=== PATIENT | female | born 1940 | race Caucasian/White ===

== ENCOUNTER 2019-09-03 17:36 | Observation (INO) | payer MEDICARE, BC, SELFPAY ==
--- NOTE | ~2019-09-03 | MR_ITS ---
EXAMINATION: MR brain/brain stem wo/w con DATE: 09/04/2019 08:56 INDICATION: Transient ischemic attack. TECHNIQUE: Magnetic resonance imaging (MRI) of the brain and brainstem was performed without and with 18 mL MultiHance intravenous contrast. Sequences included sagittal and axial T1-weighted FSE, axial diffusion-weighted FS EPI, axial T2*-weighted GRE, axial T2-weighted FLAIR Propeller, and axial T2-we ighted Propeller. Postcontrast sequences included axial and coronal T1-weighted FSE. Apparent diffusi on coefficient (ADC) maps were created. COMPARISON: Head CT 09/03/2019 FINDINGS: There are scattered areas of nonspecific increased T2-weighted signal intensity in the cere bral white matter and [place]. There is no intracranial hemorrhage, acute infarction, or abnormal intrac ranial mass lesion. The ventricles are normal in size. There are likely changes of ocular lens replac ement surgeries. There is near complete opacification of right sphenoid sinus with thickening and scl erosis of the sinus kim on the prior CT, consistent with chronic sinusitis. The mastoid air cells a re normal. IMPRESSION: 1. Extensive nonspecific cerebral white matter disease and pontine disease, which likely represents c hronic small vessel ischemic disease. 2. Chronic sphenoid sinusitis. Reviewed, dictated and finalized at location A. ING SURGICAL SERVICES DIRECTOR IMPRESSION: 1. Extensive nonspecific cerebral white matter disease and pontine disease, whi ch likely represents chronic small vessel ischemic disease. 2. Chronic sphenoid sinusitis.
--- NOTE | ~2019-09-03 | XR_ITS ---
EXAMINATION: XR chest 1V portable DATE: 09/03/2019 19:00 INDICATION: Stroke symptoms with dysarthria and expressive aphasia. TECHNIQUE: frontal view of the chest was obtained. COMPARISON: Chest radiograph dated 01/25/[address] dated 02/03/2019 FINDINGS: The lungs remain clear with no focal airspace opacities, pulmonary edema, pleural effusion or pneumot horax. Heart size is normal. Tortuous thoracic aorta. Old proximal left humeral fracture deformity. M oderate thoracic spondylosis. IMPRESSION: 1. No acute cardiopulmonary disease. Reviewed, dictated and finalized at location A. CUTTING MACHINE OPERATOR
--- NOTE | ~2019-09-03 | US_ITS ---
EXAMINATION: US carotid duplex BI DATE: 09/04/2019 09:24 INDICATION: Transient ischemic attack. TECHNIQUE: Grayscale, color Doppler, and pulsed Doppler images of the cervical carotid arteries were obtained. The degree of vessel stenosis is placed in one of the following categories: normal, <50%, 5 0-69%, >=70% but less than near-occlusion, near-occlusion, or total occlusion. Note that percent sten osis relative to normal distal artery lumen diameter is indirectly measured from velocity measurement s as described by Jos, et al. Radiology 2003; 229:340-346. COMPARISON: None. FINDINGS: RIGHT: The right common carotid artery (CCA) peak systolic velocity (PSV) is 59 cm/s. The right internal car otid artery (ICA) PSV is 61 cm/s. The right ICA end-diastolic velocity (EDV) is 22 cm/s. The right IC A/CCA PSV ratio is 1.0. Grayscale and color Doppler images yield an estimate of <50% diameter reducti on from plaque in the ICA. There is antegrade flow in the right vertebral artery. LEFT: The left CCA PSV is 59 cm/s. The left ICA PSV is 61 cm/s. The left ICA EDV is 22 cm/s. The left ICA/C CA PSV ratio is 1.0. Grayscale and color Doppler images yield an estimate of <50% diameter reduction from plaque in the ICA. There is antegrade flow in the left vertebral artery. IMPRESSION: 1. <50% stenosis in the right internal carotid artery. 2. <50% stenosis in the left internal carotid artery. Reviewed, dictated and finalized at location A. LACER
--- NOTE | ~2019-09-03 | CT_ITS ---
EXAMINATION: CT brain wo con DATE: 09/03/2019 18:49 INDICATION: Dysarthria with expressive aphasia. TECHNIQUE: Computed tomography (CT) of the head was performed without intravenous contrast. Sagittal and coronal reconstructions were performed. The mA was adjusted according to patient size. Iterative reconstruction technique was employed. The dose-length product was 605.33 mGy-cm. COMPARISON: head CT dated 01/24/2018 FINDINGS: No acute intracranial hemorrhage, acute infarction or abnormal extra axial fluid collection. There is extensive scattered white matter hypoattenuation consistent with chronic small vessel ischemic disea se. Symmetric prominence of the sulci and ventricles consistent with mild age-appropriate diffuse cer ebral volume loss. No mass/mass effect. Changes of bilateral intraocular lens replacement. The orbits and mastoid air cells are normal. Persistent near complete opacification of the right sphenoid sinus with increased central attenuation and peripheral thickened sclerotic kim consistent with likely c hronic fungal sinusitis. Intracranial calcified cerebral atherosclerosis is noted. IMPRESSION: 1. No acute intracranial process. 2. Age-related changes including mild diffuse volume loss and extensive scattered white matter hypoat tenuation consistent with chronic small vessel ischemic disease. 3. Unchanged likely chronic fungal sinusitis at the right sphenoid sinus. Reviewed, dictated and finalized at location A. OMS ENTRY WRITER IMPRESSION: 1. No acute intracranial process. 2. Age-related changes including mild diffuse volume loss and extensive scatter ed white matter hypoattenuation consistent with chronic small vessel ischemic d isease. 3. Unchanged likely chronic fungal sinusitis at the right sphenoid sinus.
[2019-09-03 17:58] VITALS: BP 151/79; PULSE 65; RESP 19; TEMP 36.2; O2SAT 98
[2019-09-03 19:17] VITALS: BP 108/67; PULSE 59; RESP 21; O2SAT 96
[2019-09-03 19:33] LABS: Basophils Percent Auto 0.4 % (0.2-1.2); Eosinophils Absolute Auto 0.3 K/mm3 (0-0.3); Eosinophils Percent Auto 3.7 % (0-4.4); Hematocrit 39.4 % (37.0-47.0); Immature Granulocyte Absolute 0.01 K/mm3 (0.00-0.031); Immature Granulocyte Percent A 0.1 % (0-0.5); Lymphocytes Absolute Auto 1.93 K/mm3 (0.9-3.2); Lymphocytes Percent Auto 27.6 % (18.3-44.2); Mean Corpuscular Hemoglobin 31.8 pg (26-34); Mean Corpuscular Volume 96.3 fl (80-100); Mean Platelet Volume 11.3 fl (7.4-10.4); Monocytes Absolute Auto 0.5 K/mm3 (0.1-0.6); Monocytes Percent Auto 7.6 % (2.6-8.5); Neutrophils Absolute Auto 4.2 K/mm3 (1.3-6.7); Neutrophils Percent Auto 60.6 % (45.5-73.1); Platelet Count Result 220 k/mm3 (150-375); Red Blood Count 4.09 M/mm3 (4.2-5.4); Red Cell Distribution Width 12.1 % (11.5-14.5)
[2019-09-03 19:38] LABS: Add Urine Microscopic? YES; Appearance Urine Clear (Clear); Bacteria Urine Trace /hpf; Bilirubin Urine Negative (Negative); Color Urine Amber (Yellow); Glucose Urine UA Negative (Negative); Ketones Urine Negative (Negative); Leukocyte Esterase Ur 1+ LEU/UL (Negative); Mucus Urine Few /lpf; Nitrate Urine Negative (Negative); Protein Urine 1+ mg/dL (Negative); Specific Grav Ur 1.025 (1.001-1.035); Squamous Epithelial Cell Urine Many /hpf (Few); Urobilinogen Urine Negative mg/dL (<2.0)
[2019-09-03 19:39] LABS: Blood Urine Negative (Negative)
[2019-09-03 19:46] LABS: Blood Urea Nitrogen 22 mg/dL (7-17); Carbon Dioxide 24 mmol/L (22-30); Chloride 102 mmol/L (98-107); Estimated CRCL calculation 52 ml/min; Estimated Glomerular Filt Rate > 60; Glucose 110 mg/dL (65-105); Sodium 140 mmol/L (137-145)
--- NOTE | 2019-09-03 19:53 | ED.AMS ---
HPI - Altered Mental Status General Chief Complaint: Altered Mental Status <Karlos Srivastava MD - Last Filed: 09/03/19 20:24> Stated Complaint: NEURO <Karlos Srivastava MD - Last Filed: 09/03/19 20:24> Time Seen by Provider: 09/03/19 17:40 <Karlos Srivastava MD - Last Filed: 09/03/19 20:24> History of Present Illness HPI narrative: Patient is a 78-year-old female who presents the ER for concerns of strokelike symptoms. Patient son was speaking to her on the phone about dentist appointment that occurred earlier in the day. She had difficulty with remembering details as well as remembering her grandchildren's name as well as different letters. Patient could recite numbers on her own. Son felt patient had some mild slurred speech. This occurred at 4:30 PM. Upon arrival here patient is neurologically intact. Patient reports that she takes Eliquis chronically. She has had a TIA in the past. She is also recently been diagnosed with a PE. Patient reports that she thinks she may have been having difficulty communicating due to anxiousness and frustration. When she was speaking to the dentist office they were getting confused by what she was trying to tell them but they finally got it straightened out. She spoke with her son immediately after the conversation with the dental office and was still frustrated and feels that may have contributed to some of her difficulty speaking. She had no focal numbness or weakness in arm or leg. There is no observed facial droop. Symptoms lasted 1 hour. <Karlos Srivastava MD - Last Filed: 09/03/19 20:24> Related Data Allergies/Adverse Reactions: Allergies Allergy/AdvReac Type Severity Reaction Status Date / Time morphine Allergy Intermediate Unknown Verified 09/03/19 18:15 prednisone Allergy Unknown Other Verified 05/27/18 17:59 <Karlos Srivastava MD - Last Filed: 09/03/19 20:24> Review of Systems Review of Systems: All systems reviewed & are unremarkable except as noted in HPI and below <Karlos Srivastava MD - Last Filed: 09/03/19 20:24> Constitutional: Constitutional: Denies chills, Denies fever(s) and Denies weakness <Karlos Srivastava MD - Last Filed: 09/03/19 20:24> ENT: Denies nasal congestion and Denies sore throat <Karlos Srivastava MD - Last Filed: 09/03/19 20:24> PMFSH Past Medical History Medical History: Medical History (Updated 09/03/19 @ 20:24 by Karlos Srivastava MD) Coronary artery disease Diabetes type 2, controlled Hyperlipidemia Hypertension Memory impairment Neuropathy Pulmonary embolism <Karlos Srivastava MD - Last Filed: 09/03/19 20:24> Surgical History Surgical History: Surgical History (Updated 09/03/19 @ 20:11 by Karlos Srivastava MD) H/O cardiac catheterization History of left knee replacement Liver transplanted <Karlos Srivastava MD - Last Filed: 09/03/19 20:24> Social History Social History: Social History (Updated 09/03/19 @ 20:11 by Karlos Srivastava MD) Social History: Non-smoker Gender identity (if verbalized by the patient): Female <Karlos Srivastava MD - Last Filed: 09/03/19 20:24> Exam Narrative: Exam Narrative: GENERAL: Well-appearing, well-nourished, and in no acute distress. HEAD: Normocephalic, atraumatic. EYES: PERRLA and EOMI. ENT: Mucous membranes moist. CHEST: Clear to auscultation. No respiratory distress. HEART: Regular rate and rhythm. Normal peripheral pulses. ABDOMEN: Soft, nontender, nondistended. EXTREMITIES: Normal range of motion. No edema. SKIN: Warm, dry, no rash. NEURO: No upper or lower extremity drift. Cranial nerves II through XII intact. Sensation intact. No dysarthria, no expressive aphasia. Alert and oriented x3. <Karlos Srivastava MD - Last Filed: 09/03/19 20:24> Course Course Emergency Course: Patient and family informed of results. Would feel more comfortable being evaluated in the hospita., will contact hospitalist se
[2019-09-03 19:57] LABS: Troponin I < 0.012 ng/mL (0.000-0.034)
--- NOTE | 2019-09-03 20:31 | ECG_ITS ---
Measurements Intervals [place] Rate: 54 P: 51 AR: 173 QRS: -43 QRSD: 125 T: 28 QT: 426 QTc: 405 Interpretive Statements SINUS BRADYCARDIA LEFT AXIS DEVIATION RIGHT BUNDLE BRANCH BLOCK ABNORMAL ECG Electronically Signed On 09-04-2019 6:50:29 BOX OFFICE CLERK by Alberto Coleman D.O.
[2019-09-03 20:47] VITALS: BP 120/54; PULSE 53; RESP 14; O2SAT 100
[2019-09-03 21:18] VITALS: BP 122/74; PULSE 56; RESP 14; TEMP 36.2; O2SAT 100
--- NOTE | 2019-09-03 21:31 | PC.NURSE ---
This patient, Morelia Rodriguez, was admitted to Medical Room 340-01. Patient/family oriented to hospital policies and general routines including ID bracelet, bed and alarms, visiting hours, pain management, procedures, bathroom and other care routines, personal items, smoking policy, room service/diet, and visiting hours. Valuables list has been completed. Information on how to activate the Rapid Response Team has been discussed. Patient/Family are encouraged to report perceived risks to care and to ask questions if they do not understand what they are told or what they should do.
[2019-09-03 21:40] VITALS: PULSE 52
[2019-09-03 22:00] VITALS: BP 147/63; PULSE 60; RESP 16; TEMP 36.6; O2SAT 98
[2019-09-03 23:27] VITALS: BMI 33.9
[2019-09-04] VITALS: PULSE 70
[2019-09-04 00:17] LABS: INR 1.1; Prothrombin Time 13.4 Seconds (11.1-14.7)
[2019-09-04 00:18] LABS: Partial Thromboplastin Time 32.7 SECONDS (22.3-36.8)
[2019-09-04 04:00] VITALS: PULSE 64
[2019-09-04 04:55] VITALS: BP 150/60; PULSE 58; RESP 18; TEMP 36.2; O2SAT 100
--- NOTE | 2019-09-04 04:56 | PM.IMHP ---
H&P: HPI History of Present Illness Chief complaint: Stroke-like symptoms Narrative: Morelia Rodriguez is a 78 year old female with a past medical history of liver transplant, recent diagnosis of pulmonary embolism on Eliquis short-term memory loss, hypertension, and and TIA who presented to the ER as family was worried about stroke like symptoms. The patient had evidently been on the phone arguing with her dentist about paperwork that needed to be finished so that she could have her teeth pulled. After she hung up with the dentist she got a call from her son. When she entered the phone she was trying to explain to what had happened the dentist she had trouble getting words out. She was having difficulty remembering details such as her grandchildren's name. She could recite numbers on her own. Son felt that the patient's speech was slurred. All these events occurred around 4:30 p.m. the patient reportedly had a TIA 4 5 years ago. But she reports that she always has short-term memory issues. The patient stated that she was still frustrated when she was talking to her son after she got off the phone with the [facility]. She thought that this may have contributed to some of her difficulty speaking. The patient stated that when she could not think of her grandchildren names state was making some noises S sound like gibberish. The patient reports that she knows she has had some poison in her mouth. She got multiple bad teeth in her teeth break off like pieces of shale. That is 1 of the reason she was so frustrated with the paperwork at the dentist office not being done so that she could have her teeth extracted. The patient also was diagnosed with a pulmonary embolism about 9 months ago and is on chronic anticoagulation with Eliquis. Review of Systems Review of Systems: Narrative: Except as documented in the HPI, all other systems were reviewed and are negative. [facility] Past Medical History Medical History (Updated 09/04/19 @ 05:00 by Deepti Black DO) Coronary artery disease Cardiac catheterization performed due to preop clearance April 2018 demonstrated less than 25% of mid LAD stenosis and 40% RCA stenosis Diabetes type 2, controlled Hyperlipidemia Hypertension Memory impairment Neuropathy Pernicious anemia Pulmonary embolism On chronic anticoagulation with Eliquis Surgical History Surgical History (Updated 09/04/19 @ 05:05 by Deepti Black DO) H/O cardiac catheterization April 2018 History of left knee replacement Liver transplanted Family History Family History (Updated 09/04/19 @ 05:00 by Deepti Black DO) Other Adopted Unknown family medical history Social History Social History (Updated 09/04/19 @ 05:02 by Deepti Black DO) Social History: Primary care physician Dr. Alfredo John Code status: Full code Smoking status: Never smoker Alcohol intake: never Substance use: never Substance use type: does not use Gender identity (if verbalized by the patient): Female Spiritual care concerns: No Agree to blood products: Yes Meds Home Medications and Allergies Home Medications Medication Instructions Recorded Confirmed Type albuterol sulfate 2 puff INHALATION Q6-8H PRN 09/03/19 09/03/19 History apixaban [Eliquis] 2.5 mg PO BID 09/03/19 09/03/19 History ergocalciferol (vitamin D2) 1,250 mcg PO WEEKLY 09/03/19 09/03/19 History [Vitamin D2] hydrocodone-acetaminophen 1 tablet PO Q4-6H PRN 09/03/19 09/03/19 History hydroxyzine HCl 10 mg PO HS 09/03/19 09/03/19 History lisinopril 40 mg PO DAILY 09/03/19 09/03/19 History meclizine 12.5 mg PO BID PRN 09/03/19 09/03/19 History meloxicam 7.5 mg/kg DAILY PRN 09/03/19 09/03/19 History metformin 500 mg PO DAILY 09/03/19 09/03/19 History oxybutynin chloride 5 mg PO DAILY 09/03/19 09/03/19 History rosuvastatin 10 mg PO DAILY 09/03/19 09/03/19 History tacrolimus 1.5 mg PO BID 09/03/19 09/03/19 History Allergies Allergy/A
[2019-09-04 05:01] LABS: Glucose Point of Care 133 (65-105)
[2019-09-04 08:04] VITALS: PULSE 72
[2019-09-04] MEDS: lisinopriL 20 MG TABLET 40 MG PO (09:57)
[2019-09-04] MEDS: metFORMIN HCL XR 500 MG TAB.SR.24H PO (09:57)
[2019-09-04] MEDS: APIXABAN 2.5 MG TABLET PO (09:57)
[2019-09-04] MEDS: ROSUVASTATIN 10 MG TABLET PO (09:57)
[2019-09-04 12:00] VITALS: PULSE 62
[2019-09-04 14:00] VITALS: BP 133/44; PULSE 53; RESP 20; TEMP 36.1; O2SAT 100
--- NOTE | 2019-09-04 19:03 | PM.DS ---
DS: Diagnosis Admitting Diagnosis Admitting Diagnosis: Transient cerebral ischemic attack, unspecified Discharge Diagnosis (1) TIA (transient ischemic attack): Code(s): G45.9 - Transient cerebral ischemic attack, unspecified Status: Acute Assessment and Plan: Date of Service 09/04/19 Ms. Rodriguez is a 78yo F with history of hypertension, history of liver transplant, non insulin dependent type 2 diabetes mellitus, short term memory loss, previous TIAs, history of PE on Eliquis, and coronary artery disease who presented to the ED due to slurred speech. She reports that she has been dealing with memory impairment for years which is gradually getting worse. She gets frustrated with herself when she cannot think of the words she wants to say, and when she gets frustrated these symptoms worsen. She noted that she was on the phone with her dentist's office trying to make an appointment, getting frustrated having issues communicating, and her son felt that her speech was slurred which prompted her to come to ED for evaluation. She tells me her symptoms resolved by the time she arrived to ED. She describes that she has had TIAs in the past a few years ago. CT brain revealed no acute intracranial abnormalities. MRI brain confirmed no acute stroke, but showed extensive nonspecific cerebral white matter disease and pontine disease which likely represents chronic small vessel ischemic disease. While in the room, she received a phone call from PCPs office and scheduled a follow up appointment with Dr Marshall for 9:30 am the following morning 09/05. She was instructed to discuss her memory issues with Dr Marshall. Detailed discussion was held with Ms. Rodriguez that the event that occurred yesterday may have been a TIA, but that it also seems she is showing signs of dementia and issues with ongoing aphasia. She agrees to discuss this with PCP tomorrow and could establish with a neurologist outpatient if PCP would find this appropriate. She believed she had been on memantine in the past. Carotid dopplers were within normal limits. Her symptoms were resolved day of discharge and she was hemodynamically stable for discharge 09/04/[address] appointment [address] Marshall, PCP, the following day. (2) Memory impairment: Code(s): R41.3 - Other amnesia Status: Acute Assessment and Plan: She describes ongoing issues with short term memory and she gets frustrated when she can't communicate what she would like to say. She feels this is worsening over time. Follow up with PCP. (3) Hypertension: Code(s): I10 - Essential (primary) hypertension Status: Acute Assessment and Plan: Stable maintained on her home lisinopril. (4) Coronary artery disease: Code(s): I25.10 - Atherosclerotic heart disease of [place] coronary artery without angina pectoris Status: Acute Assessment and Plan: Stable. No chest pain. (5) Diabetes type 2, controlled: Code(s): E11.9 - Type 2 diabetes mellitus without complications Status: Acute Assessment and Plan: Blood sugars stable, continue home metformin. DS: Summary Time Spent with Patient Time attestation: Total time spent providing and/or coordinating discharge services: 35 minutes Exam Narrative: Exam Narrative: General: Female resting supine in bed in no acute distress. HEENT: Normocephalic, EOMI, oral mucosa moist, poor dentition. Cardiovascular: Rate and rhythm are regular. Respiratory: Lungs clear to auscultation [place]. Abdomen: Soft, non-tender, non-distended, bowel sounds present. Extremities: Peripheral pulses intact. No edema. Neuro: Alert and oriented. No focal neurological deficits. She does have some slight word-searching on exam which she says is not uncommon for her. Speech is clear. Upper and lower extremity strength i
== END 2019-09-04 16:40 | disposition home or self-care (01) ==
LOC: ANHED 20:35 → ANH3MED 21:02
PROVIDERS: Emergency Medicine; Admitting Provider Internal Medicine; Emergency Provider Emergency Medicine; PCP Internal Medicine; Visit Provider Family Medicine
DX: G45.9 Transient cerebral ischemic attack, unspecified (principal); R41.3 Other amnesia; I10 Essential (primary) hypertension; I25.10 Atherosclerotic heart disease of native coronary artery without angina pectoris; E11.40 Type 2 diabetes mellitus with diabetic neuropathy, unspecified; E78.5 Hyperlipidemia, unspecified; D51.0 Vitamin B12 deficiency anemia due to intrinsic factor deficiency; Z79.01 Long term (current) use of anticoagulants; Z79.899 Other long term (current) drug therapy; Z86.711 Personal history of pulmonary embolism; Z86.73 Personal history of transient ischemic attack (TIA), and cerebral infarction without residual deficits; Z94.4 Liver transplant status; Z96.652 Presence of left artificial knee joint
CPT/HCPCS: 36415; 70450; 70553; 71045; 80048; 81001; 84484; 85025; 85610; 85730; 87086; 93005; 93880; 99285; A9270; A9577; G0378

== ENCOUNTER 2020-02-06 12:49 | Outpatient (CLI) | payer MEDICARE, BC, SELFPAY ==
--- NOTE | ~2020-02-06 | MM_ITS ---
EXAMINATION: MM screening alexis BI w nadine HISTORY: Screening mammogram TECHNIQUE: Craniocaudal and mediolateral oblique 3-D tomosynthesis images were obtained and synthetic 2-D images were generated. CAD analysis was submitted and interpreted. COMPARISON: 10/24/2018 bilateral digital screening mammogram 09/05/2017 diagnostic left digital mammogram 08/21/2017 bilateral digital screening mammogram BREAST PARENCHYMAL COMPOSITION: The breasts are heterogeneously dense, which may obscure small masses . FINDINGS: Scattered calcifications are noted bilaterally. There is no evidence of suspicious mass, ca lcification, or architectural distortion to suggest malignancy in either breast. There has been no carey spicious interval change. IMPRESSION: 1. No mammographic evidence of malignancy. 2. Recommend routine screening mammography in one year. BI-RADS Category 2: Benign finding(s). Reviewed, dictated and finalized at location A.
== END 2020-02-06 12:50 | disposition home or self-care (01) ==
LOC: ANHIMG 12:55
PROVIDERS: PCP Internal Medicine; Visit Provider Internal Medicine
DX: Z12.31 Encounter for screening mammogram for malignant neoplasm of breast (principal)
CPT/HCPCS: 77063; 77067

== ENCOUNTER 2020-05-12 12:10 | Outpatient (CLI) | payer MEDICARE, BC, SELFPAY ==
--- NOTE | ~2020-05-12 | XR_ITS ---
EXAMINATION: XR chest 2V EXAM DATE: 05/12/2020 12:50 INDICATION: Cough, epigastric pain. TECHNIQUE: Frontal and lateral projections of the chest obtained and reviewed. Comparison is made to prior examination from 09/03/2019. FINDINGS: The lungs are clear. There are no pleural effusions. There are dense mitral annular calcif ications. The cardiomediastinal silhouette is within normal limits. There is no pneumothorax suspect ed. The bones and soft tissues are unremarkable. IMPRESSION: No acute cardiopulmonary findings. Reviewed, dictated and finalized at location B. R OPERATOR HEAD
== END 2020-05-12 12:11 | disposition home or self-care (01) ==
PROVIDERS: PCP Internal Medicine; Visit Provider Internal Medicine
DX: R05 Cough (principal); R10.13 Epigastric pain
CPT/HCPCS: 71046

== ENCOUNTER 2020-09-10 11:28 | Outpatient (CLI) | payer MEDICARE, BC, SELFPAY | END 2020-09-10 11:29 | disposition home or self-care (01) | LOC: ANHCOVIDVC 11:28 | PROVIDERS: PCP Specialist | DX: Z23 Encounter for immunization (principal) | CPT/HCPCS: 0001A; 91300 ==

== ENCOUNTER 2020-10-01 11:27 | Outpatient (CLI) | payer MEDICARE, BC, SELFPAY | END 2020-10-01 11:28 | disposition home or self-care (01) | LOC: ANHCOVIDVC 11:28 | PROVIDERS: PCP Specialist | DX: Z23 Encounter for immunization (principal) | CPT/HCPCS: 0002A; 91300 ==

== ENCOUNTER 2020-11-26 14:42 | Emergency (ER) | payer MEDICARE, BC, SELFPAY ==
[2020-11-26 14:55] VITALS: BP 161/100; PULSE 58; RESP 18; TEMP 36.7; O2SAT 100
[2020-11-26 15:09] VITALS: BP 161/100; PULSE 58; RESP 18; TEMP 36.7; O2SAT 100
--- NOTE | 2020-11-26 15:25 | ED.GENADULT ---
HPI - General Adult General Chief complaint: Weakness Stated complaint: Nausea,Weak Time Seen by Provider: 11/26/20 15:26 Source: patient Mode of arrival: ambulatory Limitations: no limitations History of Present Illness HPI narrative: Alondra Rodriguez is a 79 yo female with dizziness, feels like had low blood sugar. All ready on meclazine for dizziness, eliquis for PE,liver transplant 2007; both covid- last 10/01/20. Able to eat and drink a little today but still not feeling any better. Has not taken meclizine but she seems pale and unstable and states that when she weans at all she feels very dizzy. patient has a history of being seen at [facility] last year for TIA; she is also very concerned about being able to take care of herself Related Data Home Medications Medication Instructions Recorded Confirmed Eliquis 2.5 mg PO BID 09/03/19 09/03/19 albuterol sulfate 2 puff INHALATION Q6-8H PRN 09/03/19 09/03/19 ergocalciferol (vitamin D2) 1,250 mcg PO WEEKLY 09/03/19 09/03/19 [Vitamin D2] hydrocodone-acetaminophen 1 tablet PO Q4-6H PRN 09/03/19 09/03/19 hydroxyzine HCl 10 mg PO HS 09/03/19 09/03/19 lisinopril 40 mg PO DAILY 09/03/19 09/03/19 meclizine 12.5 mg PO BID PRN 09/03/19 09/03/19 meloxicam 7.5 mg/kg DAILY PRN 09/03/19 09/03/19 metformin 500 mg PO DAILY 09/03/19 09/03/19 oxybutynin chloride 5 mg PO DAILY 09/03/19 09/03/19 rosuvastatin 10 mg PO DAILY 09/03/19 09/03/19 tacrolimus 1.5 mg PO BID 09/03/19 09/03/19 cetirizine mg 11/26/20 cholestyramine (with sugar) ea 11/26/20 duloxetine mg PO 11/26/20 memantine mg 11/26/20 montelukast mg 11/26/20 pregabalin 11/26/20 Allergies Allergy/AdvReac Type Severity Reaction Status Date / Time morphine Allergy Intermediate Unknown Verified 09/03/19 18:15 prednisone Allergy Unknown Other Verified 05/27/18 17:59 Review of Systems Review of Systems: Narrative: CONSTITUTIONAL: Denies fever, chills, sweats. EYES: Denies visual changes, redness, discharge. ENT: Denies rhinorrhea, congestion, sore throat, otalgia. CARDIOVASCULAR: Denies chest pain, palpitations, edema. RESPIRATORY: Denies dyspnea, wheezing, cough GASTROINTESTINAL: Denies abdominal pain, nausea, vomiting, diarrhea. GENITOURINARY: Denies dysuria, hematuria, abnormal discharge SKIN: Denies rash or itching. NEUROLOGIC: Denies numbness, or focal weakness. Complaining of dizziness PSYCHIATRIC: Denies anxiety or depression. [facility] Past Medical History Medical History Coronary artery disease Cardiac catheterization performed due to preop clearance April 2018 demonstrated less than 25% of mid LAD stenosis and 40% RCA stenosis Diabetes type 2, controlled Hyperlipidemia Hypertension Memory impairment Neuropathy Pernicious anemia Pulmonary embolism On chronic anticoagulation with Eliquis Surgical History Surgical History H/O cardiac catheterization April 2018 History of left knee replacement Liver transplanted Family History Family History Other Adopted Unknown family medical history Social History Social History Social History: Primary care physician Dr. Alfredo John Code status: Full code Smoking status: Never smoker Alcohol intake: never Substance use: never Substance use type: does not use Gender identity (if verbalized by the patient): Female Spiritual care concerns: No Agree to blood products: Yes Comments At time of signature, I agree with nursing past medical, surgical, social and family history. There is no relevant family history pertinent to the presenting complaint. Exam Narrative: Exam Narrative: GENERAL: This is a well-nourished, well-developed patient, in moderate distress. Feels distressed, feels dizzy, particularly with move
== END 2020-11-26 16:00 | disposition short-term general hospital (02) ==
PROVIDERS: Emergency Provider Nurse Practitioner; PCP Internal Medicine
DX: R42 Dizziness and giddiness (principal); I25.10 Atherosclerotic heart disease of native coronary artery without angina pectoris; E11.9 Type 2 diabetes mellitus without complications; E78.5 Hyperlipidemia, unspecified; I10 Essential (primary) hypertension; G62.9 Polyneuropathy, unspecified; Z86.711 Personal history of pulmonary embolism; Z79.01 Long term (current) use of anticoagulants; Z96.652 Presence of left artificial knee joint; Z94.4 Liver transplant status
CPT/HCPCS: 99212; G0463

== ENCOUNTER 2020-11-26 16:25 | Observation (INO) | payer MEDICARE, BC, SELFPAY ==
[2020-11-26] VITALS (11 sets, daily range): BP systolic 130–195; BP diastolic 71–105; PULSE 55–61; RESP 15–20; TEMP 36.4–36.6; O2SAT 96–100; BMI 32.8
--- NOTE | ~2020-11-26 | CT_ITS ---
EXAMINATION: CT brain wo con INDICATION: Dizziness and nausea COMPARISON: 09/03/2019 TECHNIQUE: Standard unenhanced head CT. The dose-length product (DLP) was 605.33 mGy-cm. The mA was a djusted according to patient size. Iterative reconstruction technique was employed. FINDINGS: There is no acute intraparenchymal hemorrhage. No evidence of mass lesion. No evidence of a cute infarction. There is mild periventricular and subcortical hypodensity probably related to small vessel ischemic disease. There is mild prominence of the sulci and ventricles related to cerebral atr ophy. Intracranial calcified cerebral atherosclerosis is noted. There are no extra-axial collections. There is no mass effect or midline shift. Changes in the globes are likely from ocular lens surgery. Again noted is near complete opacification of the right sphenoid sinus with central high attenuatio n and sclerosis of the sinus kim, consistent with chronic sinusitis. IMPRESSION: 1. No acute intracranial abnormality. 2. Age related findings. Reviewed, dictated and finalized at location A.
--- NOTE | 2020-11-26 17:03 | ECG_ITS ---
Measurements Intervals [place] Rate: 57 P: 67 MA: 207 QRS: -50 QRSD: 137 T: 17 QT: 434 QTc: 423 Interpretive Statements SINUS BRADYCARDIA WITH FIRST DEGREE AV BLOCK RIGHT BUNDLE BRANCH BLOCK LEFT ANTERIOR FASCICULAR BLOCK BASELINE ARTIFACT- I, II, III, AVR, AVL, AVF, V1, V3-V6 ABNORMAL ECG Electronically Signed On 11-26-2020 20:05:31 CDT by Alberto Coleman D.O.
[2020-11-26 17:16] LABS: Basophils Percent Auto 0.6 % (0.2-1.2); Eosinophils Absolute Auto 0.2 K/mm3 (0-0.3); Eosinophils Percent Auto 3.2 % (0-4.4); Hematocrit 39.7 % (37.0-47.0); Hemoglobin 13.1 g/dL (12.0-15.0); Immature Granulocyte Absolute 0.02 K/mm3 (0.00-0.031); Immature Granulocyte Percent A 0.3 % (0-0.5); Lymphocytes Absolute Auto 1.18 K/mm3 (0.9-3.2); Mean Corpuscular Hemoglobin 31.3 pg (26-34); Mean Platelet Volume 10.6 fl (7.4-10.4); Monocytes Absolute Auto 0.4 K/mm3 (0.1-0.6); Monocytes Percent Auto 6.6 % (2.6-8.5); Neutrophils Absolute Auto 4.4 K/mm3 (1.3-6.7); Neutrophils Percent Auto 70.3 % (45.5-73.1); Platelet Count Result 238 k/mm3 (150-375); Red Blood Count 4.18 M/mm3 (4.2-5.4); Red Cell Distribution Width 12.3 % (11.5-14.5); White Blood Count 6.2 K/mm3 (4.5-10.0)
--- NOTE | 2020-11-26 17:20 | PC.NURSE ---
Pt provided urine sample in bathroom, ambulating with cane, unsteady shuffling gait sometimes I walk like that, I just feel dizzy . Assisted safely to bed. Hx liver transplant, CVA (on Eliquis). NSR on monitor, 99% RA, hypertensive /
[2020-11-26 17:24] LABS: Glucose Point of Care 134 mg/dl (65-105)
[2020-11-26 17:25] LABS: Anion Gap 7 mmol/L (8-16); Blood Urea Nitrogen 20 mg/dL (7-17); Carbon Dioxide 26 mmol/L (22-30); Chloride 106 mmol/L (98-107); Estimated CRCL calculation 54 ml/min; Estimated Glomerular Filt Rate > 60; Glucose 150 mg/dL (65-105); Potassium 4.3 mmol/L (3.4-5.0); Sodium 139 mmol/L (137-145)
--- NOTE | 2020-11-26 18:45 | PC.NURSE ---
Dr Horner at bedside for assessment
--- NOTE | 2020-11-26 19:42 | ED.DIZZY ---
HPI - Dizziness General Chief Complaint: Syncope Stated Complaint: from express care, dizzy, near syncope Time Seen by Provider: 11/26/20 17:18 Source: patient and family Mode of arrival: ambulatory Limitations: other (Somewhat poor historian) History of Present Illness HPI Narrative: 79-year-old female Here for evaluation of episodes of dizziness that happened yesterday and today Yesterday she had a dizzy and somewhat off-balance feeling along with perhaps a little bit of nausea which she thought might have been caused by low blood sugar She used to be diabetic but it resolved after she had a liver transplant but it was her recollection that low blood sugars sometimes felt like that She ate sugar and berries and felt better This afternoon her son went to visit her and again she was experiencing some lightheadedness/dizziness She mentions that it is always associated with or caused by changes in positions however at this time effectively it is completely resolved She does not have any other symptoms such as visual symptoms, tinnitus, headache, vomiting Related Data Home Medications Medication Instructions Recorded Confirmed Eliquis 2.5 mg PO BID 09/03/19 09/03/19 albuterol sulfate 2 puff INHALATION Q6-8H PRN 09/03/19 09/03/19 ergocalciferol (vitamin D2) 1,250 mcg PO WEEKLY 09/03/19 09/03/19 [Vitamin D2] hydrocodone-acetaminophen 1 tablet PO Q4-6H PRN 09/03/19 09/03/19 hydroxyzine HCl 10 mg PO HS 09/03/19 09/03/19 lisinopril 40 mg PO DAILY 09/03/19 09/03/19 meclizine 12.5 mg PO BID PRN 09/03/19 09/03/19 meloxicam 7.5 mg/kg DAILY PRN 09/03/19 09/03/19 metformin 500 mg PO DAILY 09/03/19 09/03/19 oxybutynin chloride 5 mg PO DAILY 09/03/19 09/03/19 rosuvastatin 10 mg PO DAILY 09/03/19 09/03/19 tacrolimus 1.5 mg PO BID 09/03/19 09/03/19 cetirizine mg 11/26/20 cholestyramine (with sugar) ea 11/26/20 duloxetine mg PO 11/26/20 memantine mg 11/26/20 montelukast mg 11/26/20 pregabalin 11/26/20 Allergies Allergy/AdvReac Type Severity Reaction Status Date / Time morphine Allergy Intermediate Unknown Verified 09/03/19 18:15 prednisone Allergy Unknown Other Verified 05/27/18 17:59 Review of Systems Review of Systems: All systems reviewed & are unremarkable except as noted in HPI and below Constitutional: Constitutional: Reports no additional constitutional complaints, Denies chills, Denies fever(s), Denies headache(s) and Reports weakness Eyes: Eyes: Reports no additional eye complaints and Denies change in vision ENT: Reports vertigo, Reports dizziness, Denies headache(s) and Denies sore throat Cardiovascular: Cardiovascular: Denies chest pain and Denies dyspnea Respiratory: Respiratory: Denies cough and Denies dyspnea Gastrointestinal: Gastrointestinal: Denies abdominal pain, Denies diarrhea, Reports nausea and Denies vomiting Genitourinary: Genitourinary: Denies urinary frequency and Denies dysuria Musculoskeletal: Musculoskeletal: Reports back pain, Denies deformity, Denies arthralgias, Denies joint swelling and Denies numbness Integumentary/Breasts: Skin/Breast: Denies rash and Denies wounds Neurologic: Denies headache(s), Denies focal weakness and Denies numbness Psychiatric: Psychiatric: Reports no additional psychiatric complaints Endocrine: Endocrine: Reports no additional endocrine complaints Hematologic/Lymphatic: Hematologic/Lymphatic: Reports no additional hematologic/lymphatic complaints Allergic/Immunologic: Allergic/Immunologic: Reports no additional allergic/immunologic complaints PMFSH Past Medical History Medical History Coronary artery disease Cardiac catheterization performed due to preop clearance April 2018 demonstrated less than 25% of mid LAD stenosis and 40% RCA stenosis Diabetes type 2, controlled Hyperlipidemia Hypertension Memory impairment Neuropathy Pernicious anemia Pulmonary embolism On chronic antico
--- NOTE | 2020-11-26 23:08 | ADMGEN ---
This patient, Morelia Rodriguez, was admitted to [facility] Surg Room 325-01. Patient/family oriented to hospital policies and general routines including ID bracelet, bed and alarms, visiting hours, pain management, procedures, bathroom and other care routines, personal items, smoking policy, room service/diet, and visiting hours. Information on how to activate the Rapid Response Team has been discussed. Patient/Family are encouraged to report perceived risks to care and to ask questions if they do not understand what they are told or what they should do.
--- NOTE | 2020-11-27 05:18 | PM.IMHP ---
H&P: HPI History of Present Illness Date/Time: 11/27/20 05:18 Chief Complaint: Dizzy and lightheaded Narrative: 79-year-old female with past medical history of benign vertigo, mild cognitive impairment, and hypertension who presented to the ER with dizziness and lightheadedness. The patient reported that she has had 2 days of dizziness and lightheadedness. She reported that she has been feeling off balance. She initially told me that she did not feel as if the room was spinning but that she felt she was spinning. But then later in November interview she actually denied having said that. She denies any headache, dysmetria or increased lower extremity weakness. She thought that her symptoms could be due to low blood sugars. So on the 1st day when her symptoms happen she ate some fruit in thought that her symptoms improved. However when her symptoms occurred yesterday prior to presentation to the ER eating did not seem to improve her symptoms. Her ears frequently get cerumen impaction. Her ears have not been cleared out in over a year. She had orthostatic vital signs performed in the ER which were unremarkable. She denied any change in her symptoms with position changes however the time of my evaluation any time the patient was looking over to the right she became acutely dizzy and had nystagmus. The symptoms started after I tried to flush the patient's ears with hydrogen peroxide solution. She reported after that she developed nikhil vertigo. Her vertigo is better if she closed her eyes. She denied having any overt nausea. She has not had any recent viral symptoms. She reports that meclizine usually helps her symptoms. It does not sound like the patient has tried her home meclizine. She does have a history of prior liver transplant. She reports that her last tacrolimus level was undetectable and that her transplant surgeon 1 her have a repeat tacrolimus level this week. Patient is only a fair historian. Review of Systems Review of Systems: Narrative: 12 systems were reviewed with pertinent positives and negatives per HPI. Except as documented in the HPI, all other systems were reviewed and are negative. [facility] Past Medical History Medical History Coronary artery disease Cardiac catheterization performed due to preop clearance April 2018 demonstrated less than 25% of mid LAD stenosis and 40% RCA stenosis Diabetes type 2, controlled Hyperlipidemia Hypertension Memory impairment Neuropathy Pernicious anemia Pulmonary embolism On chronic anticoagulation with Eliquis Surgical History Surgical History H/O cardiac catheterization April 2018 History of left knee replacement Liver transplanted Family History Family History Other Adopted Unknown family medical history Social History Social History (Updated 11/27/20 @ 09:21 by Deepti Black DO) Social History: She lives in her own home. She ambulates with assistance of a cane. She had a 3 children her daughter of complications of pneumonia. She has 2 sons who are still living. Primary care physician Dr. Alfredo John Code status: Full code Smoking status: Never smoker Second hand tobacco smoke exposure: No Alcohol intake: never Substance use: never Substance use type: does not use Gender identity (if verbalized by the patient): Female Spiritual care concerns: No Agree to blood products: Yes Meds Home Medications and Allergies Home Medications Medication Instructions Recorded Confirmed Type Eliquis 2.5 mg PO BID 09/03/19 11/27/20 History ergocalciferol (vitamin D2) 1,250 mcg PO WEEKLY 09/03/19 11/27/20 History [Vitamin D2] hydrocodone-acetaminophen 1 tablet PO Q4-6H PRN 09/03/19 11/27/20 History hydroxyzine HCl 10 mg PO HS 09/03/19 11/27/20 History lisinopri
[2020-11-27 06:00] VITALS: BP 121/54; PULSE 56; RESP 16; TEMP 36.2; O2SAT 96
[2020-11-27] MEDS: LACTATED RINGERS 1,000 ML 125 ML IV CONT ×2 (07:00→07:10)
[2020-11-27] MEDS: ASPIRIN 81 MG CHEWABLE TABLET PO (08:16)
[2020-11-27] MEDS: APIXABAN 2.5 MG TABLET PO (08:17)
[2020-11-27] MEDS: DULoxetine HCL 30 MG CAPSULE.DR PO (08:17)
[2020-11-27] MEDS: lisinopriL 20 MG TABLET 40 MG PO (08:17)
[2020-11-27] MEDS: MONTELUKAST SODIUM 10 MG TABLET PO (08:17)
[2020-11-27] MEDS: LORATADINE 10 MG TABLET PO (08:17)
[2020-11-27] MEDS: MECLIZINE HCL 12.5 MG TABLET PO (08:19)
[2020-11-27] MEDS: ONDANSETRON INJ 4 MG/2 ML VIAL IV PUSH (11:31)
[2020-11-27 14:00] VITALS: BP 120/70; PULSE 67; RESP 18; TEMP 36.3; O2SAT 96
--- NOTE | 2020-11-27 15:34 | PC.NURSE ---
Patient had home medication Tacrolimus brought in from home by son. Bottle was dated use by 11/01/2018. Explain to patient these were and no good. Asked if I could dispose of them for her. Patient and son agreed and said they would call her pharmacy to obtain a new prescription.
[2020-11-27 15:50] VITALS: BP 105/56; BP 109/54; BP 98/58
--- NOTE | 2020-11-27 16:21 | PM.DS ---
DS: Admitting Diagnosis Admitting Diagnosis Admitting Diagnosis: Ear impaction Vertigo DS: Discharge Diagnosis Discharge Diagnosis (1) Vertigo: Code(s): R42 - Dizziness and giddiness Status: Acute Assessment and Plan: Symptoms are consistent with benign positional vertigo The patient has not had any recent viral symptoms that would suggest viral labyrinthitis. Will schedule the patient's meclizine 12.5 mg b.i.d.. Will request physical therapy outpatient will a therapy evaluation make sure the patient is stable on her feet. Patient may benefit from vestibular therapy as outpatient. (2) Impacted cerumen of both ears: Code(s): H61.23 - Impacted cerumen, bilateral Status: Acute Assessment and Plan: She may benefit from referral to ENT for removal of cerumen impaction as outpatient. Will order mineral oil to the right ear to help soften up the cerumen. Ears were irrigated with peroxide and NS Dizziness is better PT/OT DS: Summary Hospital Course Hospital Course: Patient is a 79-year-old female with a past medical history of vertigo, ear wax impaction, and liver transplant who presented to the ED for increased dizziness weakness. it was noted the patient had major ear wax impaction. Patient's ears were irrigated by Dr. Black last p.m. this a.m. patient was seen she was complaining of dizziness and nausea patient was given a Sprite and Zofran. Patient was also given meclizine and ears were irrigated few more times. Majority of the ear wax was removed. patient reports feeling better able to hear better and not as dizzy. Patient denies chest pain shortness of breath, nausea, vomiting, headache, numbness tingling, lightheadedness, fatigue, weakness, syncope, or falls. 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 Son was present in the room with her specific instructions were given to him and her about further care at home. Status at Discharge Functional status at discharge: uses cane/walker Overall status at discharge: patient is back to baseline Time Spent with Patient Time attestation: Total time spent providing and/or coordinating discharge services: Earwax removal irrigation of the ear documentation results interpretation and bedside education Time spent: Greater than 30 minutes Exam Const: General: comfortable and no acute distress Limitations: physical limitations (Needs a cane) HENMT: Head: normal to inspection, No palpable skull fracture present, normocephalic and atraumatic Ears: external ears normal and unable to visualize TM (ear wax) bilaterally General nose exam: Normal external nose present, Normal nares present, Normal nasal mucous membranes and turbinates present and No nasal discharge present Face and sinus: normal facial exam and sinuses nontender Mouth: Yes Normal oral and palatal mucosa present and Yes lip normal Teeth and gingiva: dentition normal, gingiva normal and abnormal tooth and associated gingiva Throat: posterior oropharynx normal Eyes: General: appearance normal, both eyes and all related structures Visual [place]: normal visual carolina by confrontation Alignment and Position: alignment normal Periorbital: periorbital findings normal Eyelids: eyelids normal Conjunctivae: conjunctivae normal Pupils: Equal, round and reactive pupils present EOM: EOMs intact bilaterally Neck: Neck: normal visual inspection, full ROM and no lymphadenopathy Thyroid: thyroid normal Resp: Effort & Inspection: normal respiratory effort and able to speak in complete sentences Auscultation: clear to auscultation bilaterally Cardio: Jugular venous distension: no JVD Rate: regular rate Rhythm: regular rhythm Heart sounds: S1 normal heart sound present and S2 normal heart sound present Peripheral pulses: Peripheral pulses 2+ throughout GI: Inspection: normal to inspection GI Palp: Yes Soft to palpation, No Tenderness to palpation present
[2020-11-30 21:46] LABS: Tacrolimus Prograf <1.0 mcg/L
== END 2020-11-27 17:40 | disposition home or self-care (01) ==
LOC: ANHED 19:55 → ANH3MEDSUR 21:44
PROVIDERS: Admitting Provider Internal Medicine; Emergency Provider Emergency Medicine; PCP Internal Medicine; Visit Provider Nurse Practitioner
DX: R42 Dizziness and giddiness (principal); H61.23 Impacted cerumen, bilateral; Z94.4 Liver transplant status; E11.9 Type 2 diabetes mellitus without complications; I10 Essential (primary) hypertension; E78.5 Hyperlipidemia, unspecified; Z86.711 Personal history of pulmonary embolism; Z79.01 Long term (current) use of anticoagulants
CPT/HCPCS: 36415; 70450; 80048; 80197; 82948; 85025; 93005; 96361; 96374; 97161; 97165; 99285; A9270; G0378; J2405; J7120

== ENCOUNTER 2021-05-25 14:07 | Outpatient (CLI) | payer MEDICARE, BC, SELFPAY ==
--- NOTE | ~2021-05-25 | MM_ITS ---
EXAMINATION: MM screening alexis BI w nadine HISTORY: Screening mammogram, family history of breast cancer in her mother and sister. TECHNIQUE: Craniocaudal and mediolateral oblique 3-D tomosynthesis images were obtained and synthetic 2-D images were generated. CAD analysis was submitted and interpreted. COMPARISON: 02/06/2020, 10/24/2018, 08/21/2017 BREAST PARENCHYMAL COMPOSITION: The breasts are heterogeneously dense, which may obscure small masses . FINDINGS: Scattered benign-appearing calcifications are present. There is no evidence of suspicious m ass, calcification, or architectural distortion to suggest malignancy in either breast. There has bee n no suspicious interval change. IMPRESSION: 1. No mammographic evidence of malignancy. 2. Recommend routine screening mammography in one year. BI-RADS Category 2: Benign finding(s). Reviewed, dictated and finalized at location A. ASSISTANT
--- NOTE | ~2021-05-25 | XR_ITS ---
XR shoulder RT min 2V DATE: 05/25/2021 14:58 INDICATION: Right shoulder pain TECHNIQUE: 4 views COMPARISON: None FINDINGS: Diffuse osteopenia. Degenerative spurring of the thoracic spine. There is mild osteoarthritis at the right glenohumeral joint. No fracture or dislocation, periosteal reaction or bone destruction or abnormal soft tissue calcifica tion. IMPRESSION: Diffuse osteopenia Glenohumeral osteoarthritis Reviewed, dictated and finalized at location A. AGE CLERK
== END 2021-05-25 14:08 | disposition home or self-care (01) ==
PROVIDERS: PCP Internal Medicine; Visit Provider Internal Medicine
DX: Z12.31 Encounter for screening mammogram for malignant neoplasm of breast (principal); M85.851 Other specified disorders of bone density and structure, right thigh; M19.011 Primary osteoarthritis, right shoulder
CPT/HCPCS: 73030; 77063; 77067

== ENCOUNTER 2022-07-24 15:37 | Outpatient (CLI) | payer MEDICARE, BC, SELFPAY ==
--- NOTE | ~2022-07-24 | MM_ITS ---
EXAMINATION: MM screening mammo BI HISTORY: Screening mammogram, family history of breast cancer in her mother and sister. TECHNIQUE: Full field digital craniocaudal and mediolateral oblique views of both breasts were obtain ed. CAD analysis was submitted and interpreted. COMPARISON: 05/25/2021, 02/06/2020, 10/24/2018, 08/21/2017 BREAST PARENCHYMAL COMPOSITION: The breasts are heterogeneously dense, which may obscure small masses . FINDINGS: Scattered benign-appearing calcifications are present. No suspicious mass, calcification, o r architectural distortion are identified in either breast to suggest malignancy. There has been no s uspicious interval change. IMPRESSION: 1. Recommend annual screening mammography while the patient remains in good health. BI-RADS Category 2: Benign finding(s). Reviewed, dictated and finalized at location A. R PANEL TECHNICIAN IMPRESSION: 1. Recommend annual screening mammography while the patient remains in good hea lth. BI-RADS Category 2: Benign finding(s).
== END 2022-07-24 15:38 | disposition home or self-care (01) ==
LOC: ANHIMG 15:39
PROVIDERS: PCP Internal Medicine; Visit Provider Internal Medicine
DX: Z12.31 Encounter for screening mammogram for malignant neoplasm of breast (principal)
CPT/HCPCS: 77067

== ENCOUNTER 2023-05-17 14:01 | Outpatient (CLI) | payer MEDICARE, BC, SELFPAY ==
--- NOTE | ~2023-05-17 | XR_ITS ---
EXAMINATION: XR shoulder RT min 2V DATE: 05/17/2023 15:01 INDICATION: Right shoulder pain. TECHNIQUE: 4 views of right shoulder were obtained. COMPARISON: Right shoulder radiographs 05/25/2021 FINDINGS: Bone alignment is normal. No fracture. There is mild osteoarthritis of glenohumeral joint a nd moderate osteoarthritis of acromioclavicular joint. IMPRESSION: 1. Polyarticular osteoarthritis. Reviewed, dictated and finalized at location E. ICAL RESEARCH TECH
== END 2023-05-17 14:02 | disposition home or self-care (01) ==
PROVIDERS: PCP Internal Medicine; Visit Provider Internal Medicine
DX: M19.011 Primary osteoarthritis, right shoulder (principal)
CPT/HCPCS: 73030

== ENCOUNTER 2023-06-14 14:31 | Outpatient (CLI) | payer MEDICARE, BC, SELFPAY ==
--- NOTE | ~2023-06-14 | XR_ITS ---
EXAMINATION: XR chest 2V 06/14/2023 15:07 INDICATION: Dyspnea PROCEDURE: 2 view chest COMPARISON: 10/15/2018 FINDINGS: The lungs are clear. The cardiomediastinal silhouette is within normal limits. There are no pleural effusions. There is no pneumothorax suspected. IMPRESSION: 1: NO ACUTE CARDIOPULMONARY DISEASE. Reviewed, dictated and finalized at location L. HEMODIALYSIS CHARGE
== END 2023-06-14 14:32 | disposition home or self-care (01) ==
PROVIDERS: PCP Internal Medicine; Visit Provider Internal Medicine
DX: R06.00 Dyspnea, unspecified (principal)
CPT/HCPCS: 71046

== ENCOUNTER 2023-06-26 15:51 | Emergency (ER) | payer MEDICARE, BC, SELFPAY ==
--- NOTE | ~2023-06-26 | XR_ITS ---
EXAMINATION: XR chest 2V DATE: 06/26/2023 17:00 INDICATION: Bilateral lower limb swelling TECHNIQUE: AP and lateral views of the chest are obtained. COMPARISON: 06/14/2023 FINDINGS: The lungs are free of acute opacities. No pleural effusion or pneumothorax. The cardiomedia stinal silhouette is normal. There is moderate thoracic spondylosis. Mild deformity proximal left hum erus may reflect prior fracture. IMPRESSION: 1. No acute cardiopulmonary abnormality. Reviewed, dictated and finalized at location L. E EXAMINER
--- NOTE | ~2023-06-26 | US_ITS ---
EXAMINATION: US venous doppler [facility] DATE: 06/26/2023 18:29 INDICATION: Lower limb swelling. TECHNIQUE: Grayscale ultrasound images without and with compression and Doppler ultrasound images of the bilateral lower extremity veins were obtained. COMPARISON: None. FINDINGS: The visualized portions of right common femoral vein, profunda (deep) femoral vein, femoral vein, pop liteal vein, posterior tibial veins, and greater saphenous vein outflow are patent. The visualized portions of left common femoral vein, profunda femoral vein, femoral vein, popliteal v ein, posterior tibial veins, and greater saphenous vein outflow are patent. IMPRESSION: 1. No deep venous thrombosis. Reviewed, dictated and finalized at location E. CAL TECHNOLOGIST GENERALIST
[2023-06-26 15:59] VITALS: BP 151/55; PULSE 67; RESP 20; TEMP 36.8; O2SAT 100
--- NOTE | 2023-06-26 16:32 | ECG_ITS ---
Measurements Intervals [place] Rate: 65 P: 70 MI: 192 QRS: -42 QRSD: 133 T: 45 QT: 431 QTc: 451 Interpretive Statements SINUS RHYTHM WITH OCCASIONAL SUPRAVENTRICULAR PREMATURE COMPLEXES BASELINE ARTIFACT LEFT AXIS DEVIATION [QRS AXIS < -30] RIGHT BUNDLE BRANCH BLOCK [120+ ms QRS DURATION, UPRIGHT V1, 40+ ms S IN I/aVL/V4/V5/V6] ABNORMAL ECG COMPARED TO ECG 11/26/2020 17:21:22 NO SIGNIFICANT CHANGE Electronically Signed On 06-27-2023 15:31:22 SUPPLY CHAIN ASSISTANT by Lizandro Lambert M.D.
[2023-06-26 16:45] LABS: Basophils Absolute Auto 0.1 K/mm3 (0.0-0.1); Basophils Percent Auto 0.9 % (0.2-1.2); Eosinophils Absolute Auto 0.5 K/mm3 (0-0.3); Eosinophils Percent Auto 6.3 % (0-4.4); Hematocrit 41.7 % (37.0-47.0); Hemoglobin 13.6 g/dL (12.0-15.0); Immature Granulocyte Absolute 0.02 K/mm3 (0.00-0.031); Immature Granulocyte Percent A 0.2 % (0-0.5); Lymphocytes Percent Auto 25.8 % (18.3-44.2); Mean Corpuscular HGB Conc 32.6 g/dl (32-36); Mean Corpuscular Hemoglobin 31.8 pg (26-34); Mean Corpuscular Volume 97.4 fl (80-100); Mean Platelet Volume 11.1 fl (7.4-10.4); Monocytes Absolute Auto 0.6 K/mm3 (0.1-0.6); Monocytes Percent Auto 7.1 % (2.6-8.5); Neutrophils Absolute Auto 4.9 K/mm3 (1.3-6.7); Neutrophils Percent Auto 59.7 % (45.5-73.1); Platelet Count Result 311 k/mm3 (150-375); Red Blood Count 4.28 M/mm3 (4.2-5.4); Red Cell Distribution Width 12.7 % (11.5-14.5); White Blood Count 8.2 K/mm3 (4.5-10.0)
[2023-06-26 16:56] LABS: Partial Thromboplastin Time 33.4 SECONDS (22.3-36.8)
[2023-06-26 16:57] LABS: Alanine Aminotransferase 19 U/L (6-35); Albumin Level 4.7 g/dL (3.5-5.1); Alkaline Phosphatase 62 U/L (38-126); Anion Gap 10 mmol/L (8-16); Aspartate Amino Transferase 32 U/L (14-36); Bilirubin,Total 0.6 mg/dL (0.2-1.3); Blood Urea Nitrogen 31 mg/dL (7-17); Calcium 9.4 mg/dL (8.4-10.2); Carbon Dioxide 25 mmol/L (22-30); Chloride 105 mmol/L (98-107); Estimated CRCL calculation 47 ml/min; Estimated Glomerular Filt Rate 60; Glucose 151 mg/dL (65-110); Potassium 4.9 mmol/L (3.4-5.0); Sodium 140 mmol/L (137-145)
[2023-06-26 17:01] VITALS: BP 129/59; PULSE 65; RESP 20; O2SAT 100
[2023-06-26 17:08] LABS: NT Pro B Type Natriuretic Pept 640 pg/mL (19.9-100); Troponin I < 0.012 ng/mL (0.000-0.034)
[2023-06-26 17:30] VITALS: BP 135/91; PULSE 63; RESP 16; O2SAT 97
--- NOTE | 2023-06-26 17:59 | ED.GENADULT ---
HPI - General Adult General Chief complaint: Recheck/Abnormal Lab/Rx Stated complaint: D-Dimer 1407 Time Seen by Provider: 06/26/23 17:05 Source: patient Mode of arrival: ambulatory Limitations: no limitations History of Present Illness HPI narrative: This is a 82-year-old female with PMH of HTN, T2dm, CAD, PE, memory impairment, TIA, pernicious anemia who presents to the ED with chief complaint of bilateral lower extremity swelling for the past 2-3 weeks. Patient's family is here and says she was seen by her primary care doctor today who ordered a D-dimer lab that was elevated and was referred over to the ER for further evaluation. Patient states that she has no lower extremity pain but the swelling has been slowly increasing over the past few weeks. She reports she has been feeling fine otherwise. States she has never been told she has heart failure and is unaware of any echocardiogram that she has had. Denies chest pain, shortness of breath, fevers, chills, nausea, vomiting. Past surgical history of cardiac catheterization, left knee replacement, liver transplantation. Related Data Home Medications Medication Instructions Recorded Confirmed apixaban 2.5 mg tablet (Eliquis) 2.5 mg PO BID 09/03/19 11/27/20 ergocalciferol (vitamin D2) 1,250 1,250 mcg PO WEEKLY 09/03/19 11/27/20 mcg (50,000 unit) capsule (Vitamin D2) hydrocodone 7.5 mg-acetaminophen 1 tablet PO Q4-6H PRN Pain 09/03/19 11/27/20 325 mg tablet hydroxyzine HCl 10 mg tablet 10 mg PO HS 09/03/19 11/27/20 lisinopril 40 mg tablet 40 mg PO DAILY 09/03/19 11/27/20 meloxicam 7.5 mg tablet 7.5 mg/kg DAILY PRN arthritis 09/03/19 11/27/20 oxybutynin chloride 5 mg 5 mg PO DAILY 09/03/19 11/27/20 tablet,extended release 24 hr rosuvastatin 10 mg tablet 10 mg PO DAILY 09/03/19 11/27/20 cetirizine 10 mg tablet 10 mg PO DAILY 11/26/20 11/27/20 duloxetine 30 mg capsule,delayed 30 mg PO DAILY 11/26/20 11/27/20 release montelukast 10 mg tablet 10 mg PO DAILY 11/26/20 11/27/20 Allergies Allergy/AdvReac Type Severity Reaction Status Date / Time morphine Allergy Intermediate Unknown Verified 06/26/23 16:31 prednisone Allergy Unknown Other Verified 06/26/23 16:31 Review of Systems Review of Systems: All systems as dictated in [facility] Past Medical History Medical History Coronary artery disease Cardiac catheterization performed due to preop clearance April 2018 demonstrated less than 25% of mid LAD stenosis and 40% RCA stenosis Diabetes type 2, controlled Hyperlipidemia Hypertension Memory impairment Neuropathy Pernicious anemia Pulmonary embolism On chronic anticoagulation with Eliquis Surgical History Surgical History H/O cardiac catheterization April 2018 History of left knee replacement Liver transplanted Family History Family History Other Adopted Unknown family medical history Social History Social History (Updated 11/27/20 @ 09:21 by Deepti Black DO) Social History: She lives in her own home. She ambulates with assistance of a cane. She had a 3 children her daughter of complications of pneumonia. She has 2 sons who are still living. Primary care physician Dr. Alfredo John Code status: Full code Smoking status: Never smoker Second hand tobacco smoke exposure: No Alcohol intake: never Substance use: never Substance use type: does not use Gender identity (if verbalized by the patient): Female Spiritual care concerns: No Agree to blood products: Yes Exam Narrative: GENERAL: Well-appearing, well-nourished, and in no acute distress. HEAD: Normocephalic, atraumatic. EYES: PERRLA and EOMI. ENT: Nares clear, no rhinorrhea or epistaxis. Mucous membranes moist. Oropharynx without tonsillar hypertrophy exudate or other lesion
== END 2023-06-26 19:33 | disposition home or self-care (01) ==
PROVIDERS: Student in an Organized Health Care Education/Training Program; Emergency Provider Physician Assistant; PCP Internal Medicine
DX: R60.0 Localized edema (principal); I25.10 Atherosclerotic heart disease of native coronary artery without angina pectoris; E11.9 Type 2 diabetes mellitus without complications; E78.5 Hyperlipidemia, unspecified; I10 Essential (primary) hypertension; G62.9 Polyneuropathy, unspecified; D51.0 Vitamin B12 deficiency anemia due to intrinsic factor deficiency; Z94.4 Liver transplant status; Z96.652 Presence of left artificial knee joint; Z86.711 Personal history of pulmonary embolism; Z79.01 Long term (current) use of anticoagulants; Z79.82 Long term (current) use of aspirin
CPT/HCPCS: 36415; 71046; 80053; 83880; 84484; 85025; 85380; 85610; 85730; 93005; 93970; 99284

== ENCOUNTER 2024-01-15 17:31 | Inpatient (IN) | payer MEDICARE, BC, SELFPAY ==
[2024-01-15] VITALS (8 sets, daily range): BP systolic 121–161; BP diastolic 58–85; PULSE 63–80; RESP 16–20; TEMP 36.4; O2SAT 97–99; BMI 28.5
--- NOTE | ~2024-01-15 | US_ITS ---
EXAMINATION: US renal BI DATE: 01/16/2024 09:29 INDICATION: Acute renal insufficiency TECHNIQUE: Multiple ultrasound grayscale images of the kidneys were obtained. COMPARISON: None. FINDINGS: The right kidney measures 9.9 x 4.7 x 4.0 cm. The left kidney measures 10.3 x 5.7 x 5.2 cm. Mild like ly age-related diffuse cartilaginous thinning at both kidneys. There is also bilateral increased waylon l cortical echogenicity which can be seen with medical renal disease. There is no hydronephrosis in e ither kidney. No stones identified. The bladder is decompressed around a Crockett catheter which limits evaluation. IMPRESSION: 1. Mild likely age-related bilateral diffuse renal cortical atrophy with increased cortical echogeni city which can be seen with medical renal disease. No hydronephrosis. Reviewed, dictated and finalized at location A. IMPRESSION: 1. Mild likely age-related bilateral diffuse renal cortical atrophy with incre ased cortical echogenicity which can be seen with medical renal disease. No hyd ronephrosis.
--- NOTE | ~2024-01-15 | CT_ITS ---
EXAMINATION: CT brain wo con DATE: 01/17/2024 18:53 INDICATION: Acute mental status change. TECHNIQUE: Computed tomography (CT) of the head was performed without intravenous contrast. The mA wa s adjusted according to patient size. Iterative reconstruction technique was employed. The dose-lengt h product was 681.00 mGy-cm. COMPARISON: Head CT 11/26/2020 FINDINGS: There are scattered areas of low attenuation in the cerebral white matter. There is no intr acranial hemorrhage, acute infarction, or abnormal intracranial mass lesion. The ventricles are art l in size. There are likely changes of ocular lens replacement surgeries. There is near complete opac ification of right sphenoid sinus with thickening and sclerosis of the sinus kim, consistent with c hronic sinusitis. The mastoid air cells are normal. IMPRESSION: 1. Stable extensive nonspecific cerebral white matter disease, which likely represents chronic small vessel ischemic disease. 2. Chronic sinusitis. Reviewed, dictated and finalized at location E. IMPRESSION: 1. Stable extensive nonspecific cerebral white matter disease, which likely rep resents chronic small vessel ischemic disease. 2. Chronic sinusitis.
--- NOTE | ~2024-01-15 | MR_ITS ---
MRI of the brain Clinical History: Chronic immunosuppression, altered mental status Technique: Axial and sagittal T1-weighted images were acquired. These were followed by axial T2-weigh chuy, diffusion weighted, gradient, and FLAIR images. COMPARISON: 09/04/2019 Findings: There is no acute infarct, internal hemorrhage, mass lesion. There is diffuse, severe chron ic white matter disease throughout the white matter bilaterally, with extensive associated hyperinten se signal on FLAIR images. Ventricles and subarachnoid spaces are mildly dilated. Orbits are unremarkable. There is retained sin us disease. Remaining paranasal sinuses and mastoid air cells are clear. Major flow voids are intact. Sagittal midline structures are intact. IMPRESSION: No acute abnormality identified. Diffuse, severe chronic white matter disease, most likely severe chronic microvascular ischemic kline e. Reviewed, dictated and finalized at [facility]. IMPRESSION: No acute abnormality identified. Diffuse, severe chronic white matter disease, most likely severe chronic microv ascular ischemic change.
--- NOTE | ~2024-01-15 | XR_ITS ---
XR abdomen/kub 1V 01/17/2024 12:59 INDICATION: Nausea and vomiting TECHNIQUE: KUB COMPARISON: No prior studies for comparison. FINDINGS: Bowel gas pattern is normal. Moderate colonic fecal loading. There is severe lumbar spondyl osis. There is scoliosis. There is no evidence of free air, mass, organomegaly, ascites or obstructio n. No abnormal calculi are seen. The bones appear intact. IMPRESSION: 1: No acute abdominal abnormality identified. Reviewed, dictated and finalized at location B.
--- NOTE | ~2024-01-15 | CT_ITS ---
EXAMINATION: CT abdomen pelvis wo con DATE: 01/15/2024 21:01 INDICATION: Acute renal failure. TECHNIQUE: Computed tomography (CT) of the abdomen and pelvis was performed without intravenous contr ast. Automated exposure control and iterative reconstruction technique were employed. The dose-length product was 488.84 mGy-cm. COMPARISON: None. FINDINGS: The visualized portions of lung bases are clear without pneumonia or pleural effusion. The heart size is normal. There are coronary artery calcifications. No pericardial effusion. The liver is normal. Calcifications in the spleen are consistent with old granulomatous disease. The pancreas and adrenal glands are normal. There is cortical thinning of the kidneys. There is a 3 mm stone in left kidney. There is a pessary in the vagina. There are no dilated loops of bowel. The appendix is normal . There is a supraumbilical ventral hernia containing fat. There are no pathologically enlarged lymph nodes. There is no free intraperitoneal fluid. There is lumbar dextroscoliosis and severe spondylosi s. IMPRESSION: 1. Cortical thinning of the kidneys. No hydronephrosis. 2. Supraumbilical ventral hernia containing fat. Reviewed, dictated and finalized at location E.
--- NOTE | 2024-01-15 19:12 | ECG_ITS ---
Test Date: 2024-01-15 19:56:22 Measurements Intervals [place] Rate: 61 P: 50 UT: 182 QRS: -44 QRSD: 126 T: 47 QT: 424 QTc: 427 Interpretive Statements SINUS RHYTHM LEFT AXIS DEVIATION RIGHT BUNDLE BRANCH BLOCK BASELINE ARTIFACT- I, II, III, AVR, AVL, AVF, V1-V6 ABNORMAL ECG No previous ECG available for comparison Electronically Signed On 01-16-2024 06:08:31 CDT by Alberto Coleman D.O.
[2024-01-15 20:09] LABS: Basophils Percent Auto 0.5 % (0.2-1.2); Eosinophils Absolute Auto 0.7 K/mm3 (0-0.3); Eosinophils Percent Auto 8.5 % (0-4.4); Hemoglobin 10.6 g/dL (12.0-15.0); Immature Granulocyte Absolute 0.02 K/mm3 (0.00-0.031); Immature Granulocyte Percent A 0.3 % (0-0.5); Lymphocytes Absolute Auto 2.51 K/mm3 (0.9-3.2); Lymphocytes Percent Auto 32.4 % (18.3-44.2); Mean Corpuscular HGB Conc 32.1 g/dl (32-36); Mean Corpuscular Hemoglobin 31.9 pg (26-34); Mean Corpuscular Volume 99.4 fl (80-100); Mean Platelet Volume 11.3 fl (7.4-10.4); Monocytes Absolute Auto 0.6 K/mm3 (0.1-0.6); Monocytes Percent Auto 7.9 % (2.6-8.5); Neutrophils Absolute Auto 3.9 K/mm3 (1.3-6.7); Neutrophils Percent Auto 50.4 % (45.5-73.1); Platelet Count Result 215 k/mm3 (150-375); Red Blood Count 3.32 M/mm3 (4.2-5.4); Red Cell Distribution Width 12.3 % (11.5-14.5); White Blood Count 7.8 K/mm3 (4.5-10.0)
[2024-01-15 20:30] LABS: Alanine Aminotransferase 15 U/L (6-35); Albumin Level 4.2 g/dL (3.5-5.1); Alkaline Phosphatase 49 U/L (38-126); Anion Gap 14 mmol/L (4-12); Aspartate Amino Transferase 23 U/L (14-36); Bilirubin,Total 0.6 mg/dL (0.2-1.3); Blood Urea Nitrogen 63 mg/dL (7-17); Calcium 9.1 mg/dL (8.4-10.2); Carbon Dioxide 23 mmol/L (22-30); Chloride 102 mmol/L (98-107); Estimated CRCL calculation 10 ml/min; Estimated Glomerular Filt Rate 10; Glucose 114 mg/dL (65-110); Sodium 139 mmol/L (137-145)
--- NOTE | 2024-01-15 21:19 | ED.RECABL ---
HPI - Recheck/Abnormal Lab/Rx General Chief Complaint: Recheck/Abnormal Lab/Rx Stated Complaint: increased K Time Seen by Provider: 01/15/24 19:33 History of Present Illness HPI narrative: Patient presents here after being told by PCP her potassium was high done in outpatient lab yesterday. Per son at bedside, she had been and diagnosed with dementia recently but over the last 2 days has gotten much worse and more confused, son also reports that she has not been eating or drinking normally, and that she is supposed to be on potassium pills and on immunosuppressants for liver transplant done 20 years ago [facility]. patient denies any complaints other than feeling slightly tired and occasionally some shortness of breath Related Data Home Medications Medication Instructions Recorded Confirmed apixaban 2.5 mg tablet (Eliquis) 2.5 mg PO BID 09/03/19 11/27/20 ergocalciferol (vitamin D2) 1,250 1,250 mcg PO WEEKLY 09/03/19 11/27/20 mcg (50,000 unit) capsule (Vitamin D2) hydrocodone 7.5 mg-acetaminophen 1 tablet PO Q4-6H PRN Pain 09/03/19 11/27/20 325 mg tablet hydroxyzine HCl 10 mg tablet 10 mg PO HS 09/03/19 11/27/20 lisinopril 40 mg tablet 40 mg PO DAILY 09/03/19 11/27/20 meloxicam 7.5 mg tablet 7.5 mg/kg DAILY PRN arthritis 09/03/19 11/27/20 oxybutynin chloride 5 mg 5 mg PO DAILY 09/03/19 11/27/20 tablet,extended release 24 hr rosuvastatin 10 mg tablet 10 mg PO DAILY 09/03/19 11/27/20 cetirizine 10 mg tablet 10 mg PO DAILY 11/26/20 11/27/20 duloxetine 30 mg capsule,delayed 30 mg PO DAILY 11/26/20 11/27/20 release montelukast 10 mg tablet 10 mg PO DAILY 11/26/20 11/27/20 Allergies Allergy/AdvReac Type Severity Reaction Status Date / Time morphine Allergy Intermediate Unknown Verified 01/15/24 17:35 prednisone Allergy Unknown Other Verified 01/15/24 17:35 Review of Systems Review of Systems: All systems reviewed & are unremarkable except as noted in HPI and below PMFSH Past Medical History Medical History Coronary artery disease Cardiac catheterization performed due to preop clearance April 2018 demonstrated less than 25% of mid LAD stenosis and 40% RCA stenosis Diabetes type 2, controlled Hyperlipidemia Hypertension Memory impairment Neuropathy Pernicious anemia Pulmonary embolism On chronic anticoagulation with Eliquis Surgical History Surgical History H/O cardiac catheterization April 2018 History of left knee replacement Liver transplanted Family History Family History Other Adopted Unknown family medical history Social History Social History (Updated 11/27/20 @ 09:21 by Deepti Black DO) Social History: She lives in her own home. She ambulates with assistance of a cane. She had a 3 children her daughter of complications of pneumonia. She has 2 sons who are still living. Primary care physician Dr. Alfredo John Code status: Full code Smoking status: Never smoker Second hand tobacco smoke exposure: No Alcohol intake: never Substance use: never Substance use type: does not use Gender identity (if verbalized by the patient): Female Spiritual care concerns: No Agree to blood products: Yes Exam Narrative: EXAMINATION OF ORGAN SYSTEMS/BODY AREAS: Constitutional: Vital signs per nursing GENERAL:[No acute distress, non-toxic appearing.] HEAD: Normal with no signs of head trauma. EYES: EOMI, conjunctiva normal ENT: Hearing grossly intact LUNGS: Nonlabored breathing. HEART: [Regular rate and rhythm] ABD: [Soft], [nontender to palpation] EXT: Normal range of motion SKIN: [No rashes or lesions.] NEURO: [Alert. No gross focal sensory or strength deficits.] PSYCH: Normal affect Course Vital Signs Vital signs: Vital Signs Temperature 97.6 F 01/15/24 17:34 Pulse Rate
[2024-01-15] MEDS: CALCIUM GLUCONATE 1,000 MG/10 ML VIAL 2000 MG IV PUSH (21:33)
[2024-01-15] MEDS: SODIUM BICARBONATE 8.4% 50 MEQ/50 ML SYRINGE IV PUSH (21:34)
[2024-01-15] MEDS: DEXTROSE 50% 25 GM/50 ML SYRINGE IV PUSH (21:34)
[2024-01-15] MEDS: INSULIN HUMAN REGULAR (*BKC) 100 UNITS/ML 10 UNITS IV PUSH (21:34)
[2024-01-15] MEDS: SODIUM CHLORIDE 0.9% IV 100 ML 999 ML (21:35)
[2024-01-15] MEDS: FUROSEMIDE INJ 40 MG/4 ML VIAL 20 MG IV PUSH (21:35)
[2024-01-15 21:48] LABS: Glucose Point of Care 107 mg/dl (65-105)
[2024-01-15] MEDS: SODIUM ZIRCONIUM CYCLOSILICATE 10 GM POWD.PACK PO (21:55)
[2024-01-15] MEDS: LACTATED RINGERS 1,000 ML 999 ML IV CONT ×2 (21:55→21:56)
--- NOTE | 2024-01-15 22:32 | ADMGEN ---
This patient, Morelia Rodriguez, was admitted to IMU Room 206-02. Patient/family oriented to hospital policies and general routines including ID bracelet, bed and alarms, visiting hours, pain management, procedures, bathroom and other care routines, personal items, smoking policy, room service/diet, and visiting hours. Information on how to activate the Rapid Response Team has been discussed. Patient/Family are encouraged to report perceived risks to care and to ask questions if they do not understand what they are told or what they should do.
--- NOTE | 2024-01-15 23:53 | PM.IMHP ---
H&P: HPI History of Present Illness Date/Time: 01/15/24 23:53 Chief Complaint: And generalized weakness Narrative: Patient 83-year-old female who lives alone was seen by a primary care physician 2 days ago and was told by the primary care that patient should have a caregiver. Patient was brought home to the son's location where he noticed at his mother has been more confused disoriented and feeling weak and tired drinking fluid was poor intake patient also on immunosuppressive drugs due to liver transplant 20 years ago. Patient brought to emergency room where she was evaluated and noted to have a renal failure with high potassium. Cause of high potassium possible due to potassium supplements and use of Jb inhibitors and Lasix. Patient being admitted seen by Nephrology. Will do complete septic workup as well due to altered mental status and confusion. Patient has baseline dementia patient being admitted to optimize medication and follow-up Review of Systems Review of Systems: All systems reviewed & are unremarkable except as noted in HPI and below PMFSH Past Medical History Medical History Coronary artery disease Cardiac catheterization performed due to preop clearance April 2018 demonstrated less than 25% of mid LAD stenosis and 40% RCA stenosis Diabetes type 2, controlled Hyperlipidemia Hypertension Memory impairment Neuropathy Pernicious anemia Pulmonary embolism On chronic anticoagulation with Eliquis Surgical History Surgical History H/O cardiac catheterization April 2018 History of left knee replacement Liver transplanted Family History Family History Other Adopted Unknown family medical history Social History Social History (Updated 11/27/20 @ 09:21 by Deepti Black DO) Social History: She lives in her own home. She ambulates with assistance of a cane. She had a 3 children her daughter of complications of pneumonia. She has 2 sons who are still living. Primary care physician Dr. Alfredo John Code status: Full code Smoking status: Never smoker Second hand tobacco smoke exposure: No Alcohol intake: never Substance use: never Substance use type: does not use Gender identity (if verbalized by the patient): Female Spiritual care concerns: No Agree to blood products: Yes Meds Home Medications and Allergies Home Medications Medication Instructions Recorded Confirmed Type cetirizine 10 mg tablet 10 mg PO DAILY 11/26/20 01/15/24 History aspirin 81 mg chewable tablet 81 mg PO DAILY@0800 30 days #30 11/27/20 01/15/24 Rx ([facility] Aspirin) tabs tacrolimus 0.5 mg capsule, 1.5 mg PO BID 7 days #42 caps 11/27/20 01/15/24 Rx immediate-release duloxetine 60 mg capsule,delayed 60 mg PO DAILY 01/15/24 01/15/24 History release furosemide 20 mg tablet 20 mg PO DAILY 01/15/24 01/15/24 History losartan 100 mg tablet 100 mg PO DAILY 01/15/24 01/15/24 History memantine 10 mg tablet 10 mg PO BID 01/15/24 01/15/24 History metformin 500 mg tablet 500 mg PO DAILY 01/15/24 01/15/24 History potassium chloride 10 mEq 10 meq PO DAILY 01/15/24 01/15/24 History tablet,extended release rosuvastatin 5 mg tablet 5 mg PO DAILY 01/15/24 01/15/24 History sitagliptin phosphate 50 mg tablet 50 mg PO DAILY 01/15/24 01/15/24 History (Januvia) Allergies Allergy/AdvReac Type Severity Reaction Status Date / Time morphine Allergy Intermediate Unknown Verified 01/15/24 17:35 prednisone Allergy Unknown Other Verified 01/15/24 17:35 Vital Signs Vital Signs - 24 hr 01/15/24 17:34 01/15/24 19:53 01/15/24 20:03 Temperature 36.4 C Pulse Rate 80 66 Respiratory Rate 16 20 20 Blood Pressure 147/58 H 157/85 H Pulse Oximetry 99 97 Oxygen Delivery Room Air 01/15/24 21:26 01/15/24 22:00 01/15/24
[2024-01-16] VITALS (15 sets, daily range): BP systolic 143–172; BP diastolic 64–93; PULSE 65–86; RESP 18–20; TEMP 36.3–37.2; O2SAT 95–100; BMI 28.5
[2024-01-16] MEDS: LACTATED RINGERS 1,000 ML 125 ML IV CONT ×2 (00:30→09:05)
[2024-01-16 00:52] LABS: Hematocrit 29.5 % (37.0-47.0); Hemoglobin 9.3 g/dL (12.0-15.0); Mean Corpuscular HGB Conc 31.5 g/dl (32-36); Mean Corpuscular Hemoglobin 31.5 pg (26-34); Mean Platelet Volume 11.5 fl (7.4-10.4); Platelet Count Result 186 k/mm3 (150-375); Red Blood Count 2.95 M/mm3 (4.2-5.4); Red Cell Distribution Width 12.3 % (11.5-14.5); White Blood Count 7.3 K/mm3 (4.5-10.0)
[2024-01-16 01:08] LABS: Alanine Aminotransferase 12 U/L (6-35); Albumin Level 3.5 g/dL (3.5-5.1); Alkaline Phosphatase 51 U/L (38-126); Anion Gap 10 mmol/L (4-12); Aspartate Amino Transferase 18 U/L (14-36); Bilirubin,Total 0.7 mg/dL (0.2-1.3); Blood Urea Nitrogen 55 mg/dL (7-17); Calcium 9.1 mg/dL (8.4-10.2); Carbon Dioxide 24 mmol/L (22-30); Chloride 103 mmol/L (98-107); Estimated CRCL calculation 11 ml/min; Estimated Glomerular Filt Rate 11; Glucose 71 mg/dL (65-110); Potassium 4.7 mmol/L (3.4-5.0); Sodium 137 mmol/L (137-145)
[2024-01-16 01:17] LABS: Cholesterol 61 mg/dL (0-200); HDL Direct 29 mg/dL; Triglycerides 100 mg/dL (<150)
[2024-01-16 01:28] LABS: LDL Cholesterol Direct 35 mg/dL
[2024-01-16 05:17] LABS: Basophils Percent Auto 0.5 % (0.2-1.2); Eosinophils Absolute Auto 0.2 K/mm3 (0-0.3); Eosinophils Percent Auto 2.1 % (0-4.4); Hemoglobin 10.8 g/dL (12.0-15.0); Immature Granulocyte Absolute 0.04 K/mm3 (0.00-0.031); Immature Granulocyte Percent A 0.5 % (0-0.5); Lymphocytes Absolute Auto 1.55 K/mm3 (0.9-3.2); Lymphocytes Percent Auto 18.2 % (18.3-44.2); Mean Corpuscular HGB Conc 31.8 g/dl (32-36); Mean Corpuscular Hemoglobin 31.8 pg (26-34); Mean Platelet Volume 11.5 fl (7.4-10.4); Monocytes Absolute Auto 0.4 K/mm3 (0.1-0.6); Monocytes Percent Auto 5.1 % (2.6-8.5); Neutrophils Absolute Auto 6.3 K/mm3 (1.3-6.7); Neutrophils Percent Auto 73.6 % (45.5-73.1); Platelet Count Result 204 k/mm3 (150-375); Red Cell Distribution Width 12.2 % (11.5-14.5); White Blood Count 8.5 K/mm3 (4.5-10.0)
[2024-01-16 05:29] LABS: Alanine Aminotransferase 14 U/L (6-35); Albumin Level 4.2 g/dL (3.5-5.1); Alkaline Phosphatase 57 U/L (38-126); Anion Gap 13 mmol/L (4-12); Aspartate Amino Transferase 25 U/L (14-36); Bilirubin,Total 0.9 mg/dL (0.2-1.3); Blood Urea Nitrogen 55 mg/dL (7-17); Calcium 9.3 mg/dL (8.4-10.2); Carbon Dioxide 24 mmol/L (22-30); Chloride 102 mmol/L (98-107); Creatine Kinase 44 U/L (30-135); Estimated CRCL calculation 12 ml/min; Estimated Glomerular Filt Rate 12; Glucose 112 mg/dL (65-110); Potassium 5.2 mmol/L (3.4-5.0); Sodium 139 mmol/L (137-145)
[2024-01-16 06:25] LABS: Total Protein Urine Random 16 mg/dL; Ur Ttl Prot Creatinine Ratio 0.64 mg/mg (0-0.20); Urea Random Urine 199 MG/DL
[2024-01-16 06:30] LABS: Appearance Urine Clear (Clear); Bacteria Urine None Seen /hpf; Bilirubin Urine Negative (Negative); Blood Urine Negative (Negative); Budding Yeast Urine Present /hpf; Color Urine Yellow (Yellow); Glucose Urine UA Negative (Negative); Ketones Urine Negative (Negative); Leukocyte Esterase Ur 2+ LEU/UL (Negative); Need Manual Microscopic Reviewed; Nitrate Urine Negative (Negative); Non Pathogenic Casts 0-2; Protein Urine Negative (Negative); Specific Grav Ur 1.007 (1.001-1.035); Squamous Epithelial Cell Urine Occasional /hpf (Few); Urobilinogen Urine 0.2 mg/dL (<2.0); WBC Urine 51-100 /hpf (0-3)
[2024-01-16 06:31] LABS: Add Urine Microscopic? YES
[2024-01-16 06:34] LABS: Sodium Urine Random 100 meq/L
[2024-01-16 07:12] LABS: Eosinophil Urine None Seen % (None Seen); Urine Eos QC NJ
[2024-01-16] MEDS: DULoxetine HCL 60 MG CAPSULE.DR PO (09:36)
[2024-01-16] MEDS: ROSUVASTATIN 5 MG TABLET PO (09:36)
[2024-01-16] MEDS: MEMANTINE 10 MG TABLET PO ×2 (09:36→17:01)
[2024-01-16] MEDS: TACROLIMUS 0.5 MG CAPSULE 1.5 MG PO ×2 (09:36→20:33)
[2024-01-16] MEDS: ASPIRIN 81 MG CHEWABLE TABLET PO (09:36)
[2024-01-16] MEDS: ENOXAPARIN 30 MG/0.3 ML SYRINGE SUB-Q (09:37)
[2024-01-16 11:43] LABS: Glucose Point of Care 141 mg/dl (65-105)
--- NOTE | 2024-01-16 12:40 | PM.CNNEP ---
Assessment and Plan Assessment and plan (1) JANETH (acute kidney injury): Code(s): N17.9 - Acute kidney failure, unspecified Status: Acute Assessment and Plan: renal function normal about several months ago admission creatinine 4.1mg/dl admission history suggestive of volume depletion evaluation to date: imaging (CT scan and renal ultrasound) suggests CKD (despite baseline normal creatinine) UA suggestive of infection urine eosinophils negative CPK normal urine electrolytes non-prerenal moderate proteinuria continue trial of IVFs holding ARB and diuretics check tacrolimus level follow repeat labs and UOP (2) Hyperkalemia: Code(s): E87.5 - Hyperkalemia Status: Acute Assessment and Plan: as noted on admission s/p medical management follow repeat K+ levels (3) S/P liver transplant: Code(s): Z94.4 - Liver transplant status Status: Acute Assessment and Plan: continue current immunosuppression medications check tacrolimus level may need to confer with [facility] liver transplant given significant change in renal function (4) Hypertension: Code(s): I10 - Essential (primary) hypertension Status: Chronic Assessment and Plan: elevated but off ARB and diuretics follow trend of hemodynamics may add another agent if BP continues to rise (5) Diabetes type 2, controlled: Code(s): E11.9 - Type 2 diabetes mellitus without complications Status: Chronic Assessment and Plan: follow accu-cheks glycemic control per hospitalists I will continue follow the patient with you while he remains hospitalized and make further recommendations as deemed necessary Thank you for allowing me to participate in the care of this patient. History of Present Illness Reason for Consult Consult date: 01/16/24 Reason for consult: acute renal failure Chief Complaint Chief complaint: HyperK, ARF History of Present Illness Narrative: Most of the information that I have obtained is from review of the electronic medical record as well as discussion with the physician/nurses involved in the patient's care as the patient appears to be somewhat confused regarding the details of her admission. The patient is an 83-year-old female with a past medical history as outlined below for further evaluation of abnormal labs. The patient's son reports that his mother appears to be more confused and disoriented in conjunction with generalized weakness for last few days if not longer. He also reports that she has had poor oral intake both food and liquids as well. She recently saw her primary care physician for further evaluation of these symptoms and it was felt that she would need more closer monitoring as she apparently had early signs /symptoms of dementia. she had outpatient labs done for further assessment of her symptoms and she was instructed by her primary care physician to come to the emergency room as her outpatient labs demonstrated evidence of hyperkalemia. given her worsening mentation in conjunction with her reported abnormal outpatient labs, the patient presented to [facility] Emergency room for further assessment. Workup and evaluation emergency room demonstrated the patient be hemodynamically stable but was noted to be confused. Her only significant complaint at the time of presentation was feeling slightly tired with occasional bouts of shortness of breath. Routine blood test confirmed her hyperkalemia in association with acute kidney injury/acute renal failure. Her EKG showed signs consistent with hyperkalemia but no ischemic changes. Given a history of poor oral intake for last few days, the concern was that her acute kidney injury was secondary to volume depletion / dehydration and she was started on IV fluids and received medical management for hyperkalemia in the form of IV calcium/bicarbonate/dextrose/insulin as well as
[2024-01-16] MEDS: LOSARTAN POTASSIUM 100 MG TABLET PO (13:38)
[2024-01-16] MEDS: LACTATED RINGERS 1,000 ML 75 ML IV CONT (15:49)
[2024-01-16 16:50] LABS: Glucose Point of Care 165 mg/dl (65-105)
[2024-01-16] MEDS: INSULIN ASPART (*BKC) 100 UNITS/ML SUB-Q (17:01)
--- NOTE | 2024-01-16 17:46 | WPDPN ---
Progress Note: A&P Assessment and Plan (1) JANETH (acute kidney injury): Code(s): N17.9 - Acute kidney failure, unspecified Status: Acute (2) Acute hyperkalemia: Code(s): E87.5 - Hyperkalemia Status: Acute (3) Memory impairment: Code(s): R41.3 - Other amnesia Status: Acute (4) Hypertension: Code(s): I10 - Essential (primary) hypertension Status: Acute Plan Interval History 01/16/2024: unfortunately patient still confused disoriented, unable to provider any history or ROS, patient was found to have hyperkalemia and JANETH, upon arrival patient potassium was 6 and BUN/CRE was 63/4.1 most likely dehydration as patient was taking her medication but not drinking enough fluids, patient was given Lokelma and being hydrated, her potassium is trending down to 5.2 and Scr to 3,8 will continue to hydrate the patient and monitor, will have PT/OT evaluate the patient and further recommendation to follow. Subjective Date/time seen: 01/16/24 17:46 Interval history: And generalized weakness H&[id number]: Patient 83-year-old female who lives alone was seen by a primary care physician 2 days ago and was told by the primary care that patient should have a caregiver. Patient was brought home to the son's location where he noticed at his mother has been more confused disoriented and feeling weak and tired drinking fluid was poor intake patient also on immunosuppressive drugs due to liver transplant 20 years ago. Patient brought to emergency room where she was evaluated and noted to have a renal failure with high potassium. Cause of high potassium possible due to potassium supplements and use of Jb inhibitors and Lasix. Patient being admitted seen by Nephrology. Will do complete septic workup as well due to altered mental status and confusion. Patient has baseline dementia patient being admitted to optimize medication and follow-up Interval History 01/16/2024: unfortunately patient still confused disoriented, unable to provider any history or ROS, patient was found to have hyperkalemia and JANETH, upon arrival patient potassium was 6 and BUN/CRE was 63/4.1 most likely dehydration as patient was taking her medication but not drinking enough fluids, patient was given Lokelma and being hydrated, her potassium is trending down to 5.2 and Scr to 3,8 will continue to hydrate the patient and monitor, will have PT/OT evaluate the patient and further recommendation to follow. Review of Systems Review of Systems: All systems reviewed & are unremarkable except as noted in HPI and below Exam Narrative: Patient is comfortable, NAD HEENT: eyes are clear and none icteric LUNGS:CTA HEART: RR S1S2 ABD: BS+, Soft and nontender Lower extremities: no edema SKIN: nonjaundiced Neuro: grossly intact. Objective Data Vital Signs Vital Signs: Vital Signs - 24 hr 01/15/24 19:53 01/15/24 20:03 01/15/24 21:26 Temperature Pulse Rate 66 63 Respiratory Rate 20 20 20 Blood Pressure 157/85 H 121/76 Pulse Oximetry 99 97 99 Oxygen Delivery 01/15/24 22:00 01/15/24 22:10 01/15/24 22:00 Temperature 36.4 C Pulse Rate 76 69 80 Respiratory Rate 20 18 Blood Pressure 161/72 H 149/70 H Pulse Oximetry 97 98 Oxygen Delivery 01/15/24 23:40 01/15/24 22:10 01/16/24 00:00 Temperature 36.4 C Pulse Rate 80 80 80 Respiratory Rate 18 18 18 Blood Pressure 129/59 L Pulse Oximetry 98 98 98 Oxygen Delivery Room Air Room Air 01/16/24 00:00 01/16/24 02:00 01/16/24 04:00 Temperature 36.5 C Pulse Rate 75 80 71 Respiratory Rate 18 Blood Pressure 143/73 H Pulse Oximetry 98 Oxygen Delivery 01/16/24 04:00 01/16/24 04:00 01/16/24 06:00 Temperature Pulse Rate 71 80 69 Respiratory Rate 18 Blood Pressure Pulse Oximetry 98 Oxygen Delivery Room Air 01/16/24 07:56 01/16/24 08:00 01/16/24 08:00 Temperature 36.8 C Pulse Rate 74 74 Respiratory Rate 20 Blood
--- NOTE | 2024-01-16 17:50 | PC.NURSE ---
This patient, Morelia Rodriugez, was received from IMU on 01/16/24 at 1750. Patient/family oriented to unit policies and routines.
[2024-01-16 19:55] LABS: Hemoglobin A1C 6.4 % (<5.7)
[2024-01-16 21:05] LABS: Glucose Point of Care 98 mg/dl (65-105)
[2024-01-17] VITALS (7 sets, daily range): BP systolic 146–168; BP diastolic 62–85; PULSE 69–81; RESP 17–18; TEMP 36.4; O2SAT 95–99
[2024-01-17 05:24] LABS: Basophils Percent Auto 0.5 % (0.2-1.2); Eosinophils Absolute Auto 0.4 K/mm3 (0-0.3); Hematocrit 31.2 % (37.0-47.0); Hemoglobin 10.4 g/dL (12.0-15.0); Immature Granulocyte Absolute 0.02 K/mm3 (0.00-0.031); Immature Granulocyte Percent A 0.2 % (0-0.5); Lymphocytes Percent Auto 13.7 % (18.3-44.2); Mean Corpuscular HGB Conc 33.3 g/dl (32-36); Mean Corpuscular Hemoglobin 32.1 pg (26-34); Mean Corpuscular Volume 96.3 fl (80-100); Mean Platelet Volume 11.5 fl (7.4-10.4); Monocytes Absolute Auto 0.5 K/mm3 (0.1-0.6); Monocytes Percent Auto 5.6 % (2.6-8.5); Neutrophils Absolute Auto 6.6 K/mm3 (1.3-6.7); Platelet Count Result 210 k/mm3 (150-375); Red Blood Count 3.24 M/mm3 (4.2-5.4); Red Cell Distribution Width 11.9 % (11.5-14.5); White Blood Count 8.7 K/mm3 (4.5-10.0)
[2024-01-17 05:34] LABS: Alanine Aminotransferase 14 U/L (6-35); Albumin Level 3.9 g/dL (3.5-5.1); Alkaline Phosphatase 55 U/L (38-126); Anion Gap 11 mmol/L (4-12); Aspartate Amino Transferase 28 U/L (14-36); Blood Urea Nitrogen 47 mg/dL (7-17); Calcium 8.7 mg/dL (8.4-10.2); Carbon Dioxide 28 mmol/L (22-30); Chloride 100 mmol/L (98-107); Estimated CRCL calculation 13 ml/min; Estimated Glomerular Filt Rate 13; Glucose 150 mg/dL (65-110); Potassium 4.5 mmol/L (3.4-5.0); Sodium 139 mmol/L (137-145)
[2024-01-17] MEDS: LACTATED RINGERS 1,000 ML 75 ML IV CONT (06:00)
[2024-01-17] MEDS: DULoxetine HCL 60 MG CAPSULE.DR PO (09:00)
[2024-01-17] MEDS: ROSUVASTATIN 5 MG TABLET PO (09:00)
[2024-01-17] MEDS: TACROLIMUS 0.5 MG CAPSULE 1.5 MG PO ×2 (09:00→21:12)
[2024-01-17] MEDS: MEMANTINE 10 MG TABLET PO ×2 (09:00→17:11)
[2024-01-17] MEDS: ASPIRIN 81 MG CHEWABLE TABLET PO (09:00)
[2024-01-17] MEDS: ENOXAPARIN 30 MG/0.3 ML SYRINGE SUB-Q (09:00)
[2024-01-17 09:01] LABS: Glucose Point of Care 152 mg/dl (65-105)
[2024-01-17] MEDS: ONDANSETRON INJ 4 MG/2 ML VIAL IV PUSH (09:05)
[2024-01-17 12:06] LABS: Glucose Point of Care 175 mg/dl (65-105)
--- NOTE | 2024-01-17 13:03 | P.PNNP_ITS ---
Progress Note: A&P Assessment and Plan (1) JANETH (acute kidney injury): Code(s): N17.9 - Acute kidney failure, unspecified Status: Acute Assessment and Plan: * slow improvement * renal function normal about several months ago * admission creatinine 4.1mg/dl * admission history suggestive of volume depletion * evaluation to date: * imaging (CT scan and renal ultrasound) suggests CKD (despite baseline normal creatinine) * UA suggestive of infection * urine eosinophils negative * CPK normal * urine electrolytes non-prerenal * moderate proteinuria * continue trial of IVFs * holding ARB and diuretics * follow-up on tacrolimus level * follow repeat labs and UOP (2) Hyperkalemia: Code(s): E87.5 - Hyperkalemia Status: Acute Assessment and Plan: * resolved * as noted on admission * s/p medical management * follow repeat K+ levels (3) S/P liver transplant: Code(s): Z94.4 - Liver transplant status Status: Acute Assessment and Plan: * continue current immunosuppression medications * check tacrolimus level * may need to confer with [facility] liver transplant given significant change in renal function (4) Hypertension: Code(s): I10 - Essential (primary) hypertension Status: Chronic Assessment and Plan: * elevated but off ARB and diuretics * follow trend of hemodynamics * may add another agent if BP continues to rise (5) Diabetes type 2, controlled: Code(s): E11.9 - Type 2 diabetes mellitus without complications Status: Chronic Assessment and Plan: * follow accu-cheks * glycemic control per hospitalists Will continue to follow. Subjective Date/time seen: 01/17/24 13:03 Interval history: Follow-up for acute kidney injury/acute renal failure. Renal function improving with good urine output and potassium level appears to have stabilized; mentation still an issue as apparently she remains more confused than baseline; no apparent distress voiced at the time of my visit. Exam Narrative: General: elderlyc female in NAD Heart: normal S1 and S2; no rub Lungs: clear to auscultation Abdomen: soft, nontender, nondistended, positive bowel sounds Extremities: no cyanosis or clubbing; no edema Skin: warm and dry Objective Data Vital Signs Vital Signs: Vital Signs Temp Pulse Resp BP Pulse Ox O2 Del Method 01/17/24 12:00 69 01/17/24 08:00 97.6 F 78 18 168/62 H 97 01/17/24 09:00 Room Air 01/17/24 08:00 70 01/17/24 04:00 78 01/17/24 00:00 71 01/16/24 20:00 71 01/16/24 23:53 97.5 F L 65 18 171/64 H 98 01/16/24 20:00 Room Air 01/16/24 17:34 97.3 F L 75 18 172/92 H 98 Intake/Output Intake/Output: Intake & Output 01/14/24 01/15/24 01/16/24 01/17/24 23:59 23:59 23:59 23:59 Intake Total 100 3121.7 1000 Output Total 5450 2300 Balance 100 -4788.3 -1300 Meds/Results Medications: Active Medications Generic Name Dose Route Start Last Admin Trade Name Carrillo PRN Reason Stop Dose Admin Aspirin 81 mg 01/16/24 08:00 01/17/24 09:00
--- NOTE | 2024-01-17 13:03 | PM.PNNEP ---
Progress Note: A&P Assessment and Plan (1) JANETH (acute kidney injury): Code(s): N17.9 - Acute kidney failure, unspecified Status: Acute Assessment and Plan: slow improvement renal function normal about several months ago admission creatinine 4.1mg/dl admission history suggestive of volume depletion evaluation to date: imaging (CT scan and renal ultrasound) suggests CKD (despite baseline normal creatinine) UA suggestive of infection urine eosinophils negative CPK normal urine electrolytes non-prerenal moderate proteinuria continue trial of IVFs holding ARB and diuretics follow-up on tacrolimus level follow repeat labs and UOP (2) Hyperkalemia: Code(s): E87.5 - Hyperkalemia Status: Acute Assessment and Plan: resolved as noted on admission s/p medical management follow repeat K+ levels (3) S/P liver transplant: Code(s): Z94.4 - Liver transplant status Status: Acute Assessment and Plan: continue current immunosuppression medications check tacrolimus level may need to confer with [facility] liver transplant given significant change in renal function (4) Hypertension: Code(s): I10 - Essential (primary) hypertension Status: Chronic Assessment and Plan: elevated but off ARB and diuretics follow trend of hemodynamics may add another agent if BP continues to rise (5) Diabetes type 2, controlled: Code(s): E11.9 - Type 2 diabetes mellitus without complications Status: Chronic Assessment and Plan: follow accu-cheks glycemic control per hospitalists Will continue to follow. Subjective Date/time seen: 01/17/24 13:03 Interval history: Follow-up for acute kidney injury/acute renal failure. Renal function improving with good urine output and potassium level appears to have stabilized; mentation still an issue as apparently she remains more confused than baseline; no apparent distress voiced at the time of my visit. Exam Narrative: General: elderlyc female in NAD Heart: normal S1 and S2; no rub Lungs: clear to auscultation Abdomen: soft, nontender, nondistended, positive bowel sounds Extremities: no cyanosis or clubbing; no edema Skin: warm and dry Objective Data Vital Signs Vital Signs: Vital Signs Temp Pulse Resp BP Pulse Ox O2 Del Method 01/17/24 12:00 69 01/17/24 08:00 97.6 F 78 18 168/62 H 97 01/17/24 09:00 Room Air 01/17/24 08:00 70 01/17/24 04:00 78 01/17/24 00:00 71 01/16/24 20:00 71 01/16/24 23:53 97.5 F L 65 18 171/64 H 98 01/16/24 20:00 Room Air 01/16/24 17:34 97.3 F L 75 18 172/92 H 98 Intake/Output Intake/Output: Intake & Output 01/14/24 01/15/24 01/16/24 01/17/24 23:59 23:59 23:59 23:59 Intake Total 100 3121.7 1000 Output Total 5450 2300 Balance 100 -2328.3 -1300 Meds/Results Medications: Active Medications Generic Name Dose Route Start Last Admin Trade Name Carrillo PRN Reason Stop Dose Admin Aspirin 81 mg 01/16/24 08:00 01/17/24 09:00 Aspirin 81 Mg Chewable Tablet PO 81 mg DAILY@0800 TRINH Administration Duloxetine HCl 60 mg 01/16/24 09:00 01/17/24 09:00 Duloxetine Hcl 60 Mg Capsule.Dr PO 60 mg DAILY TRINH Administration Enoxaparin Sodium 30 mg 01/16/24 09:00 01/17/24 09:00 Enoxaparin 30 Mg/0.3 Ml Syringe SUB-Q 30 mg DAILY TRINH Administration Lactated Ringer's 1,000 mls @ 75 mls/hr 01/15/24 21:20 01/17/24 06:00 Lr - Lactated Ringers Iv IV CONT 75 mls/hr .[id number] TRINH Administration Insulin Aspart 4 units 01/16/24 08:00 01/17/24 12:38 Insulin Aspart (*Bkc) 100 Units/Ml 0.05 units/kg (4 units) Not Given SUB-Q TIDWM TRINH Losartan Potassium 100 mg 01/16/24 12:10 01/16/24 13:38 Losartan Potassium 100 Mg Tablet PO 100 mg DAILY TRINH Administration Memantine 10 mg 01/16/24 09:00 01/17/24 09:00
--- NOTE | 2024-01-17 14:03 | PCPTNOTE ---
Attempted to see patient for PT, patient more lethargic today with nausea and vomiting earlier this date. Attempted to see if patient would participate with PT, however patient to lethargic to participate and had difficulty staying awake. Patient unable to be seen for this reason.
--- NOTE | 2024-01-17 17:04 | WPDPN ---
Progress Note: A&P Assessment and Plan (1) JANETH (acute kidney injury): Code(s): N17.9 - Acute kidney failure, unspecified Status: Acute (2) Acute hyperkalemia: Code(s): E87.5 - Hyperkalemia Status: Acute (3) Memory impairment: Code(s): R41.3 - Other amnesia Status: Acute (4) Hypertension: Code(s): I10 - Essential (primary) hypertension Status: Acute Plan Interval History 01/17/2024: unfortunately patient still confused disoriented, unable to provider any history or ROS, patient was found to have hyperkalemia and JANETH, upon arrival patient potassium was 6 and BUN/CRE was 63/4.1 most likely dehydration as patient was taking her medication but not drinking enough fluids, patient was given Lokelma and being hydrated, her potassium is trending down to 4.5 and Scr to 3.4, today patient is present in the room and quite concern about patient AMS, to further evaluate will do Ct scan of head and consult neurologist for further recommendation, will continue to hydrate the patient and monitor, will have PT/OT evaluate the patient and further recommendation to follow. Subjective Date/time seen: 01/17/24 17:04 Interval history: Interval History 01/17/2024: unfortunately patient still confused disoriented, unable to provider any history or ROS, patient was found to have hyperkalemia and JANETH, upon arrival patient potassium was 6 and BUN/CRE was 63/4.1 most likely dehydration as patient was taking her medication but not drinking enough fluids, patient was given Lokelma and being hydrated, her potassium is trending down to 4.5 and Scr to 3.4, today patient is present in the room and quite concern about patient AMS, to further evaluate will do Ct scan of head and consult neurologist for further recommendation, will continue to hydrate the patient and monitor, will have PT/OT evaluate the patient and further recommendation to follow. Review of Systems Review of Systems: All systems reviewed & are unremarkable except as noted in HPI and below Exam Narrative: Patient is comfortable, NAD HEENT: eyes are clear and none icteric LUNGS:CTA HEART: RR S1S2 ABD: BS+, Soft and nontender Lower extremities: no edema SKIN: nonjaundiced Neuro: grossly intact. Objective Data Vital Signs Vital Signs: Vital Signs - 24 hr 01/16/24 17:34 01/16/24 20:00 01/16/24 23:53 Temperature 36.3 C L 36.4 C L Pulse Rate 75 65 Respiratory Rate 18 18 Blood Pressure 172/92 H 171/64 H Pulse Oximetry 98 98 Oxygen Delivery Room Air 01/16/24 20:00 01/17/24 00:00 01/17/24 04:00 Temperature Pulse Rate 71 71 78 Respiratory Rate Blood Pressure Pulse Oximetry Oxygen Delivery 01/17/24 08:00 01/17/24 09:00 01/17/24 08:00 Temperature 36.4 C Pulse Rate 70 78 Respiratory Rate 18 Blood Pressure 168/62 H Pulse Oximetry 97 Oxygen Delivery Room Air 01/17/24 12:00 01/17/24 16:00 Temperature 36.4 C Pulse Rate 69 81 Respiratory Rate 18 Blood Pressure 148/85 H Pulse Oximetry 99 Oxygen Delivery Intake/Output Intake/Output: Intake & Output 01/14/24 01/15/24 01/16/24 01/17/24 23:59 23:59 23:59 23:59 Intake Total 100 3121.7 1000 Output Total 5450 2300 Balance 100 -2328.3 -1300 Meds/Results Medications: Active Medications Generic Name Dose Route Start Last Admin Trade Name Freq PRN Reason Stop Dose Admin Aspirin 81 mg 01/16/24 08:00 01/17/24 09:00 Aspirin 81 Mg Chewable Tablet PO 81 mg DAILY@0800 TRINH Administration Duloxetine HCl 60 mg 01/16/24 09:00 01/17/24 09:00 Duloxetine Hcl 60 Mg Capsule.Dr PO 60 mg DAILY TRINH Administration Enoxaparin Sodium 30 mg 01/16/24 09:00 01/17/24 09:00 Enoxaparin 30 Mg/0.3 Ml Syringe SUB-Q 30 mg DAILY TRINH Administration Lactated Ringer's 1,000 mls @ 75 mls/hr 01/15/24 21:20 01/17/24 06:00 Lr - Lactated Ringers Iv IV CONT 75 mls/hr .[id number] TRINH Administration Insuli
[2024-01-17 20:30] LABS: Glucose Point of Care 131 mg/dl (65-105)
[2024-01-18] VITALS (11 sets, daily range): BP systolic 110–153; BP diastolic 56–70; PULSE 65–83; RESP 16–20; TEMP 36.7–36.9; O2SAT 93–97
[2024-01-18] MEDS: LACTATED RINGERS 1,000 ML 75 ML IV CONT ×2 (01:09→17:02)
[2024-01-18 05:19] LABS: Basophils Percent Auto 0.4 % (0.2-1.2); Eosinophils Absolute Auto 0.3 K/mm3 (0-0.3); Eosinophils Percent Auto 3.8 % (0-4.4); Hematocrit 30.9 % (37.0-47.0); Hemoglobin 10.4 g/dL (12.0-15.0); Immature Granulocyte Absolute 0.02 K/mm3 (0.00-0.031); Immature Granulocyte Percent A 0.3 % (0-0.5); Lymphocytes Absolute Auto 1.91 K/mm3 (0.9-3.2); Lymphocytes Percent Auto 24.7 % (18.3-44.2); Mean Corpuscular HGB Conc 33.7 g/dl (32-36); Mean Corpuscular Hemoglobin 32.3 pg (26-34); Mean Platelet Volume 11.3 fl (7.4-10.4); Monocytes Absolute Auto 0.6 K/mm3 (0.1-0.6); Monocytes Percent Auto 8.3 % (2.6-8.5); Neutrophils Absolute Auto 4.8 K/mm3 (1.3-6.7); Neutrophils Percent Auto 62.5 % (45.5-73.1); Platelet Count Result 213 k/mm3 (150-375); Red Blood Count 3.22 M/mm3 (4.2-5.4); Red Cell Distribution Width 12.2 % (11.5-14.5); White Blood Count 7.7 K/mm3 (4.5-10.0)
[2024-01-18 05:29] LABS: Alanine Aminotransferase 13 U/L (6-35); Albumin Level 3.9 g/dL (3.5-5.1); Alkaline Phosphatase 52 U/L (38-126); Anion Gap 10 mmol/L (4-12); Aspartate Amino Transferase 28 U/L (14-36); Bilirubin,Total 0.8 mg/dL (0.2-1.3); Blood Urea Nitrogen 40 mg/dL (7-17); Calcium 8.1 mg/dL (8.4-10.2); Carbon Dioxide 29 mmol/L (22-30); Chloride 101 mmol/L (98-107); Estimated CRCL calculation 15 ml/min; Estimated Glomerular Filt Rate 16; Glucose 115 mg/dL (65-110); Potassium 3.8 mmol/L (3.4-5.0); Sodium 140 mmol/L (137-145)
[2024-01-18 07:36] LABS: Glucose Point of Care 120 mg/dl (65-105)
--- NOTE | 2024-01-18 08:41 | WPDNEURCNPN ---
Assessment and Plan Assessment and plan (1) Altered mental status: Code(s): R41.82 - Altered mental status, unspecified Status: Acute (2) JANETH (acute kidney injury): Code(s): N17.9 - Acute kidney failure, unspecified Status: Acute (3) S/P liver transplant: Code(s): Z94.4 - Liver transplant status Status: Acute (4) Memory impairment: Code(s): R41.3 - Other amnesia Status: Acute Plan Morelia Rodriguez is a 83 year old female with a history of dementia, CAD, DM, HLD, HTN, PE, and liver transplant presenting due to altered mental status. Suspect likely metabolic in etiology given the uremia and electrolyte derangements. She does have a baseline history of dementia. Given that she is on tacrolimus, have to also consider PRES vs opportunistic infection causing meningitis/encephalitis. However, it seems that patient is more at baseline today with her renal function improving. - Check ammonia, B12, folate, TSH - Obtain MRI brain w/o contrast - If any decline in mental status, recommend lumbar puncture with CSF studies including HSV, VZV, CMV, EBV, fungal culture, in addition to routine studies (cell count, protein, glucose, bacterial culture) Consult date: 01/18/24 Reason for consult: Altered mental status HPI: Morelia Rodriguez is a 83 year old female with a history of dementia, CAD, DM, HLD, HTN, PE, and liver transplant presenting due to altered mental status. Patient's son brought patient in when he noticed that she was more confused, disoriented, feeling generally weak, and poor oral intake. When she presented to the ED she was noted to have renal failure with BUN in the 60s and hyperkalemia with potassium of 6. She was admitted for treatment. Nephrology has been consulted. There have been concerns for persistent altered mental status. Most recent labs show a BUN of 40. Seems like baseline is 20-30s from prior years. She has mild hypocalcemia (8.1), as well as hypomagnesemia (1). Her liver enzymes are normal. No ammonia on file. She does take Prograf for immunosuppression for liver transplant. Dr. Jackson was at bedside at time of my evaluation. He discussed with patient's son, and it appears that patient is now more at her baseline. Review of Systems Review of Systems: All systems reviewed & are unremarkable except as noted in HPI and below PMFSH Past Medical History Medical History Coronary artery disease Cardiac catheterization performed due to preop clearance April 2018 demonstrated less than 25% of mid LAD stenosis and 40% RCA stenosis Diabetes type 2, controlled Hyperlipidemia Hypertension Memory impairment Neuropathy Pernicious anemia Pulmonary embolism On chronic anticoagulation with Eliquis Surgical History Surgical History H/O cardiac catheterization April 2018 History of left knee replacement Liver transplanted Family History Family History Other Adopted Unknown family medical history Social History Social History Social History: She lives in her own home. She ambulates with assistance of a cane. She had a 3 children her daughter of complications of pneumonia. She has 2 sons who are still living. Primary care physician Dr. Alfredo John Code status: Full code Smoking status: Never smoker Second hand tobacco smoke exposure: No Alcohol intake: never Substance use: never Substance use type: does not use Gender identity (if verbalized by the patient): Female Spiritual care concerns: No Agree to blood products: Yes Meds Home Medications and Allergies Home Medications Medication Instructions Recorded Confirmed Type cetirizine 10 mg tablet 10 mg PO DAILY 11/26/20 01/15/24 History aspirin 81 mg chewable tablet 81
[2024-01-18] MEDS: MEMANTINE 10 MG TABLET PO ×2 (08:48→17:02)
[2024-01-18] MEDS: TACROLIMUS 0.5 MG CAPSULE 1.5 MG PO ×2 (08:48→21:47)
[2024-01-18] MEDS: DULoxetine HCL 60 MG CAPSULE.DR PO (08:48)
[2024-01-18] MEDS: ASPIRIN 81 MG CHEWABLE TABLET PO (08:48)
[2024-01-18] MEDS: ROSUVASTATIN 5 MG TABLET PO (08:48)
[2024-01-18] MEDS: ENOXAPARIN 30 MG/0.3 ML SYRINGE SUB-Q (08:50)
[2024-01-18] MEDS: MAGNESIUM SULF 4 GM/WATER100ML 4 GM/100 ML BAG IVPB (10:18)
[2024-01-18 11:59] LABS: Ammonia < 9 umol/L (9-30)
[2024-01-18 12:02] LABS: Thyroid Stimulating Hormone 0.902 uIU/mL (0.465-4.680)
--- NOTE | 2024-01-18 12:08 | P.PNNP_ITS ---
Progress Note: A&P Assessment and Plan (1) JANETH (acute kidney injury): Code(s): N17.9 - Acute kidney failure, unspecified Status: Acute Assessment and Plan: * slow improvement * renal function normal about several months ago * admission creatinine 4.1mg/dl * admission history suggestive of volume depletion * evaluation to date: * imaging (CT scan and renal ultrasound) suggests CKD (despite baseline normal creatinine) * UA suggestive of infection * urine eosinophils negative * CPK normal * urine electrolytes non-prerenal * moderate proteinuria * continue trial of IVFs * holding ARB and diuretics * follow-up on tacrolimus level * follow repeat labs and UOP (2) Hyperkalemia: Code(s): E87.5 - Hyperkalemia Status: Acute Assessment and Plan: * resolved * as noted on admission * s/p medical management * follow repeat K+ levels (3) Altered mental status: Code(s): R41.82 - Altered mental status, unspecified Status: Acute Assessment and Plan: * mild improvement since admission * complicated by known history of dementia * Neurology recommendations noted * follow mentation (4) S/P liver transplant: Code(s): Z94.4 - Liver transplant status Status: Acute Assessment and Plan: * continue current immunosuppression medications * check tacrolimus level * may need to confer with [facility] liver transplant given significant change in renal function (5) Hypertension: Code(s): I10 - Essential (primary) hypertension Status: Chronic Assessment and Plan: * elevated but off ARB and diuretics * follow trend of hemodynamics * may add another agent if BP continues to rise (6) Diabetes type 2, controlled: Code(s): E11.9 - Type 2 diabetes mellitus without complications Status: Chronic Assessment and Plan: * follow accu-cheks * glycemic control per hospitalists Will continue to follow. Subjective Date/time seen: 01/18/24 12:08 Interval history: Follow-up for acute kidney injury/acute renal failure. Renal function continues to improve (albeit slowly) as noted by trend of labs; mentation appears to be improving if not closer to baseline -- seen by Neurology earlier this morning; no apparent distress noted; no issues/events overnight or earlier this morning. Exam Narrative: General: elderlyc female in NAD Heart: normal S1 and S2; no rub Lungs: clear to auscultation Abdomen: soft, nontender, nondistended, positive bowel sounds Extremities: no cyanosis or clubbing; no edema Skin: warm and intact Objective Data Vital Signs Vital Signs: Vital Signs Temp Pulse Resp BP Pulse Ox O2 Del Method 01/18/24 12:00 98.1 F 66 16 110/60 94 01/18/24 08:00 83 01/18/24 08:45 97 Room Air 01/18/24 05:06 98.2 F 69 17 153/70 H 97 01/18/24 04:00 65 01/18/24 00:00 72 01/17/24 20:30 97.6 F 76 17 146/77 H 95 01/17/24 20:00 71 Intake/Output Intake/Output: Intake & Output 01/15/24 01/16/24 01/17/24 01/18/24 23:59 23:59 23:59 23:59 Intake Total 100 3121.7 2000 510 Output Total 5450 4150 800 Balance 100 -2328.3 -2150 -290
--- NOTE | 2024-01-18 12:08 | PM.PNNEP ---
Progress Note: A&P Assessment and Plan (1) JANETH (acute kidney injury): Code(s): N17.9 - Acute kidney failure, unspecified Status: Acute Assessment and Plan: slow improvement renal function normal about several months ago admission creatinine 4.1mg/dl admission history suggestive of volume depletion evaluation to date: imaging (CT scan and renal ultrasound) suggests CKD (despite baseline normal creatinine) UA suggestive of infection urine eosinophils negative CPK normal urine electrolytes non-prerenal moderate proteinuria continue trial of IVFs holding ARB and diuretics follow-up on tacrolimus level follow repeat labs and UOP (2) Hyperkalemia: Code(s): E87.5 - Hyperkalemia Status: Acute Assessment and Plan: resolved as noted on admission s/p medical management follow repeat K+ levels (3) Altered mental status: Code(s): R41.82 - Altered mental status, unspecified Status: Acute Assessment and Plan: mild improvement since admission complicated by known history of dementia Neurology recommendations noted follow mentation (4) S/P liver transplant: Code(s): Z94.4 - Liver transplant status Status: Acute Assessment and Plan: continue current immunosuppression medications check tacrolimus level may need to confer with [facility] liver transplant given significant change in renal function (5) Hypertension: Code(s): I10 - Essential (primary) hypertension Status: Chronic Assessment and Plan: elevated but off ARB and diuretics follow trend of hemodynamics may add another agent if BP continues to rise (6) Diabetes type 2, controlled: Code(s): E11.9 - Type 2 diabetes mellitus without complications Status: Chronic Assessment and Plan: follow accu-cheks glycemic control per hospitalists Will continue to follow. Subjective Date/time seen: 01/18/24 12:08 Interval history: Follow-up for acute kidney injury/acute renal failure. Renal function continues to improve (albeit slowly) as noted by trend of labs; mentation appears to be improving if not closer to baseline -- seen by Neurology earlier this morning; no apparent distress noted; no issues/events overnight or earlier this morning. Exam Narrative: General: elderlyc female in NAD Heart: normal S1 and S2; no rub Lungs: clear to auscultation Abdomen: soft, nontender, nondistended, positive bowel sounds Extremities: no cyanosis or clubbing; no edema Skin: warm and intact Objective Data Vital Signs Vital Signs: Vital Signs Temp Pulse Resp BP Pulse Ox O2 Del Method 01/18/24 12:00 98.1 F 66 16 110/60 94 01/18/24 08:00 83 01/18/24 08:45 97 Room Air 01/18/24 05:06 98.2 F 69 17 153/70 H 97 01/18/24 04:00 65 01/18/24 00:00 72 01/17/24 20:30 97.6 F 76 17 146/77 H 95 01/17/24 20:00 71 Intake/Output Intake/Output: Intake & Output 01/15/24 01/16/24 01/17/24 01/18/24 23:59 23:59 23:59 23:59 Intake Total 100 3121.7 2000 510 Output Total 5450 4150 800 Balance 100 -2328.3 -2150 -290 Meds/Results Medications: Active Medications Generic Name Dose Route Start Last Admin Trade Name Ivanq PRN Reason Stop Dose Admin Aspirin 81 mg 01/16/24 08:00 01/18/24 08:48 Aspirin 81 Mg Chewable Tablet PO 81 mg DAILY@0800 TRINH Administration Duloxetine HCl 60 mg 01/16/24 09:00 01/18/24 08:48 Duloxetine Hcl 60 Mg Capsule.Dr PO 60 mg DAILY TRINH Administration Enoxaparin Sodium 30 mg 01/16/24 09:00 01/18/24 08:50 Enoxaparin 30 Mg/0.3 Ml Syringe SUB-Q 30 mg DAILY TRINH Administration Lactated Ringer's 1,000 mls @ 75 mls/hr 01/15/24 21:20 01/18/24 06:09 Lr - Lactated Ringers Iv IV CONT Not Given .[id number] [facility] Insulin Aspart 4 units 01/16/24 08:00 01/18/24 12:27 Insulin Aspart (*Bkc) 100 Units/Ml 0.05
[2024-01-18 12:18] LABS: Glucose Point of Care 169 mg/dl (65-105)
[2024-01-18 12:37] LABS: Folic Acid 7.4 ng/mL (2.76->20)
--- NOTE | 2024-01-18 13:23 | WPDPN ---
Progress Note: A&P Assessment and Plan (1) JANETH (acute kidney injury): Code(s): N17.9 - Acute kidney failure, unspecified Status: Acute (2) Acute hyperkalemia: Code(s): E87.5 - Hyperkalemia Status: Acute (3) Memory impairment: Code(s): R41.3 - Other amnesia Status: Acute (4) Hypertension: Code(s): I10 - Essential (primary) hypertension Status: Acute Plan Interval History 01/17/2024: unfortunately patient still confused disoriented, unable to provider any history or ROS, patient was found to have hyperkalemia and JANETH, upon arrival patient potassium was 6 and BUN/CRE was 63/4.1 most likely dehydration as patient was taking her medication but not drinking enough fluids, patient was given Lokelma and being hydrated, her potassium is trending down to 4.5 and Scr to 3.4, today patient is present in the room and quite concern about patient AMS, to further evaluate will do Ct scan of head and consult neurologist for further recommendation, will continue to hydrate the patient and monitor, will have PT/OT evaluate the patient and further recommendation to follow. Interval History 01/18/2024: unfortunately patient still confused disoriented, however patient little more communicative today, unable to provider any history or ROS, patient was found to have hyperkalemia and JANETH, upon arrival patient potassium was 6 and BUN/CRE was 63/4.1 most likely dehydration as patient was taking her medication but not drinking enough fluids, patient was given Lokelma and being hydrated, her potassium is trending down to 3.8 and Scr to 2.9 , on 01/16 patient son was present in the room and quite concerned about patient AMS, to further evaluate will do Ct scan of head was done which was did not show any acute injury. Today patient is seen Dr. Smith on ordered MRI of the cindy, will continue to hydrate the patient and monitor, will have PT/OT evaluate the patient and further recommendation to follow. Subjective Date/time seen: 01/18/24 13:23 Interval history: Interval History 01/18/2024: unfortunately patient still confused disoriented, however patient little more communicative today, unable to provider any history or ROS, patient was found to have hyperkalemia and JANETH, upon arrival patient potassium was 6 and BUN/CRE was 63/4.1 most likely dehydration as patient was taking her medication but not drinking enough fluids, patient was given Lokelma and being hydrated, her potassium is trending down to 3.8 and Scr to 2.9 , on 01/16 patient son was present in the room and quite concerned about patient AMS, to further evaluate will do Ct scan of head was done which was did not show any acute injury. Today patient is seen Dr. Smith on ordered MRI of the cindy, will continue to hydrate the patient and monitor, will have PT/OT evaluate the patient and further recommendation to follow. Review of Systems Review of Systems: All systems reviewed & are unremarkable except as noted in HPI and below Exam Narrative: Patient is comfortable, NAD HEENT: eyes are clear and none icteric LUNGS:CTA HEART: RR S1S2 ABD: BS+, Soft and nontender Lower extremities: no edema SKIN: nonjaundiced Neuro: grossly intact. Objective Data Vital Signs Vital Signs: Vital Signs - 24 hr 01/17/24 16:00 01/17/24 16:00 01/17/24 20:00 Temperature 36.4 C Pulse Rate 81 72 71 Respiratory Rate 18 Blood Pressure 148/85 H Pulse Oximetry 99 Oxygen Delivery 01/17/24 20:30 01/18/24 00:00 01/18/24 04:00 Temperature 36.4 C Pulse Rate 76 72 65 Respiratory Rate 17 Blood Pressure 146/77 H Pulse Oximetry 95 Oxygen Delivery 01/18/24 05:06 01/18/24 08:45 01/18/24 08:00 Temperature 36.8 C Pulse Rate 69 83 Respiratory Rate 17 Blood Pressure 153/70 H Pulse Oximetry 97 97 Oxygen Delivery Room Air 01/18/24 12:00 Temperature Pulse Rate 67 Respiratory Rate Blood Pressure Pulse Oximetry Oxygen
[2024-01-18 16:09] LABS: Tacrolimus Prograf 3.2 mcg/L
[2024-01-18 16:52] LABS: Glucose Point of Care 163 mg/dl (65-105)
[2024-01-18 20:12] LABS: Glucose Point of Care 154 mg/dl (65-105)
[2024-01-19] VITALS (8 sets, daily range): BP systolic 110–124; BP diastolic 65–79; PULSE 63–76; RESP 16–20; TEMP 36.5–36.6; O2SAT 94–99
[2024-01-19 06:28] LABS: Basophils Absolute Auto 0.1 K/mm3 (0.0-0.1); Basophils Percent Auto 0.6 % (0.2-1.2); Eosinophils Absolute Auto 0.5 K/mm3 (0-0.3); Eosinophils Percent Auto 5.3 % (0-4.4); Hematocrit 29.6 % (37.0-47.0); Hemoglobin 9.5 g/dL (12.0-15.0); Immature Granulocyte Absolute 0.04 K/mm3 (0.00-0.031); Immature Granulocyte Percent A 0.4 % (0-0.5); Lymphocytes Absolute Auto 2.44 K/mm3 (0.9-3.2); Mean Corpuscular HGB Conc 32.1 g/dl (32-36); Mean Corpuscular Hemoglobin 31.8 pg (26-34); Mean Platelet Volume 11.8 fl (7.4-10.4); Monocytes Absolute Auto 0.8 K/mm3 (0.1-0.6); Monocytes Percent Auto 8.3 % (2.6-8.5); Neutrophils Absolute Auto 5.9 K/mm3 (1.3-6.7); Neutrophils Percent Auto 60.4 % (45.5-73.1); Platelet Count Result 193 k/mm3 (150-375); Red Blood Count 2.99 M/mm3 (4.2-5.4); Red Cell Distribution Width 12.4 % (11.5-14.5); White Blood Count 9.8 K/mm3 (4.5-10.0)
[2024-01-19 06:35] LABS: Alanine Aminotransferase 12 U/L (6-35); Albumin Level 3.5 g/dL (3.5-5.1); Alkaline Phosphatase 48 U/L (38-126); Anion Gap 7 mmol/L (4-12); Aspartate Amino Transferase 25 U/L (14-36); Bilirubin,Total 0.5 mg/dL (0.2-1.3); Blood Urea Nitrogen 49 mg/dL (7-17); Calcium 7.9 mg/dL (8.4-10.2); Carbon Dioxide 30 mmol/L (22-30); Chloride 99 mmol/L (98-107); Estimated CRCL calculation 14 ml/min; Estimated Glomerular Filt Rate 14; Glucose 125 mg/dL (65-110); Magnesium 2.3 mg/dL (1.6-2.3); Potassium 3.5 mmol/L (3.4-5.0); Sodium 136 mmol/L (137-145)
[2024-01-19 07:55] LABS: Glucose Point of Care 127 mg/dl (65-105)
--- NOTE | 2024-01-19 09:36 | WPDNEUROPN ---
Progress Note: A&P Assessment and Plan (1) Altered mental status: Code(s): R41.82 - Altered mental status, unspecified Status: Acute (2) S/P liver transplant: Code(s): Z94.4 - Liver transplant status Status: Acute (3) JANETH (acute kidney injury): Code(s): N17.9 - Acute kidney failure, unspecified Status: Acute (4) Memory impairment: Code(s): R41.3 - Other amnesia Status: Acute Plan Morelia Rodriguez is a 83 year old female with a history of dementia, CAD, DM, HLD, HTN, PE, and liver transplant presenting due to altered mental status. Suspect likely metabolic in etiology given the uremia and electrolyte derangements. She does have a baseline history of dementia. Given that she is on tacrolimus, have to also consider PRES vs opportunistic infection causing meningitis/encephalitis. However, it seems that patient is more at baseline today with her renal function improving. MRI brain also did not show any acute changes. - B12 was on the lower side, recommend supplementation - If any decline in mental status, recommend lumbar puncture with CSF studies including HSV, VZV, CMV, EBV, fungal culture, in addition to routine studies (cell count, protein, glucose, bacterial culture) Subjective Date/time seen: 01/19/24 09:36 Interval history: : Morelia Rodriguez is a 83 year old female with a history of dementia, CAD, DM, HLD, HTN, PE, and liver transplant presenting due to altered mental status. Patient's son brought patient in when he noticed that she was more confused, disoriented, feeling generally weak, and poor oral intake. When she presented to the ED she was noted to have renal failure with BUN in the 60s and hyperkalemia with potassium of 6. She was admitted for treatment. Nephrology has been consulted. There have been concerns for persistent altered mental status. Most recent labs show a BUN of 40. Seems like baseline is 20-30s from prior years. She has mild hypocalcemia (8.1), as well as hypomagnesemia (1). Her liver enzymes are normal. No ammonia on file. She does take Prograf for immunosuppression for liver transplant. Dr. Jackson was at bedside at time of my evaluation on 01/17. He discussed with patient's son, and it appears that patient is now more at her baseline. Interval history: MRI brain showed chronic changes but nothing acute. BUN is 49 today. Mg is normal. Calcium still low at 7.9. Ammonia normal. B12 is on the lower side at 337. TSH and folate normal. Review of Systems Review of Systems: All systems reviewed & are unremarkable except as noted in HPI and below Exam Const: General: comfortable and no acute distress HENMT: Mouth: Yes moist mucous membranes Eyes: Pupils: Equal, round and reactive pupils present Other: conjugate gaze Resp: Effort & Inspection: normal respiratory effort Skin: General skin exam: normal color Neuro: Other: Awake, alert, sitting upright and eating breakfast, oriented to self and location, face is symmetric, PERRL, gaze is conjugate. Strength in the upper extremities is symmetric and age appropriate, she had antigravity movement in the lower extremities symmetrically. Sensation appears to be symmetric. FNF was without dysmetria. Speech was fluent. Extrem: General: normal to inspection Psych: Affect: normal affect Objective Data Vital Signs Vital Signs: Vital Signs - 24 hr 01/18/24 12:00 01/18/24 12:30 01/18/24 16:00 Temperature 36.7 C Pulse Rate 67 66 73 Respiratory Rate 16 Blood Pressure 110/60 Pulse Oximetry 94 Oxygen Delivery 01/18/24 20:56 01/18/24 20:43 01/18/24 20:00 Temperature 36.9 C Pulse Rate 72 77 Respiratory Rate 20 Blood Pressure 123/56 L Pulse Oximetry 93 93 Oxygen Delivery Room Air 01/18/24 20:00 01/19/24 00:00 01/19/24 04:00 Temperature Pulse Rate 65 68 Respiratory Rate Blood Pressure Pulse Oximetry Oxygen Delivery Room Air 01/19/24 06:00 Te
[2024-01-19] MEDS: INSULIN ASPART (*BKC) 100 UNITS/ML SUB-Q ×2 (09:58→12:35)
[2024-01-19] MEDS: ASPIRIN 81 MG CHEWABLE TABLET PO (09:58)
[2024-01-19] MEDS: DULoxetine HCL 60 MG CAPSULE.DR PO (09:58)
[2024-01-19] MEDS: ROSUVASTATIN 5 MG TABLET PO (09:58)
[2024-01-19] MEDS: LACTATED RINGERS 1,000 ML 75 ML IV CONT (09:58)
[2024-01-19] MEDS: MEMANTINE 10 MG TABLET PO ×2 (09:58→17:10)
[2024-01-19] MEDS: TACROLIMUS 0.5 MG CAPSULE 1.5 MG PO (09:58)
[2024-01-19 09:59] LABS: Glucose Point of Care 160 mg/dl (65-105)
[2024-01-19] MEDS: ENOXAPARIN 30 MG/0.3 ML SYRINGE SUB-Q (10:02)
[2024-01-19] MEDS: ONDANSETRON INJ 4 MG/2 ML VIAL IV PUSH (11:32)
[2024-01-19 11:56] LABS: Glucose Point of Care 171 mg/dl (65-105)
--- NOTE | 2024-01-19 12:05 | P.PNNP_ITS ---
Progress Note: A&P Assessment and Plan (1) JANETH (acute kidney injury): Code(s): N17.9 - Acute kidney failure, unspecified Status: Acute Assessment and Plan: * slow improvement * renal function normal about several months ago * admission creatinine 4.1mg/dl * admission history suggestive of volume depletion * evaluation to date: * imaging (CT scan and renal ultrasound) suggests CKD (despite baseline normal creatinine) * UA suggestive of infection * urine eosinophils negative * CPK normal * urine electrolytes non-prerenal * moderate proteinuria * continue trial of IVFs * holding ARB and diuretics * follow-up on tacrolimus level * follow repeat labs and UOP (2) Hyperkalemia: Code(s): E87.5 - Hyperkalemia Status: Acute Assessment and Plan: * resolved * as noted on admission * s/p medical management * follow repeat K+ levels (3) Altered mental status: Code(s): R41.82 - Altered mental status, unspecified Status: Acute Assessment and Plan: * improvement noted since admission * complicated by known history of dementia * Neurology recommendations noted * follow mentation (4) S/P liver transplant: Code(s): Z94.4 - Liver transplant status Status: Acute Assessment and Plan: * continue current immunosuppression medications * check tacrolimus level * may need to confer with [facility] liver transplant given significant change in renal function (5) Hypertension: Code(s): I10 - Essential (primary) hypertension Status: Chronic Assessment and Plan: * elevated but off ARB and diuretics * follow trend of hemodynamics * may add another agent if BP continues to rise (6) Diabetes type 2, controlled: Code(s): E11.9 - Type 2 diabetes mellitus without complications Status: Chronic Assessment and Plan: * follow accu-cheks * glycemic control per hospitalists Will continue to follow. Subjective Date/time seen: 01/19/24 12:05 Interval history: Follow-up for acute kidney injury/acute renal failure. Mentation seems to be doing better if not closer to baseline; continues to make good urine output and renal function appears relatively stable (perhaps new baseline?); no apparent distress voiced at the time of my visit. Exam Narrative: General: elderlyc female in NAD Heart: normal S1 and S2; no rub Lungs: clear to auscultation Abdomen: soft, nontender, nondistended, positive bowel sounds Extremities: no cyanosis or clubbing; no edema Skin: no rash or nodules Objective Data Vital Signs Vital Signs: Vital Signs Temp Pulse Resp BP Pulse Ox O2 Del Method 01/19/24 12:00 67 01/19/24 08:00 Room Air 01/19/24 08:00 68 01/19/24 10:12 76 16 110/79 99 01/19/24 06:00 98 F 63 16 124/78 94 01/19/24 04:00 68 01/19/24 00:00 65 01/18/24 20:00 Room Air 01/18/24 20:00 77 01/18/24 20:43 93 Room Air 01/18/24 20:56 98.4 F 72 20 123/56 L 93 Intake/Output Intake/Output: Intake & Output 01/16/24 01/17/24 01/18/24 01/19/24 23:59 23:59 23:59 23:59 Intake Total 3121.7 2000 1750 1300 Output
--- NOTE | 2024-01-19 12:05 | PM.PNNEP ---
Progress Note: A&P Assessment and Plan (1) AJNETH (acute kidney injury): Code(s): N17.9 - Acute kidney failure, unspecified Status: Acute Assessment and Plan: slow improvement renal function normal about several months ago admission creatinine 4.1mg/dl admission history suggestive of volume depletion evaluation to date: imaging (CT scan and renal ultrasound) suggests CKD (despite baseline normal creatinine) UA suggestive of infection urine eosinophils negative CPK normal urine electrolytes non-prerenal moderate proteinuria continue trial of IVFs holding ARB and diuretics follow-up on tacrolimus level follow repeat labs and UOP (2) Hyperkalemia: Code(s): E87.5 - Hyperkalemia Status: Acute Assessment and Plan: resolved as noted on admission s/p medical management follow repeat K+ levels (3) Altered mental status: Code(s): R41.82 - Altered mental status, unspecified Status: Acute Assessment and Plan: improvement noted since admission complicated by known history of dementia Neurology recommendations noted follow mentation (4) S/P liver transplant: Code(s): Z94.4 - Liver transplant status Status: Acute Assessment and Plan: continue current immunosuppression medications check tacrolimus level may need to confer with [facility] liver transplant given significant change in renal function (5) Hypertension: Code(s): I10 - Essential (primary) hypertension Status: Chronic Assessment and Plan: elevated but off ARB and diuretics follow trend of hemodynamics may add another agent if BP continues to rise (6) Diabetes type 2, controlled: Code(s): E11.9 - Type 2 diabetes mellitus without complications Status: Chronic Assessment and Plan: follow accu-cheks glycemic control per hospitalists Will continue to follow. Subjective Date/time seen: 01/19/24 12:05 Interval history: Follow-up for acute kidney injury/acute renal failure. Mentation seems to be doing better if not closer to baseline; continues to make good urine output and renal function appears relatively stable (perhaps new baseline?); no apparent distress voiced at the time of my visit. Exam Narrative: General: elderlyc female in NAD Heart: normal S1 and S2; no rub Lungs: clear to auscultation Abdomen: soft, nontender, nondistended, positive bowel sounds Extremities: no cyanosis or clubbing; no edema Skin: no rash or nodules Objective Data Vital Signs Vital Signs: Vital Signs Temp Pulse Resp BP Pulse Ox O2 Del Method 01/19/24 12:00 67 01/19/24 08:00 Room Air 01/19/24 08:00 68 01/19/24 10:12 76 16 110/79 99 01/19/24 06:00 98 F 63 16 124/78 94 01/19/24 04:00 68 01/19/24 00:00 65 01/18/24 20:00 Room Air 01/18/24 20:00 77 01/18/24 20:43 93 Room Air 01/18/24 20:56 98.4 F 72 20 123/56 L 93 Intake/Output Intake/Output: Intake & Output 01/16/24 01/17/24 01/18/24 01/19/24 23:59 23:59 23:59 23:59 Intake Total 3121.7 2000 1750 1300 Output Total 5450 4150 1700 Balance -2328.3 -2150 50 1300 Meds/Results Medications: Active Medications Generic Name Dose Route Start Last Admin Trade Name Carrillo PRN Reason Stop Dose Admin Aspirin 81 mg 01/16/24 08:00 01/19/24 09:58 Aspirin 81 Mg Chewable Tablet PO 81 mg DAILY@0800 TRINH Administration Duloxetine HCl 60 mg 01/16/24 09:00 01/19/24 09:58 Duloxetine Hcl 60 Mg Capsule.Dr PO 60 mg DAILY TRINH Administration Enoxaparin Sodium 30 mg 01/16/24 09:00 01/19/24 10:02 Enoxaparin 30 Mg/0.3 Ml Syringe SUB-Q 30 mg DAILY TRINH Administration Lactated Ringer's 1,000 mls @ 75 mls/hr 01/15/24 21:20 01/19/24 09:58 Lr - Lactated Ringers Iv IV CONT 75 mls/hr .[id number] TRINH Administration Insulin Aspart 4 units 01/16/24 08:00 07
--- NOTE | 2024-01-19 13:42 | PM.DS ---
DS: Admitting Diagnosis Discharge Date 01/19/2024 Admitting Diagnosis Increased confusion DS: Discharge Diagnosis Discharge Diagnosis (1) JANETH (acute kidney injury): Code(s): N17.9 - Acute kidney failure, unspecified Status: Acute Assessment and Plan: Improved with hydration creatinine from 4.1 down to 3.1. Continue to avoid nephrotoxic drugs, encourage p.o. intake, follow-up renal panel (2) Acute hyperkalemia: Code(s): E87.5 - Hyperkalemia Status: Acute Assessment and Plan: Potassium normalized at 3.5 (3) Memory impairment: Code(s): R41.3 - Other amnesia Status: Acute Assessment and Plan: At baseline mental status oriented to person and place Worsening was presumably secondary to metabolic encephalopathy caused by renal and electrolyte abnormalities No evidence for infection discovered (4) Hypertension: Code(s): I10 - Essential (primary) hypertension Status: Acute Assessment and Plan: Controlled DS: Summary Hospital Course Reason for hospitalization: Mental status changes Hospital Course: Admitted to [facility] for increased confusion. Was found a potassium at 6 and a creatinine of 4.1. Both improved with hydration. Her mental status returned to baseline. Imaging revealed no signs of infection stroke or cerebral mass. She was tolerating diet. Ate 100% of her breakfast. Tolerating therapy. Vital signs were stable. She was accepted at [facility] for nursing home rehab. She was transferred there in stable condition. Time Spent with Patient Time attestation: Total time spent providing and/or coordinating discharge services: Exam Narrative: Patient is comfortable, NAD HEENT: PERRL, sclerae nonicteric LUNGS:CTA HEART: RR S1S2 NL, no murmur ABD: BS+, Soft and nontender Lower extremities: no edema SKIN: nonjaundiced Neuro: CN 3-12 symmetric, tone and strength symmetric. Psych: Alert. Oriented to person and place but not to year or month. DS: Data Data Completed and Pending Labs on day of discharge: Labs from last 24 hours 01/19/24 01/19/24 01/19/24 11:54 09:56 07:52 WBC RBC Hgb Hct MCV MCH MCHC RDW Plt Count MPV Immature Gran % (Auto) Neut % (Auto) Lymph % (Auto) [place] % (Auto) Eos % (Auto) Baso % (Auto) Lymph # (Auto) [place] # (Auto) Eos # (Auto) Baso # (Auto) Abs Immat Gran (auto) Absolute Neuts (auto) Absolute Nucleated RBC Nucleated RBC % Sodium Potassium Chloride Carbon Dioxide Anion Gap BUN Creatinine Estim Creat Clear Calc Estimated GFR Glucose POC Capillary Glucose 171 H 160 H 127 H Calcium Magnesium Total Bilirubin AST ALT Alkaline Phosphatase Total Protein Albumin Tacrolimus 01/19/24 01/18/24 01/18/24 05:47 20:08 16:49 WBC 9.8 RBC 2.99 L Hgb 9.5 L Hct 29.6 L MCV 99.0 MCH 31.8 MCHC 32.1 RDW 12.4 Plt Count 193 MPV 11.8 H Immature Gran % (Auto) 0.4 Neut % (Auto) 60.4 Lymph % (Auto) 25.0 [place] % (Auto) 8.3 Eos % (Auto) 5.3 H Baso % (Auto) 0.6 Lymph # (Auto) 2.44 [place] # (Auto) 0.8 H Eos # (Auto) 0.5 H Baso # (Auto) 0.1 Abs Immat Gran (auto) 0.04 H Absolute Neuts (auto) 5.9 Absolute Nucleated RBC 0.000 Nucleated RBC % 0.0 Sodium 136 L Potassium 3.5 Chloride 99 Carbon Dioxide 30 Anion Gap 7 BUN 49 H Creatinine 3.10 H Estim Creat Clear Calc 14 Estimated GFR 14 L Glucose 125 H POC Capillary Glucose 154 H 163 H Calcium 7.9 L Magnesium 2.3 Total Bilirubin 0.5 AST 25 ALT 12 Alkaline Phosphatase 48 Total Protein 6.0 L Albumin 3.5 Tacrolimus 01/17/24 04:47 WBC RBC Hgb Hct MCV MCH MCHC RDW Plt Count MPV Immature Gran % (Auto) Neut % (Auto) Lymph % (Auto)
[2024-01-19 16:43] LABS: SARS-CoV-2 RNA PCR Negative (Negative)
[2024-01-19 17:05] LABS: Glucose Point of Care 108 mg/dl (65-105)
== END 2024-01-19 17:45 | DRG 682 ==
LOC: ANHED 21:23 → ANHIMU 21:30 → ANH2MED 01-16 17:43
PROVIDERS: Family Medicine; Internal Medicine Nephrology; Student in an Organized Health Care Education/Training Program; Admitting Provider Internal Medicine; Emergency Provider Emergency Medicine; PCP Internal Medicine; Visit Provider Internal Medicine
DX: N17.9 Acute kidney failure, unspecified (principal); G93.41 Metabolic encephalopathy; Z94.4 Liver transplant status; E87.5 Hyperkalemia; E86.0 Dehydration; E78.5 Hyperlipidemia, unspecified; E11.42 Type 2 diabetes mellitus with diabetic polyneuropathy; F03.90 Unspecified dementia, unspecified severity, without behavioral disturbance, psychotic disturbance, mood disturbance, and anxiety; I10 Essential (primary) hypertension; I25.10 Atherosclerotic heart disease of native coronary artery without angina pectoris; Z86.711 Personal history of pulmonary embolism; Z96.652 Presence of left artificial knee joint; Z79.01 Long term (current) use of anticoagulants; Z79.82 Long term (current) use of aspirin; Z79.84 Long term (current) use of oral hypoglycemic drugs
CPT/HCPCS: 36415; 70450; 70551; 74018; 74176; 76775; 80053; 80061; 80197; 81001; 82140; 82550; 82570; 82607; 82746; 82948; 83036; 83735; 84156; 84300; 84443; 84540; 85025; 85027; 85999; 87040; 87086; 87635; 93005; 97110; 97161; 97530; 99285; A9270; J0612; J1650; J1815; J1940; J2405; J3475; J7120

== ENCOUNTER 2024-07-05 10:52 | Outpatient (CLI) | payer MEDICARE, BC, SELFPAY ==
--- NOTE | ~2024-07-05 | MM_ITS ---
EXAMINATION: MM screening alexis BI w nadine HISTORY: Screening mammogram TECHNIQUE: Craniocaudal and mediolateral oblique 3-D tomosynthesis images were obtained and synthetic 2-D images were generated. CAD analysis was submitted and interpreted. COMPARISON: 07/24/2022, 05/25/2021 BREAST PARENCHYMAL COMPOSITION:Dense: The breasts are heterogeneously dense, which may obscure small masses. FINDINGS: Bilateral benign calcifications are present. No suspicious mass, calcification, or architec tural distortion are identified in either breast to suggest malignancy. There has been no suspicious interval change. IMPRESSION: No mammographic evidence of malignancy. Recommend routine screening mammography in one year. BI-RADS Category 1: Negative Reviewed, dictated and finalized at location . [employer]
== END 2024-07-05 10:53 | disposition home or self-care (01) ==
LOC: ANHIMG 10:55
PROVIDERS: PCP Internal Medicine; Visit Provider Internal Medicine
DX: Z12.31 Encounter for screening mammogram for malignant neoplasm of breast (principal)
CPT/HCPCS: 77063; 77067

== ENCOUNTER 2024-08-24 08:37 | Inpatient (IN) | payer MEDICARE, BC, SELFPAY ==
[2024-08-24] VITALS (12 sets, daily range): BP systolic 122–162; BP diastolic 62–92; PULSE 53–91; RESP 15–26; TEMP 36.9–37.9; O2SAT 93–98; BMI 28.4
--- NOTE | ~2024-08-24 | XR_ITS ---
CHEST RADIOGRAPH CLINICAL HISTORY: cough . COMPARISON: 06/26/2023 TECHNIQUE: Single portable view of the chest. FINDINGS The cardiomediastinal silhouette is unremarkable. The lungs are clear. Visualized osseous structures and soft tissues are unremarkable. IMPRESSION: No focal infiltrate or effusion. Reviewed, dictated and finalized at location A. PLANT SUPERVISOR
--- NOTE | ~2024-08-24 | XR_ITS ---
EXAMINATION: XR chest 1V portable DATE: 08/27/2024 16:08 INDICATION: Shortness of breath. TECHNIQUE: A single frontal view of the chest was obtained. COMPARISON: Chest single view 08/24/2024, CT abdomen and pelvis 01/15/2024 FINDINGS: There are airspace opacities in left mid and lower lung zones. No pleural effusion or pneum othorax. The heart size is normal. IMPRESSION: 1. Airspace opacities in left mid and lower lung zones, consistent with atelectasis versus pneumonia. Reviewed, dictated and finalized at location A. TRICIAN JOURNEYMAN WIREMAN IMPRESSION: 1. Airspace opacities in left mid and lower lung zones, consistent with atelect asis versus pneumonia.
--- OUTSIDE RECORDS SUMMARY | 2024-08-24 08:39 | XMS_ITS | Data Portability ---
Author Organization [facility], [facility] Address [address] [place] [address] Assessment No assessment recorded. Plan of Treatment Reminders Order Date Submit Date Provider Last Modified By Organization Details Last Modified Time Details Appointments None record ed. Lab None record ed. Referral None record ed. Procedures None record ed. Surgeries None record ed. Imaging None record ed. Medication Orders None record ed. Patient TargetsNo targets recorded. Patient InstructionsNo instructions recorded. Reason for Referral None Reported. Problems Name Problem SNOMED Code Status Onset Date Resolution Date Notes Provider Name and Address Organization Details Recorded Time Procedur e Completed 201710/19/2018 Encounte r for other preproce dural examinat ion; Progress : Stable Added By: Ariana Anaya Add to Current Problems : NO ProblemS tatus: Resolve Not Available [facility] 2 19:13:03 Urinary incontin ence [id number] Completed 201711/11/2017 Urinary incontin ence, unspecif ied; Progress : Stable Added By: Howard Ventura Add to Current Problems : NO ProblemS tatus: Resolve Not Available [facility] 2 19:13:03 Micturit ion finding Completed 201711/11/2017 Unspecif ied urinary incontin ence; Progress : Stable Added By: Audrey Howard E Add to Current Problems : NO ProblemS tatus: Resolve Not Available [facility] 2 19:13:02 Female stress incontin ence 10674086 Active 2017 Female stress incontin ence; Progress : Stable Added By: Ariana Anaya Add to Current Problems : YES ProblemS tatus: Current Stress incontin ence; Location : None Progress : Stable Added By: Leann Benjamin Add to Current Problems : YES ProblemS tatus: Current; Start Date : 10/26/19 18 Not Available [facility] 2 19:13:03 Pre-surg ariela testing Completed 201710/19/2018 Encounte r for preproce dural laborato ry examinat ion; Progress : Stable Added By: Ariana Anaya Add to Current Problems : NO ProblemS tatus: Resolve Not Available [facility] 2 19:13:03 Dementia 56444992 Active 2022 Anahi العلي MD [address] [place] [address], [phone] , [facility] 3 18:10:22 Mixed urinary incontin ence 107592347 Active 2022 Anahi العلي MD [address] [place] [address], [phone] , [facility] 3 18:10:33 [facility] 33217677 Active 2022 Anahi العلي MD [address] [place] [address], [phone] , [facility] 3 18:10:59 Transpla ntation of liver Active 2022 Anahi العلي MD [address] [place] [address], [phone] , [facility] 3 18:11:20 Problem Notes None recorded. Procedures Surgical History Date Name Laterality Status Provider Name and Address Organization Details Recorded Time 08/25/19 Date of Last Pap Smear completed Anahi العلي MD [address] [place] [address], [phone], [facility] 06/23/2022 01:15:42 07/09/19 19 repair of stress incontinence by suprapubic sling completed Anahi العلي MD [address] [place] [address], [phone], [facility] 06/23/2022 01:14:05 transplantation of liver completed Sissy Vasques [facility] 07/22/2022 13:33:41 Imaging Results None recorded. Procedure Notes None recorded. Medical Equipment None Reported. Allergies Allergen ID Allergen Name Allergen Category Reaction Reaction Severity Criticality Documentation Date Start Date Code Code System Note Provider Name and Address Organization Details Recorded Time 846165 Lazara medicatio n Not available Not available Not available 04/29/20212017 65059 0 RxNorm Sever ity: Moder ate; Not Available Not Available Not Available 973896 prednison e medicatio n Not available Not available Not available 04/29/20212017 8640 RxNorm Sever ity: Moder ate; Not Available Not Available Not Available Medications Name Sig Start Date Stop Date Status Note LastModified by Organization Details LastModified Time metformin 500 mg tablet active Not Available Not Available Not Available cetirizin e 10 mg tablet TAKE 1 TABLET BY MOUTH ONCE DAILY AT BEDTIME NEEDED active Not Available Not Available No t Available nystatin 100,000 unit/gram topical ointment Apply thin film to affected external area twice daily 07/22 completed Nystatin 100,000 unit/gra m Topical Ointment RxNorm: 309839 Allow Substitu tion: True Refill Denied: No Refill DateOccu rred: 08/07/19 18 Edited by: Kiki Whitaker ) on 08/26/19 Stopped by: Kiki Whitaker ) on Not Available Not Available Not Available meclizine 12.5 mg tablet TAKE 1 TABLET BY MOUTH THREE TIMES DAILY active Not Available Not Available No t Available Celebrex 200 mg capsule Take 1 capsule( s) by mouth daily 2017 active Celebrex 200 mg oral capsule RxNorm: 318264 Allow Substitu tion: True Refill Denied: No Refill DateOccu rred: 08/05/19 18 Edited by: Kiki Whitaker ) on 08/26/19 20 Stopped by: Kiki Whitaker ) on Not Available Not Available Not Available cefadroxi l 500 mg capsule TAKE 1 CAPSULE BY MOUTH TWICE DAILY active Not Available Not Available No t Available estradiol 1 mg tablet 1 by mouth daily active estradio L 1 mg oral tablet RxNorm: 118457 Allow Substitu tion: True Refill Denied: No Edited by: Rupert(Hi ll, Kiki ) on 08/26/19 Stopped by: Rupert(Ar ll, Kiki ) on Not Available Not Available Not Available Lasix 20 mg tablet daily as directed 07/22 completed Lasix 20 mg oral tablet RxNorm: 877075 Allow Substitu tion: True Refill Denied: No Refill DateOccu rred: 08/05/19 18 Edited by: Rupert(Ar ll, Kiki ) on 08/26/19 Stopped by: Rupert(Ar ll, Kiki ) on Not Available Not Available Not Available aspirin 81 mg chewable tablet 1 tab daily 2017 active aspirin 81 mg oral tablet,c hewable RxNorm: 201381 Allow Substitu tion: True Refill Denied: No Refill DateOccu rred: 08/05/19 Edited by: Rupert(Ar ll, Kiki ) on 08/26/19 Stopped by: Rupert(Ar ll, Kiki ) on Not Available Not Available Not Available lisinopri l 5 mg tablet Take 1 tablet(s ) by mouth daily 2017 active Lisinopr il 5 mg oral tablet RxNorm: 381312 Allow Substitu tion: True Refill Denied: No Refill DateOccu rred: 08/05/19 Edited by: Rupert(Ar ll, Kiki ) on 08/26/19 Stopped by: Rupert(Ar ll, Kiki ) on Not Available Not Available Not Available ergocalci ferol (vitamin D2) 1,250 mcg (50,000 unit) capsule TAKE 1 CAPSULE BY MOUTH EVERY TWO WEEKS active Not Available Not Available No t Available ipratropi um bromide 42 mcg (0.06 %) nasal spray active Not Available Not Available Not Available tacrolimu s 0.5 mg capsule, immediate -release TAKE 3 CAPSULES BY MOUTH TWICE DAILY active Not Available Not Available No t Available memantine 10 mg tablet active Not Available Not Available Not Available solifenac in 5 mg tablet active Not Available Not Available Not Available estradiol 1 by mouth daily 08/26 completed Estradio l 1mg Tablet Allow Substitu tion: True Refill Denied: No Not Available Not Available Not Available Coreg 2018 active Coreg RxNorm: 10972 Allow Substitu tion: True Refill Denied: No Refill DateOccu rred: 10/24/19 19 Edited by: Rupert(Daniel ll, Kiki ) on 08/26/19 20 Stopped by: Rupert(Daniel ll, Kiki ) on Not Available Not Available Not Available biotin 2017 active Biotin Allow Substitu tion: True Refill Denied: No Refill DateOccu rred: 08/05/19 18 Edited by: Rupert(Daniel ll, Kiki ) on 08/26/19 20 Stopped by: Rupert(Daniel ll, Kiki ) on Not Available Not Available Not Available cholecalc iferol (vitamin D3) 1,250 mcg (50,000 unit) capsule Take 1 capsule( s) by mouth q week 2017 active cholecal ciferol (vitamin D3) 1,250 mcg (50,000 unit) oral capsule RxNorm: 109035 Allow Substitu tion: True Refill Denied: No Refill DateOccu rred: 08/05/19 18 Edited by: Rupert(Daniel ll, Kiki ) on 08/26/19 20 Stopped by: Rupert(Daniel ll, Kiki ) on Not Available Not Available Not Available Myrbetriq 25 mg tablet,ex tended release Take 1 tablet(s ) by mouth daily 07/22 completed Myrbetri q 25 mg oral Tablet, Extended Release 24 hr RxNorm: 8752106 Allow Substitu tion: True Refill Denied: No Refill DateOccu rred: 08/07/19 18 Edited by: Rupert(Daniel ll, Kiki ) on 08/26/19 20 Stopped by: Rupert(Daniel oliver, Kiki ) on Not Available Not Available Not Available Eliquis 5 mg tablet TAKE 1 TABLET BY MOUTH TWICE DAILY active Not Available Not Available No t Available BinaxNOW COVID-19 Ag Self Test kit 07/22 completed Not Available Not Available Not Available Vitals Date Recorded Body weight Body mass index (BMI) Body height Systolic blood pressure Diastolic blood pressure Provider Name and Address Organization Details Last Updated DateTime 07/22/2022 91640.1 g 32.6 kg/m2 165.1 cm 124 mm[Hg] 82 mm[Hg] Sissy Vas[facility] 3 13:38:32 Social History Question Answer Notes LastModified by Organizat ion Details LastModified Time Tobacco Smoking Status Never Smoker Sissy Vasques null, [facility] 07/22/2022 13:33:05 How Many Children Do You Have? 3 [email or web address] Information not available 07/22/2022 Sex: Unknown Functional Status None recorded. Mental Status None recorded. Family History Relationship Description Onset Age of this Age Resolved Age Notes LastModified by Organization Details LastModified Time Father No current problems or disability [email or web address] Not available 07/22 13:32:41 Mother No current problems or disability [email or web address] Not available 07/22 13:32:41 Medical History Condition Response Other Cancer Y Incontinence Y Liver Disease Y Gynecological History Statement/Question Response Date of Last Pap Smear 08/25/2019 Most Recent Mammogram Date of last HPV 08/25/2019 Current Control Method Menopause Most Recent Bone Density Obstetrics History GPAL:G 4 P 3 0 1 3 Type Value Full Term 3 Spontaneous 1 Living 3 Total 4 Past Encounters Encounter ID Performer Location Encounter Start Date Encounter Closed Date Diagnosis/Indication Diagnosis SNOMED-CT Code Diagnosis ICD10 Code Diagnosis Note [id number] Anahi العلي MD [facility] [address] [place] [address] 07/22/2022 12:50:56 07/22/2022 18:25:17 Mixed urinary incontinence 113316738 N39.46 pt had TVT by Dr Johnson in the past. She has been prescribed Solifenaci n, unclear if taking daily. She has continued episodes of bladder leakage despite prior measures. Does not appear to have prolapse. her incontinen ce may have a neurologic al component, especially with her dementia.W ill refer to Dr Baldwin for specialize d evaluation , considerat ion of urodynamic s, and possible other options to treat her leakage. Dementia 49126078 F03.90 She appears to have moderate stage memory loss. Namenda is listed on her medication list. do not feel she would be able to remember to do Kegels and would have trouble completing a bladder diary without help Health Concerns Section Related Observation LastModified by Organization Detai ls LastModified Time None Recorded Concern Status LastModified by Organization Details LastModified Time None Recorded Advance Directives Directive None Recorded Payers Encounter Date Sequence Insurance Name Policy Number Policy Reyes Covered Member ID Reyes Member ID Guarantor Name 07/22/2022 1 [place] Morelia Rodriguez [id number] Morelia Rodriguez 07/22/2022 2 [place] ([place]O) [id number] Morelia Rodriguez [id number] Morelia Rodriguez Notes Date Note Type Note Provider Name and Address Organization Details Recorded Time 07/22/2022 text/html Morelia is an 81 y r old who is being seen today for urinary/bowel incontinence states that the incontinence is worse since last being seen by Dr. JohnsonFormer Dr. Johnson patient. He performed a TVT sling procedure on her. She states that despite this, she continues to have multiple episodes of leakage daily and has to wear a pull up. She is unable to tell me when the leakage happens but does state it is a large amount, soaking through her pull up.Pt with short term memory loss and is taking Dementia medication, Namenda.Patient is unaware what medication that she is currently taking. Med list was left at home. Records show she is on solfenacin 5 mg tablet.Pt is unaccompanied today, so no one is here to help give more history. her granddaughter drove her to clinic but is not present currentlyPt is frustrated about the leakage, states nothing has helped. Anahi العلي MD [address], [place], [address], [facility] 07/22/2022 18:25:01 OBGyn Episode No OBEpisode recorded.
--- OUTSIDE RECORDS SUMMARY | 2024-08-24 08:39 | XMS_ITS | Patient Health Record ---
Author Organization [facility] Address [address], [place] [address] Support Name Relationship Address Phone Morelia Rodriguez Guarantor Unknown [phone] Reason For Referral No Information Plan Of Treatment No Information
--- OUTSIDE RECORDS SUMMARY | 2024-08-24 08:39 | XMS_ITS ---
Author Organization [facility] vee Address [address] [address] [place] [address] Care Team Providers Care Packing Inspector Name Role Phone zzzzMigration, zzzzProvider Unavailable Unav ailable REASON FOR VISIT [facility] [place] En[place] Location Date Provider Diagnosis [facility] [address] [facility] [address] [place] [address] 04/29/2023 zzzzProvider zzzzMigration Plan Of Treatment No Information Progress Notes * Morelia RODRIGUEZ KDOB: 2 (83 yo Other)Acc No.[id number]:04/29/2023 Patient: Navdeep JACKSON Morelia Campbell :1940 A ge:82 Y S ex:Unknown Address:[address] [address] Subjective: * Chief Complaints: * E MR-Berto * Medical History: * Surgical History: * Hospitalization/Major Diagno stic Procedure: * Medications: Objective: * Vitals: * Physical Examination: Assessment: Plan: * Treatment: * Procedure Codes: * * Date:
--- OUTSIDE RECORDS SUMMARY | 2024-08-24 08:40 | XMS_ITS | Data Portability ---
Author Organization [place] - [facility] OFFICE Address [address] [place] [address] Care Team Providers Care Procurement Cost Coordinator Name Role Phone EVON SAENZ Primary Care Provider EVON SAENZ Referring Provider Assessment Encounter Date Assessment Date Assessment LastModified by Organization Details LastModified Time 03/22/2023 03/22/2023 Patient Examined by SHI Downing, Also Documentation reviewed and approved by supervising physician rabia Not available 03/22/2023 12:06:02 06/21/2023 06/21/2023 Patient Examined by SHI Downing, Also Documentation reviewed and approved by supervising physician dominga Not available 06/19/2023 12:46:13 07/11/2023 07/11/2023 Patient Examined by SHI Downing, Also Documentation reviewed and approved by supervising physician dominga Not available 07/10/2023 09:13:04 10/11/2023 10/11/2023 Patient Examined by SHI Downing, Also Documentation reviewed and approved by supervising physician dominga Not available 10/10/2023 14:01:16 Plan of Treatment Reminders Order Date Submit Date Provider Last Modified By Organization Details Last Modified Time Details Appointments None recorded. Lab None recorded. Referral None recorded. Procedures None recorded. Surgeries None recorded. Imaging None recorded. Medication Orders furosemide 20 mg tablet 2023 024 [facility], [address], [place], [address], 13:07:57 potassium chloride ER 20 mEq tablet,exte nded release(par t/cryst) [address], [address] [place] [address], [address], 4 14:36:22 losartan 100 mg tablet 2023 024 [facility] [address], [address] [place] [address], [address], 4 13:07:54 furosemide 20 mg tablet 2022 023 [facility] [address], [address] [place] [address], [address], 3 12:11:57 potassium chloride ER 20 mEq tablet,exte nded release(par t/cryst) [address], [address] [place] [address], [address], 4 14:36:22 amlodipine 5 mg tablet 2022 023 [facility] [address], [address] [place] [address], [address], 4 11:28:15 Patient TargetsNo targets recorded. Patient Instructions Encounter Date Encounter Id Patient Instructions Last Modified By Organization Details Last Modified Time 03/22/2023 [id number] Low cholesterol diet advised Low sodium diet advised. eyassin Not available 03/22/2023 12:13:24 06/21/2023 [id number] Low cholesterol diet advised Low sodium diet advised. eyassin Not available 06/21/2023 12:11:01 07/11/2023 [id number] Exercise advised Low cholesterol diet advised Low sodium diet advised. eyassin Not available 07/11/2023 13:07:46 10/11/2023 [id number] Low cholesterol diet advised Low sodium diet advised. eyassin Not available 10/11/2023 11:38:08 Reason for Referral None Reported. Results Created Date Observation Date Name Description Value Unit Range Abnormal Flag Note LastModifiedBy Organization Detail LastModifiedTime 03/28/2003/22/2023 elect rocar diogr am No observ ation record ed. [email or web address] Not Available 2022 13:17:27 06/29/20 23 06/14/2023 US, carot id arter y No observ ation record ed. [email or web address] Not Available 2022 09:22:41 10/30/19 24 10/11/2023 elect rocar diogr am No observ ation record ed. [email or web address] Not Available 2023 15:36:44 04/16/20 24 04/15/2024 elect rocar diogr am No observ ation record ed. [email or web address] Not Available 2023 09:15:41 04/21/2004/15/2024 , echoc ardio gram No observ ation record ed. [facility] [address] [facility] [address], [place], [address], 04/22/2024 03:25:47 04/24/2004/15/2024 US, echoc ardio gram No observ ation record ed. [email or web address] Not Available 2023 18:32:48 Result Notes None recorded. Problems Name Problem SNOMED Code Status Onset Date Resolution Date Notes Provider Name and Address Organization Details Recorded Time Benign hypertension 24716187 Active Phill gamble, [place] - [facility] 3 15:49:03 History of liver recipient 042892220 Active 2019 Phill [place] [facility] 3 15:49:03 Body mass index 30+ - obesity 084709382 Active 2018 Phill gamble [place] - [facility] 3 15:49:03 Urinary incontinence 753854273 Active Phill gam[place] [facility] 3 15:49:03 Spinal stenosis of lumbar region 91810505 Active 2020 Phill [place]ble [place] [facility] 3 15:49:03 Cirrhosis of liver 92754758 Active [place] [facility] 3 15:49:03 Allergic rhinitis caused by pollen 59584605 Active 2020 Phill [place] [facility] 3 15:49:03 Idiopathic peripheral neuropathy 29134364 Active [place] [facility] 3 15:49:03 Overweight 644383768 Active [place] [facility] 3 15:49:03 Ventricular hypertrophy 479981368 Active 2015 Phill [place] [facility] 3 15:49:03 Gastroesophage al reflux disease without esophagitis 213769549 Active 2021 Phill [place] [facility] 3 15:49:03 Osteopenia 218113935 Active Phill Saleem [place] [facility] 3 15:49:03 Vitamin D deficiency 89326342 Active [place] [facility] 3 15:49:03 Migraine 45301869 Active 2016 Phill [place] [facility] 3 15:49:03 Mild neurocognitive disorder 671014837 Active 2018 Phill [place] [facility] 3 15:49:03 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 019267003 Active 2018 Phill [place] [facility] 3 15:49:03 Osteoarthritis 330482253 Active Phill Saleem [place] [facility] 3 15:49:03 Umbilical hernia 719343422 Active [place] [facility] 3 15:49:03 Ventral incisional hernia 642992353 Active [place] [facility] 3 15:49:03 Hypocalcemia 7804337 Active 2020 Phill [place] [facility] 3 15:49:03 Coronary arterioscleros is 58247178 Active 2017 Phill [place] [facility] 3 15:49:03 Hyperlipidemia 97963642 Active 2016 Phill [place] [facility] 3 15:49:03 Right bundle branch block 14361044 Active 2020 Phill [place] [facility] 3 15:49:03 Pulmonary embolism 92058383 Active 2018 Phill Sale[place] [facility] 3 15:49:03 Aortic valve regurgitation 20363809 Active 2015 Phill [place] [facility] 3 15:49:04 Diarrhea 15491624 Active 2020 Phill [place] [facility] 3 15:49:04 Bundle branch block 3027175 Active 2017 Phill [place] [facility] 3 15:49:04 Carotid artery stenosis 86165864 Active 2019 [place] [facility] 3 15:49:04 Transplanted liver present 007478998 Active 2018 [place] [facility] 3 15:49:04 Congestion of nasal sinus 81533107 Active 2019 Phill [place] [facility] 3 15:49:04 Uterine leiomyoma 98105972 Active [place] [facility] 3 15:49:04 Electrocardiog elisha abnormal 922073482 Active 2017 Phill [place] [facility] 3 15:49:03 Diabetes mellitus 90577382 Active 2017 Hala [place] [facility] 8 16:02:08 Dyslipidemia 677155543 Active 2017 Phill Sale[place] [facility] 3 15:49:03 Cirrhosis - non-alcoholic 525908380 Active 2017 [place] [facility] 3 15:49:03 Anemia 417005152 Active 2017 [place] [facility] 3 15:49:03 Dyspnea on exertion 24491943 Active 2017 [place] [facility] 3 15:49:04 Essential hypertension 90417249 Active 2017 [place] [facility] 15:49:03 Obesity 872471343 Active 2017 [place] [facility] 15:49:03 Pre-surgery evaluation Active 2017 [place] [facility] 15:49:03 Notes:Some problems listed i n Documents: #[id number], #[id number] could not be added to this patient's chart. Please review these documents and add these problems to the patient's chart manually as needed. Problem Notes None recorded. Procedures Surgical History None recorded. Imaging Results Imaging Date Name Status LastModified by Organization Details LastModified Time 03/22/2023 electrocardiogram completed Informa tion not available 03/28/2023 13:17:27 06/14/2023 US, carotid artery completed [email or web address] Inform ation not available 06/29/2023 09:22:41 10/11/2023 electrocardiogram completed Informa tion not available 10/30/2023 15:36:44 04/15/2024 electrocardiogram completed Informa tion not available 04/16/2024 09:15:41 04/15/2024 US, echocardiogram completed [facility] [place] [facility] [address], [place], [address], 04/22/2024 03:25:47 04/15/2024 US, echocardiogram completed Inform ation not available 04/24/2024 18:32:48 Procedure Notes None recorded. Medical Equipment None Reported. Allergies Allergen ID Allergen Name Allergen Category Reaction Reaction Severity Criticality Documentation Date Start Date Code Code System Note Provider Name and Address Organization Details Recorded Time 05982 Lazara medicatio n Not available Not available Not available 09/12/2022 87419 0 RxNorm Phill gamble, [place] - [facility] 15:48:33 53823 Niaspan medicatio n Not available Not available Not available 09/12/2022 71604 6 RxNorm Phill gamble, [place] [facility] 15:48:33 27666 Neurontin medicatio n Not available Not available Not available 09/12/2022 75786 8 RxNorm Phill Saleem [facility], [place] - [facility] 3 15:48:33 45771 Ultram medicatio n Not available Not available Not available 09/12/2022 25947 6 RxNorm Phill Saleem [facility], [place] - [facility] 3 15:48:33 6583 prednison e medicatio n Not available Not available Not available 02/02/2018 8640 RxNorm Mor Ruano [facility], [facility] 8 16:04:04 Medications Name Sig Start Date Stop Date Status Note LastModified by Organization Details LastModified Time celecoxib 200 mg capsule Take 1 capsule every day by oral route for 30 days. 10/10 completed Not Available Not Available Not Available amoxicill in 500 mg capsule 02/18 completed Not Available Not Available Not Available latanopro st 0.005 % eye drops 06/21 completed Not Available Not Available Not Available metformin 500 mg tablet TAKE 1 TABLET BY MOUTH TWICE DAILY active Not Available Not Available No t Available Estring 2 mg (7.5 mcg/24 hour) vaginal ring INSERT 1 RING INTO THE VAGINA EVERY 3 MONTHS DIRECTED ON PACKAGE active Not Available Not Available No t Available clindamyc in HCl 300 mg capsule 02/18 completed Not Available Not Available Not Available cetirizin e 10 mg tablet TAKE 1 TABLET BY MOUTH ONCE DAILY AT BEDTIME NEEDED active Not Available Not Available No t Available azithromy francisco javier 250 mg tablet 02/18 completed Not Available Not Available Not Available benzonata te 200 mg capsule 06/21 completed Not Available Not Available Not Available hydrocodo ne 5 mg-acetam inophen 325 mg tablet Take 1 tablet 3 times a day by oral route for 30 days. 10/08 completed Not Available Not Available Not Available lisinopri l 20 mg tablet Take 1 tablet every day by oral route for 90 days. 10/08 completed Not Available Not Available Not Available prednison e 20 mg tablet 02/11 completed Not Available Not Available Not Available meclizine 12.5 mg tablet 02/11 completed Not Available Not Available Not Available potassium chloride ER 10 mEq tablet,ex tended release TAKE 1 TABLET BY MOUTH ONCE DAILY active Not Available Not Available No t Available amlodipin e 5 mg tablet TAKE 1 TABLET BY MOUTH ONCE DAILY 10/10 completed Not Available Not Available Not Available prochlorp erazine maleate 10 mg tablet Take 1 tablet twice a day by oral route for 10 days. 10/08 completed Not Available Not Available Not Available ciproflox acin 500 mg tablet TAKE 1 TABLET BY MOUTH EVERY 12 HOURS active Not Available Not Available No t Available hydrocodo ne 10 mg-acetam inophen 325 mg tablet 10/08 completed Not Available Not Available Not Available tramadol 50 mg tablet 10/08 completed Not Available Not Available Not Available carvedilo l 3.125 mg tablet Take 1 tablet twice a day by oral route. 10/10 completed Not Available Not Available Not Available cefadroxi l 500 mg capsule TAKE 1 CAPSULE BY MOUTH TWICE DAILY 03/22 completed Not Available Not Available Not Available meloxicam 7.5 mg tablet 06/21 completed Not Available Not Available Not Available amoxicill in 875 mg tablet 02/11 completed Not Available Not Available Not Available potassium chloride ER 20 mEq tablet,ex tended release(p art/cryst ) TAKE 1 TABLET BY MOUTH ONCE DAILY 10/10 completed Not Available Not Available Not Available prednisol one acetate 1 % eye drops,arian pension 06/21 completed Not Available Not Available Not Available estradiol 1 mg tablet Take 1 tablet every day by oral route for 30 days. 10/10 completed Not Available Not Available Not Available pravastat in 10 mg tablet Take 1 tablet every day by oral route at bedtime for 90 days. 02/18 completed Not Available Not Available Not Available meclizine 25 mg tablet Take 1 tablet 3 times a day by oral route for 10 days. 10/10 completed PRN Not Available Not Available Not Available hydrocodo ne 7.5 mg-acetam inophen 325 mg tablet 03/22 completed Not Available Not Available Not Available cephalexi n 500 mg capsule TAKE 1 CAPSULE BY MOUTH TWICE DAILY FOR 7 DAYS 10/10 completed Not Available Not Available Not Available cyanocoba reece (vit B-12) 1,000 mcg/mL injection solution INJECT 1 ML ONCE EVERY MONTH active Not Available Not Available No t Available tobramyci n 0.3 % eye drops 10/08 completed Not Available Not Available Not Available ropinirol e 0.5 mg tablet TAKE 1 TABLET BY MOUTH ONCE DAILY AT BEDTIME active Not Available Not Available No t Available losartan 25 mg tablet 1 tab daily 10/10 completed Not Available Not Available Not Available pravastat in 20 mg tablet Take 1 tablet every day by oral route. 07/10 completed Not Available Not Available Not Available lisinopri l 5 mg tablet 02/11 completed Not Available Not Available Not Available furosemid e 20 mg tablet TAKE 1 TABLET BY MOUTH ONCE DAILY IN THE MORNING FOR 90 DAYS active Not Available Not Available No t Available ergocalci ferol (vitamin D2) 1,250 mcg (50,000 unit) capsule TAKE 1 CAPSULE BY MOUTH EVERY TWO WEEKS active Not Available Not Available No t Available azelastin e 137 mcg (0.1 %) nasal spray USE 2 SPRAY(S) IN EACH NOSTRIL ONCE DAILY active Not Available Not Available No t Available albuterol sulfate HFA 90 mcg/actua tion aerosol inhaler INHALE 2 PUFFS BY MOUTH EVERY 8 HOURS NEEDED active Not Available Not Available No t Available ipratropi um bromide 42 mcg (0.06 %) nasal spray 06/21 completed Not Available Not Available Not Available oxybutyni n chloride 5 mg tablet Take 1 tablet twice a day by oral route for 90 days. 10/10 completed Not Available Not Available Not Available hydroxyzi ne HCl 10 mg tablet Take 1 tablet every day by oral route at bedtime for 15 days. 10/10 completed Not Available Not Available Not Available lisinopri l 40 mg tablet Take 1 tablet every day by oral route. 06/21 completed Not Available Not Available Not Available losartan 100 mg tablet TAKE 1 TABLET BY MOUTH ONCE DAILY active Not Available Not Available No t Available fluticaso ne propionat e 50 mcg/actua tion nasal spray,[facility] 02/11 completed Not Available Not Available Not Available doxycycli ne hyclate 100 mg tablet 02/11 completed Not Available Not Available Not Available Lotemax 0.5 % eye drops,[facility] 10/08 completed Not Available Not Available Not Available amoxicill in 875 mg-[place] ium clavulana te 125 mg tablet TAKE 1 TABLET BY MOUTH EVERY 12 HOURS active Not Available Not Available No t Available dorzolami de 2 % eye drops 10/08 completed Not Available Not Available Not Available tacrolimu s 0.5 mg capsule, immediate -release TAKE 3 CAPSULES BY MOUTH TWICE DAILY active Not Available Not Available No t Available neomycin- polymyxin -hydrocor t 3.5 mg-10,000 unit/mL-1 % ear drops,arian p 04/08 completed Not Available Not Available Not Available cholestyr amine (with sugar) 4 gram oral powder Take 1 scoop twice a day by oral route for 90 days. 10/10 completed Not Available Not Available Not Available cholestyr amine (with sugar) 4 gram powder for susp in a packet 06/21 completed Not Available Not Available Not Available rosuvasta tin 5 mg tablet TAKE 1 TABLET BY MOUTH ONCE DAILY active Not Available Not Available No t Available rosuvasta tin 10 mg tablet 10/08 completed Not Available Not Available Not Available Azo 95 mg tablet Take 1 tablet twice a day by oral route. 10/08 completed Not Available Not Available Not Available memantine 10 mg tablet TAKE 1 TABLET BY MOUTH TWICE DAILY active Not Available Not Available No t Available memantine 5 mg tablet Take 1 tablet twice a day by oral route for 90 days. 06/19 completed Not Available Not Available Not Available nitrofura ntoin monohydra te/macroc rystals 100 mg capsule TAKE 1 CAPSULE BY MOUTH TWICE DAILY FOR 7 DAYS 10/10 completed Not Available Not Available Not Available duloxetin e 30 mg capsule,d elayed release TAKE 1 CAPSULE BY MOUTH ONCE DAILY active Not Available Not Available No t Available duloxetin e 60 mg capsule,d elayed release TAKE 1 CAPSULE BY MOUTH ONCE DAILY active Not Available Not Available No t Available solifenac in 5 mg tablet 06/21 completed Not Available Not Available Not Available Boostrix Tdap 2.5 Lf unit-8 mcg-5 Lf/0.5 mL intramusc ular syringe 02/21 completed Not Available Not Available Not Available Aspir-81 1 tablet every day 06/19 completed Not Available Not Available Not Available Zostavax (PF) 19,400 unit/0.65 mL subcutane ous suspensio n 02/21 completed Not Available Not Available Not Available Januvia 50 mg tablet TAKE 1 TABLET BY MOUTH ONCE DAILY IN THE MORNING active Not Available Not Available No t Available FeroSul 325 mg (65 mg iron) tablet TAKE 1 TABLET BY MOUTH TWICE DAILY active Not Available Not Available No t Available Besivance 0.6 % eye drops,arian pension 10/08 completed Not Available Not Available Not Available Prevnar 13 (PF) 0.5 mL intramusc ular syringe 04/08 completed Not Available Not Available Not Available Myrbetriq 25 mg tablet,ex tended release TAKE 1 TABLET BY MOUTH ONCE DAILY active Not Available Not Available No t Available Eliquis 5 mg tablet TAKE 1 TABLET BY MOUTH TWICE DAILY 10/10 completed Not Available Not Available Not Available Eliquis 06/19 completed Patient was started on this for PE Not Available Not Available Not Available Shingrix (PF) 50 mcg/0.5 mL intramusc ular suspensio n, kit 02/21 completed Not Available Not Available Not Available Adult Aspirin Regimen 81 mg tablet,de layed release Take 1 tablet every day by oral route. active Not Available Not Available No t Available Fluzone High-Dose 1821-1060 (PF) 180 mcg/0.5 mL intramusc ular syringe 10/08 completed Not Available Not Available Not Available Fluzone High-Dose (PF) 180 mcg/0.5 mL intramusc ular syringe 03/22 completed Not Available Not Available Not Available OllieaxNOW COVID-19 Ag Self Test kit 09/12 completed Not Available Not Available Not Available Vitals Date Recorded Body height Body mass index (BMI) Body weight Heart rate Respiratory rate Oxygen saturation Oxygen saturation in Arterial blood by Pulse oximetry Systolic blood pressure Diastolic blood pressure Provider Name and Address Organization Details Last Updated DateTime 3 165.1 cm 30.3 kg/m2 75472.8 1 g 61 /min 16 /min 93 % 93 % 146 mm[Hg] 82 mm[Hg] Phill COCHRAN - [facility] 3 11:47:47 Date Recorded Body height Body mass index (BMI) Body weight Oxygen saturation Oxygen saturation in Arterial blood by Pulse oximetry Heart rate Systolic blood pressure Diastolic blood pressure Provider Name and Address Organization Details Last Updated DateTime 3 165.1 cm 31.5 kg/m2 49511.9 6 g 98 % 98 % 82 /min 134 mm[Hg] 64 mm[Hg] Olga Bradyran [facility] 3 11:21:44 Date Recorded Body height Body mass index (BMI) Body weight Heart rate Oxygen saturation Oxygen saturation in Arterial blood by Pulse oximetry Respiratory rate Systolic blood pressure Diastolic blood pressure Provider Name and Address Organization Details Last Updated DateTime 4 165.1 cm 31.3 kg/m2 08824.3 7 g 50 /min 98 % 98 % 17 /min 190 mm[Hg] 90 mm[Hg] TONYA CA [facility] 4 12:58:29 Date Recorded Body height Body mass index (BMI) Body weight Heart rate Oxygen saturation Oxygen saturation in Arterial blood by Pulse oximetry Systolic blood pressure Diastolic blood pressure Provider Name and Address Organization Details Last Updated DateTime 4 165.1 cm 32.6 kg/m2 70407.1 g 60 /min 97 % 97 % 139 mm[Hg] 87 mm[Hg] Hillary Degroot [facility] 4 10:58:19 Date Recorded Body height Body mass index (BMI) Body weight Heart rate Respiratory rate Oxygen saturation Oxygen saturation in Arterial blood by Pulse oximetry Systolic blood pressure Diastolic blood pressure Provider Name and Address Organization Details Last Updated DateTime 4 165.1 cm 29.1 kg/m2 31196.6 6 g 61 /min 16 /min 95 % 95 % 134 mm[Hg] 86 mm[Hg] Hillary Degroot [facility] 4 10:15:34 Social History Question Answer Notes LastModified by Organizat ion Details LastModified Time Tobacco Smoking Status Former Smoker Snehal gamble [facility] 02/08/2018 15:28:34 What Is Your Level Of Alcohol Consumption? None [email or web address] Information not available 02/11/2018 What Is Your Level Of Caffeine Consumption? 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 04/08/2018 Information not available 01/30/2019 How Many Children Do You Have? 3 Information not available 02/11/2018 Sex: Unknown Functional Status None recorded. Mental Status None recorded. Family History Relationship Description Onset Age of this Age Resolved Age Notes LastModified by Organization Details LastModified Time Mother Diabetes mellitus [email or web address] Not available 2017 15:28:17 Mother Malignant tumor of breast [email or web address] Not available 2017 15:28:28 Medical History Condition Response Diabetes Y Hyperlipidemia Y Anemia Y Hypertension Y Gynecological HistoryNo gynecological history recorded. Obstetrics History GPAL:G 0 P 0 0 0 0 Immunizations Vaccine Type Date Status Note Provider Nam e and Address Organization Details Recorded Time Influenza, split virus, quadrivalent, preservative 9 completed Phill [place], [place] - [facility] 09/12/2022 15:49:13 Influenza, split virus, quadrivalent, preservative 1 completed [place] [facility] 09/12/2022 15:49:13 Influenza, split virus, quadrivalent, preservative 0 completed [place] [facility] 09/12/2022 15:49:13 Influenza, split virus, quadrivalent, preservative 5 completed [place] [facility] 09/12/2022 15:49:13 Influenza, split virus, quadrivalent, preservative 7 completed [place] [facility] 09/12/2022 15:49:13 zoster recombinant 8 completed [place] [facility] 09/12/2022 15:49:13 COVID-19, mRNA, LNP-S, PF, 30 mcg/0.3 mL dose 1 completed [place] [facility] 09/12/2022 15:49:14 COVID-19, mRNA, LNP-S, PF, 30 mcg/0.3 mL dose 1 completed Phill [place] [facility] 09/12/2022 15:49:14 COVID-19, mRNA, LNP-S, PF, 30 mcg/0.3 mL dose 2 completed Phill [place] [facility] 09/12/2022 15:49:14 COVID-19, mRNA, LNP-S, PF, 30 mcg/0.3 mL dose 1 completed Phill gamble, [facility] 09/12/2022 15:49:14 pneumococcal polysaccharide PPV23 5 completed Phill gamble, [facility] 09/12/2022 15:49:14 pneumococcal polysaccharide PPV23 1 completed Phill gamble, [facility] 09/12/2022 15:49:14 Tdap 6 completed Phill gamble, [facility] 09/12/2022 15:49:14 Pneumococcal conjugate PCV 13 6 completed Phill gamble, [facility] 09/12/2022 15:49:14 Influenza, high-dose, trivalent, PF 8 completed Phill gamble, [facility] 09/12/2022 15:49:14 Influenza, split virus, trivalent, preservative 6 completed Phill gamble, [facility] 09/12/2022 15:49:14 Past Encounters Encounter ID Performer Location Encounter Start Date Encounter Closed Date Diagnosis/Indication Diagnosis SNOMED-CT Code Diagnosis ICD10 Code Diagnosis Note [id number] MD Abena Harvey Office [facility] [address] 02/11/2018 12:05:04 02/11/2018 13:58:47 Dyspnea on exertion 95290845 R06.09 Could be angina equivalent . Will obtain Lexiscan Myoview Stress Test to look for any ischemia. Patient cannot walk. Has a high [place] Risk score. Has Known CAD and/or CAD risk equivalent . Continue maximal medical treatment and risk factor modificati on Essential hypertension 47577924 I10 Blood pressure is elevated today but this is only one reading. Will keep close follow up and consider medication change if blood pressure remains elevated by next visit. Dyslipidemia 897735076 E 78.5 Needs to keep LDL less than 70, and HDL more than 40. Will get lipid profile results from PCP. Refusing statin therapy. Diet and weight loss advised. Diabetes mellitus 624094 09 E11.9 Borderline . Diet controlled . Obesity 623171624 E66.9 20 lb. weight loss recommende d over the next 2 months. Cirrhosis - non-alcoholic 791851117 K74.60 s/p liver transplant .Being followed by specialist . Pre-surger y evaluation [id number] Z01.818 Lexiscan Myoview stress test, pt can not walk. Has known coronary artery disease, with atypical symptoms now [id number] Kirk Ponce MD [facility] Office [address] [place] [address] [place] [address] 04/08/2018 10:23:21 04/08/2018 10:51:19 Pre-surgery evaluation [id number] Z01.818 Lexiscan Myoview stress test was positive with mild ischemia. The patient will be scheduled for left heart catheteriz ation, with coronary angiogram, and possible PTCA/Stent . The procedure was discussed with the patient, and risks, benefits, and alternativ e options were explained. The patient was given informatio n about heart catheteriz ation and interventi onal procedures . The patient agrees to proceed. Dyspnea on exertion 6084 5006 R06.09 Could be angina equivalent . Continue maximal medical treatment and risk factor modificati on Essential hypertension 22589589 I10 Blood pressure is elevated today but this is only one reading. Will keep close follow up and consider medication change if blood pressure remains elevated by next visit. Dyslipidemia 381036664 E 78.5 Needs to keep LDL less than 70, and HDL more than 40. Will get lipid profile results from PCP. Refusing statin therapy. Diet and weight loss advised. Diabetes mellitus 553674 09 E11.9 Borderline . Diet controlled . Obesity 465749994 E66.9 20 lb. weight loss recommende d over the next 2 months. 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 32[address] Kirk Ponce MD [facility] [address] [place] [address] 05/07/2018 12:23:14 05/07/2018 13:37:09 Pre-surgery evaluation 736815820 Z01.818 cath with mild Coronary Artery DiseaseThe re is no cardiac contraindi cation for the procedure. The planned procedure would be within acceptable risk. {{Patient may stop taking aspirin (5) days prior to the procedure. # Patient may stop taking aspirin and Plavix five (5) days prior to the procedure. }} Dyspnea on exertion 6084 5006 R06.09 Could be angina equivalent . Continue maximal medical treatment and risk factor modificati on Essential hypertension 50392771 I10 Will increase Lisinopril 40 mg daily Dyslipidemia 737636227 E 78.5 Needs to keep LDL less than 70, and HDL more than 40. Will get lipid profile results from PCP. Refusing statin therapy. Diet and weight loss advised. Diabetes mellitus 581089 09 E11.9 Borderline . Diet controlled . Obesity 483860842 E66.9 20 lb. weight loss recommende d over the next 2 months. Cirrhosis - non-alcoholic 762435292 K74.60 s/p liver transplant .Being followed by specialist . 188[address] Kirk Ponce MD [facility] [address] [place] [address] 10/08/2018 15:07:38 10/08/2018 16:00:25 Dyspnea on exertion 76944815 R06.09 Continue maximal medical treatment and risk factor modificati on angiogram (PROC) 04-11-2018 04/11/2018 [facility], Mild CAD. Normal LV systolic function. 01/17/18 ECHO: Study quality: Technicall y difficult. LV chamber size is normal. LV wall thickness is mild to moderately increased. There is a sigmoid inter-vent ricular septum. There is normal global systolic function and contractil ity. The estimated left ventricle ejection fraction is 55-60%(nor mal). Normal left atrial pressure with grade I diastolic dysfunctio n. There is mild aortic valve sclerosis without Essential hypertension 35361701 I10 BP borderline today Dyslipidemia 213577639 E 78.5 lipid panel, blood 06-13-2018 06/13/18 FLP: TR 153, TC 180, LDL 104, HDL 45 Needs to keep LDL less than 70, and HDL more than 40. On Pravastati n Diet and weight loss advised. Diabetes mellitus 264769 09 E11.9 Borderline . Diet controlled . Obesity 662819546 E66.9 20 lb. weight loss recommende d over the next 2 months. Cirrhosis - non-alcoholic 521235030 K74.60 s/p liver transplant .Being followed by specialist . 668[address] Kirk Ponce MD [facility] [address] [place] [address] 02/18/2019 14:23:06 02/18/2019 15:26:19 Dyspnea on exertion 25916396 R06.09 Continue maximal medical treatment and risk factor modificati on angiogram (PROC) 04-11-2018 04/11/2018 [facility], Mild CAD. Normal LV systolic function. 01/17/18 ECHO: Study quality: Technicall y difficult. LV chamber size is normal. LV wall thickness is mild to moderately increased. There is a sigmoid inter-vent ricular septum. There is normal global systolic function and contractil ity. The estimated left ventricle ejection fraction is 55-60%(nor mal). Normal left atrial pressure with grade I diastolic dysfunctio n. There is mild aortic valve sclerosis without Essential hypertension 15372966 I10 controlled Dyslipidemia 216061177 E 78.5 lipid panel, blood 06-13-2018 06/13/18 FLP: TR 153, TC 180, LDL 104, HDL 45 Needs to keep LDL less than 70, and HDL more than 40. On Pravastati n Diet and weight loss advised. Diabetes mellitus 917126 09 E11.9 Borderline . Diet controlled . Obesity 592365654 E66.9 20 lb. weight loss recommende d over the next 2 months. Cirrhosis - non-alcoholic 640278163 K74.60 s/p liver transplant .Being followed by specialist . Coronary arteriosclerosis 30788483 I25.10 04/11/2018 [facility] Mild CAD. Normal LV systolic function.1 08/14/17 FLP: TR 153, TC 180, LDL 104, HDL 45 Pulmonary embolism 31129 003 I26.99 Now on EliquisVen ous Duplex [id number] Mahammad Froy [facility] [address] [place] [address] 04/22/2019 14:09:13 04/22/2019 15:03:04 Coronary arteriosclerosis 85792643 I25.10 04/11/2018 [facility] Mild CAD. Normal LV systolic function.1 08/14/17 FLP: TR 153, TC 180, LDL 104, HDL 45 Dyspnea on exertion 6084 5006 R06.09 Continue maximal medical treatment and risk factor modificati on angiogram (PROC) 04-11-2018 04/11/2018 [facility], Mild CAD. Normal LV systolic function. Now with PE. Continue Eliquis. Echo 03/03/2019 LV chamber size is normal. There is normal global systolic function and contractil ity. The estimated LVEF is 55-60%. There is trace mitral regurgitat ion. There is mild tricuspid regurgitat ion. Estimated RVSP is 42 mmHg. Essential hypertension 88099309 I10 controlled Dyslipidemia 321455938 E 78.5 lipid panel, blood 06-13-2018 06/13/18 FLP: TR 153, TC 180, LDL 104, HDL 45 Needs to keep LDL less than 70, and HDL more than 40. On Pravastati n Diet and weight loss advised. Cirrhosis - non-alcoholic 422466132 K74.60 s/p liver transplant .Being followed by specialist . Diabetes mellitus 192307 09 E11.9 Borderline . Diet controlled . Obesity 527510384 E66.9 20 lb. weight loss recommende d over the next 2 months. Pulmonary embolism 95816 003 I26.99 Now on EliquisVen ous Duplex Echo 03/03/2019 LV chamber size is normal. There is normal global systolic function and contractil ity. The estimated LVEF is 55-60%. There is trace mitral regurgitat ion. There is mild tricuspid regurgitat ion. Estimated RVSP is 42 mmHg. 60680 Mayra Dykes [facility] [place] [address] 09/12/2022 15:39:39 09/12/2022 16:50:38 Coronary arteriosclerosis 39669860 I25.10 Lexiscan Myoview stress test, pt can not walk. Has known coronary artery disease, with atypical symptoms now 04/11/2018 [facility] Mild CAD. Normal LV systolic function.1 08/14/17 FLP: TR 153, TC 180, LDL 104, HDL 45 Dyspnea on exertion 6084 5006 R06.09 repeat echo angiogram (PROC) 04-11-2018 04/11/2018 [facility], Mild CAD. Normal LV systolic function. Now with PE. Continue Eliquis. Echo 03/03/2019 LV chamber size is normal. There is normal global systolic function and contractil ity. The estimated LVEF is 55-60%. There is trace mitral regurgitat ion. There is mild tricuspid regurgitat ion. Estimated RVSP is 42 mmHg. Essential hypertension 40577348 I10 controlled Dyslipidemia 656107110 E 78.5 lipid panel, blood 06-13-2018 06/13/18 FLP: TR 153, TC 180, LDL 104, HDL 45 Needs to keep LDL less than 70, and HDL more than 40. On Pravastati n Diet and weight loss advised. Cirrhosis - non-alcoholic 770830526 K74.60 s/p liver transplant .Being followed by specialist . Diabetes mellitus 619129 09 E11.9 Borderline . Diet controlled . Obesity 172663070 E66.9 20 lb. weight loss recommende d over the next 2 months. Pulmonary embolism 22753 003 I26.99 Now on EliquisVen ous Duplex Echo 03/03/2019 LV chamber size is normal. There is normal global systolic function and contractil ity. The estimated LVEF is 55-60%. There is trace mitral regurgitat ion. There is mild tricuspid regurgitat ion. Estimated RVSP is 42 mmHg. [id number] [facility] [address] [place] [address] 03/22/2023 11:05:49 03/22/2023 12:17:07 Coronary arteriosclerosis 16589057 I25.10 Negative stress test 202204/11/2018 [facility] Mild CAD. Normal LV systolic function.1 08/14/17 FLP: TR 153, TC 180, LDL 104, HDL 45 Dyspnea on exertion 6084 5006 R06.09 US, echocardio gram ECHO 01/08/23:L V chamber size is normal.LV wall thickness is moderately increased, LVEF 60-65%,LV relaxation is impaired,t he airtic vakve is mildly calcified, there is trivail regurgitat ion,the mitral valve is mildly thickened, there is a dense posterior mitral annular calcificat ion,there is mild tricuspid regurgitat ion,mild elevation of estimated RV systolic pressure, sinus pradycardi a. angiogram (PROC) 04-11-2018 04/11/2018 [facility], Mild CAD. Normal LV systolic function. Now with PE. Continue Eliquis. Echo 03/03/2019 LV chamber size is normal. There is normal global systolic function and contractil ity. The estimated LVEF is 55-60%. There is trace mitral regurgitat ion. There is mild tricuspid regurgitat ion. Estimated RVSP is 42 mmHg. Essential hypertension 59014934 I10 elevated today at 160/90will start her on amlodipin Dyslipidemia 507403886 E 78.5 lipid panel, blood 06-13-2018 06/13/18 FLP: TR 153, TC 180, LDL 104, HDL 45 Needs to keep LDL less than 70, and HDL more than 40. On Pravastati nlast LDL is 94 done 01/2023 will continue with pravastati n 20 in setting of liver transplant Diet and weight loss advised. Cirrhosis - non-alcoholic 826314969 K74.60 s/p liver transplant .Being followed by specialist . Diabetes mellitus 568547 09 E11.9 Borderline . Diet controlled . Obesity 331569559 E66.9 20 lb. weight loss recommende d over the next 2 months. Pulmonary embolism 67390 003 I26.99 Now on EliquisVen ous Duplex Echo 03/03/2019 LV chamber size is normal. There is normal global systolic function and contractil ity. The estimated LVEF is 55-60%. There is trace mitral regurgitat ion. There is mild tricuspid regurgitat ion. Estimated RVSP is 42 mmHg. [address] [facility] [place] [address] 06/21/2023 11:07:21 06/21/2023 12:18:08 Coronary arteriosclerosis 80156097 I25.10 Negative stress test 202204/11/2018 [facility] Mild CAD. Normal LV systolic function.1 08/14/17 FLP: TR 153, TC 180, LDL 104, HDL 45 Dyspnea on exertion 6084 5006 R06.09 US, echocardio gram ECHO 01/08/23:L V chamber size is normal.LV wall thickness is moderately increased, LVEF 60-65%,LV relaxation is impaired,t he airtic vakve is mildly calcified, there is trivail regurgitat ion,the mitral valve is mildly thickened, there is a dense posterior mitral annular calcificat ion,there is mild tricuspid regurgitat ion,mild elevation of estimated RV systolic pressure, sinus pradycardi a. angiogram (PROC) 04-11-2018 04/11/2018 [facility], Mild CAD. Normal LV systolic function. Now with PE. Continue Eliquis. Echo 03/03/2019 LV chamber size is normal. There is normal global systolic function and contractil ity. The estimated LVEF is 55-60%. There is trace mitral regurgitat ion. There is mild tricuspid regurgitat ion. Estimated RVSP is 42 mmHg. Essential hypertension 37252583 I10 BP is well controlled todaydisco ntinue amlodipin due to leg edemarecen tly started on losartan 25 mg by her PCP Dyslipidemia 451357916 E 78.5 lipid panel, blood 06-13-2018 06/13/18 FLP: TR 153, TC 180, LDL 104, HDL 45 Needs to keep LDL less than 70, and HDL more than 40. On Pravastati nlast LDL is 94 done 01/2023 will continue with pravastati n 20 in setting of liver transplant Diet and weight loss advised. Cirrhosis - non-alcoholic 887058474 K74.60 s/p liver transplant .Being followed by specialist . Diabetes mellitus 334118 09 E11.9 Borderline . Diet controlled . Obesity 491017217 E66.9 20 lb. weight loss recommende d over the next 2 months. Pulmonary embolism 11031 003 I26.99 Now on Eliquisrep eat Venous Duplex Echo 03/03/2019 LV chamber size is normal. There is normal global systolic function and contractil ity. The estimated LVEF is 55-60%. There is trace mitral regurgitat ion. There is mild tricuspid regurgitat ion. Estimated RVSP is 42 mmHg. Edema of l ower extremity 166879007 R60.0 moderate swellingwi ll do venous duplexwill increased her lasix to 40 mg dailystart using compressio n socks Obstructiv e sleep apnea syndrome 06318636 G47.33 will do sleep study [id number] Mayra Dykes [facility] [address] [place] [address] 07/11/2023 12:00:39 07/11/2023 13:09:38 Coronary arteriosclerosis 65889994 I25.10 Negative stress test 202204/11/2018 [facility] Mild CAD. Normal LV systolic function.1 08/14/17 FLP: TR 153, TC 180, LDL 104, HDL 45 Essential hypertension 86062671 I10 BP is elevated todaywill increased her losartan to 100 mg dailyoff amlodipin due to leg edemarecen tly started on losartan 25 mg by her PCP Dyslipidemia 916264614 E 78.5 lipid panel, blood 06-13-2018 06/13/18 FLP: TR 153, TC 180, LDL 104, HDL 45 Needs to keep LDL less than 70, and HDL more than 40. On Pravastati nlast LDL is 94 done 01/2023 will continue with pravastati n 20 in setting of liver transplant Diet and weight loss advised. Cirrhosis - non-alcoholic 534488107 K74.60 s/p liver transplant .Being followed by specialist . Diabetes mellitus 134907 09 E11.9 Borderline . Diet controlled . Obesity 367676518 E66.9 20 lb. weight loss recommende d over the next 2 months. Pulmonary embolism 46713 003 I26.99 Now on Eliquisrep eat Venous Duplex Echo 03/03/2019 LV chamber size is normal. There is normal global systolic function and contractil ity. The estimated LVEF is 55-60%. There is trace mitral regurgitat ion. There is mild tricuspid regurgitat ion. Estimated RVSP is 42 mmHg. Edema of l ower extremity 519201924 R60.0 moderate swellingve nous duplex with no clot 2022will increased her lasix to 40 mg dailyconti nue with compressio n socks Obstructiv e sleep apnea syndrome 24472540 G47.33 will do sleep study Dyspnea on exertion 6084 5006 R06.09 US, echocardio gram ECHO 01/08/23:L V chamber size is normal.LV wall thickness is moderately increased, LVEF 60-65%,LV relaxation is impaired,t he airtic vakve is mildly calcified, there is trivail regurgitat ion,the mitral valve is mildly thickened, there is a dense posterior mitral annular calcificat ion,there is mild tricuspid regurgitat ion,mild elevation of estimated RV systolic pressure, sinus pradycardi a. angiogram (PROC) 04-11-2018 04/11/2018 [facility], Mild CAD. Normal LV systolic function. Now with PE. Continue Eliquis. Echo 03/03/2019 LV chamber size is normal. There is normal global systolic function and contractil ity. The estimated LVEF is 55-60%. There is trace mitral regurgitat ion. There is mild tricuspid regurgitat ion. Estimated RVSP is 42 mmHg. [id number] TONYA CA [facility] [address] [place] [address] 10/11/2023 10:39:53 10/11/2023 11:45:16 Coronary arteriosclerosis 53833890 I25.10 Negative stress test 202204/11/2018 [facility] Mild CAD. Normal LV systolic function.1 08/14/17 FLP: TR 153, TC 180, LDL 104, HDL 45 Essential hypertension 45151133 I10 BP diary reviewed showing BP consistent ly < 140/90.con tinue with losartan 100 mg daily Dyslipidemia 052760743 E 78.5 *Last LDL was 104 done on 02/11/23.P t takes rosuvastat in 5 mg. Cirrhosis - non-alcoholic 223412419 K74.60 s/p liver transplant .Being followed by specialist . Diabetes mellitus 570622 09 E11.9 Borderline . Diet controlled . Obesity 805858578 E66.9 20 lb. weight loss recommende d over the next 2 months. Pulmonary embolism 65355 003 I26.99 she is off Eliquis and now on baby aspirin Echo 03/03/2019 LV chamber size is normal. There is normal global systolic function and contractil ity. The estimated LVEF is 55-60%. There is trace mitral regurgitat ion. There is mild tricuspid regurgitat ion. Estimated RVSP is 42 mmHg. Edema of l ower extremity 549141435 R60.0 mild swelling will increased lasix 20 mg BID for two days and then go back to 20 mg dailyvenou s duplex with no clot ontin ue with compressio n socks Obstructiv e sleep apnea syndrome 97824097 G47.33 will do sleep study Dyspnea on exertion 6084 5006 R06.09 US, echocardio gram ECHO 01/08/23:L V chamber size is normal.LV wall thickness is moderately increased, LVEF 60-65%,LV relaxation is impaired,t he airtic vakve is mildly calcified, there is trivail regurgitat ion,the mitral valve is mildly thickened, there is a dense posterior mitral annular calcificat ion,there is mild tricuspid regurgitat ion,mild elevation of estimated RV systolic pressure, sinus pradycardi a. angiogram (PROC) 04-11-2018 04/11/2018 [facility], Mild CAD. Normal LV systolic function. Now with PE. Continue Eliquis. Echo 03/03/2019 LV chamber size is normal. There is normal global systolic function and contractil ity. The estimated LVEF is 55-60%. There is trace mitral regurgitat ion. There is mild tricuspid regurgitat ion. Estimated RVSP is 42 mmHg. Carotid ar helen stenosis 43475657 I65.29 US, carotid artery Antegrade flow noted in both vertebral arteries. Mild bilateral internal carotid artery stenosis with less than 50% diameter stenosis.c ontinue with crestor and baby aspirin [id number] Kirk Ponce MD [facility] [address] [place] [address] 04/15/2024 10:05:32 04/15/2024 10:59:14 Coronary arteriosclerosis 35922824 I25.10 Negative stress test 202204/11/2018 [facility] Mild CAD. Normal LV systolic function.1 08/14/17 FLP: TR 153, TC 180, LDL 104, HDL 45 Essential hypertension 22510255 I10 BP diary reviewed showing BP consistent ly < 140/90.con tinue with losartan 100 mg daily Dyslipidemia 843789923 E 78.5 *Last LDL was 104 done on 02/11/23.P t takes rosuvastat in 5 mg. Cirrhosis - non-alcoholic 978236851 K74.60 s/p liver transplant .Being followed by specialist . Diabetes mellitus 227590 09 E11.9 Borderline . Diet controlled . Obesity 833786601 E66.9 20 lb. weight loss recommende d over the next 2 months. Pulmonary embolism 98728 003 I26.99 she is off Eliquis and now on baby aspirinObt ain echo to evaluate for structural /functiona l disease. Edema of l ower extremity 842581872 R60.0 mild swelling will increased lasix 20 mg BID for two days and then go back to 20 mg dailyvenou s duplex with no clot 3contin ue with compressio n socksObtai n echo to evaluate for structural /functiona l disease. Obstructiv e sleep apnea syndrome 66839290 G47.33 will do sleep study Dyspnea on exertion 6084 5006 R06.09 US, echocardio gram ECHO 01/08/23:L V chamber size is normal.LV wall thickness is moderately increased, LVEF 60-65%,LV relaxation is impaired,t he aortic valve is mildly calcified, there is triavil regurgitat ion,the mitral valve is mildly thickened, there is a dense posterior mitral annular calcificat ion,there is mild tricuspid regurgitat ion,mild elevation of estimated RV systolic pressure, sinus bradycardi a. angiogram (PROC) 04-11-2018 04/11/2018 [facility], Mild CAD. Normal LV systolic function. Carotid ar helen stenosis 89981220 I65.29 US, carotid artery Antegrade flow noted in both vertebral arteries. Mild bilateral internal carotid artery stenosis with less than 50% diameter stenosis.c ontinue with crestor and baby aspirin Health Concerns Section Related Observation LastModified by Organization Detai ls LastModified Time None Recorded Concern Status LastModified by Organization Details LastModified Time None Recorded Advance Directives Directive None Recorded Payers Encounter Date Sequence Insurance Name Policy Number Policy Reyes Covered Member ID Reyes Member ID Guarantor Name 03/22/2023 1 [place] Morelia Rodriguez [id number] 1 03/22/2023 2 [place] [id number] Morelia Rodriguez [id number] 06/21/2023 1 [place] More[place] Rodriguez [id number] 1 06/21/2023 2 [place] 104 Morelia Rodriguez [id number] 07/11/2023 1 [place] More[place] Rodriguez [id number] 1 07/11/2023 2 [place] 104 Morelia Rodriguez [id number] 10/11/2023 1 [place] More[place] Rodriguez [id number] 1 10/11/2023 2 [place] 104 Morelia Calderonor [id number] 04/15/2024 1 [place] Morelia Rodriguez [id number] 1 04/15/2024 2 [place] 104 MoreliaBetsy Rodriguez [id number] Notes Date Note Type Note Provider Name and Address Organization Details Recorded Time 03/22/2023 text/html 03/22/23CC : Cristian diac follow up dyspnea on year-old white women with a PMH of mild CAD, hypertension, hyperlipidemia, liver cirrhosis s/p liver transplant (2007), TIA, PE, borderline diabetes mellitus (diet control) , osteoarthritis, and obesity is here for 1 month follow up with stress test and ECHO results. She was last seen in the clinic on 09/12/22, since then she is doing well. She denied chest pain or dyspnea on exertion. Her stress test is negative and her echo with normal EF. *Last LDL was 94 done on 06/12/18.Pt takes pravastatin 20 mg.She denies ER visits and hospitalizations since she was last seen. Today reports:Denies chest pain.Denies shortness of breath at rest. Has mild dyspnea on exertion.No orthopnea. No PNDs.Denies heart palpitations.Denies dizziness. Denies syncope or near syncope.No ankle or leg edema.No major bleeding events.No reported side effects from medications. Taking medications as prescribed with no missed doses.Denies snoring, daytime somnolence and AM headache.*Last LDL was 104 done on 06/12/18.Pt takes pravastatin 20 mg. *Had ECHO on 01/08/23 showed LV chamber size is normal.LV wall thickness is moderately increased,LVEF 60-65%,LV relaxation is impaired,the aortic valve is mildly calcified,there is trivial regurgitation,the mitral valve is mildly thickened,there is a dense posterior mitral annular calcification,there is mild tricuspid regurgitation,mild elevation of estimated RV systolic pressure, sinus bradycardia. 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 Normal LV systolic function. LVEF 50%. Previously:*Had Carotid US on 03/30/22 showed There is antegrade flow noted in both vertebral arteries. There is mild bilateral internal carotid artery stenosis with less than 50% diameter stenosis. Patient was started on eliquis and now stable, with PE. Subsequently had 2D echo with normal RVSP. She is not very active. She ambulates with a cane, has arthritis in the spine. *Had angiogram done in 04/11/18 showed mild coronary artery disease,normal left ventricular systolic function. *Had normal KARYNA done in 01/10/17 . *Had abnormal EKG, had EKG with LAFB. Had murmur as a child and she get occasional palpitations Results from this visit, or from the past:lipid panel, blood 06-13-2018 06/13/18 FLP: TR 153, TC 180, LDL 104, HDL 45 CMP, serum or plasma 04-11-2018 04/11/18:SOD 145,K 4.9,CL 113,CO2 24,GLU 122,BUN 49,CR 1.6 . CBC 02-07-2018 WBC: 6.75, RBC: 3.76, HGB: 11.7, HCT: 39.7, PLT: 230 EKG 02/18/19 Right bundle branch block. Low voltage, chest leads. Poor R progression in chest leads. Left anterior hemoblock EKG, 10/08/18: Sinus Rhythm. PVC's complexes. P.. normal. QRS.. left axis deviation. anterolateral infarct. R <0.15 mV in V3, V4, v5, v6. rbbb. cONSIDER ALSO PERIINFarct block. QRS.. = 140 ms. RSR in V1. S >30 ms in !, V5, V6. low voltage in precordial leads. ST-T..minimal mid- precordial ST-T changes consistant withifarct. Flat or low neg. T in V3, V4, V5. ABN EKG. mwuEKG 02/11/2018: Sinus rhythm; low voltage in precordial leads; incomplete rbbb and left axis, anterior fascicular block; abnormal angiogram (PROC) 04-11-2018 04/11/2018 [facility] Mild CAD. Normal LV systolic function. lexiscan cardiolite stress test (PROC) 02-25-2018 Lexiscan Cardiolite Stress Test 02/25/18 : Adequate Stress with Lexiscan. Positive Lexiscan stress test. Partially reversible defect consistent with ischemia in US, ecocardiogram 01-17-2018 01/17/18 ECHO: Study quality: Technically difficult. LV chamber size is normal. LV wall thickness is mild to moderately increased. There is a sigmoid [facility] 03/22/2023 12:13:32 06/21/2023 text/html 06/20/23CC : Car diac follow up leg pain82 year-old white women with a PMH of mild CAD, hypertension, hyperlipidemia, liver cirrhosis s/p liver transplant (2007), TIA, PE, borderline diabetes mellitus (diet control) , osteoarthritis, and obesity is here for 3 month follow up. She was last seen in the clinic on 03/22/23, since then she has swelling of the lower leg after starting her amlodipin.She denies ER visits and hospitalizations since she was last seen. Today reports:Denies chest pain.Denies shortness of breath at rest. Has mild dyspnea on exertion.No orthopnea. No PNDs.Denies heart palpitations.Denies dizziness. Denies syncope or near syncope.yes ankle or leg edema. on lasixNo major bleeding events.No reported side effects from medications. Taking medications as prescribed with no missed doses.yes snoring, daytime somnolence and AM headache.*Last LDL was 104 done on 06/12/18.Pt takes pravastatin 20 mg. Previously:Her stress test is negative and her echo with normal EF. *Had ECHO on 01/08/23 showed LV chamber size is normal.LV wall thickness is moderately increased,LVEF 60-65%,LV relaxation is impaired,the aortic valve is mildly calcified,there is trivial regurgitation,the mitral valve is mildly thickened,there is a dense posterior mitral annular calcification,there is mild tricuspid regurgitation,mild elevation of estimated RV systolic pressure, sinus bradycardia. 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 Normal LV systolic function. LVEF 50%. *Had Carotid US on 03/30/22 showed There is antegrade flow noted in both vertebral arteries. There is mild bilateral internal carotid artery stenosis with less than 50% diameter stenosis. *Had angiogram done in 04/11/18 showed mild coronary artery disease,normal left ventricular systolic function. *Had normal KARYNA done in 01/10/17 . *Had abnormal EKG, had EKG with LAFB. Had murmur as a child and she get occasional palpitations Results from this visit, or from the past:lipid panel, blood 06-13-2018 06/13/18 FLP: TR 153, TC 180, LDL 104, HDL 45 CMP, serum or plasma 04-11-2018 04/11/18:SOD 145,K 4.9,CL 113,CO2 24,GLU 122,BUN 49,CR 1.6 . CBC 02-07-2018 WBC: 6.75, RBC: 3.76, HGB: 11.7, HCT: 39.7, PLT: 230 EKG 02/18/19 Right bundle branch block. Low voltage, chest leads. Poor R progression in chest leads. Left anterior hemoblock EKG, 10/08/18: Sinus Rhythm. PVC's complexes. P.. normal. QRS.. left axis deviation. anterolateral infarct. R <0.15 mV in V3, V4, v5, v6. rbbb. cONSIDER ALSO PERIINFarct block. QRS.. = 140 ms. RSR in V1. S >30 ms in !, V5, V6. low voltage in precordial leads. ST-T..minimal mid- precordial ST-T changes consistant withifarct. Flat or low neg. T in V3, V4, V5. ABN EKG. mwuEKG 02/11/2018: Sinus rhythm; low voltage in precordial leads; incomplete rbbb and left axis, anterior fascicular block; abnormal angiogram (PROC) 04-11-2018 04/11/2018 [facility] Mild CAD. Normal LV systolic function. lexiscan cardiolite stress test (PROC) 02-25-2018 Lexiscan Cardiolite Stress Test 02/25/18 : Adequate Stress with Lexiscan. Positive Lexiscan stress test. Partially reversible defect consistent with ischemia in US, ecocardiogram 01-17-2018 01/17/18 ECHO: Study quality: Technically difficult. LV chamber size is normal. LV wall thickness is mild to moderately increased. There is a sigmoid ENKAYLEIGH [facility] [place] [facility] 06/21/2023 12:12:01 07/11/2023 text/html 07/11/22CC : Car diac follow up dyspnea on [id number] year-old white women with a PMH of mild CAD, hypertension, hyperlipidemia, liver cirrhosis s/p liver transplant (2007), TIA, PE, borderline diabetes mellitus (diet control) , osteoarthritis, and obesity is here for 2 week follow up. She was last seen in the clinic on 06/21/23, since then she is doing well. Her venous US showed no DVT. Her leg swelling is improving.She denies ER visits and hospitalizations since she was last seen. Today reports:Denies chest pain.Denies shortness of breath at rest. Has mild dyspnea on exertion.No orthopnea. No PNDs.Denies heart palpitations.Denies dizziness. Denies syncope or near syncope.yes ankle or leg edema. on lasixNo major bleeding events.No reported side effects from medications. Taking medications as prescribed with no missed doses.Denies snoring, daytime somnolence and AM headache.*Last LDL was 94 done on 02/11/23.Pt takes rosuvastatin 5 mg. Previously: She has swelling of the lower leg after starting her amlodipin. Her stress test is negative and her echo with normal EF. *Had ECHO on 01/08/23 showed LV chamber size is normal.LV wall thickness is moderately increased,LVEF 60-65%,LV relaxation is impaired,the aortic valve is mildly calcified,there is trivial regurgitation,the mitral valve is mildly thickened,there is a dense posterior mitral annular calcification,there is mild tricuspid regurgitation,mild elevation of estimated RV systolic pressure, sinus bradycardia. 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 Normal LV systolic function. LVEF 50%. *Had Carotid US on 03/30/22 showed There is antegrade flow noted in both vertebral arteries. There is mild bilateral internal carotid artery stenosis with less than 50% diameter stenosis. *Had angiogram done in 04/11/18 showed mild coronary artery disease,normal left ventricular systolic function. *Had normal KARYNA done in 01/10/17 . *Had abnormal EKG, had EKG with LAFB. Had murmur as a child and she get occasional palpitations Results from this visit, or from the past:lipid panel, blood 06-13-2018 06/13/18 FLP: TR 153, TC 180, LDL 104, HDL 45 CMP, serum or plasma 04-11-2018 04/11/18:SOD 145,K 4.9,CL 113,CO2 24,GLU 122,BUN 49,CR 1.6 . CBC 02-07-2018 WBC: 6.75, RBC: 3.76, HGB: 11.7, HCT: 39.7, PLT: 230 EKG 02/18/19 Right bundle branch block. Low voltage, chest leads. Poor R progression in chest leads. Left anterior hemoblock EKG, 10/08/18: Sinus Rhythm. PVC's complexes. P.. normal. QRS.. left axis deviation. anterolateral infarct. R <0.15 mV in V3, V4, v5, v6. rbbb. cONSIDER ALSO PERIINFarct block. QRS.. = 140 ms. RSR in V1. S >30 ms in !, V5, V6. low voltage in precordial leads. ST-T..minimal mid- precordial ST-T changes consistant withifarct. Flat or low neg. T in V3, V4, V5. ABN EKG. mwuEKG 02/11/2018: Sinus rhythm; low voltage in precordial leads; incomplete rbbb and left axis, anterior fascicular block; abnormal angiogram (PROC) 04-11-2018 04/11/2018 [facility] Mild CAD. Normal LV systolic function. lexiscan cardiolite stress test (PROC) 02-25-2018 Lexiscan Cardiolite Stress Test 02/25/18 : Adequate Stress with Lexiscan. Positive Lexiscan stress test. Partially reversible defect consistent with ischemia in US, ecocardiogram 01-17-2018 01/17/18 ECHO: Study quality: Technically difficult. LV chamber size is normal. LV wall thickness is mild to moderately increased. There is a sigmoid Mayra gamble [facility] 01/03/2024 20:18:17 10/11/2023 text/html 10/11/23CC : Car diac follow up dyspnea on [id number] year-old white women with a PMH of mild CAD, hypertension, hyperlipidemia, liver cirrhosis s/p liver transplant (2007), TIA, PE, borderline diabetes mellitus (diet control) , osteoarthritis, and obesity is here for 3 month follow up. She was last seen in the clinic on 07/11/23, since then she is doing well. She denied chest pain. *Last LDL was 104 done on 02/11/23.Pt takes rosuvastatin 5 mg. She denies ER visits and hospitalizations since she was last seen. Today reports:shortness of breathDenies chest pain.Denies shortness of breath at rest. Has mild dyspnea on exertion.No orthopnea. No PNDs.Denies heart palpitations.Denies dizziness. Denies syncope or near syncope.yes ankle or leg edema. on lasixNo major bleeding events.No reported side effects from medications. Taking medications as prescribed with no missed doses.Denies snoring, daytime somnolence and AM headache.*Last LDL was 104 done on 02/11/23.Pt takes rosuvastatin 5 mg. Previously:She has swelling of the lower leg after starting her amlodipin. Her stress test is negative and her echo with normal EF. *Had ECHO on 01/08/23 showed LV chamber size is normal.LV wall thickness is moderately increased,LVEF 60-65%,LV relaxation is impaired,the aortic valve is mildly calcified,there is trivial regurgitation,the mitral valve is mildly thickened,there is a dense posterior mitral annular calcification,there is mild tricuspid regurgitation,mild elevation of estimated RV systolic pressure, sinus bradycardia. 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 Normal LV systolic function. LVEF 50%. *Had Carotid US on 03/30/22 showed There is antegrade flow noted in both vertebral arteries. There is mild bilateral internal carotid artery stenosis with less than 50% diameter stenosis. *Had angiogram done in 04/11/18 showed mild coronary artery disease,normal left ventricular systolic function. *Had normal KARYNA done in 01/10/17 . *Had abnormal EKG, had EKG with LAFB. Had murmur as a child and she get occasional palpitations Results from this visit, or from the past:lipid panel, blood 06-13-2018 06/13/18 FLP: TR 153, TC 180, LDL 104, HDL 45 CMP, serum or plasma 04-11-2018 04/11/18:SOD 145,K 4.9,CL 113,CO2 24,GLU 122,BUN 49,CR 1.6 . CBC 02-07-2018 WBC: 6.75, RBC: 3.76, HGB: 11.7, HCT: 39.7, PLT: 230 EKG 02/18/19 Right bundle branch block. Low voltage, chest leads. Poor R progression in chest leads. Left anterior hemoblock EKG, 10/08/18: Sinus Rhythm. PVC's complexes. P.. normal. QRS.. left axis deviation. anterolateral infarct. R <0.15 mV in V3, V4, v5, v6. rbbb. cONSIDER ALSO PERIINFarct block. QRS.. = 140 ms. RSR in V1. S >30 ms in !, V5, V6. low voltage in precordial leads. ST-T..minimal mid- precordial ST-T changes consistant withifarct. Flat or low neg. T in V3, V4, V5. ABN EKG. mwuEKG 02/11/2018: Sinus rhythm; low voltage in precordial leads; incomplete rbbb and left axis, anterior fascicular block; abnormal angiogram (PROC) 04-11-2018 04/11/2018 [facility] Mild CAD. Normal LV systolic function. lexiscan cardiolite stress test (PROC) 02-25-2018 Lexiscan Cardiolite Stress Test 02/25/18 : Adequate Stress with Lexiscan. Positive Lexiscan stress test. Partially reversible defect consistent with ischemia in US, ecocardiogram 01-17-2018 01/17/18 ECHO: Study quality: Technically difficult. LV chamber size is normal. LV wall thickness is mild to moderately increased. There is a sigmoid ENKAYLEIGH gamble [facility] 10/11/2023 11:39:12 04/15/2024 text/html 04/15/24CC : Cardiac follow up83 year-old white women with a PMH of mild CAD, hypertension, hyperlipidemia, liver cirrhosis s/p liver transplant (2007), TIA, PE, borderline diabetes mellitus (diet control) , osteoarthritis, and obesity is here for 6 month follow up. She was last seen in the clinic on 10/11/23, since then she was in the hospital with AKIShe denies ER visits and hospitalizations since she was last seen. Today reports:Denies chest pain.Denies shortness of breath at rest. Has mild dyspnea on exertion.No orthopnea. No PNDs.Denies heart palpitations.Denies dizziness. Denies syncope or near syncope.No ankle or leg edema.No major bleeding events.No reported side effects from medications. Taking medications as prescribed with no missed doses.Denies snoring, daytime somnolence and AM headache.*Last LDL was 104 done on 02/11/23.Pt takes rosuvastatin 5 mg. Previously:*Had ECHO on 01/08/23 showed LV chamber size is normal.LV wall thickness is moderately increased,LVEF 60-65%,LV relaxation is impaired,the aortic valve is mildly calcified,there is trivial regurgitation,the mitral valve is mildly thickened,there is a dense posterior mitral annular calcification,there is mild tricuspid regurgitation,mild elevation of estimated RV systolic pressure, sinus bradycardia. 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 Normal LV systolic function. LVEF 50%. *Had Carotid US on 03/30/22 showed There is antegrade flow noted in both vertebral arteries. There is mild bilateral internal carotid artery stenosis with less than 50% diameter stenosis. *Had angiogram done in 04/11/18 showed mild coronary artery disease,normal left ventricular systolic function. *Had normal KARYNA done in 01/10/17 . *Had abnormal EKG, had EKG with LAFB. Had murmur as a child and she get occasional palpitations Results from this visit, or from the past:lipid panel, blood 06-13-2018 06/13/18 FLP: TR 153, TC 180, LDL 104, HDL 45 CMP, serum or plasma 04-11-2018 04/11/18:SOD 145,K 4.9,CL 113,CO2 24,GLU 122,BUN 49,CR 1.6 . CBC 02-07-2018 WBC: 6.75, RBC: 3.76, HGB: 11.7, HCT: 39.7, PLT: 230 EKG 02/18/19 Right bundle branch block. Low voltage, chest leads. Poor R progression in chest leads. Left anterior hemoblock EKG, 10/08/18: Sinus Rhythm. PVC's complexes. P.. normal. QRS.. left axis deviation. anterolateral infarct. R <0.15 mV in V3, V4, v5, v6. rbbb. cONSIDER ALSO PERIINFarct block. QRS.. = 140 ms. RSR in V1. S >30 ms in !, V5, V6. low voltage in precordial leads. ST-T..minimal mid- precordial ST-T changes consistant withifarct. Flat or low neg. T in V3, V4, V5. ABN EKG. mwuEKG 02/11/2018: Sinus rhythm; low voltage in precordial leads; incomplete rbbb and left axis, anterior fascicular block; abnormal angiogram (PROC) 04-11-2018 04/11/2018 [facility] Mild CAD. Normal LV systolic function. lexiscan cardiolite stress test (PROC) 02-25-2018 Lexiscan Cardiolite Stress Test 02/25/18 : Adequate Stress with Lexiscan. Positive Lexiscan stress test. Partially reversible defect consistent with ischemia in US, ecocardiogram 01-17-2018 01/17/18 ECHO: Study quality: Technically difficult. LV chamber size is normal. LV wall thickness is mild to moderately increased. There is a sigmoid Kirk Ponce MD [address] [place], [address], [facility] 04/15/2024 10:54:31 OBGyn Episode No OBEpisode recorded.
--- OUTSIDE RECORDS SUMMARY | 2024-08-24 08:40 | XMS_ITS ---
Author Organization [facility] vee Address [address] [place] [address] Care Team Providers Care Head Of Sales Promotion Name Role Phone zzzzMigration, zzzzProvider Unavailable Unav ailable REASON FOR VISIT [place] [place] En[place] Location Date Provider Diagnosis [facility] [address] [place] [address] 04/28/2023 zzzzProvider zzzzMigration Plan Of Treatment No Information Progress Notes * Morelia RODRIGUEZ KDOB: [birth year] (83 yo Other)Acc No.[id number]:04/28/2023 Patient: Navdeep JACKSON Morelia Campbell :1940 A ge:82 Y S ex:Unknown Address:[address] [address] Subjective: * Chief Complaints: * E MR-Berto * Medical History: * Surgical History: * Hospitalization/Major Diagno stic Procedure: * Medications: Objective: * Vitals: * Physical Examination: Assessment: Plan: * Treatment: * Procedure Codes: * * Date:
--- OUTSIDE RECORDS SUMMARY | 2024-08-24 08:41 | XMS_ITS | Referral Summary ---
Author Organization [facility] Healthcare Address [address] [place] [address] Care Team Providers Care Molecular Physicist Name Role Phone Alfredo Marshall MD Primary Care Provider + [phone] Alfredo Marshall MD Unavailable [phone] Elida Ramirez NP Unavailable [phone] Kirk Ponce MD Unavailable [phone] Miryam Tucker RN Unavailable Unavailab le Encounters Date Type Department Care Team Description 07/30/2024 Telephone [facility] Obstetrics and Gynecology [address] [facility] Outpatient [facility] 7th Floor [address] [place] [phone] Nadia Sun RN 06/12/2024 Telephone [facility] Obstetrics and Gynecology [address] [place] [address] 7th [address] [place] [phone] Gianna Chandler RN PT appt 06/12/2024 Orders Only [facility] Obstetrics and Gynecology [address] [place] [address] 7th Floor [address] [place] [address] Gianna Chandler RN Mixed stress and urge urinary incontinence (Primary Dx); Incomplete bladder emptying 06/09/2024 10:52 AM KNOTTING MACHINE OPERATOR - 06/09/2024 11:59 PM KNOTTING MACHINE OPERATOR Hospital Encounter [facility] [address] [place] [address] Mixed stress and urge urinary incontinence; Incomplete bladder emptying Discharge Disposition: Discharge to home or self care 06/09/2024 9:40 AM KNOTTING MACHINE OPERATOR Office Visit [facility] Obstetrics and Gynecology [address] [facility] 7th Floor [address] [place] [address] Tanna Ramos NP Mixed stress and urge urinary incontinence (Primary Dx); Vaginal atrophy; Incomplete bladder emptying from Last 3 Months Allergies Active Allergy Reactions Criticality Noted Date Comments Animal Dander Itching Low 07/04/2019 Gabapentin Unknown Low Reaction: Other, Morphine Dizziness Low 08/22/2018 Niacin Unknown 03/02/2020 Other Itching Low 07/04/2019 dust Prednisone Anxiety Reaction: Anxiety, Propoxyphene N-Acetaminophen Unknown 023 Tramadol Unknown 03/02/2020 Medications UNABLE TO FINDIndications: pain Med Name: CBD oil; 7 drops by mouth once a day in the morning Active docosahexanoic acid/epa (FISH OIL ORAL)Indications :supplement Take 1 capsule by mouth daily after lunch Active metFORMIN (GLUCOPHAGE) 500 mg tabletIndication s:type 2 diabetes mellitus Take 1 tablet (500 mg total) by mouth 2 (two) times a day with meals Active ergocalciferol (VITAMIN D) 50,000 unit capsuleIndicatio ns:Vitamin D Deficiency Take 1,200 Units by mouth once a week Active apixaban (ELIQUIS) 5 mg tabletIndication s: blood thinner Take 1 tablet (5 mg total) by mouth 2 (two) times a day Active cetirizine 10 mg capsuleIndicatio ns:Allergic Conjunctivitis,A llergic Rhinitis Take 10 mg by mouth nightly Active IPRATROPIUM BROMIDE NASL Administer 2 sprays into each nostril 2 (two) times a day as needed Active triamcinolone (KENALOG) 0.1 % creamIndications :skin rash,verified with patient Apply 1 application (deactivated) topically 2 (two) times a day as needed 2 Active hydrOXYzine (ATARAX) 10 mg tablet 8 Active aspirin 81 mg enteric coated tablet Take 1 tablet every day by oral route. Active omeprazole (PriLOSEC) 20 mg capsule Take 1 capsule (20 mg total) by mouth daily 30 capsule 11 0 Active tacrolimus (PROGRAF) 0.5 mg immediate-releas e capsuleIndicatio ns:History of liver transplant (CMS/HCC) (HCC) TAKE 3 CAPSULES BY MOUTH TWICE DAILY 180 capsule 11 1 Active Januvia 50 mg tablet Take 1 tablet (50 mg total) by mouth daily 3 Active memantine (NAMENDA) 10 mg tablet Take 1 tablet (10 mg total) by mouth 2 (two) times a day 3 Active rosuvastatin (CRESTOR) 20 mg tablet Take 1 tablet (20 mg total) by mouth daily Active loteprednol (LOTEMAX) 0.5 % ophthalmic suspension 3 Active amLODIPine (NORVASC) 5 mg tablet Take 1 tablet (5 mg total) by mouth daily 3 Active solifenacin (VESIcare) 5 mg tablet Active mirabegron ER (MYRBETRIQ) 25 mg tablet extended release 24 hrIndications:Ur inary Urge Incontinence Take 1 tablet (25 mg total) by mouth daily 30 tablet 11 4 Active estradioL (ESTRING) 2 mg (7.5 mcg /24 hour) vaginal ringIndications: Vaginal atrophy Insert 2 mg into the vagina every 3 (three) months follow package directions 1 each 3 4 Active albuterol HFA (PROVENTIL HFA,VENTOLIN HFA,PROAIR HFA) 90 mcg/actuation inhaler INHALE 2 PUFFS BY MOUTH EVERY 8 HOURS NEEDED 4 Active cyanocobalamin (Vitamin B-12) 1,000 mcg/mL injection INJECT 1 ML ONCE EVERY MONTH 4 Active FeroSuL 325 mg (65 mg iron) tablet Take 1 tablet (325 mg total) by mouth 2 (two) times a day 4 Active furosemide (LASIX) 20 mg tablet TAKE 1 TABLET BY MOUTH ONCE DAILY IN THE MORNING FOR 90 DAYS 4 Active rOPINIRole (REQUIP) 0.5 mg tablet Take 1 tablet (0.5 mg total) by mouth nightly [address] (CYMBALTA) 60 mg capsule Take 1 capsule (60 mg total) by mouth daily 4 Active losartan (COZAAR) 25 mg tablet Take 1 tablet (25 mg total) by mouth daily 4 Active Active Problems Patient Care Coordination No te Formatting of this note migh t be different from the original. Labs drawn at Dr. Marshall's office [phone] Fx: [phone] Labs every 3 months and they never send results [facility] (located in Dr. Marshall's office) [phone] Problem Noted Date Diagnosed Date Idiopathic peripheral neuropathy 03/09/2023 Osteopenia 03/09/2023 Overweight 03/09/2023 Umbilical hernia 03/09/2023 Ventral incisional hernia 03/09/2023 Uterine leiomyoma 03/09/2023 Osteoarthritis 03/09/2023 Urinary incontinence 03/09/2023 Assessment & Plan (06/09/2024 12:15 PM KNOTTING MACHINE OPERATOR): -stable, continue Fluid management, Myrbetriq and Estring Assessment & Plan (03/13/2024 9:08 AM CDT): -improved/stable, continue Fluid management, Myrbetriq and Estring Assessment & Plan (12/14/2023 10:27 AM CDT): Management options were reviewed for NAILA including expectant, conservative (behavioral modification, pelvic floor physical therapy, incontinence pessary), vaginal estrogen, medical management, PTNS, urethral bulking, and surgical management (synthetic midurethral sling, sacral neuromodulation, intravesicular botulinum toxin injections). A urine culture is being sent today to rule out a UTI as a possible cause of her symptoms. She is currently using Myrbetriq and Estring. She is not interested in additional intervention at this time. she had UDS in 03/2023 that showed DO and SIMON at a volume of 622 mL, she was reminded of recommendation for timed voiding of every 2 hours Assessment & Plan (09/10/2023 3:42 PM KNOTTING MACHINE OPERATOR): Management options were discussed for NAILA including expectant, conservative (behavioral modification, pelvic floor physical therapy, incontinence pessary), vaginal estrogen, medical management, PTNS, urethral bulking, and surgical management (synthetic midurethral sling, sacral neuromodulation, intravesicular botulinum toxin injections). A urine culture is being sent today to rule out a UTI as a possible cause of her symptoms. She is currently using Myrbetriq and Estring. She will discuss with her son regarding the above and let us know if she wants additional / alternate intervention. she had UDS in 03/2023 that showed DO and SIMON at a volume of 622 mL, I recommend timed voiding of every 2 hours Benign hypertension 03/09/2023 Diabetes mellitus 03/09/2023 Vitamin D deficiency 03/09/2023 Urge incontinence of urine 02/16/2023 Assessment & Plan (06/11/2023 10:13 AM KNOTTING MACHINE OPERATOR): -adequate bladder emptying at today's visit (she voided just prior to visit). Consider rechecking in future when taking Myrbetriq as she is currently not taking. -Myrbetriq renewed. Vaginal atrophy 02/16/2023 Assessment & Plan (06/09/2024 12:16 PM KNOTTING MACHINE OPERATOR): -Estring exchanged Assessment & Plan (03/13/2024 9:08 AM CDT): -Estring exchanged Assessment & Plan (12/14/2023 10:27 AM CDT): -Estring exchanged Assessment & Plan (09/10/2023 3:42 PM KNOTTING MACHINE OPERATOR): -Estring exchanged Assessment & Plan (06/11/2023 10:13 AM KNOTTING MACHINE OPERATOR): -Estring exchanged Gastroesophageal reflux disease without esophagi tis 10/10/2021 Hypocalcemia 11/17/2020 Diarrhea 11/17/2020 Spinal stenosis of lumbar region 11/17/2020 Allergic rhinitis due to pollen 08/11/2020 Congestion of nasal sinus 05/12/2020 Pancreatic cyst 03/10/2020 Memory difficulties 03/10/2020 Esophageal diverticulum 03/10/2020 Carotid artery stenosis 09/09/2019 Chronic diarrhea 04/09/2019 Overview (04/09/2019): Added automatically from request for surgery [id number] Change in bowel habits 04/09/2019 Overview (04/09/2019): Added automatically from request for surgery [id number] Pulmonary embolism 02/05/2019 Mild cognitive disorder 09/11/2018 Nonproliferative diabetic retinopathy 09/11/2018 Stress incontinence 08/28/2018 Coronary arteriosclerosis 05/28/2018 Right bundle branch block 05/28/2018 History of gastric polyp 04/30/2018 Overview (04/30/2018): Added automatically from request for surgery [id number] Obesity with body mass index 30 or greater 05/16 Abnormal findings on radiolo gical examination of gastrointestinal tract 05/16/2017 Dental disease 05/16/2017 Abdominal bloating 05/07/2017 Migraine 02/06/2017 Hyperlipidemia 11/06/2016 Fecal incontinence 09/21/2016 Abdominal pain 09/21/2016 Pain in pelvis 09/21/2016 Dyslipidemia 09/07/2016 Allergic condition 09/05/2016 Overview (10/19/2017): Description: dust mites - severe skin itching Aortic valve regurgitation 06/29/2016 Ventricular hypertrophy 06/29/2016 Chronic kidney disease, stage 2 (mild) 5 Postmenopausal bleeding 06/16/2014 Osteoarthritis of knee 11/12/2013 Aftercare following organ transplant 11/12/2013 Neoplasm of digestive organ 11/12/2013 Knee pain 10/08/2013 Blood in urine 07/22/2012 Parkinson's disease 07/18/2012 Dermatographic urticaria 11/03/2011 Eczema 11/03/2011 Epigastric pain 08/02/2011 Cerebrovascular accident (CVA) 07/25/2011 Lumbago 10/27/2010 Spinal stenosis 09/27/2010 Arthritis 01/18/2010 Epiretinal membrane 03/05/2009 Vitamin D deficiency disease 03/05/2009 Carpal tunnel syndrome 06/03/2008 Overview (10/19/2017): Description: L wrist History of liver transplant (CMS/HCC) 06/03/2008 Assessment & Plan (05/09/2023 5:57 PM CDT): She, historically, has had excellent allograft function. We will call Dr. Marshall's (PCP) office for updated labs. For now, I will not change her current management. I will continue to monitor her drug levels and labs at least every 3 months and sooner if clinically indicated. She will return in 2 years or when clinically indicated. Assessment & Plan (04/05/2022 5:20 PM CDT): She has stable allograft function. I saw no reason to change her current immunosuppression. She will continue to have labs on a regular basis and return in 2 years or when clinically indicated. 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 05/09/2023 Immunizations Immunization Administration Dates Next Due Influenza, Quadrivalent, Hig h Dose, Preservative Free, Intrr 04/13/2020 Influenza, Quadrivalent, Spl it, Intramuscular 04/13/2020,04/06/2019,05/18/2017,04/22 Influenza, Trivalent, High D ose, Split, Preservative Free, Intramuscular 04/06/2019,05/04/2018,04/30/2018 Influenza, Trivalent, IM (MDV) 05/05/2016 Influenza, Trivalent, Preser vative Free, Intramuscular 05/16/2017,07/09/2015 Pfizer SARS-CoV-2 Monovalent Vaccination (12+ Yrs) PURPLE 11/01/2020,10/11/2020,10/11/2020 Pneumococcal Conjugate PCV 13 05/09/2016 Pneumococcal Polysaccharide PPV23 04/22/2015 Tdap 12/08/2015 ZOSTER Recombinant 11/02/2017 Social History Tobacco Use Types Packs/Day Years Used Date Smoking Tobacco: Never Smokeless Tobacco: Never Tobacco Cessation:Counseling Given: Not Answered Alcohol Use Standard Drinks/Week Comments Never 0 (1 standard drink = 0.6 oz pur e alcohol) AUDIT-C Answer Date Recorded Frequency of Alcohol Consumption Never 07/04/2019 Average Number of Drinks Not on file 019 Frequency of Binge Drinking Not on file 06/09 Comments No Sex and Gender Information Value Date Recorded Sex Assigned at Not on file Legal Sex Female 2:53 PM KNOTTING MACHINE OPERATOR Gender Identity Not on file Sexual Orientation Not on file Last Filed Vital Signs Vital Sign Reading Time Taken Comments Blood Pressure 142/82 06/09/2024 9:59 AM KNOTTING MACHINE OPERATOR Pulse 60 04/16/2024 1:13 PM CDT Temperature 36.5 C (97.7 F) 04/16/2024 1:13 PM CDT Respiratory Rate 18 04/09/2024 10:27 AM CDT Oxygen Saturation 95% 04/09/2024 10:27 AM CDT Inhaled Oxygen Concentration - - Weight 78.9 kg (174 lb) 06/09/2024 9:59 AM KNOTTING MACHINE OPERATOR Height 165.1 cm (5' 5 ) 06/09/2024 9:59 AM KNOTTING MACHINE OPERATOR Body Mass Index 28.96 06/09/2024 9:59 AM KNOTTING MACHINE OPERATOR Plan of Treatment Not on file Procedures Procedure Name Priority Date/Time Associated Diagnosis Comments URINE CULTURE Routine 06/09/2024 10:53 AM KNOTTING MACHINE OPERATOR Mixed stress and urge urinary incontinence Incomplete bladder emptying URINALYSIS AND REFLEX TO MICROSCOPIC Routine 06/09/2024 10:52 AM KNOTTING MACHINE OPERATOR Mixed stress and urge urinary incontinence Incomplete bladder emptying HEMOGLOBIN A1C Routine 02/12/2023 LIPID PANEL Routine 03/22/2020 from Last 3 Months or Most Recently Relevant to Health Maintenance Results * Urine culture Urine, in and out catheter (06/09/2024 10:53 AM KNOTTING MACHINE OPERATOR) Report Final Report: No growth Urine, in and out catheter 06/09/2024 10:53 AM KNOTTING MACHINE OPERATOR 06/09/2024 5:19 PM KNOTTING MACHINE OPERATOR Narrative BARBER DASILVA - 06/10/2024 7:55 PM KNOTTING MACHINE OPERATOR Testing performed by [facility] ([phone]) us Tanna Ramos NP LAB MICROBIOLOGY - GENERAL ORD ERABLES Final Result BARBER DASILVA [facility] Department [place] [address] * Urinalysis reflex to microscopic (06/09/2024 10:52 AM KNOTTING MACHINE OPERATOR) Color, ur Straw Yellow Clarity, ur Clear Clear [facility] Specific gravity, ur 1.008 1.003 - 1.030 [facility] pH, urine 5.0 [facility] Comment: Interpretive Data U rine pH is affected by diet, medications, systemic acid-base disturbances, and renal tubular function. pH may affect urinary stone formation. For example, urine pH below 6.0 may help reduce the tendency for calcium phosphate stones and pH greater than 6.0 may reduce the tendency for uric acid stone formation. Source: [facility] Current Interpretive Data was last revised on 2017 Protein, ur ql Negative Negative [facility] Glucose, ur ql Negative Negative [facility] Ketones, ur Negative Negative [facility] Bilirubin, ur Negative Negative [facility] Blood, ur Negative Negative [facility] Urobilinogen, ur <2.0 <2.0 mg/dL [facility] Nitrite, ur Negative Negative [facility] Leukocyte esterase, ur Negative Negative [facility] UA reflex comment Reflex conditions for microscopic UA not met. [facility] Urine 06/09/2024 10:5 2 AM KNOTTING MACHINE OPERATOR 06/09/2024 4:56 PM KNOTTING MACHINE OPERATOR Tanna Ramos NP LAB URINE ORDERABLES Final Res ult [facility] Department [place] [address] * (ABNORMAL) Hemoglobin A1c (02/12/2023) SCRIBED Hemoglobin A1c 6.4(A) 4.0 - 6.0 % TXP NO LAB FOUND Blood 02/12/2023 Historical Provider LAB BLOOD ORDERABLES Margarita l Result TXP NO LAB FOUND * Lipid panel (03/22/2020) SCRIBED Cholesterol, Total - - - - TXP NO LA B FOUND Comment:eror SCRIBED HDL - - - - TXP NO L AB FOUND SCRIBED LDL - - - - TXP NO L AB FOUND SCRIBED Triglycerides - - - - TXP NO LAB FOUND LDL/HDL Ratio - - - - TXP NO LAB FOUND Blood specimen (specimen) 03/22/2020 us Historical Provider LAB BLOOD ORDERABLES Edit ed Result - Final TXP NO LAB FOUND from Last 3 Months or Most Recently Relevant to Health Maintenance Insurance MEDICARE [facility] [employer] MEDICARE [facility] [employer] Advance Directives For more information, please contact: [phone] Documents on File Type Date Recorded 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 Expl anation Power of Special Education Case Manager 01/14/2024 1:53 PM Healthcare Agents on File Name Relationship Healthcare Agent Relationshi p Communication Joseph Santillan Health Care Agent Care Teams Molecular Physicist Relationship Specialty Start Date End Date Alfredo Marshall MD [address] [place] [address] PCP - General 05/16/17 Alfredo Marshall MD [address] [place] [address] 05/16/17 Elida Ramirez NP [address] [place] [address] Nurse Practitioner Nurse Practitioner 04/04/19 Kirk Ponce MD [address] [place] [id number] Referring Physician Cardiovascular Disease 04/09/19 Miryam Tucker, yarn skeins examinerNutrition Consultant Nutrition Consultant 03/04/21
--- OUTSIDE RECORDS SUMMARY | 2024-08-24 08:41 | XMS_ITS | Clinical Summary ---
Author Organization [facility] Healthcare Address [address] [place] [address] Care Team Providers Care Lining Printer Name Role Phone Alfredo Marshall MD Primary Care Provider + [phone] Alfredo Marshall MD Unavailable [phone] Elida Ramirez NP Unavailable [phone] Kirk Ponce MD Unavailable [phone] Miryam Tucker RN Unavailable Unavailab le Allergies Active Allergy Reactions Criticality Noted Date [...] mg total) by mouth daily 30 capsule 0 Active tacrolimus (PROGRAF) 0.5 mg immediate-releas e capsuleIndicatio ns:History of liver transplant (CMS/HCC) (HCC) TAKE 3 CAPSULES BY MOUTH TWICE DAILY 180 capsule 1 Active Januvia 50 mg tablet Take [...] original. Labs drawn at Dr. Marshall's office [phone] Fx: [phone] Labs every 3 months and they never send results [facility] (located in Dr. 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 Consider rechecking in future when taking Myrbetriq as she is currently not taking. -Myrbetriq renewed. 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): -Estring exchanged Gastroesophageal reflux disease without esophagi tis 10/10/2021 Hypocalcemia 11/17/2020 Diarrhea 11/17/2020 Spinal stenosis of lumbar region 11/17/2020 Allergic rhinitis due to pollen 08/11/2020 Congestion of nasal sinus 05/12/2020 Pancreatic cyst 03/10/2020 Memory difficulties 03/10/2020 Esophageal diverticulum 03/10/2020 Carotid artery stenosis 09/09/2019 Chronic diarrhea 04/09/2019 Overview (04/09/2019): Added automatically from request for surgery [id number] Change in bowel habits 04/09/2019 Overview (04/09/2019): Added automatically from request for surgery [id number] Pulmonary embolism 02/05/2019 Mild cognitive disorder 09/11/2018 Nonproliferative diabetic retinopathy 09/11/2018 Stress incontinence 08/28/2018 Coronary arteriosclerosis 05/28/2018 Right bundle branch block 05/28/2018 History of gastric polyp 04/30/2018 Overview (04/30/2018): Added automatically from request for surgery [id number] Obesity with body mass index 30 or [...] Description: L wrist History of liver transplant ([facility]/HCC) 06/03/2008 Assessment & Plan (05/09/2023 5:57 PM [...] Date Resolved Date Hepatic cirrhosis 03/09/2023 05/09/2023 Encounters Date Type Department Care Team Description 07/30/2024 Telephone [facility] Obstetrics and Gynecology [facility] 7th [address] [place] [address] Nadia Sun RN 06/12/2024 Telephone [facility] Obstetrics and Gynecology [facility] 7th Floor [address] [place] [phone] Gianna Chandler RN PT appt 06/12/2024 Orders Only [facility] Obstetrics and Gynecology [address] [facility] 7th Floor [address] [place] [address] Gianna Chandler RN Mixed stress and urge urinary incontinence (Primary Dx); Incomplete bladder emptying 06/09/2024 10:52 AM [employer] - 06/09/2024 11:59 PM [employer] Hospital Encounter [address] [address] Mixed stress and urge urinary incontinence; Incomplete bladder emptying Discharge Disposition: Discharge to home or self care 06/09/2024 9:40 AM [employer] Office Visit [facility] Obstetrics and Gynecology [address] [facility] 7th [address] [place] [phone] Tanna Ramos NP Mixed stress and urge urinary incontinence (Primary Dx); Vaginal atrophy; Incomplete bladder emptying from Last 3 Months Immunizations Immunization Administration Dates Next Due Influenza, [...] PPV23 04/22/2015 Tdap 12/08/2015 ZOSTER Recombinant 11/02/2017 Surgical History Surgery Date Site/Laterality Comments HI TONSILLECTOMY & ADENOIDEC BURAK <AGE 13 Tonsillectomy With Adenoidectomy - (Added by TW Conv) HI DILATION & CURETTAGE DX&/ THER NONOBSTETRIC Dilation And Curettage - (Added by TW Conv) HI LVR ALTRNSPLJ ORTHOTOPIC PRTL/WHL DON ANY AGE Liver Transplant - Orthotopic - (Added by TW Conv) HI ESOPHAGOGASTRODUODENOSCOP Y TRANSORAL DIAGNOSTIC Diagnostic Esophagogastroduodenoscopy - gastric and antral ulcers; duodenitis (Added by TW Conv) HI COLONOSCOPY FLX DX W/LUCIE J SPEC WHEN PFRMD Complete Colonoscopy - normal (Added by TW Conv) HI BIOPSY LIVER NEEDLE PERCUTANEOUS Biopsy Of Liver - (Added by TW Conv) HI ARTHROPLASTY KNEE TIBIAL PLATEAU Knee Replacement - (Added by TW Conv) Medical History Medical History Date Comments Cirrhosis of liver (HCC) Cirrhos is - OLTx (Added by TW Conv) Personal history of other di seases of the digestive system History of esophageal varice s - (Added by TW Conv) Fatty (change of) liver, not elsewhere classified Nonalcoholic fatty liver dis ease - OLTx (Added by TW Conv) Personal history of other sp ecified conditions History of fatigue - (Added by TW Conv) 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 - (Added by TW Conv) Personal history of other di seases of the digestive system History of gastric ulcer - ( Added by TW Conv) Personal history of transien t ischemic attack (TIA), and cerebral infarction without residual deficits History of transi ent cerebral ischemia - (Added by TW Conv) Unspecified adverse effect o f drug or medicament, subsequent encounter Adverse reaction to d rug, subsequent encounter - (Added by TW Conv) Hepatic cirrhosis (HCC) 03/09/2023 Family History Medical History Relation Name Comments Arthritis Mother Family history of arthritis - (Added by TW Conv) Breast cancer Mother Breast Cancer - (Added by TW Conv) Cancer Mother Family history of malignant neoplasm - (Added by TW Conv) Diabetes Mother Family history of diabetes mellitus - (Added by TW Conv) Heart disease Mother Family history of cardiac disorder - (Added by TW Conv)/Heart Disease - (Added by TW Conv) Hypertension Mother Hypertension - (Added by TW Conv) Diabetes type II Other Type 2 Diab etes Mellitus - mother and sister (Added by TW Conv) Anesthesia problems Neg Hx Relation Name Status Comments Mother Other Social History Tobacco Use Types Packs/Day Years [...] on file Legal Sex Female 2:53 PM [employer] Gender Identity Not on file Sexual Orientation Not on file Obstetrics History Para Term AB IAB SAB Ectopic Multiple Livin g Live Births 2 2 2 2 2 Date Outcome GA Total Labor Labor/2nd/3rd Weight Sex Type Anes PTL Sheila A1 A5 Name Clin Term M Vag-S pont Living Term M Vag-S pont Living Last Filed Vital Signs Vital Sign Reading Time Taken Comments Blood Pressure 142/82 06/09/2024 9:59 AM [employer]ER Pulse 60 04/16/2024 1:13 PM CDT Temperature 36.5 C (97.7 F) 04/16/2024 1:13 PM CDT Respiratory Rate 18 04/09/2024 10:27 AM CDT Oxygen Saturation 95% 04/09/2024 10:27 AM CDT Inhaled Oxygen Concentration - - Weight 78.9 kg (174 lb) 06/09/2024 9:59 AM [employer] Height 165.1 cm (5' 5 ) 06/09/2024 9:59 AM [employer] Body Mass Index 28.96 06/09/2024 9:59 AM [employer] Plan of Treatment Health Maintenance Due Date Last Done Comments Albumin Creatinine Ratio, Urine 1941 Depression Screening 1941 Fall Risk Assessment 1941 eGFR 1941 Dilated Eye Exam 1941 Foot Exam 1941 Hepatitis B Screening 12[birth year]05/1958 Well Visit 65+ 2006 Zoster Vaccine (2 of 2) 12/28/2017 11/02/2017 Lipid Panel 03/22/2021 03/22/2020, 08/19/2014 Osteoporosis Screening-Bone Density Scan 08/12/2022 08/12/2020, 05/13/2020, 11/20/2017, Additional history exists Hemoglobin A1C 08/15/2023 02/12/2023, 08/0 01/2023, 11/01/2022, Additional history exists Covid-19 Vaccine (2023-2 5 season) 2024 12/28/2021, 02/19/2021, 11/01/2020, Additional history exists Influenza Vaccine (#1) 2024 , 04/13/2020, 04/13/2020, Additional history exists DTaP/Tdap/Td Vaccine (3 - Td or Tdap) 12/19/2032 12/19/2022, 12/08/2015 Pneumococcal vaccine 65+ Completed 021, 05/09/2016, 04/22/2015 Procedures Procedure Name Priority Date/Time Associated Diagnosis Comments URINE CULTURE Routine 06/09/2024 10:53 AM [employer] Mixed stress and urge urinary incontinence Incomplete bladder emptying URINALYSIS AND REFLEX TO MICROSCOPIC Routine 06/09/2024 10:52 AM [employer] Mixed stress and urge urinary incontinence Incomplete bladder emptying HEMOGLOBIN A1C Routine 02/12/2023 LIPID PANEL Routine 03/22/2020 from Last 3 Months or Most Recently Relevant to Health Maintenance Results * Urine culture Urine, in and out catheter (06/09/2024 10:53 AM C[employer] F[employer]WORKER) Report Final Report: No growth Urine, in and out catheter 06/09/2024 10:53 AM [employer]ER 06/09/2024 5:19 PM [employer] Narrative [facility] - 06/10/2024 7:55 PM [employer] Testing performed by [facility] Microbiology Laboratory ([phone]) us Tanna Ramos NP LAB MICROBIOLOGY - GENERAL ORD ERABLES Final Result [facility] Department [place] [address] * Urinalysis reflex to microscopic (06/09/2024 10:52 AM 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 pH may affect urinary stone formation. For example, urine pH below 6.0 may help reduce the tendency for calcium phosphate stones and pH greater than 6.0 may reduce the tendency for uric acid stone formation. Source: [facility] Current Interpretive Data was last revised on 2017 Protein, ur ql Negative Negative [facility] Glucose, ur ql Negative Negative [facility] Ketones, ur Negative Negative [facility] Bilirubin, ur Negative Negative [facility] Blood, ur Negative Negative [facility] Urobilinogen, ur <2.0 <2.0 mg/dL [facility] Nitrite, ur Negative Negative [facility] Leukocyte esterase, ur Negative Negative [facility] UA reflex comment Reflex conditions for microscopic UA not met. [facility] Urine 06/09/2024 10:5 2 AM [employer]ER 06/09/2024 4:56 PM [employer] Tanna Ramos NP LAB URINE ORDERABLES Final Res ult Performing Organization Address [facility]/ZIP Co de Phone Number [facility] [place] [address] * (ABNORMAL) Hemoglobin A1c (02/12/2023) SCRIBED Hemoglobin A1c 6.4(A) 4.0 - 6.0 % TXP NO LAB FOUND Blood 02/12/2023 [facility] Provider LAB BLOOD ORDERABLES Margarita l Result Performing Organization Address City/[facility]/ZIP Co de Phone Number TXP NO LAB FOUND * Lipid panel [...] Recently Relevant to Health Maintenance Insurance MEDICARE [facility] [employer] MEDICARE [facility] [employer]AL Advance Directives For more information, please contact: [phone] Documents on File Type Date Recorded Patient Behavioral Instructor Expl anation Power of Design/Animation Instructor 01/14/2024 1:53 PM Healthcare Agents on File Name Relationship Healthcare Agent Relationshi p Communication Joseph Santillan Health Care Agent [id number] (Mobile) Care Teams Lining Printer Relationship Specialty Start Date End Date Alfredo Marshall MD [address] [place] [address] PCP - General 05/16/17 Alfredo Marshall MD [address] [place] [address] 05/16/17 Elida Ramirez NP [address] [place] [address] Nurse Practitioner Nurse Practitioner 04/04/19 Kirk Ponce MD [address] [place] [address] Referring Physician Cardiovascular Disease 04/09/19 Miryam Tucker, videogame designerHand Stapler Hand Stapler 03/04/21
--- OUTSIDE RECORDS SUMMARY | 2024-08-24 08:41 | XMS_ITS ---
Author Organization [facility] Healthcare Address [address] [place] [address] Care Team Providers Care Marketing Sales Supervisor Name Role Phone Alfredo Marshall MD Primary Care Provider + [phone] Alfredo Marshall MD Unavailable [phone] Elida Ramirez NP Unavailable [phone] Kirk Ponce MD Unavailable [phone] Miryam Tucker RN Unavailable Unavailab le Transplant Episode Liver Recipient [facility] ([place], [place]) - [facility] Organ Received: Liver Transplanted on 05/13/2008 Marked as Active Follow-up on 05/13/2008 Liver CoordinatorMiryam Tucker RN Phone: N/A Fax: N/A Email: N/A [place] Organ Diagnosis Organ Primary Contributory Liver Cirrhosis: Fatty Liver ([facility]) Retransplant Diagnosis Organ Primary Contributory Liver Cirrhosis: Fatty Liver ([facility]) Donor Information Organ ABO Source Meets Risk Criteria HLA Match Mismatches Cross Match Liver Transplanted AB DBD Yes A: B: DR: Liver Donor Serology Results Anti-CMV CMV IgG: Positive EBV IgG EBV VCA IgG: Positive Anti-HBcAb HBC Total: Negative HBsAg HBsAg: Negative HBV DNA No results on file Anti-HCV HCV: Negative Anti-HIV I/II No results on file Anti-HTLV I/II HTLV: Negative RPR/VDRL RPR: Negative EBV IgM EBV VCA IgM: Positive HBsAb No results on file EBNA No results on file Toxoplasma No results on file SARS CoV-2 No results on file Care Team Name Role Phone Fax Email Miryam Jerry Reaka, RN Liver Coordinator N/A N/A N/A Catherine Casas Perinatal Instructor [phone] N/A N/A Events Post-Transplant Pre-Transplant Admitted: 05/12/2008 Referred: 01/02/2008 Transplanted: 05/13/2008 Evaluation began: 8 Discharged: 05/19/2008 Center waitlisted: 8
--- NOTE | 2024-08-24 08:47 | ECG_ITS ---
Test Date: 2024-08-24 08:54:20 Measurements Intervals [place] Rate: 80 P: 75 SC: 211 QRS: -37 QRSD: 125 T: 24 QT: 392 QTc: 453 Interpretive Statements SINUS RHYTHM WITH FIRST DEGREE AV BLOCK WITH OCCASIONAL VENTRICULAR PREMATURE COMPLEXES LEFT AXIS DEVIATION RIGHT BUNDLE BRANCH BLOCK BASELINE ARTIFACT- I, II, III, AVR, AVL, V1-V2 ABNORMAL ECG Compared to ECG 01/15/2024 19:56:22 Ventricular premature complex(es) now present First degree AV block now present Electronically Signed On 08-24-2024 09:27:07 APPLICATION SERVICES MANAGER by Alberto Coleman D.O.
--- OUTSIDE RECORDS SUMMARY | 2024-08-24 08:47 | XMS_ITS | Data Portability ---
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 Studies ordered as below. Discussed plan with patient/careg iver, who expressed understanding . Follow up as noted below. Not available 09/11/2023 11:49:02 12/10/2023 12/10/2023 Patient presented for follow up. Studies ordered as below. Discussed plan with patient/careg iver, who expressed understanding . Follow up as noted below. Not available 12/10/2023 19:00:42 02/20/2024 02/20/2024 Patient presented for follow up. Studies ordered as below. Discussed plan with patient/careg iver, who expressed understanding . Follow up as noted below. Not available 02/20/2024 18:09:37 06/02/2024 06/02/2024 Patient presented for follow up. Studies ordered as below. Discussed plan with patient/careg iver, who expressed understanding . Follow up as noted below. Not available 06/02/2024 18:32:45 Plan of Treatment Reminders Order Date Submit Date Provider Last Modified By Organization Details Last Modified Time Details Appointments ESTABLISH ED PATIENT 15 2024 06:00P M Alfredo Saenz MD Not available Not available Not available Lab hemoglobi n A1c, QN, blood 2023 [facility], [address], [place], [address], 06/11/2024 14:29:23 microalbu min, urine 2023 [facility], [address], [place], [address], 06/11/2024 22:25:53 vitamin B12, serum 2023 [facility], [address], [place], [address], 06/11/2024 14:29:23 CMP, serum or plasma 2023 [facility], [address], [place], [address], 06/11/2024 14:29:23 CBC 2023 [facility], [address], [place], [address], 06/11/2024 14:29:22 vitamin D, 25-hydrox y, total, serum 2023 [facility], [address], [place], [address], 06/11/2024 14:29:23 tacrolimu s, blood 2023 024 [facility], [address], [place], [address], 06/14/2024 10:26:37 vitamin B12, serum 2023 [facility], [address] [place], [address], 02/26/2024 17:12:28 urinalysi s complete, reflex culture 2023 024 [facility], [address], [place], [address], 02/20/2024 18:53:27 CMP, serum or plasma 2023 024 [facility], [address], [place], [address], 02/26/2024 17:12:27 iron panel, serum or plasma 2023 024 [facility], [address], [place], [address], 02/20/2024 18:53:27 CBC w/ auto diff 2023 024 [facility], [address], [place], [address], 02/26/2024 17:12:26 tacrolimu s, blood 2023 024 [facility], [address], [place], [address], 01/21/2024 04:05:37 HbA1c (hemoglob in A1c), blood 2023 024 [facility], [address], [place], [address], 01/19/2024 10:24:52 vitamin B12, serum 2023 024 [facility], [address], [place], [address], 01/19/2024 10:24:54 urinalysi s, dipstick 2023 024 [facility], [facility], [address], [place], [address], 01/14/2024 19:23:46 CMP, serum or plasma 2023 024 [facility], [address], [place], [address], 01/19/2024 10:24:54 CBC w/ auto diff 2023 024 [facility], [address], [place], [address], 01/19/2024 10:24:53 tacrolimu s, blood 2023 024 [facility], [address], [place], [address], 12/18/2023 04:06:36 CMP, serum or plasma 2023 024 [facility], [address], [place], [address], 12/18/2023 04:06:36 CBC 2023 024 [facility] [employer] [facility], [address], [place], [address], 12/18/2023 04:06:36 hemoglobi n A1c, QN, blood 2023 024 [facility], [address], [place], [address], 12/18/2023 04:06:36 hemoglobi n A1c, QN, blood 2023 024 [facility] [employer] [facility], [address], [place], [address], 09/18/2023 04:06:29 vitamin B12, serum 2023 024 [facility] [employer] [facility], [address], [place], [address], 11/01/2023 00:39:19 CMP, serum or plasma 2023 024 [facility], [address], [place], [address], 09/13/2023 10:44:52 CBC 2023 024 [facility], [address], [place], [address], 09/18/2023 04:06:29 vitamin D, 25-hydrox y, total, serum 2023 024 [facility], [address], [place], [address], 09/18/2023 04:06:29 lipid panel w/ direct LDL, serum 2023 024 [facility], [address], [place], [address], 09/18/2023 04:06:29 TSH, serum or plasma 2023 024 [facility], [address], [place], [address], 09/18/2023 04:06:29 Referral diabetic ophthalmo logy referral 2023 024 ABRAHAN Sandoval MD, [address] [facility] , [address], [place], [address], 02/12/2024 17:30:50 cardiolog ist referral 2023 024 ABRAHAN Ponce MD, [address] [facility], [place], [address], 09/20/2023 18:41:[address] referral 2023 024 ABRAHAN Patel MD, [address], [place], [address], 10/15/2023 15:05:49 Procedures None recorded. Surgeries None recorded. Imaging MAMMO, screening , digital, bilateral 2023 024 [facility], [address], [address], [place], [address], 06/16/2024 04:14:30 XR, shoulder, 2 or more view 2023 024 [facility], [address], [address], [place], [address], 06/09/2024 04:08:10 XR, cervical spine, 2 or 3 view 2023 024 [facility], [address], [address], [place], [address], 06/09/2024 04:08:10 CT, head, w/o contrast 2023 024 [facility] Centralized Scheduling, Centralized Scheduling, [address], [place], [address], 01/14/2024 15:32:34 XR, chest, 2 view 2023 024 [facility] Centralized Scheduling, Centralized Scheduling, [address], [place], [address], 01/28/2024 04:03:56 MAMMO, screening , digital, bilateral 2023 024 [facility], [address], [address], [place], [address], 12/24/2023 04:09:36 MAMMO, screening , digital, bilateral 2023 024 [facility]), [address], [address], [place], [address], 09/25/2023 04:03:43 bone density 2023 024 [facility]), [address], [address], [place], [address], 09/25/2023 04:03:43 Medication Orders diclofena c 1 % topical gel 2023 [facility], [address] [place] [address], [address], 06/02/2024 19:29:49 ropinirol e 0.5 mg tablet 2023 024 [facility], [address] [place] [address], [address], 06/02/2024 19:29:52 gabapenti n 100 mg capsule 2023 [facility], [address] [place] [address], [address], 06/02/2024 19:29:50 losartan 25 mg tablet 2023 024 [facility], [address] [place] [address], [address], 06/02/2024 19:29:48 aspirin 81 mg tablet,de layed release 2023 024 [facility], [address] [place] [address], [address], 02/20/2024 18:53:34 cetirizin e 10 mg tablet 2023 024 [facility], [address] [place] [address], [address], 02/20/2024 18:53:41 cyanocoba reece (vit B-12) 1,000 mcg/mL injection solution 2023 024 [facility], [address] [place] [address], [address], 02/20/2024 18:53:38 ropinirol e 0.5 mg tablet 2023 024 [facility], [address] [place], [address], 02/20/2024 18:53:38 Tylenol Extra Strength 500 mg tablet 2023 024 [facility], [address] [place], [address], 02/20/2024 18:53:32 duloxetin e 60 mg capsule,d elayed release 2023 024 [facility], [address] [place] [address], [address], 02/20/2024 18:53:40 Myrbetriq 25 mg tablet,ex tended release 2023 024 [facility], [address] [place] [address], [address], 02/20/2024 18:53:36 ProAir HFA 90 mcg/actua tion aerosol inhaler 2023 024 [facility], [address] [place] [address], [address], 02/20/2024 18:53:33 memantine 10 mg tablet 2023 024 [facility], [address] [place] [address], [address], 02/20/2024 18:53:33 losartan 100 mg tablet 2023 024 [facility], [address] [place] [address], [address], 06/02/2024 19:17:46 rosuvasta tin 5 mg tablet 2023 024 [facility], [address] [place] [address], [address], 02/20/2024 18:53:34 furosemid e 20 mg tablet 2023 024 [facility], [address] [place], [address], 02/20/2024 18:53:37 ergocalci ferol (vitamin D2) 1,250 mcg (50,000 unit) capsule 2023 024 [facility], [address] [place] [address], [address], 02/20/2024 18:53:39 tacrolimu s 0.5 mg capsule, immediate -release 2023 024 [facility], [address] [place] [address], [address], 02/20/2024 18:53:37 metformin 500 mg tablet 2023 [facility], [address] [place] [address], [address], 02/20/2024 18:53:33 Januvia 50 mg tablet 2023 024 [facility], [address] [place] [address], [address], 02/20/2024 18:53:34 Ferretts Carbonyl Iron 18 mg iron chewable tablet 2023 024 [facility], [address] [place] [address], [address], 02/20/2024 18:53:37 Augmentin 875 mg-125 mg tablet 2023 024 [facility], [address] [place] [address], [address], 02/20/2024 19:43:33 aspirin 81 mg tablet,de layed release 2023 024 [facility], [address] [place] [address], [address], 09/11/2023 12:19:18 Patient TargetsNo targets recorded. Patient Instructions Encounter Date Encounter Id Patient Instructions Last Modified By Organization Details Last Modified Time 09/11/2023 [id number] mammogram: about this test mshenouda Not available 09/11/2023 12:16:15 arthritis: care instructions mshenouda Not available 09/11/2023 12:16:16 osteoarthritis: care instructions mshenouda Not available 09/11/2023 12:16:15 lumbar spinal stenosis: care instructions mshenouda Not available 09/11/2023 12:16:15 cirrhosis: care instructions mshenouda Not available 09/11/2023 12:16:16 liver disease diet: care instructions mshenouda Not available 09/11/2023 12:16:16 high cholesterol : care instructions mshenouda Not available 09/11/2023 12:16:16 carotid stenosis : care instructions mshenouda Not available 09/11/2023 12:16:15 type 2 diabetes: care instructions mshenouda Not available 09/11/2023 12:16:15 aortic valve regurgitation: care instructions mshenouda Not available 09/11/2023 12:16:15 body mass index: care instructions mshenouda Not available 09/11/2023 12:16:15 learning about healthy weight mshenouda Not available 09/11/2023 12:16:16 living will mshenouda Not available 11/2023 12:06:05 12/10/2023 [id number] mammogram: about this test mshenouda Not available 12/10/2023 19:32:14 carotid stenosis : care instructions mshenouda Not available 12/10/2023 19:32:14 body mass index: care instructions mshenouda Not available 12/10/2023 19:32:14 learning about healthy weight mshenouda Not available 12/10/2023 19:32:14 01/14/2024 [id number] type 2 diabetes: care instructions mshenouda Not available 01/14/2024 13:36:30 02/20/2024 [id number] restless legs syndrome: care instructions mshenouda Not available 02/20/2024 18:53:19 iron deficiency anemia: care instructions mshenouda Not available 02/20/2024 18:53:20 06/02/2024 [id number] arthritis: care instructions mshenouda Not available 06/02/2024 19:29:41 mammogram: about this test mshenouda Not available 06/02/2024 19:29:41 lumbar spinal stenosis: care instructions mshenouda Not available 06/02/2024 19:29:41 body mass index: care instructions mshenouda Not available 06/02/2024 19:29:41 learning about healthy weight mshenouda Not available 06/02/2024 19:29:42 Reason for Referral Neurologist Referral for Rec urrent falls Referring Physician: Alfredo Saenz, Internal Medicine, Encounter Date: 09/11/2023 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 6 high ELYSIA L RANGE BASED ON SHEILA COL 2 (DCCT /NGSP ): Non-D iabet ic: < 5.7% Pre-D iabet es: 5.7 - 6.4% Diabe bernabe: => 6.5% GLYCE KIRILL CONTR OL: < 7.0% Not Available [facility] [address], [place], [address], 09/13/2023 10:44:50 09/11/1909/11/2023 HEMOG LOBIN A1C estimated average glucose 194 Not Available [facility] [address], [place], [address], 09/13/2023 10:44:50 09/11/19 24 09/11/2023 CBC WITH AUTO- DIFFE RENTI AL WBC 7.1 10*3/ uL 3.4-10 .8 Not Available [facility] [address] [facility] [address], [place], [address], 09/13/2023 10:44:51 09/11/19 24 09/11/2023 CBC WITH AUTO- DIFFE RENTI AL RBC 3.65 10*6/ uL 3.80-5 .30 low Not Available [facility] [address] [facility] [address], [place], [address], 09/13/2023 10:44:51 09/11/19 24 09/11/2023 CBC WITH AUTO- DIFFE RENTI AL HGB 11.6 g/dL 11.1-1 5.9 Not Available [facility] [address] [facility] [address], [place], [address], 09/13/2023 10:44:51 09/11/19 24 09/11/2023 CBC WITH AUTO- DIFFE RENTI AL HCT 35.6 % 34.0-4 6.6 Not Available [facility] [address] [facility] [address], [place], [address], 09/13/2023 10:44:51 09/11/19 24 09/11/2023 CBC WITH AUTO- DIFFE RENTI AL MCV 98 fL 79-97 high Not Available [facility] [address] [facility] [address], [place], [address], 09/13/2023 10:44:51 09/11/19 24 09/11/2023 CBC WITH AUTO- DIFFE RENTI AL MCH 31.8 pg 26.6-3 3.0 Not Available [facility] [address] [facility] [address] [facility], [place], [address], 09/13/2023 10:44:51 09/11/19 24 09/11/2023 CBC WITH AUTO- DIFFE RENTI AL MCHC 32.6 g/dL 31.5-3 5.7 Not Available [facility] [address], [place], [address], 09/13/2023 10:44:51 09/11/19 24 09/11/2023 CBC WITH AUTO- DIFFE RENTI AL RDW 13.1 % 11.5-1 4.5 Not Available [facility] [address] [facility] [address], [place], [address], 09/13/2023 10:44:51 09/11/19 24 09/11/2023 CBC WITH AUTO- DIFFE RENTI AL platelets 286 10*3/ uL 150-40 0 Not Available [facility] [address] [facility] [address], [place], [address], 09/13/2023 10:44:51 09/11/19 24 09/11/2023 CBC WITH AUTO- DIFFE RENTI AL MPV 12 fL 9-13 Not Available [facility] [address] [facility] [address], [place], [address], 09/13/2023 10:44:51 09/11/19 24 09/11/2023 CBC WITH AUTO- DIFFE RENTI AL neutrophils 62.4 % 40.0-7 4.0 Not Available [facility] [address] [facility] [address], [place], [address], 09/13/2023 10:44:51 09/11/19 24 09/11/2023 CBC WITH AUTO- DIFFE RENTI AL absolute neutrophils 4.41 10*3/ uL 1.40-7 .00 Not Available [facility] [address] [facility] [address], [place], [address], 09/13/2023 10:44:51 09/11/19 24 09/11/2023 CBC WITH AUTO- DIFFE RENTI AL lymphocytes 22.8 % 14.0-4 6.0 Not Available [facility] [address] [facility] [address], [place], [address], 09/13/2023 10:44:51 09/11/19 24 09/11/2023 CBC WITH AUTO- DIFFE RENTI AL absolute lymphocytes 1.61 10*3/ uL 0.70-3 .10 Not Available [facility] [address] [facility] [address], [place], [address], 09/13/2023 10:44:51 09/11/19 24 09/11/2023 CBC WITH AUTO- DIFFE RENTI AL monocytes 7.8 % 4.0-12 .0 Not Available [facility] [address] [facility] [address], [place], [address], 09/13/2023 10:44:51 09/11/19 24 09/11/2023 CBC WITH AUTO- DIFFE RENTI AL absolute monocytes 0.55 10*3/ uL 0.10-0 .90 Not Available [facility] [address] [facility] [address], [place], [address], 09/13/2023 10:44:51 09/11/19 24 09/11/2023 CBC WITH AUTO- DIFFE RENTI AL eosinophils 6.1 % 0.0-5. 0 high Not Available [facility] [address] [facility] [address], [place], [address], 09/13/2023 10:44:51 09/11/19 24 09/11/2023 CBC WITH AUTO- DIFFE RENTI AL absolute eosinophils 0.43 10*3/ uL 0.00-0 .40 high Not Available [facility] [address] [facility] [address], [place], [address], 09/13/2023 10:44:51 09/11/19 24 09/11/2023 CBC WITH AUTO- DIFFE RENTI AL basophils 0.8 % 0.0-3. 0 Not Available [facility] [address] [facility] [address], [place], [address], 09/13/2023 10:44:51 09/11/19 24 09/11/2023 CBC WITH AUTO- DIFFE RENTI AL absolute basophils 0.06 10*3/ uL 0.00-0 .20 Not Available [address], [place], [address], 09/13/2023 10:44:51 09/11/19 24 09/11/2023 CBC WITH AUTO- DIFFE RENTI AL imm. gran. 0.1 % 0.0-2. 0 Not Available [facility] [address] [facility] [address], [place], [address], 09/13/2023 10:44:51 09/11/19 24 09/11/2023 CBC WITH AUTO- DIFFE RENTI AL abs. imm. gran. 0.01 10*3/ uL 0.00-0 .10 Not Available [facility] [address] [facility] [address], [place], [address], 09/13/2023 10:44:51 09/11/19 24 09/11/2023 COMPR EHENS SARIAH METAB OLIC PANEL sodium 141 mmol/ L 134-14 4 Not Available [facility] [address] [facility] [address], [place], [address], 09/13/2023 10:44:52 09/11/19 24 09/11/2023 COMPR EHENS SARIAH METAB OLIC PANEL potassium 5.6 mmol/ L 3.5-5. 2 high Not Available [facility] [address] [place] [address] [address], [place], [address], 09/13/2023 10:44:52 09/11/19 24 09/11/2023 COMPR EHENS SARIAH METAB OLIC PANEL chloride 105 mmol/ L 97-108 Not Available [facility] [address] [place] [address] [address], [place], [address], 09/13/2023 10:44:52 09/11/19 24 09/11/2023 COMPR EHENS SARIAH METAB OLIC PANEL carbon dioxide (co2) 25.0 mmol/ L 18.0-2 9.0 Not Available [facility] [address] [place] [address] [address], [place], [address], 09/13/2023 10:44:52 09/11/19 24 09/11/2023 COMPR EHENS SARIAH METAB OLIC PANEL glucose 167 mg/dL 65-99 high Elysia l Fasti ng: < 100 mg/dL Impai red Fasti n - 125 mg/dL Diagn ostic of Diabe bernabe: => 126 mg/dL Ameri can Diabe bernabe [facility] i[facility] n, 2008 Not Available [facility] [address] [facility] [address], [place], [address], 09/13/2023 10:44:52 09/11/19 24 09/11/2023 COMPR EHENS SARIAH METAB OLIC PANEL urea nitrogen (BUN) 43 mg/dL 8-23 high Not Available [facility] [address] [facility] [address], [place], [address], 09/13/2023 10:44:52 09/11/19 24 09/11/2023 COMPR EHENS SARIAH METAB OLIC PANEL creatinine 1.29 mg/dL 0.57-1 .00 high Not Available [facility] [address] [facility] [address], [place], [address], 09/13/2023 10:44:52 09/11/19 24 09/11/2023 COMPR EHENS SARIAH METAB OLIC PANEL eGFR for nonafrican AM 40 mL/mi nute/ 1.73_ m2 >59 low Not Available [facility] [address] [facility] [address], [place], [address], 09/13/2023 10:44:52 09/11/19 24 09/11/2023 COMPR EHENS SARIAH METAB OLIC PANEL eGFR for AM 48 mL/mi nute/ 1.73_ m2 >59 low MDRD Study Equat ion: The calcu lated GFR is NOT appli cable for pedia tric (< 18 years old) and > 70 year old patie nts and patie nts that are NOT of [place] . Not Available [facility] [address] [facility] [address], [place], [address], 09/13/2023 10:44:52 09/11/19 24 09/11/2023 COMPR EHENS SARIAH METAB OLIC PANEL calcium 9.4 mg/dL 8.7-10 .3 Not Available [facility] [address] [facility] [address], [place], [address], 09/13/2023 10:44:52 09/11/19 24 09/11/2023 COMPR EHENS SARIAH METAB OLIC PANEL protein, total 6.6 gm/dL 6.4-8. 3 Not Available [facility] [address] [facility] [address], [place], [address], 09/13/2023 10:44:52 09/11/19 24 09/11/2023 COMPR EHENS SARIAH METAB OLIC PANEL albumin 4.3 gm/dL 3.5-5. 2 Not Available [facility] [address] [facility] [address], [place], [address], 09/13/2023 10:44:52 09/11/19 24 09/11/2023 COMPR EHENS SARIAH METAB OLIC PANEL bilirubin, total 0.70 mg/dL 0.00-1 .20 Not Available [facility] [address] [facility] [address], [place], [address], 09/13/2023 10:44:52 09/11/19 24 09/11/2023 COMPR EHENS SARIAH METAB OLIC PANEL alkaline phosphatase (ALP) 78 U/L 39-117 Not Available [facility] [address] [facility] [address], [place], [address], 09/13/2023 10:44:52 09/11/19 24 09/11/2023 COMPR EHENS SARIAH METAB OLIC PANEL aspartate aminotransfe rase (AST) 15 U/L 0-32 Not Available [facility] [address] [facility] [address], [place], [address], 09/13/2023 10:44:52 09/11/19 24 09/11/2023 COMPR EHENS SARIAH METAB OLIC PANEL alanine aminotransfe rase (ALT) 15 U/L 0-33 Not Available [facility] [address] [facility] [address], [place], [address], 09/13/2023 10:44:52 09/11/19 24 09/11/2023 COMPR EHENS SARIAH METAB OLIC PANEL A/G ratio (calculated) 1.9 ratio 1.0-2. 7 Not Available [facility] [address] [facility] [address], [place], [address], 09/13/2023 10:44:52 09/11/19 24 09/11/2023 COMPR EHENS SARIAH METAB OLIC PANEL globulin (calculated) 2.3 gm/dL 1.5-3. 8 Not Available [facility] [address] [facility] [address], [place], [address], 09/13/2023 10:44:52 09/11/19 24 09/11/2023 COMPR EHENS SARIAH METAB OLIC PANEL BUN/creatini ne ratio (calculated) 33.3 ratio 8.0-20 .0 high Not Available [facility] [address] [facility] [address], [place], [address], 09/13/2023 10:44:52 09/11/19 24 09/11/2023 COMPR EHENS SARIAH METAB OLIC PANEL serum hemolysis index NORMAL index normal Not Available [facility] [address] [facility] [address], [place], [address], 09/13/2023 10:44:52 09/11/19 24 09/11/2023 LIPID PANEL W/ CALC. LDL cholesterol, total 119 mg/dL 100-19 9 Not Available [facility] [address] [facility] [address], [place], [address], 09/13/2023 10:44:53 09/11/19 24 09/11/2023 LIPID PANEL W/ CALC. LDL HDL cholesterol 56 mg/dL =>40 Not Available [facility] [address] [facility] [address], [place], [address], 09/13/2023 10:44:53 09/11/19 24 09/11/2023 LIPID PANEL W/ CALC. LDL LDL cholesterol (calculated) 48 mg/dL 0-99 Not Available [facility] [address] [facility] [address], [place], [address], 09/13/2023 10:44:53 09/11/19 24 09/11/2023 LIPID PANEL W/ CALC. LDL triglyceride s 75 mg/dL 50-149 Not Available [facility] [address] [facility] [address], [place], [address], 09/13/2023 10:44:53 09/11/19 24 09/11/2023 LIPID PANEL W/ CALC. LDL chol/HDL ratio (calculated) 2.13 ratio 0.00-5 .00 Not Available [facility] [address] [facility] [address], [place], [address], 09/13/2023 10:44:53 09/11/19 24 09/11/2023 LIPID PANEL W/ CALC. LDL VLDL cholesterol (calculated) 15 mg/dL 5-40 Not Available [facility] [address] [facility] [address], [place], [address], 09/13/2023 10:44:53 09/11/19 24 09/11/2023 THYRO ID-ST IM. HORMO NE (TSH) , HIGH- SENSI TIVE thyroid-stim . hormone (TSH), hs 1.81 uIU/m L 0.27-4 .20 Not Available [facility] [address] [facility] [address], [place], [address], 09/13/2023 10:44:53 10/11/19 24 10/14/2023 TACRO LIMUS BLOOD tacrolimus (fk506), blood 8.5 NG/mL 2.0-20 .0 normal Troug h (imme diate ly follo wing trans plant ) 15.0 Troug h (stea dy state , 2 weeks or more after trans plant ): 3.0 - 8.0 Perfo rmed by LC-MS /MS techn ology . Not Available [facility] [address], [place], [address], 10/14/2023 17:08:04 01/14/20 24 01/14/2024 HEMOG LOBIN A1C hemoglobin A1C 6.6 % 4.8-5. 6 high ELYSIA L RANGE BASED ON SHEILA COL 2 (DCCT /NGSP ): Non-D iabet ic: < 5.7% Pre-D iabet es: 5.7 - 6.4% Diabe bernabe: => 6.5% GLYCE KIRILL CONTR OL: < 7.0% Not Available [facility] [address], [place], [address], 01/19/2024 10:24:52 01/14/20 24 01/14/2024 HEMOG LOBIN A1C estimated average glucose 143 Not Available [facility] [address], [place], [address], 01/19/2024 10:24:52 01/14/20 24 01/14/2024 CBC WITH AUTO- DIFFE RENTI AL WBC 6.5 10*3/ uL 3.4-10 .8 Not Available [facility] [address], [place], [address], 01/19/2024 10:24:53 01/14/20 24 01/14/2024 CBC WITH AUTO- DIFFE RENTI AL RBC 3.51 10*6/ uL 3.80-5 .30 low Not Available [facility] [address] [facility] [address], [place], [address], 01/19/2024 10:24:53 01/14/20 24 01/14/2024 CBC WITH AUTO- DIFFE RENTI AL HGB 11.1 g/dL 11.1-1 5.9 Not Available [facility] [address], [place], [address], 01/19/2024 10:24:53 01/14/20 24 01/14/2024 CBC WITH AUTO- DIFFE RENTI AL HCT 35.1 % 34.0-4 6.6 Not Available [facility] [address], [place], [address], 01/19/2024 10:24:53 01/14/20 24 01/14/2024 CBC WITH AUTO- DIFFE RENTI AL MCV 100 fL 79-97 high Not Available [facility] [address], [place], [address], 01/19/2024 10:24:53 01/14/20 24 01/14/2024 CBC WITH AUTO- DIFFE RENTI AL MCH 31.6 pg 26.6-3 3.0 Not Available [facility] [address], [place], [address], 01/19/2024 10:24:53 01/14/20 24 01/14/2024 CBC WITH AUTO- DIFFE RENTI AL MCHC 31.6 g/dL 31.5-3 5.7 Not Available [facility] [address], [place], [address], 01/19/2024 10:24:53 01/14/20 24 01/14/2024 CBC WITH AUTO- DIFFE RENTI AL RDW 12.9 % 11.5-1 4.5 Not Available [facility] [address], [place], [address], 01/19/2024 10:24:53 01/14/20 24 01/14/2024 CBC WITH AUTO- DIFFE RENTI AL platelets 235 10*3/ uL 150-40 0 Not Available [facility] [address], [place], [address], 01/19/2024 10:24:53 01/14/20 24 01/14/2024 CBC WITH AUTO- DIFFE RENTI AL MPV 12 fL 9-13 Not Available [facility] [address] [facility] [address], [place], [address], 01/19/2024 10:24:53 01/14/20 24 01/14/2024 CBC WITH AUTO- DIFFE RENTI AL neutrophils 57.2 % 40.0-7 4.0 Not Available [facility] [address] [facility] [address], [place], [address], 01/19/2024 10:24:53 01/14/20 24 01/14/2024 CBC WITH AUTO- DIFFE RENTI AL absolute neutrophils 3.70 10*3/ uL 1.40-7 .00 Not Available [facility] [address] [facility] [address], [place], [address], 01/19/2024 10:24:53 01/14/20 24 01/14/2024 CBC WITH AUTO- DIFFE RENTI AL lymphocytes 26.8 % 14.0-4 6.0 Not Available [facility] [address] [facility] [address], [place], [address], 01/19/2024 10:24:53 01/14/20 24 01/14/2024 CBC WITH AUTO- DIFFE RENTI AL absolute lymphocytes 1.73 10*3/ uL 0.70-3 .10 Not Available [facility] [address] [facility] [address], [place], [address], 01/19/2024 10:24:53 01/14/20 24 01/14/2024 CBC WITH AUTO- DIFFE RENTI AL monocytes 7.3 % 4.0-12 .0 Not Available [facility] [address] [facility] [address], [place], [address], 01/19/2024 10:24:53 01/14/20 24 01/14/2024 CBC WITH AUTO- DIFFE RENTI AL absolute monocytes 0.47 10*3/ uL 0.10-0 .90 Not Available [facility] [address] [facility] [address], [place], [address], 01/19/2024 10:24:53 01/14/20 24 01/14/2024 CBC WITH AUTO- DIFFE RENTI AL eosinophils 7.7 % 0.0-5. 0 high Not Available [facility] [address], [place], [address], 01/19/2024 10:24:53 01/14/20 24 01/14/2024 CBC WITH AUTO- DIFFE RENTI AL absolute eosinophils 0.50 10*3/ uL 0.00-0 .40 high Not Available [facility] [address] [facility] [address], [place], [address], 01/19/2024 10:24:53 01/14/20 24 01/14/2024 CBC WITH AUTO- DIFFE RENTI AL basophils 0.8 % 0.0-3. 0 Not Available [facility] [address] [facility] [address], [place], [address], 01/19/2024 10:24:53 01/14/20 24 01/14/2024 CBC WITH AUTO- DIFFE RENTI AL absolute basophils 0.05 10*3/ uL 0.00-0 .20 Not Available [facility] [address] [facility] [address], [place], [address], 01/19/2024 10:24:53 01/14/20 24 01/14/2024 CBC WITH AUTO- DIFFE RENTI AL imm. gran. 0.2 % 0.0-2. 0 Not Available [facility] [address] [facility] [address], [place], [address], 01/19/2024 10:24:53 01/14/20 24 01/14/2024 CBC WITH AUTO- DIFFE RENTI AL abs. imm. gran. 0.01 10*3/ uL 0.00-0 .10 Not Available [facility] [address] [facility] [address], [place], [address], 01/19/2024 10:24:53 01/14/20 24 01/14/2024 COMPR EHENS SARIAH METAB OLIC PANEL sodium 139 mmol/ L 134-14 4 Not Available [facility] [address] [facility] [address], [place], [address], 01/19/2024 10:24:54 01/14/20 24 01/14/2024 COMPR EHENS SARIAH METAB OLIC PANEL potassium 7.1 mmol/ L 3.5-5. 2 critical high Not Available [facility] [address] [facility] [address], [place], [address], 01/19/2024 10:24:54 01/14/20 24 01/14/2024 COMPR EHENS SARIAH METAB OLIC PANEL chloride 102 mmol/ L 97-108 Not Available [facility] [address] [facility] [address], [place], [address], 01/19/2024 10:24:54 01/14/20 24 01/14/2024 COMPR EHENS SARIAH METAB OLIC PANEL carbon dioxide (co2) 23.0 mmol/ L 18.0-2 9.0 Not Available [facility] [address] [facility] [address], [place], [address], 01/19/2024 10:24:54 01/14/20 24 01/14/2024 COMPR EHENS SARIAH METAB OLIC PANEL glucose 135 mg/dL 65-99 high Elysia l Fasti ng: < 100 mg/dL Impai red Fasti n - 125 mg/dL Diagn ostic of Diabe bernabe: => 126 mg/dL Ameri can Diabe bernabe Assoc iatio n, 2008 Not Available [facility] [address], [place], [address], 01/19/2024 10:24:54 01/14/20 24 01/14/2024 COMPR EHENS SARIAH METAB OLIC PANEL urea nitrogen (BUN) 60 mg/dL 8-23 high Not Available [facility] [address] [facility] [address], [place], [address], 01/19/2024 10:24:54 01/14/20 24 01/14/2024 COMPR EHENS SARIAH METAB OLIC PANEL creatinine 4.20 mg/dL 0.57-1 .00 high Not Available [facility] [address], [place], [address], 01/19/2024 10:24:54 01/14/20 24 01/14/2024 COMPR EHENS SARIAH METAB OLIC PANEL eGFR 10 mL/mi nute/ 1.73_ m2 >59 low MDRD Study Equat ion: The calcu lated GFR is NOT appli cable for pedia tric (< 18 years old) and > 70 year old patie nts and patie nts that are NOT of stead [place] . Not Available [facility] [address], [place], [address], 01/19/2024 10:24:54 01/14/20 24 01/14/2024 COMPR EHENS SARIAH METAB OLIC PANEL calcium 9.6 mg/dL 8.7-10 .3 Not Available [facility] [address] [facility] [address], [place], [address], 01/19/2024 10:24:54 01/14/20 24 01/14/2024 COMPR EHENS SARIAH METAB OLIC PANEL protein, total 6.9 gm/dL 6.4-8. 3 Not Available [facility] [address] [facility] [address], [place], [address], 01/19/2024 10:24:54 01/14/20 24 01/14/2024 COMPR EHENS SARIAH METAB OLIC PANEL albumin 4.6 gm/dL 3.5-5. 2 Not Available [facility] [address] [facility] [address], [place], [address], 01/19/2024 10:24:54 01/14/20 24 01/14/2024 COMPR EHENS SARIAH METAB OLIC PANEL bilirubin, total 0.40 mg/dL 0.00-1 .20 Not Available [facility] [address] [facility] [address], [place], [address], 01/19/2024 10:24:54 01/14/20 24 01/14/2024 COMPR EHENS SARIAH METAB OLIC PANEL alkaline phosphatase (ALP) 67 U/L 39-117 Not Available [facility] [address] [facility] [address], [place], [address], 01/19/2024 10:24:54 01/14/20 24 01/14/2024 COMPR EHENS SARIAH METAB OLIC PANEL aspartate aminotransfe rase (AST) 17 U/L 0-32 Not Available [facility] [address] [facility] [address], [place], [address], 01/19/2024 10:24:54 01/14/20 24 01/14/2024 COMPR EHENS SARIAH METAB OLIC PANEL alanine aminotransfe rase (ALT) 13 U/L 0-33 Not Available [facility] [address] [facility] [address], [place], [address], 01/19/2024 10:24:54 01/14/20 24 01/14/2024 COMPR EHENS SARIAH METAB OLIC PANEL A/G ratio (calculated) 2.0 ratio 1.0-2. 7 Not Available [facility] [address] [facility] [address], [place], [address], 01/19/2024 10:24:54 01/14/20 24 01/14/2024 COMPR EHENS SARIAH METAB OLIC PANEL globulin (calculated) 2.3 gm/dL 1.5-3. 8 Not Available [facility] [address] [facility] [address], [place], [address], 01/19/2024 10:24:54 01/14/20 24 01/14/2024 COMPR EHENS SARIAH METAB OLIC PANEL BUN/creatini ne ratio (calculated) 14.3 ratio 8.0-20 .0 Not Available [facility] [address] [facility] [address], [place], [address], 01/19/2024 10:24:54 01/14/20 24 01/14/2024 COMPR EHENS SARIAH METAB OLIC PANEL serum hemolysis index NORMAL index normal Not Available [facility] [address] [facility] [address], [place], [address], 01/19/2024 10:24:54 01/14/20 24 01/14/2024 VITAM IN B12 vitamin B12 453 pg/mL 232-12 45 Not Available [facility] [address] [facility] [address], [place], [address], 01/19/2024 10:24:54 01/14/20 24 01/19/2024 TACRO LIMUS BLOOD tacrolimus (fk506), blood 4.1 NG/mL 2.0-20 .0 normal Troug h (imme diate ly follo wing trans plant ) 15.0 Troug h (stea dy state , 2 weeks or more after trans plant ): 3.0 - 8.0 Perfo rmed by LC-MS /MS techn ology . Not Available [facility] [address] [facility] [address], [place], [address], 01/19/2024 10:24:55 01/14/20 24 01/14/2024 urina lysis , dipst ick Leukocytes Negati ve Not Available [facility], [facility] [address], [place], [address], 01/14/2024 13:26:40 01/14/20 24 01/14/2024 urina lysis , dipst ick Nitrite negati ve Not Available [facility] [address], [place], [address], 01/14/2024 13:26:40 01/14/20 24 01/14/2024 urina lysis , dipst ick Urobilinogen .2 Not Available [facility] [address], [place], [address], 01/14/2024 13:26:40 01/14/20 24 01/14/2024 urina lysis , dipst ick Protein Trace Not Available [facility] [address], [place], [address], 01/14/2024 13:26:40 01/14/20 24 01/14/2024 urina lysis , dipst ick pH 5.0 Not Available [facility] [address], [place], [address], 01/14/2024 13:26:40 01/14/20 24 01/14/2024 urina lysis , dipst ick Blood Negati ve Not Available [facility] [address], [place], [address], 01/14/2024 13:26:40 01/14/20 24 01/14/2024 urina lysis , dipst ick Specific [place] 1.010 Not Available [facility] [address], [place], [address], 01/14/2024 13:26:40 01/14/20 24 01/14/2024 urina lysis , dipst ick Ketone Negati ve Not Available [facility] [address], [place], [address], 01/14/2024 13:26:40 01/14/20 24 01/14/2024 urina lysis , dipst ick Bilirubin Negati ve Not Available [facility], [facility] [address], [place], [address], 01/14/2024 13:26:40 01/14/20 24 01/14/2024 urina lysis , dipst ick Glucose Negati ve Not Available [facility], [facility] [address] [facility] [address], [place], [address], 01/14/2024 13:26:40 01/14/2001/14/2024 urina lysis , dipst ick Appearance Cloudy Not Available [facility], [facility] [address] [facility] [address], [place], [address], 01/14/2024 13:26:40 01/14/20 24 01/14/2024 urina lysis , dipst ick Color Yellow Not Available [facility], [facility] [address] [facility] [address], [place], [address], 01/14/2024 13:26:40 02/20/20 24 02/20/2024 CBC WITH AUTO- DIFFE RENTI AL WBC 6.6 10*3/ uL 3.4-10 .8 Not Available [facility] [address] [facility] [address], [place], [address], 02/26/2024 17:12:26 02/20/20 24 02/20/2024 CBC WITH AUTO- DIFFE RENTI AL RBC 3.05 10*6/ uL 3.80-5 .30 low Not Available [facility] [address] [address] [facility] [address], [place], [address], 02/26/2024 17:12:26 02/20/20 24 02/20/2024 CBC WITH AUTO- DIFFE RENTI AL HGB 9.9 g/dL 11.1-1 5.9 low Not Available [facility] [address], [place], [address], 02/26/2024 17:12:26 02/20/20 24 02/20/2024 CBC WITH AUTO- DIFFE RENTI AL HCT 30.0 % 34.0-4 6.6 low Not Available [facility] [address], [place], [address], 02/26/2024 17:12:26 02/20/20 24 02/20/2024 CBC WITH AUTO- DIFFE RENTI AL MCV 98 fL 79-97 high Not Available [facility] [address], [place], [address], 02/26/2024 17:12:26 02/20/20 24 02/20/2024 CBC WITH AUTO- DIFFE RENTI AL MCH 32.5 pg 26.6-3 3.0 Not Available [facility] [address], [place], [address], 02/26/2024 17:12:26 02/20/20 24 02/20/2024 CBC WITH AUTO- DIFFE RENTI AL MCHC 33.0 g/dL 31.5-3 5.7 Not Available [facility] [address], [place], [address], 02/26/2024 17:12:26 02/20/20 24 02/20/2024 CBC WITH AUTO- DIFFE RENTI AL RDW 13.4 % 11.5-1 4.5 Not Available [facility] [address], [place], [address], 02/26/2024 17:12:26 02/20/20 24 02/20/2024 CBC WITH AUTO- DIFFE RENTI AL platelets 274 10*3/ uL 150-40 0 Not Available [facility] [address], [place], [address], 02/26/2024 17:12:26 02/20/20 24 02/20/2024 CBC WITH AUTO- DIFFE RENTI AL MPV 13 fL 9-13 Not Available [facility] [address] [facility] [address], [place], [address], 02/26/2024 17:12:26 02/20/20 24 02/20/2024 CBC WITH AUTO- DIFFE RENTI AL neutrophils 57.0 % 40.0-7 4.0 Not Available [facility] [address], [place], [address], 02/26/2024 17:12:26 02/20/20 24 02/20/2024 CBC WITH AUTO- DIFFE RENTI AL absolute neutrophils 3.78 10*3/ uL 1.40-7 .00 Not Available [facility] [address] [facility] [address], [place], [address], 02/26/2024 17:12:26 02/20/20 24 02/20/2024 CBC WITH AUTO- DIFFE RENTI AL lymphocytes 29.3 % 14.0-4 6.0 Not Available [facility] [address] [facility] [address], [place], [address], 02/26/2024 17:12:26 02/20/20 24 02/20/2024 CBC WITH AUTO- DIFFE RENTI AL absolute lymphocytes 1.94 10*3/ uL 0.70-3 .10 Not Available [facility] [address] [facility] [address], [place], [address], 02/26/2024 17:12:26 02/20/20 24 02/20/2024 CBC WITH AUTO- DIFFE RENTI AL monocytes 8.2 % 4.0-12 .0 Not Available [facility] [address] [facility] [address], [place], [address], 02/26/2024 17:12:26 02/20/20 24 02/20/2024 CBC WITH AUTO- DIFFE RENTI AL absolute monocytes 0.54 10*3/ uL 0.10-0 .90 Not Available [facility] [address] [facility] [address], [place], [address], 02/26/2024 17:12:26 02/20/20 24 02/20/2024 CBC WITH AUTO- DIFFE RENTI AL eosinophils 4.5 % 0.0-5. 0 Not Available [facility] [address] [facility] [address], [place], [address], 02/26/2024 17:12:26 02/20/20 24 02/20/2024 CBC WITH AUTO- DIFFE RENTI AL absolute eosinophils 0.30 10*3/ uL 0.00-0 .40 Not Available [facility] [address] [facility] [address], [place], [address], 02/26/2024 17:12:26 02/20/20 24 02/20/2024 CBC WITH AUTO- DIFFE RENTI AL basophils 0.8 % 0.0-3. 0 Not Available [facility] [address] [facility] [address], [place], [address], 02/26/2024 17:12:26 02/20/20 24 02/20/2024 CBC WITH AUTO- DIFFE RENTI AL absolute basophils 0.05 10*3/ uL 0.00-0 .20 Not Available [facility] [address] [facility] [address], [place], [address], 02/26/2024 17:12:26 02/20/20 24 02/20/2024 CBC WITH AUTO- DIFFE RENTI AL imm. gran. 0.2 % 0.0-2. 0 Not Available [facility] [address] [facility] [address], [place], [address], 02/26/2024 17:12:26 02/20/20 24 02/20/2024 CBC WITH AUTO- DIFFE RENTI AL abs. imm. gran. 0.01 10*3/ uL 0.00-0 .10 Not Available [facility] [address] [facility] [address], [place], [address], 02/26/2024 17:12:26 02/20/20 24 02/20/2024 COMPR EHENS SARIAH METAB OLIC PANEL sodium 138 mmol/ L 134-14 4 Not Available [facility] [address] [facility] [address], [place], [address], 02/26/2024 17:12:27 02/20/20 24 02/20/2024 COMPR EHENS SARIAH METAB OLIC PANEL potassium 5.0 mmol/ L 3.5-5. 2 Not Available [facility] [address] [facility] [address], [place], [address], 02/26/2024 17:12:27 02/20/20 24 02/20/2024 COMPR EHENS SARIAH METAB OLIC PANEL chloride 101 mmol/ L 97-108 Not Available [facility] [address] [facility] [address], [place], [address], 02/26/2024 17:12:27 02/20/20 24 02/20/2024 COMPR EHENS SARIAH METAB OLIC PANEL carbon dioxide (co2) 26.0 mmol/ L 18.0-2 9.0 Not Available [facility] [address] [facility] [address], [place], [address], 02/26/2024 17:12:27 02/20/20 24 02/20/2024 COMPR EHENS SARIAH METAB OLIC PANEL glucose 101 mg/dL 65-99 high Elysia l Fasti ng: < 100 mg/dL Impai red Fasti n - 125 mg/dL Diagn ostic of Diabe bernabe: => 126 mg/dL Ameri can [employer] [facility] iatio n, 2007 Not Available [facility] [address] [facility] [address], [place], [address], 02/26/2024 17:12:27 02/20/20 24 02/20/2024 COMPR EHENS SARIAH METAB OLIC PANEL urea nitrogen (BUN) 33 mg/dL 8-23 high Not Available [facility] [address], [place], [address], 02/26/2024 17:12:27 02/20/20 24 02/20/2024 COMPR EHENS SARIAH METAB OLIC PANEL creatinine 2.23 mg/dL 0.57-1 .00 high Not Available [facility] [address] [facility] [address], [place], [address], 02/26/2024 17:12:27 02/20/20 24 02/20/2024 COMPR EHENS SARIAH METAB OLIC PANEL eGFR 21 mL/mi nute/ 1.73_ m2 >59 low MDRD Study Equat ion: The calcu lated GFR is NOT appli cable for pedia tric (< 18 years old) and > 70 year old patie nts and patie nts that are NOT of [place] . Not Available [facility] [address], [place], [address], 02/26/2024 17:12:27 02/20/20 24 02/20/2024 COMPR EHENS SARIAH METAB OLIC PANEL calcium 9.3 mg/dL 8.7-10 .3 Not Available [facility] [address] [facility] [address], [place], [address], 02/26/2024 17:12:27 02/20/20 24 02/20/2024 COMPR EHENS SARIAH METAB OLIC PANEL protein, total 6.9 gm/dL 6.4-8. 3 Not Available [facility] [address] [facility] [address], [place], [address], 02/26/2024 17:12:27 02/20/20 24 02/20/2024 COMPR EHENS SARIAH METAB OLIC PANEL albumin 4.6 gm/dL 3.5-5. 2 Not Available [facility] [address] [facility] [address], [place], [address], 02/26/2024 17:12:27 02/20/20 24 02/20/2024 COMPR EHENS SARIAH METAB OLIC PANEL bilirubin, total 0.50 mg/dL 0.00-1 .20 Not Available [facility] [address] [facility] [address], [place], [address], 02/26/2024 17:12:27 02/20/20 24 02/20/2024 COMPR EHENS SARIAH METAB OLIC PANEL alkaline phosphatase (ALP) 65 U/L 39-117 Not Available [facility] [address] [facility] [address], [place], [address], 02/26/2024 17:12:27 02/20/20 24 02/20/2024 COMPR EHENS SARIAH METAB OLIC PANEL aspartate aminotransfe rase (AST) 16 U/L 0-32 Not Available [facility] [address] [facility] [address], [place], [address], 02/26/2024 17:12:27 02/20/20 24 02/20/2024 COMPR EHENS SARIAH METAB OLIC PANEL alanine aminotransfe rase (ALT) 11 U/L 0-33 Not Available [facility] [address] [facility] [address], [place], [address], 02/26/2024 17:12:27 02/20/20 24 02/20/2024 COMPR EHENS SARIAH METAB OLIC PANEL A/G ratio (calculated) 2.0 ratio 1.0-2. 7 Not Available [address], [place], [address], 02/26/2024 17:12:27 02/20/20 24 02/20/2024 COMPR EHENS SARIAH METAB OLIC PANEL globulin (calculated) 2.3 gm/dL 1.5-3. 8 Not Available [place] [id number] [facility] [address], [place], [address], 02/26/2024 17:12:27 02/20/20 24 02/20/2024 COMPR EHENS SARIAH METAB OLIC PANEL BUN/creatini ne ratio (calculated) 14.8 ratio 8.0-20 .0 Not Available [facility] [address] [facility] [address], [place], [address], 02/26/2024 17:12:27 02/20/20 24 02/20/2024 COMPR EHENS SARIAH METAB OLIC PANEL serum hemolysis index NORMAL index normal Not Available [facility] [address] [facility] [address], [place], [address], 02/26/2024 17:12:27 02/20/20 24 02/20/2024 IRON PANEL iron 53 mcg/d L 27-139 Not Available [facility] [address] [facility] [address], [place], [address], 02/26/2024 17:12:28 02/20/20 24 02/20/2024 IRON PANEL UIBC 160 ug/dL 111-34 3 Not Available [facility] [address] [facility] [address], [place], [address], 02/26/2024 17:12:28 02/20/20 24 02/20/2024 IRON PANEL total iron binding capacity 213.0 mcg/d L 250.0- 450.0 low Not Available [facility] [address] [facility] [address] [address], [place], [address], 02/26/2024 17:12:28 02/20/20 24 02/20/2024 IRON PANEL iron saturation (calculated) 24.9 % 15.0-5 5.0 Not Available [facility] [address] [facility] [address] [address], [place], [address], 02/26/2024 17:12:28 02/20/20 24 02/20/2024 VITAM IN B12 vitamin B12 2000 pg/mL 232-12 45 high Not Available [facility] [address] [facility] [address], [place], [address], 02/26/2024 17:12:28 02/20/20 24 02/20/2024 URINA LYSIS REFLE X TO URINE CULTU RE color STRAW yellow Not Available [facility] [address] [facility] [address], [place], [address], 02/26/2024 17:12:29 02/20/20 24 02/20/2024 URINA LYSIS REFLE X TO URINE CULTU RE appearance CLEAR clear Not Available [facility] [address] [facility] [address], [place], [address], 02/26/2024 17:12:29 02/20/20 24 02/20/2024 URINA LYSIS REFLE X TO URINE CULTU RE glucose NEGATI VE mg/dL negati ve Not Available [facility] [address] [facility] [address], [place], [address], 02/26/2024 17:12:29 02/20/20 24 02/20/2024 URINA LYSIS REFLE X TO URINE CULTU RE bilirubin NEGATI VE negati ve Not Available [facility] [address] [facility] [address], [place], [address], 02/26/2024 17:12:29 02/20/20 24 02/20/2024 URINA LYSIS REFLE X TO URINE CULTU RE blood NEGATI VE negati ve Not Available [facility] [address] [facility] [address], [place], [address], 02/26/2024 17:12:29 02/20/20 24 02/20/2024 URINA LYSIS REFLE X TO URINE CULTU RE ketone NEGATI VE mg/dL negati ve Not Available [facility] [address] [facility] [address], [place], [address], 02/26/2024 17:12:29 02/20/20 24 02/20/2024 URINA LYSIS REFLE X TO URINE CULTU RE specific gravity 1.010 1.005- 1.030 Not Available [facility] [address] [facility] [address], [place], [address], 02/26/2024 17:12:29 02/20/20 24 02/20/2024 URINA LYSIS REFLE X TO URINE CULTU RE pH 6.0 4.5 - 8.0 Not Available [facility] [address] [facility] [address], [place], [address], 02/26/2024 17:12:29 02/20/20 24 02/20/2024 URINA LYSIS REFLE X TO URINE CULTU RE protein 15 mg/dL negati ve Not Available [facility] [address] [facility] [address], [place], [address], 02/26/2024 17:12:29 02/20/20 24 02/20/2024 URINA LYSIS REFLE X TO URINE CULTU RE urobilinogen 0.20 eu/dL 0.00-1 .00 Not Available [facility] [address] [facility] [address], [place], [address], 02/26/2024 17:12:29 02/20/20 24 02/20/2024 URINA LYSIS REFLE X TO URINE CULTU RE nitrite NEGATI VE negati ve Not Available [facility] [address] [facility] [address], [place], [address], 02/26/2024 17:12:29 02/20/20 24 02/20/2024 URINA LYSIS REFLE X TO URINE CULTU RE leukocyte esterase LARGE negati ve abnormal Not Available [facility] [address] [place] [address] [address], [place], [address], 02/26/2024 17:12:29 02/20/20 24 02/20/2024 URINA LYSIS REFLE X TO URINE CULTU RE WBCs 0-5 /hpf 0-5 Not Available [facility] [address] [facility] [address], [place], [address], 02/26/2024 17:12:29 02/20/20 24 02/20/2024 URINA LYSIS REFLE X TO URINE CULTU RE RBCs NONE SEEN /hpf 0-2 Not Available [facility] [address] [facility] [address], [place], [address], 02/26/2024 17:12:29 02/20/20 24 02/20/2024 URINA LYSIS REFLE X TO URINE CULTU RE squamous epithelial cells FEW /hpf few Not Available [facility] [address] [facility] [address], [place], [address], 02/26/2024 17:12:29 02/20/20 24 02/20/2024 URINA LYSIS REFLE X TO URINE CULTU RE bacteria OCCASI ONAL /hpf none Not Available [facility] [address] [facility] [address], [place], [address], 02/26/2024 17:12:29 02/20/20 24 02/20/2024 URINA LYSIS REFLE X TO URINE CULTU RE color STRAW yellow Not Available [facility] [address] [facility] [address], [place], [address], 02/26/2024 17:12:29 02/20/20 24 02/20/2024 URINA LYSIS REFLE X TO URINE CULTU RE appearance CLEAR clear Not Available [facility] [address] [facility] [address], [place], [address], 02/26/2024 17:12:29 02/20/20 24 02/20/2024 URINA LYSIS REFLE X TO URINE CULTU RE glucose NEGATI VE mg/dL negati ve Not Available [facility] [address] [facility] [address], [place], [address], 02/26/2024 17:12:29 02/20/20 24 02/20/2024 URINA LYSIS REFLE X TO URINE CULTU RE bilirubin NEGATI VE negati ve Not Available [facility] [address] [facility] [address], [place], [address], 02/26/2024 17:12:29 02/20/20 24 02/20/2024 URINA LYSIS REFLE X TO URINE CULTU RE blood NEGATI VE negati ve Not Available [facility] [address] [facility] [address], [place], [address], 02/26/2024 17:12:29 02/20/2002/20/2024 URINA LYSIS REFLE X TO URINE CULTU RE ketone NEGATI VE mg/dL negati ve Not Available [facility] [address] [facility] [address], [place], [address], 02/26/2024 17:12:29 02/20/20 24 02/20/2024 URINA LYSIS REFLE X TO URINE CULTU RE specific gravity 1.010 1.005- 1.030 Not Available [facility] [address] [facility] [address], [place], [address], 02/26/2024 17:12:29 02/20/20 24 02/20/2024 URINA LYSIS REFLE X TO URINE CULTU RE pH 6.0 4.5 - 8.0 Not Available [facility] [address] [facility] [address], [place], [address], 02/26/2024 17:12:29 02/20/20 24 02/20/2024 URINA LYSIS REFLE X TO URINE CULTU RE protein 15 mg/dL negati ve Not Available [facility] [address] [facility] [address], [place], [address], 02/26/2024 17:12:29 02/20/20 24 02/20/2024 URINA LYSIS REFLE X TO URINE CULTU RE urobilinogen 0.20 eu/dL 0.00-1 .00 Not Available [facility] [address] [facility] [address], [place], [address], 02/26/2024 17:12:29 02/20/20 24 02/20/2024 URINA LYSIS REFLE X TO URINE CULTU RE nitrite NEGATI VE negati ve Not Available [facility] [address] [facility] [address], [place], [address], 02/26/2024 17:12:29 02/20/20 24 02/20/2024 URINA LYSIS REFLE X TO URINE CULTU RE leukocyte esterase LARGE negati ve abnormal Not Available [facility] [address] [facility] [address], [place], [address], 02/26/2024 17:12:29 02/20/20 24 02/20/2024 URINA LYSIS REFLE X TO URINE CULTU RE WBCs 0-5 /hpf 0-5 Not Available [facility] [address] [facility] [address], [place], [address], 02/26/2024 17:12:29 02/20/20 24 02/20/2024 URINA LYSIS REFLE X TO URINE CULTU RE RBCs NONE SEEN /hpf 0-2 Not Available [facility] [address] [facility] [address], [place], [address], 02/26/2024 17:12:29 02/20/20 24 02/20/2024 URINA LYSIS REFLE X TO URINE CULTU RE squamous epithelial cells FEW /hpf few Not Available [facility] [address] [facility] [address], [place], [address], 02/26/2024 17:12:29 02/20/20 24 02/20/2024 URINA LYSIS REFLE X TO URINE CULTU RE bacteria OCCASI ONAL /hpf none Not Available [facility] [address] [facility] [address], [place], [address], 02/26/2024 17:12:29 02/20/20 24 02/26/2024 URINE CULTU RE ROUTI NE urine culture, routine FINAL REPORT abnormal Not Available [facility] [address] [facility] [address], [place], [address], 02/26/2024 17:12:29 02/20/20 24 02/26/2024 URINE CULTU RE ROUTI NE result 1 COMMEN T abnormal Enter obact er cloac ae compl ex Great er than 100,0 00 colon y formi ng units per mL Not Available [facility] [address] [facility] [address], [place], [address], 02/26/2024 17:12:29 02/20/20 24 02/26/2024 URINE CULTU RE ROUTI NE antimicrobia l susceptibili ty COMMEN T normal S = Susce ptibl e; I = Inter media te; R = Resis tant P = Posit sariah; N = Negat sariah MICS are expre ssed in micro grams per mL Antib iotic RSLT# 1 RSLT# 2 RSLT# 3 RSLT# 4 Amoxi cilli n/Cla vulan ic Acid R Cefaz valerie R Cefep nathaly S Cefur oxime R Cipro floxa francisco javier S Genta micin S Imipe nem S Levof loxac in S Nitro furan toin S Tetra cycli ne S Tobra mycin S Trime thopr im/Sandoval lfa S Not Available [facility] [address] [facility] [address], [place], [address], 02/26/2024 17:12:29 04/01/20 24 04/01/2024 BASIC METAB OLIC PANEL sodium 140 mmol/ L 134-14 4 Not Available [facility] [address] [facility] [address], [place], [address], 04/02/2024 14:22:29 04/01/20 24 04/01/2024 BASIC METAB OLIC PANEL potassium 5.0 mmol/ L 3.5-5. 2 Not Available [facility] [address] [facility] [address], [place], [address], 04/02/2024 14:22:29 04/01/20 24 04/01/2024 BASIC METAB OLIC PANEL chloride 102 mmol/ L 98-107 Not Available [facility] [address] [address], [place], [address], 04/02/2024 14:22:29 04/01/20 24 04/01/2024 BASIC METAB OLIC PANEL carbon dioxide (co2) 25.0 mmol/ L 18.0-2 9.0 Not Available [facility] [address] [facility] [address], [place], [address], 04/02/2024 14:22:29 04/01/20 24 04/01/2024 BASIC METAB OLIC PANEL calcium 9.4 mg/dL 8.7-10 .3 Not Available [facility] [address] [facility] [address], [place], [address], 04/02/2024 14:22:29 04/01/20 24 04/01/2024 BASIC METAB OLIC PANEL glucose 99 mg/dL 65-99 Elysia l Fasti n - 99 mg/dL Impai red Fasti n - 125 mg/dL Diagn ostic of Diabe bernabe: => 126 mg/dL Ameri can [facility]ernabe Ass[employer] iatio n, 2007 Not Available [facility] [address] [facility] [address], [place], [address], 04/02/2024 14:22:29 04/01/20 24 04/01/2024 BASIC METAB OLIC PANEL urea nitrogen (BUN) 46 mg/dL 8-23 high Not Available [facility] [address] [facility] [address], [place], [address], 04/02/2024 14:22:29 04/01/20 24 04/01/2024 BASIC METAB OLIC PANEL creatinine 1.91 mg/dL 0.57-1 .00 high Not Available [facility] 34952 [facility] [address], [place], [address], 04/02/2024 14:22:29 04/01/20 24 04/01/2024 BASIC METAB OLIC PANEL eGFR 26 mL/mi nute/ 1.73_ m2 >59 low MDRD Study Equat ion: The calcu lated GFR is NOT appli cable for pedia tric (< 18 years old) and > 70 year old patie nts and patie nts that are NOT of [place] . Not Available [facility] [address] [facility] [address], [place], [address], 04/02/2024 14:22:29 04/01/20 24 04/01/2024 BASIC METAB OLIC PANEL BUN/creatini ne ratio (calculated) 24.1 ratio 8.0-20 .0 high Not Available [facility] [address] [facility] [address], [place], [address], 04/02/2024 14:22:29 04/01/20 24 04/01/2024 BASIC METAB OLIC PANEL serum hemolysis index NORMAL index normal Not Available [facility] [address] [facility] [address], [place], [address], 04/02/2024 14:22:29 04/01/20 24 04/01/2024 CBC WITH AUTO- DIFFE RENTI AL WBC 5.5 10*3/ uL 3.4-10 .8 Not Available [facility] [address] [facility] [address], [place], [address], 04/02/2024 14:22:31 04/01/20 24 04/01/2024 CBC WITH AUTO- DIFFE RENTI AL RBC 3.24 10*6/ uL 3.80-5 .30 low Not Available [facility] [address] [facility] [address], [place], [address], 04/02/2024 14:22:31 04/01/20 24 04/01/2024 CBC WITH AUTO- DIFFE RENTI AL HGB 10.5 g/dL 11.1-1 5.9 low Not Available [facility] [address], [place], [address], 04/02/2024 14:22:31 04/01/20 24 04/01/2024 CBC WITH AUTO- DIFFE RENTI AL HCT 33.5 % 34.0-4 6.6 low Not Available [facility] [address] [facility] [address], [place], [address], 04/02/2024 14:22:31 04/01/20 24 04/01/2024 CBC WITH AUTO- DIFFE RENTI AL MCV 103 fL 79-97 high Not Available [facility] [address] [facility] [address], [place], [address], 04/02/2024 14:22:31 04/01/20 24 04/01/2024 CBC WITH AUTO- DIFFE RENTI AL MCH 32.4 pg 26.6-3 3.0 Not Available [facility] [address] [facility] [address], [place], [address], 04/02/2024 14:22:31 04/01/20 24 04/01/2024 CBC WITH AUTO- DIFFE RENTI AL MCHC 31.3 g/dL 31.5-3 5.7 low Not Available [facility] 83878 [facility] [address], [place], [address], 04/02/2024 14:22:31 04/01/20 24 04/01/2024 CBC WITH AUTO- DIFFE RENTI AL RDW 12.2 % 11.5-1 4.5 Not Available [facility] [address] [facility] [address], [place], [address], 04/02/2024 14:22:31 04/01/20 24 04/01/2024 CBC WITH AUTO- DIFFE RENTI AL platelets 249 10*3/ uL 150-40 0 Not Available [facility] [address] [facility] [address], [place], [address], 04/02/2024 14:22:31 04/01/20 24 04/01/2024 CBC WITH AUTO- DIFFE RENTI AL MPV 12 fL 9-13 Not Available [facility] [address], [place], [address], 04/02/2024 14:22:31 04/01/20 24 04/01/2024 CBC WITH AUTO- DIFFE RENTI AL neutrophils 58.2 % 40.0-7 4.0 Not Available [facility] [address] [facility] [address], [place], [address], 04/02/2024 14:22:31 04/01/20 24 04/01/2024 CBC WITH AUTO- DIFFE RENTI AL absolute neutrophils 3.22 10*3/ uL 1.40-7 .00 Not Available [facility] [address], [place], [address], 04/02/2024 14:22:31 04/01/20 24 04/01/2024 CBC WITH AUTO- DIFFE RENTI AL lymphocytes 24.5 % 14.0-4 6.0 Not Available [facility] [address] [facility] [address], [place], [address], 04/02/2024 14:22:31 04/01/20 24 04/01/2024 CBC WITH AUTO- DIFFE RENTI AL absolute lymphocytes 1.36 10*3/ uL 0.70-3 .10 Not Available [facility] [address], [place], [address], 04/02/2024 14:22:31 04/01/20 24 04/01/2024 CBC WITH AUTO- DIFFE RENTI AL monocytes 7.9 % 4.0-12 .0 Not Available [facility] [address] [facility] [address], [place], [address], 04/02/2024 14:22:31 04/01/20 24 04/01/2024 CBC WITH AUTO- DIFFE RENTI AL absolute monocytes 0.44 10*3/ uL 0.10-0 .90 Not Available [facility] [address]32[address] [facility] [address], [place], [address], 04/02/2024 14:22:31 04/01/20 24 04/01/2024 CBC WITH AUTO- DIFFE RENTI AL eosinophils 8.1 % 0.0-5. 0 high Not Available [facility] [address] [facility] [address], [place], [address], 04/02/2024 14:22:31 04/01/20 24 04/01/2024 CBC WITH AUTO- DIFFE RENTI AL absolute eosinophils 0.45 10*3/ uL 0.00-0 .40 high Not Available [facility] [address] [facility] [address], [place], [address], 04/02/2024 14:22:31 04/01/20 24 04/01/2024 CBC WITH AUTO- DIFFE RENTI AL basophils 0.9 % 0.0-3. 0 Not Available [facility] [address] [facility] [address], [place], [address], 04/02/2024 14:22:31 04/01/20 24 04/01/2024 CBC WITH AUTO- DIFFE RENTI AL absolute basophils 0.05 10*3/ uL 0.00-0 .20 Not Available [facility] [address] [facility] [address], [place], [address], 04/02/2024 14:22:31 04/01/20 24 04/01/2024 CBC WITH AUTO- DIFFE RENTI AL imm. gran. 0.4 % 0.0-2. 0 Not Available [facility] [address] [facility] [address], [place], [address], 04/02/2024 14:22:31 09/2404/01/2024 CBC WITH AUTO- DIFFE RENTI AL abs. imm. gran. 0.02 10*3/ uL 0.00-0 .10 Not Available [facility] [address] [facility] [address], [place], [address], 04/02/2024 14:22:31 05/15/20 24 05/15/2024 BASIC METAB OLIC PANEL sodium 139 mmol/ L 134-14 4 Not Available [facility] [address] [facility] [address], [place], [address], 05/16/2024 13:51:58 05/15/2005/15/2024 BASIC METAB OLIC PANEL potassium 4.8 mmol/ L 3.5-5. 2 Not Available [facility] [address] [facility] [address], [place], [address], 05/16/2024 13:51:58 05/15/2005/15/2024 BASIC METAB OLIC PANEL chloride 99 mmol/ L 98-107 Not Available [facility] [address] [facility] [address], [place], [address], 05/16/2024 13:51:58 05/15/20 24 05/15/2024 BASIC METAB OLIC PANEL carbon dioxide (co2) 27.0 mmol/ L 18.0-2 9.0 Not Available [facility] [address] [facility] [address], [place], [address], 05/16/2024 13:51:58 05/15/2005/15/2024 BASIC METAB OLIC PANEL calcium 9.1 mg/dL 8.7-10 .3 Not Available [facility] [address] [facility] [address], [place], [address], 05/16/2024 13:51:58 05/15/20 24 05/15/2024 BASIC METAB OLIC PANEL glucose 113 mg/dL 65-99 high Elysia l Fasti n - 99 mg/dL Impai red Fasti n - 125 mg/dL Diagn ostic of Diabe bernabe: => 126 mg/dL Ameri can [employer] bernabe Ass[employer] iatio n, 2008 Not Available [facility] [address] [facility] [address], [place], [address], 05/16/2024 13:51:58 05/15/20 24 05/15/2024 BASIC METAB OLIC PANEL urea nitrogen (BUN) 36 mg/dL 8-23 high Not Available [facility] [address] [facility] [address], [place], [address], 05/16/2024 13:51:58 05/15/20 24 05/15/2024 BASIC METAB OLIC PANEL creatinine 1.65 mg/dL 0.57-1 .00 high Not Available [facility] [address] [facility] [address], [place], [address], 05/16/2024 13:51:58 05/15/20 24 05/15/2024 BASIC METAB OLIC PANEL eGFR 31 mL/mi nute/ 1.73_ m2 >59 low MDRD Study Equat ion: The calcu lated GFR is NOT appli cable for pedia tric (< 18 years old) and > 70 year old patie nts and patie nts that are NOT of [place] . Not Available [facility] [address] [facility] [address], [place], [address], 05/16/2024 13:51:58 05/15/20 24 05/15/2024 BASIC METAB OLIC PANEL BUN/creatini ne ratio (calculated) 21.8 ratio 8.0-20 .0 high Not Available [facility] [address] [facility] [address], [place], [address], 05/16/2024 13:51:58 05/15/20 24 05/15/2024 BASIC METAB OLIC PANEL serum hemolysis index NORMAL index normal Not Available [facility] [address] [facility] [address], [place], [address], 05/16/2024 13:51:58 05/15/20 24 05/15/2024 CBC WITH AUTO- DIFFE RENTI AL WBC 6.2 10*3/ uL 3.4-10 .8 Not Available [facility] [address], [place], [address], 05/16/2024 13:51:59 05/15/20 24 05/15/2024 CBC WITH AUTO- DIFFE RENTI AL RBC 3.46 10*6/ uL 3.80-5 .30 low Not Available [facility] [address], [place], [address], 05/16/2024 13:51:59 05/15/2005/15/2024 CBC WITH AUTO- DIFFE RENTI AL HGB 11.3 g/dL 11.1-1 5.9 Not Available [facility] [address], [place], [address], 05/16/2024 13:51:59 05/15/20 24 05/15/2024 CBC WITH AUTO- DIFFE RENTI AL HCT 34.6 % 34.0-4 6.6 Not Available [facility] [address], [place], [address], 05/16/2024 13:51:59 05/15/20 24 05/15/2024 CBC WITH AUTO- DIFFE RENTI AL MCV 100 fL 79-97 high Not Available [facility] [address], [place], [address], 05/16/2024 13:51:59 05/15/20 24 05/15/2024 CBC WITH AUTO- DIFFE RENTI AL MCH 32.7 pg 26.6-3 3.0 Not Available [facility] [address] [facility] [address], [place], [address], 05/16/2024 13:51:59 05/15/20 24 05/15/2024 CBC WITH AUTO- DIFFE RENTI AL MCHC 32.7 g/dL 31.5-3 5.7 Not Available [facility] [address], [place], [address], 05/16/2024 13:51:59 05/15/20 24 05/15/2024 CBC WITH AUTO- DIFFE RENTI AL RDW 11.8 % 11.5-1 4.5 Not Available [facility] [address] [facility] [address], [place], [address], 05/16/2024 13:51:59 05/15/2005/15/2024 CBC WITH AUTO- DIFFE RENTI AL platelets 234 10*3/ uL 150-40 0 Not Available [facility] [address] [facility] [address], [place], [address], 05/16/2024 13:51:59 05/15/20 24 05/15/2024 CBC WITH AUTO- DIFFE RENTI AL MPV 12 fL 9-13 Not Available [facility] [address] [facility] [address], [place], [address], 05/16/2024 13:51:59 05/15/20 24 05/15/2024 CBC WITH AUTO- DIFFE RENTI AL neutrophils 57.0 % 40.0-7 4.0 Not Available [facility] [address] [facility] [address], [place], [address], 05/16/2024 13:51:59 05/15/20 24 05/15/2024 CBC WITH AUTO- DIFFE RENTI AL absolute neutrophils 3.56 10*3/ uL 1.40-7 .00 Not Available [facility] [address] [facility] [address], [place], [address], 05/16/2024 13:51:59 05/15/20 24 05/15/2024 CBC WITH AUTO- DIFFE RENTI AL lymphocytes 27.2 % 14.0-4 6.0 Not Available [facility] [address] [facility] [address], [place], [address], 05/16/2024 13:51:59 05/15/20 24 05/15/2024 CBC WITH AUTO- DIFFE RENTI AL absolute lymphocytes 1.70 10*3/ uL 0.70-3 .10 Not Available [facility] [address] [facility] [address], [place], [address], 05/16/2024 13:51:59 05/15/2005/15/2024 CBC WITH AUTO- DIFFE RENTI AL monocytes 7.7 % 4.0-12 .0 Not Available [facility] [address] [facility] [address], [place], [address], 05/16/2024 13:51:59 05/15/20 24 05/15/2024 CBC WITH AUTO- DIFFE RENTI AL absolute monocytes 0.48 10*3/ uL 0.10-0 .90 Not Available [facility] [address], [place], [address], 05/16/2024 13:51:59 05/15/20 24 05/15/2024 CBC WITH AUTO- DIFFE RENTI AL eosinophils 6.9 % 0.0-5. 0 high Not Available [facility] [address] [facility] [address], [place], [address], 05/16/2024 13:51:59 05/15/20 24 05/15/2024 CBC WITH AUTO- DIFFE RENTI AL absolute eosinophils 0.43 10*3/ uL 0.00-0 .40 high Not Available [facility] [address] [facility] [address], [place], [address], 05/16/2024 13:51:59 05/15/20 24 05/15/2024 CBC WITH AUTO- DIFFE RENTI AL basophils 1.0 % 0.0-3. 0 Not Available [facility] [address] [facility] [address], [place], [address], 05/16/2024 13:51:59 05/15/20 24 05/15/2024 CBC WITH AUTO- DIFFE RENTI AL absolute basophils 0.06 10*3/ uL 0.00-0 .20 Not Available [facility] [address] [facility] [address], [place], [address], 05/16/2024 13:51:59 05/15/20 24 05/15/2024 CBC WITH AUTO- DIFFE RENTI AL imm. gran. 0.2 % 0.0-2. 0 Not Available [facility] [address] [facility] [address], [place], [address], 05/16/2024 13:51:59 05/15/20 24 05/15/2024 CBC WITH AUTO- DIFFE RENTI AL abs. imm. gran. 0.01 10*3/ uL 0.00-0 .10 Not Available [facility] [address] [facility] [address], [place], [address], 05/16/2024 13:51:59 06/13/20 24 06/13/2024 IRON PANEL iron 75 mcg/d L 27-139 Not Available [facility] [address] [facility] [address], [place], [address], 06/14/2024 14:07:10 06/13/20 24 06/13/2024 IRON PANEL UIBC 112 ug/dL 111-34 3 Not Available [facility] [address] [facility] [address], [place], [address], 06/14/2024 14:07:10 06/13/20 24 06/13/2024 IRON PANEL total iron binding capacity 187.0 mcg/d L 250.0- 450.0 low Not Available [facility] [address] [facility] [address], [place], [address], 06/14/2024 14:07:10 12/06/06/13/2024 IRON PANEL iron saturation (calculated) 40.1 % 15.0-5 5.0 Not Available [facility] [address], [place], [address], 06/14/2024 14:07:10 09/20/19 24 01/08/2023 US, echoc ardio gram No observ ation record ed. [facility] [facility] [address], [place], [address], 12/10/2023 19:22:48 01/14/20 24 01/14/2024 CT, head, w/o contr ast No observ ation record ed. [facility] [address] [facility] [address], [place], [address], 05/20/2024 11:24:10 01/14/20 24 01/14/2024 XR, chest , 2 view No observ ation record ed. [facility] [address] [facility] [address], [place], [address], 02/20/2024 18:29:38 01/16/20 24 01/16/2024 US, renal No observ ation record ed. [address], [place], [address], 02/20/2024 18:29:37 01/16/20 24 01/15/2024 CT, abdom en + pelvi s, w/o contr ast No observ ation record ed. [address], [place], [address], 02/20/2024 18:29:37 01/17/20 24 01/17/2024 XR, kidne y + urete r + bladd er No observ ation record ed. [address], [place], [address], 05/20/2024 11:24:10 01/18/20 24 01/18/2024 MRI, brain + brain stem, w/o contr ast No observ ation record ed. [facility] [address], [place], [address], 02/20/2024 18:29:37 01/18/20 24 01/18/2024 MRI, brain + brain stem, w/o contr ast No observ ation record ed. [facility] [address], [place], [address], 02/20/2024 18:29:37 Result Notes None recorded. Problems Name Problem SNOMED Code Status Onset Date Resolution Date Notes Provider Name and Address Organization Details Recorded Time Restless legs 52524869 Active 2023 Alfredo Saenz MD [address], [place], [address], [facility] 4 18:44:33 Chronic renal failure 32823838 Active 2023 Alfredo Saenz MD [address], [place], [address], [facility] 4 20:08:07 Anemia 940136983 Active 2023 Alfredo Saenz MD [address], [place], [address], [facility] 4 20:09:36 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 Active 2023 Alfredo Saenz MD [address], [place], [address], [facility] 4 19:22:33 Cirrhosi s of liver 69380715 [facility] 08:[facility]14 Diabetes mellitus 10870043 [facility] 08:44:20 Benign hyperten cedrick 20694872 [facility] 6 08:44:27 Umbilica l hernia [id number] Kelley gamble, [facility] 6 08:44:38 Idiopath ic peripher al neuropat hy [id number] Kelley gamble [facility] 6 08:44:52 Liver transpla nt recipien t Kelley gamble [facility] 6 08:45:06 Osteoart hritis [id number] Kelley gamble [facility] 6 08:45:12 Osteopen ia [id number] Kelley gamble, [facility] 6 08:45:18 Overweig ht [id number] Completed 08/12/2020 Alfredo Saenz MD [address], [place], [address], [facility] 12:01:49 Uterine leiomyom a [id number] Kelley gamble, [facility] 6 08:45:38 Urinary incontin ence [id number] Kelley gamble, [facility] 6 08:45:48 Ventral incision al hernia [id number] Kelley gamble [facility] 6 08:46:06 Vitamin D deficien cy [id number] Kelley gamble [facility] 6 08:46:13 Ventricu lar hypertro phy 256905912 Active 2015 Alfredo Saenz MD [address], [place], [address], [place] [facility] 6 11:51:39 Aortic valve regurgit ation 69862034 Active 2015 Mild , Alfredo Saenz MD [address], [place], [address], [facility] 6 12:05:42 Hyperlip idemia 64783893 Active 2016 per cardiolog ist, patient refusing statin therapy- 04/08/18 Alfredo Saenz MD [address], [place], [address], [facility] 8 22:40:22 Migraine 78037992 Active 2016 Alfredo Saenz MD [address], [place], [address], [facility] 7 10:45:04 Bundle branch block 9349725 Active 2017 RT Alfredo Saenz MD [address], [place], [address], [facility] 8 16:21:48 Coronary arterios clerosis 85908405 Active 2017 on cardiac cath 04/11/18 Alfredo Saenz MD [address], [place], [address], [facility] 8 16:26:54 Body mass index 30+ - obesity 256612037 Active [address] 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 138025500 Active 2018 Alfredo Saenz MD [address], [place], [address], [facility] 9 16:09:18 Mild neurocog nitive disorder 342131698 Active 2018 Alfredo Saenz MD [address], [place], [address], [facility] 9 16:25:00 Transpla nted liver present 277121789 Completed 201804/03/2019 PHILOMENA RUBIN APN [address], [place], [address], [facility] 9 12:04:32 Pulmonar y embolism 99495525 Active 2018 dx on CTA 02/03/19 - non provoked started on eliquis PHILOMENA RUBIN APN [address], [place], [address], [facility] 9 10:09:41 Carotid artery stenosis 28136418 Active 2019 Alfredo Saenz MD [address], [place], [address], [facility] 0 21:07:11 History of liver recipien t 610838999 Active 2019 Alfredo Saenz MD [address], [place], [address], [facility] 0 12:41:38 Congesti on of nasal sinus 42484929 Active 2019 Alfredo Saenz MD [address], [place], [address], [facility] 0 12:46:21 Allergic rhinitis caused by pollen 30855468 Active 2020 Alfredo Saenz MD [address], [place], [address], [facility] 1 12:16:59 Spinal stenosis of lumbar region 46457264 Active 2020 Alfredo Saenz MD [address], [place], [address], [facility] 1 13:06:53 Hypocalc emia 3733006 Active 2020 Alfredo Sanez MD [address], [place], [address], [facility] 1 13:12:26 Diarrhea 04426209 Active 2020 Alfredo Saenz MD [address], [place], [address], [facility] 1 13:16:54 Right bundle branch block 56903953 Active 2020 Alfredo Saenz MD [address], [place], [address], [facility] 05/12/202 1 13:19:57 Gastroes ophageal reflux disease without esophagi tis 147252403 Active 2021 Alfredo Saenz MD [address], [place], [address], [facility] 2 15:55:58 Double incontin ence 93647086 Active 2022 Alfredo Saenz MD [address], [place], [address], [facility] 3 19:34:11 Type 2 diabetes mellitus without complica tion 326763205 Active 2022 Alfredo Saenz MD [address], [place], [address], [facility] 3 16:45:44 Hypokale yamil 98827460 Active 2023 Alfredo Saenz MD [address], [place], [address], [facility] 4 20:43:47 Mixed hyperlip idemia 829752226 Active 2023 Alfredo Saenz MD [address], [place], [address], [facility] 4 19:26:20 Problem Notes None recorded. Procedures Surgical History Date Name Laterality Status Provider Name and Address Organization Details Recorded Time 06/02/20 24 Diabetic Foot Exam completed Alfredo Saenz MD [address], [place], [address], [facility] 06/02/2024 19:17:03 12/10/19 24 Diabetic Foot Exam completed Alfredo Saenz MD [address], [place], [address], [facility] 12/10/2023 19:29:48 09/11/19 24 Diabetic Foot Exam completed Alfredo Saenz MD [address], [place], [address], [facility] 09/11/2023 12:09:02 05/02/20 23 Diabetic Foot Exam completed Alfredo Saenz MD [address], [place], [address], [facility] 05/02/2023 19:17:55 01/30/20 23 Diabetic Foot Exam completed Alfredo Saenz MD [address], [place], [address], [facility] 01/29/2023 19:51:02 10/31/19 23 Diabetic Foot Exam completed Alfredo Saenz MD [address], [place], [address], [facility] 10/30/2022 19:53:09 07/31/19 23 Diabetic Foot Exam completed Alfredo Saenz MD [address], [place], [address], [facility] 07/31/2022 20:25:34 05/01/20 22 Diabetic Foot Exam completed Alfredo Saenz MD [address], [place], [address], [facility] 05/01/2022 12:41:23 01/19/20 22 Diabetic Foot Exam completed Alfredo Saenz MD [address], [place], [address], [facility] 01/18/2022 14:30:17 10/11/19 22 Diabetic Foot Exam completed Alfredo Saenz MD [address], [place], [address], [facility] 10/10/2021 15:47:37 06/30/20 21 Diabetic Foot Exam completed Alfredo Saenz MD [address], [place], [address], [facility] 06/30/2021 16:12:00 02/18/20 21 Diabetic Foot Exam completed Alfredo Saenz MD [address], [place], [address], [facility] 02/17/2021 13:33:15 11/18/19 21 Diabetic Foot Exam completed Alfredo Saenz MD [address], [place], [address], [facility] 11/17/2020 12:55:33 08/12/19 21 Diabetic Foot Exam completed Alfredo Saenz MD [address], [place], [address], [facility] 08/12/2020 12:07:51 05/13/20 20 Diabetic Foot Exam completed Alfredo Saenz MD [address], [place], [address], [facility] 05/13/2020 12:36:02 02/06/20 20 Date of Last Mammogram completed SULMA HANKS [facility] 08/12/2020 11:57:38 07/10/19 20 Colonoscopy completed Renea Jones [facility] 08/22/2022 12:51:14 06/12/20 19 Diabetic Foot Exam completed Alfredo Saenz MD [address], [place], [address], [facility] 06/12/2019 11:42:53 01/03/20 19 Diabetic Foot Exam completed Alfredo Saenz MD [address], [place], [address], [facility] 01/02/2019 10:50:49 09/13/19 19 Diabetic Foot Exam completed Alfredo Saenz MD [address], [place], [address], [facility] 09/12/2018 16:14:10 05/29/20 18 Diabetic Foot Exam completed Alfredo Saenz MD [address], [place], [address], [facility] 05/29/2018 16:29:34 02/21/20 18 Diabetic Foot Exam completed Alfredo Saenz MD [address], [place], [address], [facility] 02/20/2018 13:31:07 10/08/19 18 Cataract Surgery completed Alfredo Saenz MD [address] [facility] [address], [place], [address], [place] [facility] 11/20/2017 12:15:48 05/28/20 17 Date of Last Colonoscopy completed SULMA LATONYA [facility] 08/12/2020 11:57:49 08/15/19 12 Colonoscopy completed Dian Montgomerychuyita [facility] 01/05/2016 08:42:44 Tonsillectomy completed [facility] 01/05/2016 08:42:48 Imaging Results Imaging Date Name Status LastModified by Organization Details LastModified Time 01/08/2023 US, echocardiogram completed [facility] [address] [place] [address] [address], [place], [address], 12/10/2023 19:22:48 01/14/2024 CT, head, w/o contrast completed [facility] [address], [address], 05/20/2024 11:24:10 01/14/2024 XR, chest, 2 view completed [facility] [address] [facility] [address], [address], 02/20/2024 18:29:38 01/16/2024 US, renal completed [address] [place] [address], [address], 02/20/2024 18:29:37 01/15/2024 CT, abdomen + pelvis, w/o contrast completed [address], [address], 02/20/2024 18:29:37 01/17/2024 XR, kidney + ureter + bladder completed [address], [address], 05/20/2024 11:24:10 01/18/2024 MRI, brain + brain stem, w/o contrast completed [facility] [address] [facility] [address], [place], [address], 02/20/2024 18:29:37 01/18/2024 MRI, brain + brain stem, w/o contrast completed [facility] [address] [facility] [address], [place], [address], 02/20/2024 18:29:37 Procedure Notes None recorded. Medical Equipment None Reported. Allergies Allergen ID Allergen Name Allergen Category Reaction Reaction Severity Criticality Documentation Date Start Date Code Code System Note Provider Name and Address Organization Details Recorded Time 2603 Acetamino phen / Propoxyph wiliam medicatio n Not available Not available Not available 01/05/2016 38207 RxNorm Dian [place] mavis [facility] 6 08:41:57 2604 Lazara medicatio n Not available Not available Not available 01/05/2016 [address]2555 0 [facility] 08:42:02 2605 Neurontin medicatio n Not available Not available Not available 01/05/2016 07033 8 RxNorm dizzi ness Alfredo Saenz MD [address], [place], [address], [facility] 7 10:50:18 2606 Niaspan medicatio n Not available Not available Not available 01/05/2016 95743 6 RxNorm Dian Montgomerychuyita gamble [facility] 6 08:42:14 2607 prednison e medicatio n Not available Not available Not available 01/05/2016 8640 RxNorm feel s like my skin is crawl ing, mood kline silas Salazar, ANP-BC [address], [place], [address], [facility] 6 11:25:34 2608 Ultram medicatio n Not available Not available Not available 01/05/2016 70450 6 RxNorm [facility] 6 08:42:30 Medications Name Sig Start Date Stop Date Status Note LastModified by Organization Details LastModified Time celecoxib 200 mg capsule Take 1 capsule every day by oral route as needed. 11/17 completed Not Available Not Available Not Available amoxicill in 500 mg capsule TAKE 1 CAPSULE BY MOUTH THREE TIMES DAILY 08/12 completed Not Available Not Available Not Available latanopro st 0.005 % eye drops 12/06 completed Not Available Not Available Not Available metformin 500 mg tablet Take 1 tablet twice a day by oral route. 2023 active Not Available Not Available Not Avai lable Estring 2 mg (7.5 mcg/24 hour) vaginal ring INSERT 1 RING INTO THE VAGINA EVERY 3 MONTHS DIRECTED ON PACKAGE active Not Available Not Available No t Available clindamyc in HCl 300 mg capsule 2 cap 1 H before and 1 cap 6 H after 04/04 completed Not Available Not Available Not Available cetirizin e 10 mg tablet TAKE 1 TABLET BY MOUTH ONCE DAILY AT BEDTIME NEEDED 2024 active Not Available Not Available Not Avai lable Iron (ferrous sulfate) 325 mg (65 mg iron) tablet Take 1 tablet by mouth twice daily 2024 active Not Available Not Available Not Avai lable azithromy francisco javier 250 mg tablet TAKE 2 TABLETS (500 MG) BY ORAL ROUTE ONCE DAILY FOR 1 DAY THEN 1 TABLET (250 MG) BY ORAL ROUTE ONCE DAILY FOR 4 DAYS 12/29 completed Not Available Not Available Not Available nystatin 100,000 unit/gram topical ointment 08/07 completed Not Available Not Available Not Available fluconazo le 150 mg tablet 11/06 completed Not Available Not Available Not Available benzonata te 200 mg capsule 10/17 completed Not Available Not Available Not Available hydrocodo ne 5 mg-acetam inophen 325 mg tablet Take 1 tablet 3 times a day by oral route. 09/12 completed Not Available Not Available Not Available prochlorp erazine maleate 5 mg tablet Take 1 tablet every 8 hours by oral route as needed. 08/07 completed Not Available Not Available Not Available lisinopri l 20 mg tablet TAKE 1 TABLET BY MOUTH ONCE DAILY 05/07 completed increase d by cardiolo gist to 40 mg QD Not Available Not Available Not Available ondansetr on HCl 4 mg tablet TAKE 1 TABLET BY MOUTH EVERY 8 HOURS NEEDED FOR NAUSEA AND FOR VOMITING 02/17 completed Not Available Not Available Not Available prednison e 20 mg tablet Take 20 mg every day by oral route as directed for 4 days. 08/07 completed Not Available Not Available Not Available meclizine 12.5 mg tablet TAKE 1 TABLET BY MOUTH THREE TIMES DAILY 10/10 completed Not Available Not Available Not Available potassium chloride ER 10 mEq tablet,ex tended release TAKE 1 TABLET BY MOUTH ONCE DAILY 02/19 completed Not Available Not Available Not Available acetamino phen 300 mg-codein e 30 mg tablet TAKE 1 TABLET BY MOUTH 4 TIMES DAILY NEEDED FOR PAIN 08/12 completed Not Available Not Available Not Available ciproflox acin 250 mg tablet Take 1 tablet every 12 hours by oral route. 02/01 completed Not Available Not Available Not Available amlodipin e 5 mg tablet TAKE 1 TABLET BY MOUTH ONCE DAILY 02/19 completed Not Available Not Available Not Available prochlorp erazine maleate 10 mg tablet Take 1 tablet twice a day by oral route as needed. 09/12 completed Not Available Not Available Not Available ciproflox acin 500 mg tablet TAKE 1 TABLET BY MOUTH EVERY 12 HOURS 03/07 completed Not Available Not Available Not Available hydrocodo ne 10 mg-acetam inophen 325 mg tablet 09/12 completed Not Available Not Available Not Available aspirin 81 mg tablet,de layed release Take 1 tablet every day by oral route. 2023 active Not Available Not Available Not Avai lable tramadol 50 mg tablet Take 1 tablet every 8 hours by oral route as needed. 06/12 completed Not Available Not Available Not Available carvedilo l 3.125 mg tablet Take 1 tablet by mouth twice daily active Not Available Not Available No t Available cefadroxi l 500 mg capsule TAKE 1 CAPSULE BY MOUTH TWICE DAILY 09/06 completed Not Available Not Available Not Available meloxicam 7.5 mg tablet TAKE 1 TABLET BY MOUTH ONCE DAILY NEEDED 08/12 completed Not Available Not Available Not Available amoxicill in 875 mg tablet 03/11 completed Not Available Not Available Not Available potassium chloride ER 20 mEq tablet,ex tended release(p art/cryst ) TAKE 1 TABLET BY MOUTH ONCE DAILY 12/09 completed Not Available Not Available Not Available prednisol one acetate 1 % eye drops,arian delaneyon 12/06 completed Not Available Not Available Not Available estradiol 1 mg tablet 05/13 completed Not Available Not Available Not Available pravastat in 10 mg tablet Take 1 tablet every day by oral route at bedtime. 12/09 completed Not Available Not Available Not Available calcium 500 mg (as calcium carbonate 1,250 mg) tablet Take 1 tablet every day by oral route in the morning. 02/19 completed Not Available Not Available Not Available meclizine 25 mg tablet TAKE 1 TABLET BY MOUTH THREE TIMES DAILY NEEDED 09/12 completed Not Available Not Available Not Available hydrocodo ne 7.5 mg-acetam inophen 325 mg tablet 01/02 completed Not Available Not Available Not Available cephalexi n 500 mg capsule TAKE 1 CAPSULE BY MOUTH TWICE DAILY FOR 7 DAYS 12/09 completed Not Available Not Available Not Available cyanocoba reece (vit B-12) 1,000 mcg/mL injection solution INJECT 1 ML ONCE EVERY MONTH active Not Available Not Available No t Available tobramyci n 0.3 % eye drops 09/12 completed Not Available Not Available Not Available triamcino lone acetonide 0.1 % topical ointment 12/06 completed Not Available Not Available Not Available ropinirol e 0.5 mg tablet Take 0.5 tablets every day by oral route at bedtime. 2023 active Not Available Not Available Not Avai lable clotrimaz ole-betam ethasone 1 %-0.05 % topical cream APPLY TO THE AFFECTED AND SURROUND ING AREAS OF SKIN BY TOPICAL ROUTE 2 TIMES PER DAY IN THE MORNING AND EVENING FOR 2 WEEKS 02/01 completed Not Available Not Available Not Available lisinopri l 10 mg tablet Take 1 tablet every day by oral route. 11/06 completed Not Available Not Available Not Available losartan 25 mg tablet Take 1 tablet every day by oral route. active Not Available Not Available No t Available oxybutyni n chloride ER 5 mg tablet,ex tended release 24 hr TAKE 1 TABLET BY MOUTH ONCE DAILY IN THE MORNING 10/10 completed Not Available Not Available Not Available omeprazol e 20 mg capsule,d elayed release Take 1 capsule every day by oral route in the morning. 02/19 completed Not Available Not Available Not Available aspirin 81 mg chewable tablet CHEW AND SWALLOW 1 TABLET BY MOUTH ONCE DAILY AT 8AM 07/11 completed Not Available Not Available Not Available monteluka st 10 mg tablet Take 1 tablet by mouth once daily 10/10 completed Not Available Not Available Not Available pravastat in 20 mg tablet Take 1 tablet every day by oral route at bedtime. 06/12 completed Not Available Not Available Not Available lisinopri l 5 mg tablet Take 1 tablet every day by oral route. 06/30 completed Not Available Not Available Not Available furosemid e 20 mg tablet TAKE 1 TABLET BY MOUTH ONCE DAILY IN THE MORNING FOR 90 DAYS active Not Available Not Available No t Available gabapenti n 100 mg capsule Take 1 capsule by mouth once daily at bedtime 2024 active Not Available Not Available Not Avai lable ergocalci ferol (vitamin D2) 1,250 mcg (50,000 unit) capsule TAKE 1 CAPSULE BY MOUTH EVERY TWO WEEKS 2023 active Not Available Not Available Not Avai lable lotepredn ol etabonate 0.5 % eye drops,formerly [facility] 06/18 completed Not Available Not Available Not Available nystatin 100,000 unit/gram topical powder 11/06 completed Not Available Not Available Not Available azelastin e 137 mcg (0.1 %) nasal spray USE 2 SPRAY(S) IN EACH NOSTRIL ONCE DAILY 02/19 completed Not Available Not Available Not Available albuterol sulfate HFA 90 mcg/actua tion aerosol inhaler INHALE 2 PUFFS BY MOUTH EVERY 8 HOURS NEEDED active Not Available Not Available No t Available ipratropi um bromide 42 mcg (0.06 %) nasal spray [place] 2 sprays 3 times a day by intranas al route. 02/19 completed Not Available Not Available Not Available oxybutyni n chloride 5 mg tablet TAKE ONE TABLET BY MOUTH TWICE DAILY 12/06 completed Not Available Not Available Not Available hydroxyzi ne HCl 10 mg tablet TAKE 1 TABLET BY MOUTH ONCE DAILY AT BEDTIME NEEDED 10/10 completed Not Available Not Available Not Available lisinopri l 40 mg tablet TAKE 1 TABLET BY MOUTH ONCE DAILY 06/18 completed Not Available Not Available Not Available losartan 100 mg tablet Take 1 tablet every day by oral route. 06/02 completed Not Available Not Available Not Available fluticaso ne propionat e 50 mcg/actua tion nasal spray,arian pension Use 1 spray(s) in each nostril once daily 10/10 completed Not Available Not Available Not Available metformin ER 500 mg tablet,ex tended release 24 hr Take 1 tablet by mouth twice daily 08/12 completed Not Available Not Available Not Available doxycycli ne hyclate 100 mg tablet Take 1 tablet twice a day by oral route. 05/31 completed Not Available Not Available Not Available amoxicill in 875 mg-potass ium clavulana te 125 mg tablet TAKE 1 TABLET BY MOUTH EVERY 12 HOURS 02/19 completed Not Available Not Available Not Available dorzolami de 2 % eye drops 09/12 completed Not Available Not Available Not Available tacrolimu s 0.5 mg capsule, immediate -release TAKE 3 CAPSULES BY MOUTH TWICE DAILY 2023 active Not Available Not Available Not Avai lable Tylenol Extra Strength 500 mg tablet Take 1 tablet every 8 hours by oral route around the clock for 90 days. 2023 active Not Available Not Available Not Avai lable neomycin- polymyxin -hydrocor t 3.5 mg-10,000 unit/mL-1 % ear drops,arian p INSTILL 4 DROPS INTO AFFECTED EAR(S) BY OTIC ROUTE 3 TIMES PER DAY 02/17 completed Not Available Not Available Not Available cyclospor ine 0.05 % eye drops in a dropperet te 06/18 completed Not Available Not Available Not Available cholestyr amine (with sugar) 4 gram oral powder Take 1 scoop twice a day by oral route as needed. 06/12 completed Not Available Not Available Not Available cholestyr amine (with sugar) 4 gram powder for susp in a packet DISSOLVE & TAKE 1 POWDER BY MOUTH THREE TIMES DAILY NEEDED 10/10 completed Not Available Not Available Not Available rosuvasta tin 5 mg tablet Take 1 tablet by mouth once daily 2024 active Not Available Not Available Not Avai lable rosuvasta tin 10 mg tablet TAKE 1 TABLET BY MOUTH ONCE DAILY 11/18 completed Not Available Not Available Not Available rosuvasta tin 20 mg tablet TAKE 1 TABLET BY MOUTH ONCE DAILY 06/12 completed Not Available Not Available Not Available memantine 10 mg tablet Take 1 tablet by mouth twice daily 2023 active Not Available Not Available Not Avai lable memantine 5 mg tablet Take 1 tablet by mouth twice daily active Not Available Not Available No t Available nitrofura ntoin monohydra te/macroc rystals 100 mg capsule TAKE 1 CAPSULE BY MOUTH TWICE DAILY FOR 7 DAYS 06/08 completed Not Available Not Available Not Available duloxetin e 30 mg capsule,d elayed release TAKE 1 CAPSULE BY MOUTH ONCE DAILY 08/08 completed Not Available Not Available Not Available duloxetin e 60 mg capsule,d elayed release Take 1 capsule by mouth once daily active Not Available Not Available No t Available Mucinex DM 30 mg-600 mg tablet,ex tended release 12 hr Take 1 tablet every 12 hours by oral route. 07/07 completed Not Available Not Available Not Available solifenac in 5 mg tablet Take 1 tablet every day by oral route. 09/10 completed Not Available Not Available Not Available Boostrix Tdap 2.5 Lf unit-8 mcg-5 Lf/0.5 mL intramusc ular syringe 12/06 completed Not Available Not Available Not Available pregabali n 50 mg capsule TAKE 1 CAPSULE BY MOUTH TWICE DAILY 10/10 completed Not Available Not Available Not Available Zostavax (PF) 19,400 unit/0.65 mL subcutane ous suspensio n 08/07 completed Not Available Not Available Not Available Januvia 50 mg tablet TAKE 1 TABLET BY MOUTH ONCE DAILY IN THE MORNING 2024 active Not Available Not Available Not Avai lable diclofena c 1 % topical gel APPLY 2 GRAMS TO THE AFFECTED AREA(S) BY TOPICAL ROUTE 4 TIMES PER DAY 2023 active Not Available Not Available Not Avai lable Besivance 0.6 % eye drops,arian pension 12/06 completed Not Available Not Available Not Available Nucynta 50 mg tablet Take 1 tablet every 8 hours by oral route as needed. 10/13 completed Not Available Not Available Not Available cetirizin e 10 mg capsule Take by oral route. 02/06 completed Not Available Not Available Not Available Prevnar 13 (PF) 0.5 mL intramusc ular syringe 08/07 completed Not Available Not Available Not Available Suprep Bowel Prep Kit 17.5 gram-3.13 gram-1.6 gram oral solution 12/29 completed Not Available Not Available Not Available Nucynta ER 100 mg tablet,ex tended release 08/20 completed Not Available Not Available Not Available Myrbetriq 25 mg tablet,ex tended release TAKE 1 TABLET BY MOUTH ONCE DAILY active Not Available Not Available No t Available Eliquis 5 mg tablet TAKE 1 TABLET BY MOUTH TWICE DAILY 09/10 completed Not Available Not Available Not Available Ferretts Carbonyl Iron 18 mg iron chewable tablet Take 1 tablet twice a day by oral route. 2023 active Not Available Not Available Not Avai lable biotin 300 mcg capsule Take 1 capsule every day by oral route. 10/10 completed Not Available Not Available Not Available Azo Urinary Pain Relief 95 mg tablet Take 1 tablet twice a day by oral route. 12/06 completed Not Available Not Available Not Available Shingrix (PF) 50 mcg/0.5 mL intramusc ular suspensio n, kit active Not Available Not Available Not Available Fluzone High-Dose 8845-8769 (PF) 180 mcg/0.5 mL intramusc ular syringe 05/29 completed Not Available Not Available Not Available Fluzone High-Dose (PF) 180 mcg/0.5 mL intramusc ular syringe PHARMACI ST ADMINIST ERED IMMUNIZA TION ADMINIST ERED AT TIME OF DISPENSI NG 06/12 completed Not Available Not Available Not Available Fluzone High-Dose Quad (PF) 240 mcg/0.7 mL IM syringe PHARMACI ST ADMINIST ERED IMMUNIZA TION ADMINIST ERED AT TIME OF DISPENSI NG 05/13 completed Not Available Not Available Not Available [email or web address] COVID-19 Ag Self Test kit 05/01 completed Not Available Not Available Not Available Vitals Date Recorded Body height Body mass index (BMI) Body weight Body temperature Respiratory rate Heart rate Systolic blood pressure Diastolic blood pressure Provider Name and Address Organization Details Last Updated DateTime 4 167.64 cm 30.8 kg/m2 61763.1 4 g 98.7 [degF] 18 /min 82 /min 137 mm[Hg] 70 mm[Hg] Anahirajani Norris [facility] 4 11:50:00 Date Recorded Body height Body mass index (BMI) Body weight Body temperature Respiratory rate Heart rate Provider Name and Address Organization Details Last Updated DateTime 4 167.64 cm 29.5 kg/m2 99531.4 g 98 [degF] 18 /min 70 /min Anahi Jr [facility] 4 19:04:41 Date Recorded Systolic blood pressure Diastolic blood pressure Provider Name and Address Organization Details Last Updated DateTime 12/10/2023 134 mm[Hg] 75 mm[Hg] Alfredo Saenz MD [address], [place], [address] 12/10/2023 19:22:27 Date Recorded Body height Body temperature Heart rate Respiratory rate Body mass index (BMI) Body weight Provider Name and Address Organization Details Last Updated DateTime 4 167.64 cm 97.6 [degF] 72 /min 18 /min 28.4 kg/m2 61115.2 6 g Anahi Jr [facility] 4 13:03:16 Date Recorded Systolic blood pressure Diastolic blood pressure Provider Name and Address Organization Details Last Updated DateTime 01/14/2024 132 mm[Hg] 83 mm[Hg] Alfredo Saenz MD [address], [place], [address], [facility] 01/14/2024 13:33:28 Date Recorded Body height Body mass index (BMI) Body weight Body temperature Respiratory rate Heart rate Provider Name and Address Organization Details Last Updated DateTime 4 167.64 cm 28.1 kg/m2 29353.0 7 g 97.3 [degF] 18 /min 76 /min Anahi Norris [facility] 18:10:37 Date Recorded Systolic blood pressure Diastolic blood pressure Provider Name and Address Organization Details Last Updated DateTime 02/20/2024 135 mm[Hg] 77 mm[Hg] Alfredo Saenz MD [address], [place], [address], [facility] 02/20/2024 18:50:08 Date Recorded Body height Body mass index (BMI) Body weight Body temperature Respiratory rate Heart rate Systolic blood pressure Diastolic blood pressure Provider Name and Address Organization Details Last Updated DateTime 167.64 cm 28.1 kg/m2 28576.0 7 g 97.4 [degF] 18 /min 64 /min 154 mm[Hg] 72 mm[Hg] Anahi Norris [facility] 18:45:42 Social History Question Answer Notes LastModified by Organizat ion Details LastModified Time Tobacco Smoking Status Never Smoker Not Available [facility] 04/23/2020 03:12:14 Do You Have An Advance Directive? Yes [id number] Information not available 04/23/2020 What Is Your Level Of Alcohol Consumption? None [id number] Information not available 04/23/2020 Live Alone Or With Others? Alone [email or web address] Information not available 01/05/2016 What Was The Date Of Your Most Recent Tobacco Screening? 10/10/2021 Information not available 10/10/2021 Sex: Unknown Functional Status None recorded. Mental Status None recorded. Family History Relationship Description Onset Age of this Age Resolved Age Notes LastModified by Organization Details LastModified Time Father Chronic obstructive pulmonary disease 72 [email or web address] Not available 2015 08:43:14 Father Alcoholism Not availa ble 01/05/2016 08:43:21 Mother Chronic obstructive pulmonary disease 72 [email or web address] Not available 2015 08:43:14 Mother Alcoholism Not availa ble 01/05/2016 08:43:26 Mother Malignant tumor of breast [email or web address] Not available 2015 08:43:38 Medical History Condition Response Coronary Artery Disease N Other N Gout N Blood Diseases N Kidney Stones N Hyperthyroidism N Blood Transfusion N Breast Cancer N Lung Disease N Hypothyroidism N Depression N COPD N Defects or Inherited Disease N Developmental or Behavioral Disorders N Breast Problem N Difficulty Swallowing N Anesthesia Complications N Anxiety Disorder N Meniere's disease N Muscle, Joint, or Bone Problems N Obesity N Vision or Eye Problems N Arthritis N Infertility N Polyps N Mental Disorder N Cancer N Varicosities N Stroke N Endometriosis N Bladder or Kidney Problems N High Cholesterol N Liver Disease N Headaches N Fibromyalgia N Kidney Disease N Allergies/Hayfever N Heart Problems N Ear or Hearing Problems N Hospitalizations N Thyroid Problems N GI Problems N ADD/ADHD N Eating Disorder N Skin Problems N Anemia N MRSA exposure N Constipation N Mental Illness N Diabetes N Ovarian Cancer N Bedwetting N Seizures/Epilepsy N Tuberculosis N AIDS/HIV N Congestive Heart Failure (CHF) N Eczema N Abuse/Domestic Violence N Diverticulitis N Asthma N Reflux/GERD N Hepatitis N Heart Disease N Pulmonary Embolism N Chronic Ear Infections N Pre-Eclampsia N Hypertension N Chicken Pox N Autism Spectrum Disorder (ASD) N Osteoporosis N Thrombophilias N Gynecological History Statement/Question Response Date of Last Mammogram 02/06/2020 Date of Last Colonoscopy 05/28/2017 Obstetrics History GPAL:G 0 P 0 0 0 0 Immunizations Vaccine Type Date Status Note Provider Nam e and Address Organization Details Recorded Time Influenza, high-dose, trivalent, PF 8 completed Not Available [facility] 08/09/2019 02:15:42 zoster recombinant 8 completed Alfredo Saenz MD [address] [place] [address] [address], [place], [address], [facility] 06/03/2018 21:16:26 Tdap 6 completed October Kiko gamble [facility] 01/03/2019 09:07:10 Influenza, split virus, quadrivalent, preservative 5 completed Dian gamble [facility] 01/05/2016 11:33:50 pneumococcal polysaccharide PPV23 5 completed Dian gamble [facility] 01/05/2016 11:33:57 Influenza, split virus, quadrivalent, preservative 9 completed Ana Lilia gamble [facility] 04/07/2019 10:53:49 Influenza, split virus, quadrivalent, preservative 0 completed Mary Wong null, [facility] 04/18/2021 11:41:45 COVID-19, mRNA, LNP-S, PF, 30 mcg/0.3 mL dose 1 completed Tanika Means null, [facility] 11/17/2020 12:45:52 COVID-19, mRNA, LNP-S, PF, 30 mcg/0.3 mL dose 1 completed Tanika Means null, [facility] 11/17/2020 12:46:19 COVID-19, mRNA, LNP-S, PF, 30 mcg/0.3 mL dose 1 completed Danielle Rebolledo null, [facility] 02/23/2021 12:41:04 pneumococcal polysaccharide PPV23 1 completed Renea Jones null, [facility] 05/20/2021 10:13:39 Influenza, split virus, quadrivalent, preservative 1 completed Alfredo Saenz MD [address] [place] [address] [address], [place], [address], [facility] 06/30/2021 16:09:02 COVID-19, mRNA, LNP-S, PF, 30 mcg/0.3 mL dose 2 completed Renea Jones null, [facility] 12/30/2021 10:44:10 Influenza, high-dose, quadrivalent, PF 2 completed Renea Olivasd null, [facility] 08/02/2022 21:46:20 Tdap 3 completed Renea Robert null, [facility] 12/20/2022 15:49:35 Pneumococcal conjugate PCV20, polysaccharide [id number] conjugate, adjuvant, PF 3 completed Renea Olivasd null, [facility] 12/20/2022 15:50:57 Influenza, adjuvanted, quadrivalent, PF 3 completed Tanja Hannah null, [facility] 05/25/2023 15:40:59 RSV, recombinant, protein subunit RSVpreF, adjuvant reconstituted, 0.5 mL, PF 3 completed Tanja gamble, [facility] 05/25/2023 15:42:05 COVID-19, mRNA, LNP-S, PF, 50 mcg/0.5 mL 3 completed Renea gamble, [facility] 06/27/2023 11:10:04 Influenza, high-dose, trivalent, PF 4 completed Renea Robert null, [facility] 06/10/2024 21:33:36 COVID-19, mRNA, LNP-S, PF, 50 mcg/0.5 mL 4 completed Renea Olivasd null, [facility] 06/10/2024 21:36:22 Influenza, split virus, trivalent, preservative 6 completed Not Available [facility] 07/26/2019 02:27:21 Pneumococcal conjugate PCV 13 6 completed Alfredo Saenz MD [address], [place], [address], [facility] 08/07/2016 12:15:08 Influenza, split virus, quadrivalent, preservative 7 completed Alfredo Saenz MD [address], [place], [address], [facility] 05/23/2017 12:10:13 Past Encounters Encounter ID Performer Location Encounter Start Date Encounter Closed Date Diagnosis/Indication Diagnosis SNOMED-CT Code Diagnosis ICD10 Code Diagnosis Note [id number] Alfredo Saenz MD [facility], [facility] [address] [place] [address] 01/05/2016 11:17:21 01/05/2016 12:20:02 Benign hypertension 72672505 I10 Idiopathic peripheral neuropathy 66479849 G60.9 Overweight 029636919 E66 .3 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.[address] on reg basis Diabetes mellitus 167424 09 E11.69 Active or passive immunization 469315111 Z23 Vitamin D deficiency 347 14858 E55.9 Screening for malignant neoplasm of cervix 026726185 Z12.4 Screening mammography 24 466966 Z12.31 Paroxysmal vertigo 82677 0003 H81.10 [id number] Alfredo Saenz MD [employer], [facility] [address] [place] [address] 04/12/2016 10:09:11 04/12/2016 11:29:39 Renewal of prescription 134080273 Z76.0 Benign hypertension 1072 5009 I10 Need to evaluate left ventricula r function last echo 2013 Screening mammography 24 947956 Z12.31 Active immunization 3387 9002 Z23 wait for flu shot 1-2 weeks Osteoarthritis 932280937 M19.90 Vitamin D deficiency 347 07935 E55.9 Diabetes mellitus 295007 09 E11.69 Insect bite - wound 2764 00903 T14.8 left face [id number] Meera Salazar, [facility] [employer] [address] [place] [address] 04/28/2016 10:39:32 04/28/2016 11:37:58 Contact dermatitis caused by urushiol from [facility] joesph 236890498 L25.5 [id number] Alfredo Saenz MD [employer], [facility] [address] [place] [address] 06/30/2016 11:30:58 06/30/2016 12:22:46 Benign hypertension 00866463 I10 increase lisinopril to 10 qam , BP 2 weeks Idiopathic peripheral neuropathy 46646214 G60.9 with DM and previous H/O callus formation ,will need diabetic shoes Osteoarthritis 597512403 M19.90 Diabetes mellitus 162910 09 E11.69 Memory impairment 511960 006 R41.3 Urinary incontinence 165 892239 R32 [id number] Alfredo Saenz MD [facility] [address] [place] [address] 08/07/2016 11:28:36 08/07/2016 12:24:57 Urinary incontinence 937576714 R32 Benign hypertension 1072 5009 I10 increase lisinopril to 10 qam , BP 2 weeks Memory impairment 906191 006 R41.3 Diabetes mellitus 106584 09 E11.69 Vitamin D deficiency 347 61036 E55.9 Screening for malignant neoplasm of colon 288635282 Z12.11 Screening mammography 24 778392 Z12.31 [id number] Meera Salazar, [facility] [employer] [facility], [facility] [address] [place] [address] 09/20/2016 15:33:47 09/20/2016 16:43:48 Abdominal pain 75573674 R10.[address] Garcia Incontinence of feces 72 995540 R15.9 Pain in pelvis 88565928 R10.2 [id number] Alfredo Saenz MD [employer], [facility] [address] [place] [address] 11/06/2016 11:20:28 11/06/2016 12:03:08 Benign hypertension 25893774 I10 increase lisinopril to 20 qam , BP 2 weeks Eruption 065529516 R21 Urticaria 647797215 L50. 9 Screening for malignant neoplasm of colon 161240605 Z12.11 Overweight 205286274 E66 .3 Diabetes mellitus 926939 09 E11.69 Hyperlipidemia 52927579 E78.5 [id number] Alfredo Saenz MD [employer], [facility] [address] [place] [address] 02/06/2017 10:30:00 02/06/2017 11:02:15 Benign hypertension 92613820 I10 good control under current meds Vitamin D deficiency 347 41746 E55.9 Hyperlipidemia 38546841 E78.5 last LDL 01/15/17 @ goal Diabetes mellitus 760735 09 E11.69 last A1c 01/15/17 @ Goal Migraine 36944837 G43.90 9 Screening mammography 24 332719 Z12.31 [id number] Alfredo Saenz MD [employer] [address] [place] [address] 05/23/2017 10:54:16 05/23/2017 12:15:39 Benign hypertension 62128611 I10 good control under current meds Hyperlipidemia 35869227 E78.5 last LDL 01/15/17 @ goal Diabetes mellitus 589994 09 E11.69 Osteoarthritis 313986813 M19.90 Vitamin D deficiency 347 51038 E55.9 Screening mammography 24 255406 Z12.31 Active or passive immunization 917303140 Z23 Idiopathic peripheral neuropathy 38121324 G60.9 with DM and previous H/O callus formation ,will need diabetic shoes [id number] Alfredo Saenz MD [employer] [facility], [facility] [address] [place] [address] 08/23/2017 10:44:25 08/23/2017 11:38:10 Mammography abnormal 492558363 R92.8 Benign hypertension 1072 5009 I10 good control under current meds Osteopenia 698945085 M85 .89 Vitamin D deficiency 347 39455 E55.9 Diabetes mellitus 625853 09 E11.69 Screening for malignant neoplasm of colon 775874526 Z12.11 last C scope 05/25/17 , good till 2020 Active or passive immunization 465425702 Z23 [id number] Alfredo Saenz MD [employer] [facility], [facility] [address] [place] [address] 11/20/2017 11:31:02 11/20/2017 12:37:57 Diabetes mellitus 97189962 E11.69 last ophth eval 10/22/17 Benign hypertension 1072 5009 I10 good control under current meds Hyperlipidemia 45607295 E78.5 last LDL 01/15/17 @ goal Osteopenia 885531674 M85 .89 Screening mammography 24 472521 Z12.31 had abnormal mammogram , seen breast surg , repeat mammogram was NL Active or passive immunization 179172745 Z23 Screening for malignant neoplasm of colon 397921675 Z12.11 last C scope 05/25/17 , good till 2020 Low back pain 838031658 M54.5 [id number] PHILOMENA RUBIN APN [employer] [facility], [facility] [address] [place] [address] 12/06/2017 12:09:43 12/06/2017 13:40:23 Forgetful 95876914 R41.3 Hyperlipidemia 26603025 E78.00 Memory impairment 472579 006 R41.3 Urinary incontinence 165 798447 R32 although reports unsteady gait ---- oxybutynin on hold for now Impacted cerumen 2598973 6 H61.23 [id number] Alfredo Saenz MD [employer] [facility], [facility] [address] [place] [address] 02/20/2018 12:59:30 02/20/2018 13:54:34 Benign hypertension 10156873 I10 good control under current meds Hyperlipidemia 00743830 E78.5 last LDL 12/06/17 @ above goal , pt not taking her prava , education Diabetes mellitus 425562 09 E11.69 last ophth eval 10/22/17las t A1c 12/06/17 was 6.3last KANCHAN 08/27/17 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 Z94.[address] on reg basis Osteoarthritis 795309085 M19.90 ok with low dose narco Vitamin D deficiency 347 91894 E55.9 last level 08/27/17 Overweight 234392653 E66 .3 education Idiopathic peripheral neuropathy 21290756 G60.9 with DM and previous H/O callus formation ,will need diabetic shoes Screening mammography 24 167980 Z12.31 last mammogram 08/2017 Screening for malignant neoplasm of cervix 465712974 Z12.4 per pt had PAP 2017 Screening for malignant neoplasm of colon 059668121 Z12.11 last C scope 05/25/17 , good till 2019 Active or passive immunization 226019043 Z23 [id number] Alfredo Saenz MD [facility] [address] [place] [address] 05/29/2018 15:55:45 05/29/2018 16:40:37 Bundle branch block 8245916 I44.60 Rt , just had cardiac cath , mild ,non occlusive , for medical treatmentw ill send to [facility] Coronary arteriosclerosis 50899126 I25.10 on cardiac cath 04/11/18 Hyperlipidemia 95197742 E78.5 last LDL 12/06/17 @ above goal , pt not taking her prava , education Benign hypertension 1072 5009 I10 good control under current meds Osteopenia 482535422 M85 .89 lasr DEXA 11/20/17 Diabetes mellitus 591376 09 E11.69 last ophth eval 10/22/17las t A1c 12/06/17 was 6.3last KANCHAN 08/27/17 Unintentio nal weight loss 426154516 R63.4 Screening mammography 24 302097 Z12.31 last mammogram 08/2017 Screening for malignant neoplasm of cervix 054119903 Z12.4 per pt had PAP 2017 Screening for malignant neoplasm of colon 534060630 Z12.11 last C scope 05/25/17 , good till 2020 Active or passive immunization 752417314 Z23 [id number] PHILOMENA RUBIN APN [employer], [facility] [address] [place] [address] 07/30/2018 14:07:04 07/30/2018 14:52:42 Shoulder pain 99540627 M25.519 Pain of le ft hip joint 2473155757 71539 M25.552 reports left hip is hard to move [id number] Alfredo Saenz MD [employer], [facility] [address] [place] [address] 09/12/2018 15:51:48 09/12/2018 16:29:03 Benign hypertension 03528693 I10 good control under current meds Diabetes mellitus 775047 09 E11.69 last ophth eval 06/2018 , mild NPDRlast A1c 06/12/18 was 6.3last KANCHAN 08/27/17 Hyperlipidemia 07185327 E78.5 last LDL 06/12/18 @ above goal , , education Osteopenia 319620397 M85 .89 last DEXA 11/20/17 Screening mammography 24 373690 Z12.31 last mammogram 08/2017 Screening for malignant neoplasm of colon 387971555 Z12.11 last C scope 05/25/17 , good till 2019 Shoulder pain 59300757 M 25.519 shoulder X ray was -ve Pain of le ft hip joint 2039531389 22117 M25.552 left hip X ray was NL Mild neuro cognitive disorder 968579833 G31.84 [id number] Alfredo Saenz MD [employer], [facility] [address] [place] [address] 10/17/2018 15:32:07 10/17/2018 16:08:54 Benign hypertension 92931019 I10 good control under current meds Bronchitis 28922650 J40 cont' Abx , mucinex dmRTC 1 week if cough does not gone Hyperlipidemia 91275332 E78.5 last LDL 06/12/18 @ above goal , , education [id number] Alfredo Saenz MD [employer], [facility] [address] [place] [address] 01/02/2019 10:07:48 01/02/2019 10:58:07 Adult health examination 276118715 Z00.01 Benign hypertension 1072 5009 I10 good control under current meds Diabetes mellitus 967311 09 E11.69 last ophth eval 06/2018 , mild NPDRlast A1c 09/12/18 was 6.4last KANCHAN 09/12/18 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 sees hepatology clinic Osteoarthritis 248293488 M19.90 ok with low dose narco Vitamin D deficiency 347 07174 E55.9 last level 08/27/17 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 , sees ophth every 3 months Osteopenia 166894969 M85 .89 last DEXA 11/20/17 Idiopathic peripheral neuropathy 43351035 G60.9 with DM and previous H/O callus formation ,will need diabetic shoes Aortic tammy ve regurgitation 39082408 I35.1 last ECHO 01/17/18 Hyperlipidemia 24985534 E78.5 last LDL 06/12/18 @ above goal , , education Migraine 47333302 G43.90 9 good control Coronary arteriosclerosis 87654195 I25.10 on cardiac cath 04/11/18 Body mass index 30+ - obesity 300184659 Z68.33 education Mild neuro cognitive disorder 735922627 G31.84 MMS is 27 today Screening mammography 24 321636 Z12.31 last mammogram 10/24/18 Screening for malignant neoplasm of cervix 109092264 Z12.4 per pt had PAP 2017 Screening for malignant neoplasm of colon 000067062 Z12.11 last C scope 05/25/17 , good till 2020 Active or passive immunization 905841571 Z23 [id number] PHILOMENA RUBIN APN [employer] [address] [place] [address] 01/29/2019 11:58:56 01/29/2019 12:51:34 Dyspnea 370796852 R06.00 states has been like this for years - but recently noticed by PT -pt was at physical therapy - PT tech noticed LLANES and checked O2 sat at rest 92% and with exertion 87%no PND, orthopnea, BLE edema -last echo 01/2018 - EF 55-60% - grade 1 DD -CXR obtained today as per pt -o2 --- 96% with ambulation in office -- did notice LLANES - pt did report LE weakness - although completed walk - Congestion of nasal sinus 80568196 R09.81 [id number] PHILOMENA RUBIN APN [employer] [employer] [address] [place] [address] 04/03/2019 11:12:28 04/03/2019 12:38:49 Mixed urinary incontinence 999346336 N39.46 urinary incont x 2 years most recently stool incont - urethral sling placement 08/2018 - Benign hypertension 1072 5009 I10 good control under current meds eye exam 03/05/19 EKG 10/2018 Diabetes mellitus 176539 09 E11.69 last ophth eval 02/2019 , mild NPDRlast A1c 01/02/19 7.0last KANCHAN 09/12/18 Transplant ed liver present 719471798 Z94.4 sees hepatology clinic Osteoarthritis 694876030 M19.90 ok with low dose narco Vitamin D deficiency 347 92631 E55.9 last level 01/02/19 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 343201998 E11.3299 mild , sees ophth every 3 months Osteopenia 026893874 M85 .89 last DEXA 11/20/17 Idiopathic peripheral neuropathy 49098943 G60.9 with DM and previous H/O callus formation ,will need diabetic shoes Aortic tammy ve regurgitation 26038252 I35.1 last ECHO 03/17/19 Hyperlipidemia 62979329 E78.5 last LDL 01/02/19 Migraine 59326990 G43.90 9 good control Coronary arteriosclerosis 13251448 I25.10 on cardiac cath 04/11/18 Body mass index 30+ - obesity 348441746 Z68.33 education Mild neuro cognitive disorder 427107415 G31.84 states becoming more forgetful - states she forgets names or where she placed objects - Screening mammography 24 279445 Z12.31 last mammogram 10/24/18 Screening for malignant neoplasm of cervix 276005686 Z12.4 per pt had PAP 2017 Screening for malignant neoplasm of colon 522090034 Z12.11 last C scope 11/17/17 , good till 2020 Active or passive immunization 948090490 Z23 up to date Diarrhea 68333081 R19.7 Incontinence of feces 72 299579 R15.9 [id number] Alfredo Saenz MD [employer], [facility] [address] [place] [address] 06/12/2019 10:51:00 06/12/2019 11:56:27 Diabetes mellitus 67606770 E11.69 last ophth eval 06/2018 , mild NPDRlast A1c 09/12/18 was 6.4last KANCHAN 09/12/18 Idiopathic peripheral neuropathy 09564004 G60.9 with DM and previous H/O callus formation ,will need diabetic shoes Diarrhea 42115631 R19.7 questran PRN , change to ER metformin Osteoarthritis 684544061 M19.90 OK on tylenol 500 TID Osteopenia 332989237 M85 .89 last DEXA 11/20/17 Vitamin D deficiency 347 25359 E55.9 last level 01/02/19 Screening mammography 24 394473 Z12.31 last mammogram 10/24/18 Screening for malignant neoplasm of cervix 201006340 Z12.4 per pt had PAP 2017 Screening for malignant neoplasm of colon 377390493 Z12.11 last C scope 05/25/17 , good till 2020 Active or passive immunization 176038295 Z23 up to date Cough 32951112 R05 PO is 96% on RA Impacted cerumen 8616666 6 H61.22 Hyperlipidemia 13889499 E78.5 last LDL 01/02/19 @ goal , Benign hypertension 1072 5009 I10 good control under current medspt not taking coreg [id number] Alfreod Saenz MD [employer] [address] [place] [address] 07/07/2019 14:28:59 07/07/2019 15:34:54 Preoperative cardiovascular examination 402636051 Z01.810 hold eliquis 3 days before , call GI office for per C scope medstalked in person to Dr Garcia office @ [facility] Benign hypertension 1072 5009 I10 good control under current medspt not taking coreg Diabetes mellitus 758208 09 E11.69 last ophth eval 06/2018 , mild NPDRlast A1c 09/12/18 was 6.4last KANCHAN 09/12/18 Pulmonary embolism 25902 003 I26.99 [id number] Alfredo Saenz MD [employer] [facility], [facility] [address] [place] [address] 09/05/2019 10:57:44 09/05/2019 12:10:36 Transient cerebral ischemia 677637917 G45.9 ASA , eliquis Ataxic gait 49525408 R26 .0 will give her a walker Diabetes mellitus 826632 09 E11.69 last ophth eval 06/2018 , mild NPDRlast A1c 04/03/19las t KANCHAN 09/12/18 Idiopathic peripheral neuropathy 36750027 G60.9 with DM and previous H/O callus formation ,will need diabetic shoes [id number] Alfredo Saenz MD [employer], [facility] [address] [place] [address] 11/11/2019 12:15:45 11/11/2019 12:37:08 Congestion of nasal sinus 60657064 R09.81 Benign hypertension 1072 5009 I10 Carotid ar helen stenosis 06352826 I65.29 last US 09/03/19 Diabetes mellitus 669311 09 E11.69 last ophth eval 06/2018 , mild NPDRlast A1c 04/03/19las t KANCHAN 09/12/18 Hyperlipidemia 36794006 E78.5 last LDL 01/02/19 @ goal , Transient cerebral ischemia 433309054 G45.9 ASA , eliquisno recurrence Dysphagia 31832488 R13.1 0 just had EGD and C scope 07/2019 Screening mammography 24 304397 Z12.31 last mammogram 10/24/18 Screening for malignant neoplasm of colon 721578678 Z12.11 last C scope 2019 Active or passive immunization 443847224 Z23 up to date Idiopathic peripheral neuropathy 97271592 G60.9 with DM and previous H/O callus formation ,will need diabetic shoes Mild neuro cognitive disorder 364077058 G31.84 MMS is 27 last visit [id number] Alfredo Saenz MD [employer], [facility] [address] [place] [address] 02/11/2020 12:12:52 02/11/2020 12:54:46 Benign hypertension 81610863 I10 Carotid ar helen stenosis 20076509 I65.29 last US 09/03/19 Diabetes mellitus 616550 09 E11.69 last ophth eval 07/07/2019 , mild NPDRlast A1c 04/03/19las t KANCHAN 09/12/18 Hyperlipidemia 10388878 E78.5 last LDL 01/02/19 @ goal , Idiopathic peripheral neuropathy 62675539 G60.9 with DM and previous H/O callus formation ,will need diabetic shoes Mild neuro cognitive disorder 820292774 G31.84 MMS is 27 last visitincre ase memantine to 10 BID [id number] Alfredo Saenz MD [employer], [facility] [address] [facility] [address] [place] [address] 05/13/2020 11:36:35 05/13/2020 12:49:32 Adult health examination 118870962 Z00.01 Benign hypertension 1072 5009 I10 good control Body mass index 30+ - obesity 212559872 Z68.33 education Carotid ar helen stenosis 01920157 I65.29 last US 09/03/19 Coronary arteriosclerosis 46656459 I25.10 on cardiac cath 04/11/18 Diabetes mellitus 605597 09 E11.69 last ophth eval 04/01/20 , mild NPDRlast A1c 03/22/20las t KANCHAN 03/22/20 Right bund le branch block 97721712 I45.10 last ECHO 03/03/19 Cirrhosis of liver 90007 007 K74.60 S/P liver transplant Hyperlipidemia 11003721 E78.5 last LDL 01/02/19 @ goal , Idiopathic peripheral neuropathy 61780004 G60.9 with DM and previous H/O callus formation ,will need diabetic shoeslast B12 03/22/20 History of liver recipient 706574140 Z94.4 sees hepatology on reg basis Migraine 56295866 G43.90 9 good control Mild neuro cognitive disorder 493338379 G31.84 MMS is 27 last visiton memantine to 10 BID 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 174999703 E11.3299 mild , sees ophth every 3 monthslast visit 03/10/20 Osteoarthritis 705039354 M19.90 OK on tylenol 500 TID Osteopenia 888355996 M85 .89 last DEXA 11/20/17 Pulmonary embolism 70364 003 I26.99 on eliquis Umbilical hernia 3061427 07 K42.9 education Urinary incontinence 165 133595 R32 stable 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 education Vitamin D deficiency 347 11624 E55.9 last level 01/02/19 Screening mammography 24 625242 Z12.31 last mammogram 02/06/20 Screening for malignant neoplasm of cervix 477632610 Z12.4 per pt had PAP 2017 Screening for malignant neoplasm of colon 124178260 Z12.11 last C scope 2019 Active or passive immunization 146425005 Z23 up to date Congestion of nasal sinus 69470740 R09.81 [id number] Alfredo Saenz MD [facility] [facility] [address] [place] [address] 08/12/2020 11:39:42 08/12/2020 12:31:28 Benign hypertension 45109466 I10 good control Body mass index 30+ - obesity 194551756 Z68.33 education Carotid ar helen stenosis 46613759 I65.29 last US 09/03/19 Coronary arteriosclerosis 48425007 I25.10 on cardiac cath 04/11/18 Diabetes mellitus 518789 09 E11.69 last ophth eval 07/20/19 , mild NPDRlast A1c 03/22/20las t KANCHAN 03/22/20 Hyperlipidemia 32646386 E78.5 last LDL 03/22/20 @ goal , Idiopathic peripheral neuropathy 10798834 G60.9 with DM and previous H/O callus formation ,will need diabetic shoeslast B12 03/22/20 Migraine 24114343 G43.90 9 good control Osteoarthritis 945363571 M19.90 OK on tylenol 500 TID Osteopenia 278239467 M85 .89 last DEXA 11/20/17 Vitamin D deficiency 347 43603 E55.9 last level 01/02/19 Screening mammography 24 875351 Z12.31 last mammogram 02/06/20 Screening for malignant neoplasm of cervix 326166962 Z12.4 per pt had PAP 08/25/19 Screening for malignant neoplasm of colon 231400039 Z12.11 last C scope 2019 Active or passive immunization 196081264 Z23 up to date Impacted c erumen of bilateral ears 3837487710 519175 H61.23 education Allergic r hinitis caused by pollen 21186112 J30.1 Mild neuro cognitive disorder 940638657 G31.84 MMS is 27 last visiton memantine to 10 BID [id number] Alfredo Saenz MD [employer] [address] [place] [address] 11/17/2020 12:34:41 11/17/2020 13:32:37 Diabetes mellitus 75075072 E11.69 last ophth eval 10/18/20 , mild NPDR last A1c 03/22/20 last KANCHAN 03/22/20 Coronary arteriosclerosis 04700685 I25.10 on cardiac cath 04/11/18 Cirrhosis of liver 10341 007 K74.60 S/P liver transplant Carotid ar helen stenosis 30112476 I65.29 last US 09/03/19 Benign hypertension 1072 5009 I10 good control Body mass index 30+ - obesity 185086259 Z68.33 education Hyperlipidemia 04214766 E78.5 last LDL 03/22/20 @ goal , Idiopathic peripheral neuropathy 66864680 G60.9 with DM and previous H/O callus formation ,will need diabetic shoeslast B12 03/22/20 Migraine 48196645 G43.90 9 good control Osteoarthritis 900421443 M19.90 OK on tylenol 500 TID Osteopenia 227825293 M85 .89 last DEXA 09/07/20 Pulmonary embolism 55497 003 I26.99 on eliquis Vitamin D deficiency 347 07507 E55.9 last level 01/02/19 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 I51.7 last ECHO 03/03/19 recheck Screening mammography 24 372517 Z12.31 last mammogram 02/06/20 Screening for malignant neoplasm of cervix 760744114 Z12.4 per pt had PAP 08/25/19 Screening for malignant neoplasm of colon 016918175 Z12.11 last C scope 2019 Active or passive immunization 484870418 Z23 up to date 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 seen neurosurg 2011 , did not go for surg still have stool and urine incontinen ce Hypocalcemia 1519833 E83 .51 Diarrhea 17765681 R19.7 questran PRN , change to ER metformin Urinary incontinence 165 425321 R32 stable [id number] Alfredo Saenz MD [employer] [employer] [address] [place] [address] 12/02/2020 11:39:31 12/02/2020 13:07:07 Otitis externa 6892384 H60.90 Lt Spinal harpreet nosis of lumbar region 13675976 M48.061 have dilan with neurosurg still have stool and urine incontinen ce Benign par oxysmal positional vertigo 192745172 H81.10 better , will try to get D/C summery History of liver recipient 949350469 Z94.4 sees hepatology on reg basis [id number] Alfredo Saenz MD [employer], [employer] [address] [place] [address] 02/17/2021 12:58:27 02/17/2021 13:49:52 Benign hypertension 53820333 I10 good control Body mass index 30+ - obesity 323383807 Z68.33 education Carotid ar helen stenosis 45081383 I65.29 last US 12/02/20 Cirrhosis of liver 23276 007 K74.60 S/P liver transplant Coronary arteriosclerosis 32997616 I25.10 on cardiac cath 04/11/18 Diabetes mellitus 317796 09 E11.69 last ophth eval 01/25/21 , mild NPDR last A1c 11/17/20 last KANCHAN 11/17/20 History of liver recipient 496178567 Z94.4 sees hepatology on reg basis Hyperlipidemia 67504737 E78.5 last LDL 11/17/20 above goal , Idiopathic peripheral neuropathy 61313323 G60.9 with DM and previous H/O callus formation ,will need diabetic shoeslast B12 03/22/20 Migraine 17279688 G43.90 9 good control Osteoarthritis 553891314 M19.90 OK on tylenol 500 TID Osteopenia 402657945 M85 .89 last DEXA 09/07/20 Pulmonary embolism 74978 003 I26.99 on eliquis Spinal harpreet nosis of lumbar region 32456728 M48.061 have dilan with neurosurg still have stool and urine incontinen ce Vitamin D deficiency 347 77476 E55.9 last level 01/02/19 Urinary incontinence 165 493317 R32 stable Allergic r hinitis caused by pollen 79537879 J30.1 Screening mammography 24 983835 Z12.31 last mammogram 02/06/20 Screening for malignant neoplasm of cervix 923773404 Z12.4 per pt had PAP 08/25/19 Screening for malignant neoplasm of colon 687322768 Z12.11 last C scope 2019 Active or passive immunization 234504191 Z23 up to date Family his tory of breast cancer 766483921 Z80.3 sister , mother [id number] Alfredo Saenz MD [employer], [employer] [address] [place] [address] 06/30/2021 15:38:12 06/30/2021 16:27:14 Adult health examination 871538195 Z00.01 Benign hypertension 1072 5009 I10 good controllas t EKG 11/18/20 Body mass index 30+ - obesity 405616133 Z68.33 education Allergic r hinitis caused by pollen 83035904 J30.1 Aortic tammy ve regurgitation 06018951 I35.1 last ECHO 03/17/21 Carotid ar helen stenosis 63765819 I65.29 last US 12/02/20 Cirrhosis of liver 86681 007 K74.60 S/P liver transplant Congestion of nasal sinus 99915250 R09.81 flonase PRN Coronary arteriosclerosis 29644573 I25.10 on cardiac cath 04/11/18 Diabetes mellitus 650541 09 E11.69 last ophth eval 01/25/21 , mild NPDR last A1c 11/17/20 last KANCHAN 11/17/20 Diarrhea 72607106 R19.7 questran PRN , change to ER metformin History of liver recipient 083550758 Z94.4 sees hepatology on reg basis Hyperlipidemia 91729774 E78.5 last LDL 11/17/20 above goal , Hypocalcemia 4844871 E83 .51 recheck Idiopathic peripheral neuropathy 50405914 G60.9 with DM and previous H/O callus formation ,will need diabetic shoeslast B12 03/22/20 Migraine 24882215 G43.90 9 good control Mild neuro cognitive disorder 328393970 G31.84 MMS is 27 last visiton memantine to 10 BID 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 108232008 E11.3299 mild , sees ophth every 3 monthslast visit 03/10/20 Osteoarthritis 665195992 M19.90 OK on tylenol 500 TID Osteopenia 340175050 M85 .89 last DEXA 09/07/20 Pulmonary embolism 99799 003 I26.99 on eliquis Right bund le branch block 23551361 I45.10 last ECHO 12/15/20 Spinal harpreet nosis of lumbar region 97121366 M48.061 have dilan with neurosurg still have stool and urine incontinen ce Umbilical hernia 2020351 07 K42.9 education Urinary incontinence 165 273499 R32 stable Uterine leiomyoma 664590 05 D25.9 asymptomat ic 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 123117620 K43.2 education Ventricula r hypertrophy 174091031 I51.7 last ECHO 12/15/20 Vitamin D deficiency 347 11941 E55.9 last level 01/02/19 Screening mammography 24 098293 Z12.31 last mammogram 05/25/21 Screening for malignant neoplasm of cervix 538445929 Z12.4 per pt had PAP 08/25/19 Screening for malignant neoplasm of colon 498630635 Z12.11 last C scope 2019 Active or passive immunization 715918602 Z23 up to date Pain of ri ght shoulder joint 5533132645 7916827 M25.511 [id number] Alfredo Saenz MD [employer], [facility] [address] [place] [address] 10/10/2021 15:01:37 10/10/2021 16:12:33 Benign hypertension 24725828 I10 good controllas t EKG 11/18/20 Body mass index 30+ - obesity 197493560 Z68.33 education Carotid ar helen stenosis 67241808 I65.29 last US 12/02/20 Cirrhosis of liver 98580 007 K74.60 S/P liver transplant Coronary arteriosclerosis 33016528 I25.10 on cardiac cath 04/11/18 Diabetes mellitus 764787 09 E11.69 last ophth eval 01/25/21 , mild NPDR last A1c 11/17/20 last KANCHAN 11/17/20 History of liver recipient 841261647 Z94.4 sees hepatology on reg basis Hyperlipidemia 93782775 E78.5 last LDL 11/17/20 above goal , Spinal harpreet nosis of lumbar region 29614583 M48.061 have dilan with neurosurg still have stool and urine incontinen ce Vitamin D deficiency 347 49509 E55.9 last level 01/02/19 Screening mammography 24 485526 Z12.31 last mammogram 05/25/21 Screening for malignant neoplasm of cervix 093527418 Z12.4 per pt had PAP 08/25/19 Screening for malignant neoplasm of colon 115048736 Z12.11 last C scope 2019 Active or passive immunization 283045749 Z23 up to date Advance di rective discussed with patient 994000056 Z71.89 education Gastroesop hageal reflux disease without esophagitis 448788130 K21.9 Mild neuro cognitive disorder 507197372 G31.84 MMS is 27 last visiton memantine to 10 BID Pulmonary embolism 32574 003 I26.99 on eliquis [id number] Alfredo Saenz MD [employer], [employer] [address] [place] [address] 01/18/2022 13:15:14 01/18/2022 14:49:10 Vitamin D deficiency 94111228 E55.9 last level 01/02/19 Diabetes mellitus 805397 09 E11.69 last ophth eval 11/2021 , mild NPDR last A1c 10/10/21 last KANCHAN 11/17/20 Carotid ar helen stenosis 97992632 I65.29 last US 12/02/20 Benign hypertension 1072 5009 I10 good controllas t EKG 11/18/20 Body mass index 30+ - obesity 142318895 Z68.33 education Allergic r hinitis caused by pollen 14931377 J30.1 Screening mammography 24 860303 Z12.31 last mammogram 05/25/21 History of liver recipient 182441970 Z94.4 sees hepatology on reg basis Screening for malignant neoplasm of cervix 644757511 Z12.4 per pt had PAP 08/25/19 Screening for malignant neoplasm of colon 263116788 Z12.11 last C scope 2019 Active or passive immunization 338122118 Z23 up to date [id number] Aflredo Saenz MD [employer] [address] [place] [address] 05/01/2022 11:34:42 05/01/2022 12:59:14 Benign hypertension 97067043 I10 good controllas t EKG 01/26/22 Body mass index 30+ - obesity 544896401 Z68.33 education Carotid ar helen stenosis 80285355 I65.29 last US 03/30/22 Diabetes mellitus 892555 09 E11.69 last ophth eval 11/2021 , mild NPDR last A1c 10/10/21 last KANCHAN 11/17/20 Osteoarthritis 478759622 M19.90 OK on tylenol 500 TID Spinal harpreet nosis of lumbar region 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 seen neurosurg , not a candidate for surgery still have stool and urine incontinen ce Vitamin D deficiency 347 59223 E55.9 last level 01/18/22 Urinary incontinence 165 966563 R32 stable Mild neuro cognitive disorder 309550635 G31.84 MMS is 26 last visiton memantine to 10 BID Screening mammography 24 880535 Z12.31 last mammogram 05/25/21 Screening for malignant neoplasm of cervix 501406532 Z12.4 per pt had PAP 08/25/19 Screening for malignant neoplasm of colon 384145946 Z12.11 last C scope 2019 Active or passive immunization 205592296 Z23 up to date [id number] Alfredo Saenz MD [employer] [facility], [facility] [address] [place] [address] 07/31/2022 18:45:49 07/31/2022 20:39:26 Adult health examination 474648202 Z00.01 Benign hypertension 1072 5009 I10 good controllas t EKG 01/26/22 Aortic tammy ve regurgitation 72517895 I35.1 last ECHO 03/17/21 Body mass index 30+ - obesity 164690045 Z68.33 education Cirrhosis of liver 08898 007 K74.60 S/P liver transplant Coronary arteriosclerosis 87868597 I25.10 on cardiac cath 04/11/18 Diabetes mellitus 665001 09 E11.69 last ophth eval 11/2021 , mild NPDR last A1c 10/10/21 last KANCHAN 11/17/20 Gastroesop hageal reflux disease without esophagitis 776235522 K21.9 stable 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 sees hepatology on reg basis Hyperlipidemia 96132344 E78.5 last LDL 10/10/21 goal , Idiopathic peripheral neuropathy 96615410 G60.9 with DM and previous H/O callus formation ,will need diabetic shoeslast B12 03/22/20 Hypocalcemia 3760455 E83 .51 recheck Migraine 01728753 G43.90 9 good control Mild neuro cognitive disorder 697673927 G31.84 MMS is 27 last visiton memantine to 10 BID 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 mild , sees ophth every 3 monthslast visit 03/10/20 Osteoarthritis 186925296 M19.90 OK on tylenol 500 TID Pulmonary embolism 55800 003 I26.99 on eliquisedu cation about anticoagul ation safty Spinal harpreet nosis of lumbar region 22237769 M48.061 seen neurosurg , not a candidate for surgery still have stool and urine incontinen ce Umbilical hernia 6443229 07 K42.9 education Urinary incontinence 165 588191 R32 stable Uterine leiomyoma 258373 05 D25.9 asymptomat ic 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 112642312 K43.2 education Vitamin D deficiency 347 31621 E55.9 last level 01/18/22 Screening mammography 24 473197 Z12.31 last mammogram 07/24/22 Screening for malignant neoplasm of cervix 762455361 Z12.4 per pt had PAP 08/25/19 Screening for malignant neoplasm of colon 730583883 Z12.11 last C scope 2019 Active or passive immunization 813626597 Z23 up to date Advance di rective discussed with patient 950528948 Z71.89 education Carotid ar helen stenosis 85890332 I65.29 last US 03/30/22 [id number] Alfredo Saenz MD [facility] [facility] [address] [place] [address] 09/06/2022 18:52:11 09/15/2022 10:23:23 Pain in upper limb 600322496 M79.603 Double incontinence 7845 9008 N39.498 Diarrhea 59873933 R19.7 questran PRN , trial of pancreatic enzymes Benign hypertension 1072 5009 I10 good controllas t EKG 01/26/22 Body mass index 30+ - obesity 149679336 Z68.33 educationd own 3 LBs Carotid ar helen stenosis 10597840 I65.29 last US 03/30/22 Diabetes mellitus 468388 09 E11.69 last ophth eval 11/2021 , mild NPDR last A1c 10/10/21 last KANCHAN 11/17/20 Mild neuro cognitive disorder 751220179 G31.84 recheck MMSon memantine to 10 BID Spinal harpreet nosis of lumbar region 61237040 M48.061 seen neurosurg , not a candidate for surgery still have stool and urine incontinen ceneed a letter for moving mail box closer to the house Active or passive immunization 946448413 Z23 up to date [id number] Alfredo Saenz MD [employer] [address] [place] [address] 10/30/2022 18:46:21 10/30/2022 20:10:19 Benign hypertension 30882644 I10 good controllas t EKG 01/26/22 Body mass index 30+ - obesity 819150762 Z68.33 educationd own 8 LBs Carotid ar helen stenosis 12182559 I65.29 last US 03/30/22 Diabetes mellitus 231711 09 E11.69 last ophth eval 11/2021 , mild NPDR last A1c 10/10/21 last KANCHAN 11/17/20 Vitamin D deficiency 347 29245 E55.9 last level 01/18/22 Hyperlipidemia 24958334 E78.5 last LDL 10/10/21 goal , Idiopathic peripheral neuropathy 14567415 G60.9 with DM and previous H/O callus formation ,will need diabetic shoeslast B12 03/22/20 History of liver recipient 542767218 Z94.4 sees hepatology on reg basis Active or passive immunization 926362323 Z23 up to date Impacted c erumen of bilateral ears 9822070864 661894 H61.23 education [id number] Alfredo Saenz MD [employer], [employer] [address] [place] [address] 01/29/2023 18:41:36 01/31/2023 21:32:40 Benign hypertension 31857274 I10 good controllas t EKG 01/26/22 Body mass index 30+ - obesity 051575319 Z68.33 educationd own 8 LBs Carotid ar helen stenosis 56729024 I65.29 last US 03/30/22 Coronary arteriosclerosis 81903507 I25.10 on cardiac cath 04/11/18 Diabetes mellitus 118351 09 E11.69 last ophth eval 11/2021 , mild NPDR last A1c 10/10/21 last KANCHAN 11/17/20 Hyperlipidemia 01538543 E78.5 last LDL 11/01/22 @ goal , Idiopathic peripheral neuropathy 63744608 G60.9 with DM and previous H/O callus formation ,will need diabetic shoeslast B12 03/22/20 Spinal harpreet nosis of lumbar region 82548937 M48.061 seen neurosurg , not a candidate for surgery still have stool and urine incontinen ceneed a letter for moving mail box closer to the house History of liver recipient 957142079 Z94.4 sees hepatology on reg basis Vitamin D deficiency 347 29802 E55.9 last level 01/18/22 Screening mammography 24 882937 Z12.31 last mammogram 07/24/22 Screening for malignant neoplasm of cervix 221848343 Z12.4 per pt had PAP 08/25/19 Screening for malignant neoplasm of colon 172839070 Z12.11 last C scope 2019 Active or passive immunization 361786199 Z23 up to date [id number] Alfredo Saenz MD [facility] [address] [place] [address] 05/02/2023 18:32:10 05/02/2023 19:27:22 Benign hypertension 23835923 I10 good controllas t EKG 01/29/23 Body mass index 30+ - obesity 803342393 Z68.33 education Carotid ar helen stenosis 76616057 I65.29 last US 03/30/22 Diabetes mellitus 318939 09 E11.69 last ophth eval 11/2021 , mild NPDR last A1c 02/12/23 last KANCHAN 11/17/20 Hyperlipidemia 28557919 E78.5 last LDL 11/01/22 @ goal , Mild neuro cognitive disorder 430545745 G31.84 recheck MMSon memantine to 10 BID Osteoarthritis 361026880 M19.90 OK on tylenol 500 TID Recurrent falls 55798934 2 R29.6 Pain of ri ght shoulder joint 3311194036 0638236 M25.511 Screening mammography 24 679417 Z12.31 last mammogram 07/24/22 Screening for malignant neoplasm of cervix 025788639 Z12.4 per pt had PAP 08/25/19 Screening for malignant neoplasm of colon 518594530 Z12.11 last C scope 2019 Active or passive immunization 616237506 Z23 up to date Bilateral hearing loss 14772043 H91.93 [id number] Alfredo Saenz MD [employer], [facility] [address] [place] [address] 06/11/2023 18:34:31 06/11/2023 19:32:35 Edema of lower extremity 070338845 R60.0 increase furosemide to 40 for 3 days , Daily BP , Dyspnea 139808830 R06.00 [id number] Alfredo Saenz MD [employer] [facility], [facility] [address] [place] [address] 06/18/2023 18:33:04 06/18/2023 20:04:38 Edema of lower extremity 357575459 R60.0 , Daily BP , Dyspnea 849938024 R06.00 better Benign hypertension 1072 5009 I10 good controllas t EKG 01/29/23 Carotid ar helen stenosis 23882160 I65.29 last US 03/30/22 Diabetes mellitus 563093 09 E11.69 last ophth eval 11/2021 , mild NPDR last A1c 06/08/23 last KANCHAN 11/17/20 Active or passive immunization 661779286 Z23 up to date [id number] Alfredo Saenz MD [employer] [facility], [facility] [address] [place] [address] 07/11/2023 13:54:01 07/11/2023 15:12:07 Benign hypertension 59457881 I10 good controllas t EKG 01/29/23 Edema of l ower extremity 518713191 R60.0 a lot better , Daily BP , go back to 20 mg QAM lasix D-dimer ab ove reference range 098277588 R79.1 had -ve venous doppler 06/2023 Active or passive immunization 846516230 Z23 up to date [id number] Alfredo Saenz MD [facility], [facility] [address] [place] [address] 08/08/2023 18:17:06 08/09/2023 09:38:03 Poor balance 519475214 R27.8 Benign hypertension 1072 5009 I10 good controlBP 2 weekslast EKG 01/29/23 Body mass index 30+ - obesity 392278562 Z68.33 education Carotid ar helen stenosis 48343560 I65.29 last US 03/30/22 Pain of ri ght shoulder joint 2296787696 8227679 M25.511 Spinal harpreet nosis of lumbar region 21850855 M48.061 seen neurosurg , not a candidate for surgery still have stool and urine incontinen ceneed a letter for moving mail box closer to the house Active or passive immunization 294756224 Z23 up to date [id number] Alfredo Saenz MD [employer] [facility], [facility] [address] [place] [address] 09/11/2023 11:37:12 09/11/2023 12:21:06 Recurrent falls 588969039 R29.6 cont' PTstop eliquis Benign hypertension 1072 5009 I10 good controlBP 2 weekslast EKG 01/29/23 Adult [facility] th examination 123770588 Z00.01 Body mass index 30+ - obesity 392684771 Z68.33 education Carotid ar helen stenosis 05980129 I65.29 last US 06/14/23 Cirrhosis of liver 62462 007 K74.60 S/P liver transplant Coronary arteriosclerosis 16060820 I25.10 on cardiac cath 04/11/18 Diabetes mellitus 746410 09 E11.69 last ophth eval 06/2023 , mild NPDR last A1c 06/08/23 last KANCHAN 06/08/23 Double incontinence 7845 9008 N39.498 stable Hyperlipidemia 54766314 E78.5 last LDL 06/08/23 above goal , Idiopathic peripheral neuropathy 58230184 G60.9 with DM and previous H/O callus formation ,will need diabetic shoeslast B12 03/22/20 Migraine 30588353 G43.90 9 good control Mild neuro cognitive disorder 007857779 G31.84 recheck MMSon memantine to 10 BID Osteoarthritis 398655236 M19.90 OK on tylenol 500 TID Osteopenia 418024135 M85 .89 last DEXA 09/07/20 Pulmonary embolism 61193 003 I26.99 stop eliquisedu cation about anticoagul ation safty Spinal harpreet nosis of lumbar region 69721165 M48.061 seen neurosurg , not a candidate for surgery still have stool and urine incontinen ceneed a letter for moving mail box closer to the house 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 506089534 E11.9 Vitamin D deficiency 347 11520 E55.9 last level 02/12/23 Aortic tammy ve regurgitation 27232334 I35.1 last ECHO 03/17/21 Screening mammography 24 058856 Z12.31 last mammogram 07/24/22 Screening for malignant neoplasm of cervix 019544275 Z12.4 per pt had PAP 06/2023see s ONLINE FACILITATOR every 3 months for vag ring change Screening for malignant neoplasm of colon 442238759 Z12.11 last C scope 2019 Active or passive immunization 448097257 Z23 up to date Advance di rective discussed with patient 166521944 Z71.89 educations on is her son Hematoma of lower leg 44 1052357 S80.11XA Rt lower thigh , observatio n , educations top eliquis [id number] Alfredo Saenz MD [employer], [facility] [address] [place] [address] 12/10/2023 18:32:03 12/10/2023 19:37:34 Benign hypertension 36073390 I10 good controlBP 2 weekslast EKG 01/29/23 Body mass index 30+ - obesity 115857889 Z68.33 education Carotid ar helen stenosis 73068111 I65.29 last US 06/14/23 Diabetes mellitus 404640 09 E11.69 last ophth eval 06/2023 , mild NPDR last A1c 06/08/23 last KANCHAN 06/08/23 Idiopathic peripheral neuropathy 16605025 G60.9 with DM and previous H/O callus formation ,will need diabetic shoeslast B12 20see n neurology 09/2023 Mixed hyperlipidemia 267 235388 E78.2 last LDL 09/11/23 Screening mammography 24 198083 Z12.31 last mammogram 07/24/22 History of liver recipient 609868828 Z94.4 sees hepatology on reg basis Screening for malignant neoplasm of cervix 793765468 Z12.4 per pt had PAP 07/2022sees ONLINE FACILITATOR every 3 months for vag ring change Screening for malignant neoplasm of colon 307008620 Z12.11 last C scope 2019 Active or passive immunization 834484888 Z23 up to date [id number] Alfredo Saenz MD [employer] [address] [place] [address] 01/14/2024 12:00:02 01/14/2024 13:40:22 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 O2 is 98% on RA History of liver recipient 021703468 Z94.4 sees hepatology on reg basis 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 402369411 E11.9 last A1c 09/11/23 [id number] Alfredo Saenz MD [employer], [employer] [address] [place] [address] 02/20/2024 18:02:36 02/20/2024 19:09:26 Spinal stenosis of lumbar region 36698729 M48.061 seen neurosurg , not a candidate for surgery still have stool and urine incontinen ceneed a letter for moving mail box closer to the house Pulmonary embolism 62173 003 I26.99 stop eliquisedu cation about anticoagul ation safty 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 519974540 E11.9 last A1c 09/11/23 Iron defic iency anemia 50082330 D50.9 Vitamin B1 2 deficiency (non anemic) 01227345 E53.8 Mild neuro cognitive disorder 482803345 G31.84 recheck MMSon memantine to 10 BID Restless legs 11349813 G 25.81 Hyperlipidemia 37468320 E78.5 last LDL 06/08/23 above goal , History of liver recipient 846468128 Z94.4 sees hepatology on reg basis Benign hypertension 1072 5009 I10 good controlBP 2 weekslast EKG 01/29/23 Edema of l ower extremity 187645270 R60.0 a lot better , Daily BP , go back to 20 mg QAM lasix Vitamin D deficiency 347 56915 E55.9 last level 02/12/23 Dyspnea 281478249 R06.00 better Allergic r hinitis caused by pollen 68131274 J30.1 Urinary incontinence 165 255151 R32 stable Active or passive immunization 068288184 Z23 up to date [id number] Alfredo Saenz MD [employer] [facility], [facility] [address] [place] [address] 06/02/2024 18:28:27 06/02/2024 19:35:14 Benign hypertension 18944588 I10 restart losartan 25BP 2 weekslast EKG 01/29/23 Body mass index 30+ - obesity 962824015 Z68.33 education Diabetes mellitus 128788 09 E11.69 last ophth eval 01/2024 , mild NPDR last A1c 06/08/23 last KANCHAN 06/08/23 Idiopathic peripheral neuropathy 26027740 G60.9 with DM and previous H/O callus formation ,will need diabetic shoeslast B12 03/22/20ee n neurology 09/2023 Osteoarthritis 758332214 M19.90 OK on tylenol 500 TID Spinal harpreet nosis of lumbar region 36402542 M48.061 seen neurosurg , not a candidate for surgery still have stool and urine incontinen ceneed a letter for moving mail box closer to the house 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 per neurology note Pain of le ft shoulder joint 2928538214 1511999 M25.512 Vitamin D deficiency 347 13158 E55.9 last level 02/12/23 History of liver recipient 846585323 Z94.4 sees hepatology on reg basis Screening mammography 24 240908 Z12.31 last mammogram 07/24/22 Active or passive immunization 739397509 Z23 up to date Restless legs 82663043 G 25.81 Health Concerns Section Related Observation LastModified by Organization Detai ls LastModified Time None Recorded Concern Status LastModified by Organization Details LastModified Time None Recorded Advance Directives Directive Y: Payers Encounter Date Sequence Insurance Name Policy Number Policy Reyes Covered Member ID Reyes Member ID Guarantor Name 09/11/2023 2 [place] 104 Morelia Rodriguez [id number] Morelia K Tellor 09/11/2023 1 [place] Morelia Adrian Tellor [id number] 1 Morelia K Tellor 12/10/2023 2 [place] 104 Morelia K Tellor [id number] Morelia K Tellor 12/10/2023 1 [place] More[place] K Tellor [id number] 1 Morelia K Tellor 01/14/2024 2 [place] 104 Morelia K Tellor [id number] Morelia K Tellor 01/14/2024 1 [place] Morelia K Tellor [id number] 1 Morelia K Tellor 02/20/2024 2 [place] [employer] [place] 104 Morelia K Tellor [id number] Morelia K Tellor 02/20/2024 1 [place] Morelia K Tellor [id number] 1 Morelia K Tellor 06/02/2024 2 [place] [employer] [place] 104 Morelia K Tellor [id number] Morelia K Tellor 06/02/2024 1 [place] Morelia Adrian Tellor [id number] 1 Morelia Adrian [employer]or Notes Date Note Type Note Provider Name and Address Organization Details Recorded Time 09/11/2023 text/html Hypertension F/UReported bypatient.Medications: taking medications as directed; no side effects from medication Lifestyle:regular exercise; limiting/avoiding salt; compliant with low salt diet Associated Symptoms:no dizziness; no lightheadedness; no chest pain; no shortness of breath; no palpitations; no edema; no calf pain with exertion; no headacheMedicare Annual Wellness VisitReported bypatient.Diet and Nutrition:healthy diet Fracture Risk:no history of fractures; no recent explained fracture; no sudden unexplained fractures; no previous musculoskeletal injuries Physical Activity:recent increase in physical activity; good physical condition; discussed exercise habits Depression Risk:never feels sad, empty, or tearful; no loss of interest in activities; no significant changes in weight; no sleep disturbances or insomnia; no agitation; no loss of energy; no feelings of worthlessness or guilt; no thoughts of suicide; no history of depression; no history of mood disorders Orientation:no disorientation to time; no disorientation to place;disorientation to date Concentration and Memory:no decreased concentrating ability; no memory lapses or loss; does not forget words Speech/Motor difficulties:no speech difficulties; no difficulty expressing formulated concepts; no difficulty with fine manipulative tasks; no difficulty writing/copying; no slowed reaction time; does not knock things over when trying to pick them up Hearing:no loss of hearing Vision:no vision problems Activities of Daily Living:able to bathe with limited or no assistance; able to dress with limited or no assistance; able to feed self with limited or no assistance; able to get out of chair or bed with limited or no assistance; able to groom with limited or no assistance; able to toilet with limited or no assistance;unable to contol urination and bowels Instrumental Activities of Daily Living:able to manage medications with limited or no assistance; able to prepare meals with limited or no assistance; able to use the phone with limited or no assistance;unable to do house work without assistance;unable to grocery shop without assistance;unable to manage medications without assistance;unable to manage money without assistance Falls Risk Assessment:no frequent falls while walking; no dizziness/vertigo; fall(s) in the past year 2; fall(s) since last visit1 Home Safety:use of seatbelts; no vision or hearing loss while driving daughter with her today Alfredo Saenz MD [address] [facility] [address], [place], [address], [facility] 09/11/2023 12:19:52 12/10/2023 text/html Hypertension F/UReported bypatient.Medications: taking medications as directed; no side effects from medication Lifestyle:regular exercise; limiting/avoiding salt; compliant with low salt diet Associated Symptoms:no dizziness; no lightheadedness; no chest pain; no shortness of breath; no palpitations; no edema; no calf pain with exertion; no headacheMedicare Annual Wellness VisitReported bypatient.Falls Risk Assessment:no frequent falls while walking; no fall since last visit; fall(s) in the past year 2 Alfredo Saenz MD [address], [place], [address], [facility] 12/10/2023 19:32:33 01/14/2024 text/html Hypertension F/UReported bypatient.Medications: taking medications as directed; no side effects from medication Lifestyle:regular exercise; limiting/avoiding salt; compliant with low salt diet Associated Symptoms:no dizziness; no lightheadedness; no chest pain; no shortness of breath; no palpitations; no edema; no calf pain with exertion; no headache Alfredo Saenz MD [address], [place], [address], [facility] 01/14/2024 13:37:03 02/20/2024 text/html Hypertension F/UReported bypatient.Medications: taking medications as directed; no side effects from medication Lifestyle:regular exercise; limiting/avoiding salt; compliant with low salt diet Associated Symptoms:no dizziness; no lightheadedness; no chest pain; no shortness of breath; no palpitations; no edema; no calf pain with exertion; no headache Alfredo Saenz MD [address], [place], [address], [facility] 02/20/2024 18:55:59 06/02/2024 text/html Hypertension F/UReported bypatient.Medications: taking medications as directed; no side effects from medication Lifestyle:regular exercise; limiting/avoiding salt; compliant with low salt diet Associated Symptoms:no dizziness; no lightheadedness; no chest pain; no shortness of breath; no palpitations; no edema; no calf pain with exertion; no headache nephrology stopped losartan 2/2 low Bp and ^ K Alfredo Saenz MD [address], [place], [address], [facility] 06/02/2024 19:30:21 OBGyn Episode No OBEpisode recorded.
--- NOTE | 2024-08-24 09:23 | ED.GENADULT ---
HPI - General Adult General Chief complaint: Weakness Stated complaint: weak Time Seen by Provider: 08/24/24 08:41 History of Present Illness HPI narrative: Patient is an 83-year-old female who presents to the ER with weakness. She has dementia and history was obtained from her son. Patient woke up today was more weak and having trouble trying to get around the house which she typically can do independently. She has multiple caregivers who come in another house. No recent history of fevers or chills or cough. She has not been having malodorous urine to his knowledge. Reports symptoms are similar to when she is dehydrated in the past. Related Data Home Medications ?Medication ?Instructions ?Recorded ?Confirmed ?Last Taken ?Type duloxetine 60 mg capsule,delayed 60 mg PO DAILY 01/15/24 08/24/24 08/23/24 History release memantine 10 mg tablet 10 mg PO BID 01/15/24 08/24/24 08/23/24 History rosuvastatin 5 mg tablet 5 mg PO DAILY 01/15/24 08/24/24 08/23/24 History cetirizine 10 mg tablet 10 mg PO HS 08/24/24 08/24/24 08/23/24 History cyanocobalamin (vitamin B-12) 1,000 mcg subcut MONTHLY 08/24/24 08/24/24 Unknown History 1,000 mcg/mL injection solution ergocalciferol (vitamin D2) 1,250 1,250 mcg PO .every two weeks 08/24/24 08/24/24 Unknown History mcg (50,000 unit) capsule ferrous sulfate 325 mg (65 mg 325 mg PO BID 08/24/24 08/24/24 08/23/24 History iron) tablet (FeroSul) furosemide 20 mg tablet 20 mg PO DAILY 08/24/24 08/24/24 08/23/24 History gabapentin 100 mg capsule 100 mg PO HS 08/24/24 08/24/24 08/23/24 History losartan 25 mg tablet 25 mg PO DAILY 08/24/24 08/24/24 08/23/24 History mirabegron 25 mg tablet,extended 25 mg PO DAILY 08/24/24 08/24/24 08/23/24 History release 24 hr (Myrbetriq) ropinirole 0.5 mg tablet 0.5 mg PO HS 08/24/24 08/24/24 08/23/24 History Allergies Allergy/AdvReac Type Severity Reaction Status Date / Time morphine Allergy Intermediate Unknown Verified 08/24/24 09:39 prednisone Allergy Unknown Other Verified 08/24/24 09:39 Review of Systems Review of Systems: ROS unobtainable: Yes unobtainable due to mental status PMFSH Past Medical History Medical History Coronary artery disease Cardiac catheterization performed due to preop clearance April 2018 demonstrated less than 25% of mid LAD stenosis and 40% RCA stenosis Diabetes type 2, controlled Hyperlipidemia Hypertension Memory impairment Neuropathy Pernicious anemia Pulmonary embolism On chronic anticoagulation with Eliquis Surgical History Surgical History H/O cardiac catheterization April 2018 History of left knee replacement Liver transplanted Family History Family History Other Adopted Unknown family medical history Social History Social History Social History: She lives in her own home. She ambulates with assistance of a cane. She had a 3 children her daughter of complications of pneumonia. She has 2 sons who are still living. Primary care physician Dr. Alfredo John Code status: Full code Smoking status: Never smoker Second hand tobacco smoke exposure: No Alcohol intake: never Substance use: never Substance use type: does not use Gender identity (if verbalized by the patient): Female Spiritual care concerns: No Agree to blood products: Yes Exam Narrative: GENERAL: Well-appearing, well-nourished, and in no acute distress. HEAD: Normocephalic, atraumatic. ENT: Mucous membranes moist. NECK: Supple. CHEST: Clear to auscultation. No respiratory distress. HEART: Regular rate and rhythm. Normal peripheral pulses. ABDOMEN: Soft, nontender, nondistended. EXTREMITIES: Normal range of motion. No edema. SKIN: Warm, dry, no rash. NEURO: Alert and oriented x1. PSYCH: Normal mood and affect. Course Course Emergency Course: Patient with hypoxia now on 3 L nasal cannula. Flu positive and started on Tamiflu. Admit to hospitalist service. Family informed of diagnosis and treatment plan. Vital Signs Vital signs: Vital Signs Temperature 99.8 F H 08/24/24 08:48 Pulse Rate 66 08/24/24 08:48 Respiratory Rate 19 08/24/24 08:48 Blood Pressure 137/79 08/24/24 08:48 Pulse Oximetry 93 08/24/24 08:48 Oxygen Delivery Room Air 08/24/24 08:48 Temperature 99.9 F H 08/24/24 12:34 Pulse Rate 69 08/24/24 12:34 Respiratory Rate 23 H 08/24/24 12:34 Blood Pressure 147/73 H 08/24/24 12:34 Pulse Oximetry 98 08/24/24 12:34 Oxygen Delivery Nasal Cannula 08/24/24 09:38 Oxygen Flow Rate 3 08/24/24 09:38 Medical Decision Making Vital Signs Vital Signs: Vital Signs Temperature 99.8 F H 08/24/24 08:48 Pulse Rate 66 08/24/24 08:48 Respiratory Rate 19 08/24/24 08:48 Blood Pressure 137/79 08/24/24 08:48 Pulse Oximetry 93 08/24/24 08:48 Oxygen Delivery Room Air 08/24/24 08:48 Temperature 99.9 F H 08/24/24 12:34 Pulse Rate 69 08/24/24 12:34 Respiratory Rate 23 H 08/24/24 12:34 Blood Pressure 147/73 H 08/24/24 12:34 Pulse Oximetry 98 08/24/24 12:34 Oxygen Delivery Nasal Cannula 08/24/24 09:38 Oxygen Flow Rate 3 08/24/24 09:38 Lab Data 08/24/24 09:28 08/24/24 09:28 Labs: Lab Results 08/24/24 Range/Units 09:28 WBC 6.7 (4.5-10.0) K/mm3 RBC 3.53 L (4.2-5.4) M/mm3 Hgb 11.6 L (12.0-15.0) g/dL Hct 35.6 L (37.0-47.0) % MCV 100.8 H (80-100) fl MCH 32.9 (26-34) pg MCHC 32.6 (32-36) g/dl RDW 12.1 (11.5-14.5) % Plt Count 180 (150-375) k/mm3 MPV 11.7 H (7.4-10.4) fl Immature Gran % (Auto) 0.5 (0-0.5) % Neut % (Auto) 76.2 H (45.5-73.1) % Lymph % (Auto) 12.5 L (18.3-44.2) % [place] % (Auto) 9.9 H (2.6-8.5) % Eos % (Auto) 0.6 (0-4.4) % Baso % (Auto) 0.3 (0.2-1.2) % Lymph # (Auto) 0.83 L (0.9-3.2) K/mm3 [place] # (Auto) 0.7 H (0.1-0.6) K/mm3 Eos # (Auto) 0.0 (0-0.3) K/mm3 Baso # (Auto) 0.0 (0.0-0.1) K/mm3 Abs Immat Gran (auto) 0.03 (0.00-0.031) K/mm3 Absolute Neuts (auto) 5.1 (1.3-6.7) K/mm3 Absolute Nucleated RBC 0.000 (0.0-0.012) K/mm3 Nucleated RBC % 0.0 (0.0-0.2) % Sodium 139 (137-145) mmol/L Potassium 4.7 (3.4-5.0) mmol/L Chloride 101 (98-107) mmol/L Carbon Dioxide 27 (22-30) mmol/L Anion Gap 11 (4-12) mmol/L BUN 45 H (7-17) mg/dL Creatinine 2.02 H (0.7-1.0) mg/dL Estim Creat Clear Calc 21 ml/min Estimated GFR 24 L (59 - ) Glucose 137 H (65-110) mg/dL Calcium 9.1 (8.4-10.2) mg/dL Total Bilirubin 0.7 (0.2-1.3) mg/dL AST 25 (14-36) U/L ALT 23 (6-35) U/L Alkaline Phosphatase 84 (38-126) U/L Total Protein 7.0 (6.3-8.2) g/dL Albumin 4.4 (3.5-5.1) g/dL Urine Color Yellow (Yellow) Urine Appearance Clear (Clear) Urine pH 6.0 (5.0-9.0) Ur Specific [place] 1.013 (1.001-1.035) Urine Protein Trace (Negative) mg/dL Urine Glucose (UA) Negative (Negative) mg/dL Urine Ketones Negative (Negative) mg/dL Ur Blood (Man) Negative (Negative) Urine Nitrate Negative (Negative) Urine Bilirubin Negative (Negative) Urine Urobilinogen 0.2 (<2.0) mg/dL Leukocyte Esterase Rfl Negative (Negative) ESTRELLA/UL Urine RBC 0-2 (0-2) /hpf Urine WBC 0-5 (0-3) /hpf Ur Squamous Epith Cells None seen (Few) /hpf Urine Bacteria None seen /hpf Urine Casts 0-2 Influenza A (RT-PCR) Positive A (Negative) Influenza B (RT-PCR) Negative (Negative) RSV (RT-PCR) Negative (Negative) SARS-CoV-2 RNA (RT-PCR) Negative (Negative) Imaging Data Radiologist's impression: ITS Impressions Chest X-Ray 08/24/24 09:13 IMPRESSION: No focal infiltrate or effusion. Discharge Plan Discharge Clinical Impression: Influenza A, Hypoxia Patient Disposition: Still a Patient Condition: Stable Patient Language: Armenian Prescriptions: No Action aspirin [Children's Aspirin] 81 mg Tablet,Chewable 81 mg PO DAILY@0800 30 Days Qty: 30 0RF tacrolimus 0.5 mg capsule 1.5 mg PO BID 7 Days Qty: 42 0RF Rx Instructions: pt takes 3 capsules in the morning and 3 capsules at night rosuvastatin 5 mg tablet 5 mg PO DAILY memantine 10 mg tablet 10 mg PO BID duloxetine 60 mg capsule,delayed release(DR/EC) 60 mg PO DAILY polyethylene glycol 3350 [Miralax] 17 gram Powder In Packet 17 g PO QAM PRN (Reason: Constipation) Qty: 30 0RF acetaminophen [Acetaminophen Extra Strength] 500 mg tablet 1,000 mg PO Q6H MDD 3,000 mg PRN (Reason: pain) Qty: 90 0RF cetirizine 10 mg tablet 10 mg PO HS cyanocobalamin (vitamin B-12) 1,000 mcg/mL solution 1,000 mcg subcut MONTHLY ergocalciferol (vitamin D2) 1,250 mcg (50,000 unit) capsule 1,250 mcg PO .every two weeks ferrous sulfate [FeroSul] 325 mg (65 mg iron) tablet 325 mg PO BID furosemide 20 mg tablet 20 mg PO DAILY gabapentin 100 mg capsule 100 mg PO HS losartan 25 mg tablet 25 mg PO DAILY mirabegron [Myrbetriq] 25 mg tablet extended release 24 hr 25 mg PO DAILY ropinirole 0.5 mg tablet 0.5 mg PO HS Follow-up/Referrals: Joanna,MD Alfredo [Primary Care Provider] -
[2024-08-24 09:35] LABS: Basophils Percent Auto 0.3 % (0.2-1.2); Eosinophils Percent Auto 0.6 % (0-4.4); Hematocrit 35.6 % (37.0-47.0); Hemoglobin 11.6 g/dL (12.0-15.0); Immature Granulocyte Absolute 0.03 K/mm3 (0.00-0.031); Immature Granulocyte Percent A 0.5 % (0-0.5); Lymphocytes Absolute Auto 0.83 K/mm3 (0.9-3.2); Lymphocytes Percent Auto 12.5 % (18.3-44.2); Mean Corpuscular HGB Conc 32.6 g/dl (32-36); Mean Corpuscular Hemoglobin 32.9 pg (26-34); Mean Corpuscular Volume 100.8 fl (80-100); Mean Platelet Volume 11.7 fl (7.4-10.4); Monocytes Absolute Auto 0.7 K/mm3 (0.1-0.6); Monocytes Percent Auto 9.9 % (2.6-8.5); Neutrophils Absolute Auto 5.1 K/mm3 (1.3-6.7); Neutrophils Percent Auto 76.2 % (45.5-73.1); Platelet Count Result 180 k/mm3 (150-375); Red Blood Count 3.53 M/mm3 (4.2-5.4); Red Cell Distribution Width 12.1 % (11.5-14.5); White Blood Count 6.7 K/mm3 (4.5-10.0)
[2024-08-24] MEDS: SODIUM CHLORIDE 0.9% IV 1,000 ML 999 ML IV CONT (09:37)
[2024-08-24 09:45] LABS: Add Urine Microscopic? YES; Appearance Urine Clear (Clear); Bacteria Urine None Seen /hpf; Bilirubin Urine Negative (Negative); Blood Urine Negative (Negative); Color Urine Yellow (Yellow); Glucose Urine UA Negative (Negative); Ketones Urine Negative (Negative); Leukocyte Esterase Ur Negative LEU/UL (Negative); Nitrate Urine Negative (Negative); Non Pathogenic Casts 0-2; Protein Urine Trace mg/dL (Negative); RBC Urine 0-2 /hpf (0-2); Specific Grav Ur 1.013 (1.001-1.035); Squamous Epithelial Cell Urine None Seen /hpf (Few); Urobilinogen Urine 0.2 mg/dL (<2.0); WBC Urine 0-5 /hpf (0-3)
[2024-08-24 10:13] LABS: Influenza A QL RT-PCR Positive (Negative); Influenza B QL RT-PCR Negative (Negative); RSV RNA, RT-PCR Negative (Negative); SARS-CoV-2 RNA PCR Negative (Negative)
[2024-08-24 10:30] LABS: Alanine Aminotransferase 23 U/L (6-35); Albumin Level 4.4 g/dL (3.5-5.1); Alkaline Phosphatase 84 U/L (38-126); Anion Gap 11 mmol/L (4-12); Aspartate Amino Transferase 25 U/L (14-36); Bilirubin,Total 0.7 mg/dL (0.2-1.3); Blood Urea Nitrogen 45 mg/dL (7-17); Calcium 9.1 mg/dL (8.4-10.2); Carbon Dioxide 27 mmol/L (22-30); Chloride 101 mmol/L (98-107); Estimated CRCL calculation 21 ml/min; Estimated Glomerular Filt Rate 24; Glucose 137 mg/dL (65-110); Potassium 4.7 mmol/L (3.4-5.0); Sodium 139 mmol/L (137-145)
[2024-08-24] MEDS: OSELTAMIVIR PHOSPHATE 30 MG CAPSULE PO (11:24)
--- NOTE | 2024-08-24 13:42 | P.HP_ITS ---
H&P: HPI History of Present Illness Date/Time: 08/24/24 13:42 Chief Complaint: Weakness, Cough Narrative: 83 y/o F presents here with weakness and cough with PMH of coronary artery disease, type 2 diabetes, hyperlipidemia, hypertension, dementia, neuropathy, pernicious anemia, liver transplant recipient, and PE (no longer on anticoagulation). The patient presents here from home with weakness and cough. The patient has a history of dementia, HPI obtained through the patient's son and the patient. Initially noted a dry cough for the past 2 days. The patient then complained of back pain and fatigue last night. He reports that she had difficulty waking up this morning and was too weak to sit up, at baseline she is independent with a walker. He also noted rigors and reports that she complained of generalized pain that she described as stabbing/shooting. Reports that the patient;s caregivers family was sick and then the caregiver also became sick (tested positive for COVID) but has not been around the patient for the past week. She currently lives with her son and his . Previous hx of DM, no longer on medications and has been controlled by diet once she moved in with her son. Initial VS at presentation: 99.8? F, HR 66, RR 19, 137/79, and 93% on room air. Has since been placed on supplemental O2 - 3L NC. ED workup showed: No leukocytosis, hemoglobin 11.6, no significant electrolyte derangements, creatinine 2.02 and GFR 24 (at baseline over the last year), glucose 137. UA unremarkable. Patient is positive for Influenza A. CXR showed no focal infiltrate or effusion. EKG showed sinus rhythm with first-degree AV block, occasional PVCs, left axis deviation, right bundle-branch block. Review of Systems Review of Systems: All systems reviewed & are unremarkable except as noted in HPI and below (Limited, confusion secondary to dementia) [facility] Past Medical History Medical History Pernicious anemia Memory impairment Pulmonary embolism On chronic anticoagulation with Eliquis Neuropathy Hypertension Hyperlipidemia Coronary artery disease Cardiac catheterization performed due to preop clearance April 2018 demonstrated less than 25% of mid LAD stenosis and 40% RCA stenosis Diabetes type 2, controlled Surgical History Surgical History S/P liver transplant History of left knee replacement Liver transplanted H/O cardiac catheterization April 2018 Family History Family History Other Adopted Unknown family medical history Social History Social History (Updated 08/24/24 @ 21:03 by Pilar Suarez APRN) Social History: Currently lives in her son's home. Ambulates with a walker. Primary care physician Dr. Alfredo John Code status: Full code Smoking status: Never smoker Second hand tobacco smoke exposure: No Alcohol intake: never Substance use: never Substance use type: does not use Do You Feel Safe in your Home?: Yes Lack of Transportation: No Lack of Food: Never True Current Housing: I Have Housing Concerned About Future Housing: No Difficulty Paying Gas/Electric Bills: No Difficulty Paying for Meds: No Currently Unemployed: No Education: Associate Degree Difficulty w/ Childcare or Family Care: No Gender identity (if verbalized by the patient): Female Spiritual care concerns: No Agree to blood products: Yes Meds Home Medications and Allergies Home Medications ?Medication ?Instructions ?Recorded ?Confirmed ?Type aspirin 81 mg chewable tablet 81 mg PO DAILY@0800 30 days #30 11/27/20 08/24/24 Rx (Children's Aspirin) tabs tacrolimus 0.5 mg capsule, 1.5 mg (3 x 0.5 mg) PO BID 7 days 11/27/20 08/24/24 Rx immediate-release #42 caps duloxetine 60 mg capsule,delayed 60 mg PO DAILY 01/15/24 08/24/24 History release memantine 10 mg tablet 10 mg PO BID 01/15/24 08/24/24 History rosuvastatin 5 mg tablet 5 mg PO DAILY 01/15/24 08/24/24 History acetaminophen 500 mg tablet 1,000 mg (2 x 500 mg) PO Q6H PRN 01/19/24 08/24/24 Rx (Acetaminophen Extra Strength) pain #90 tabs polyethylene glycol 3350 17 gram 17 g PO QAM PRN Constipation #30 ea 01/19/24 08/24/24 Rx oral powder packet (Miralax) cetirizine 10 mg tablet 10 mg PO HS 08/24/24 08/24/24 History cyanocobalamin (vitamin B-12) 1,000 mcg subcut MONTHLY 08/24/24 08/24/24 History 1,000 mcg/mL injection solution ergocalciferol (vitamin D2) 1,250 1,250 mcg PO .every two weeks 08/24/24 08/24/24 History mcg (50,000 unit) capsule ferrous sulfate 325 mg (65 mg 325 mg PO BID 08/24/24 08/24/24 History iron) tablet (FeroSul) furosemide 20 mg tablet 20 mg PO DAILY 08/24/24 08/24/24 History gabapentin 100 mg capsule 100 mg PO HS 08/24/24 08/24/24 History losartan 25 mg tablet 25 mg PO DAILY 08/24/24 08/24/24 History mirabegron 25 mg tablet,extended 25 mg PO DAILY 08/24/24 08/24/24 History release 24 hr (Myrbetriq) ropinirole 0.5 mg tablet 0.5 mg PO HS 08/24/24 08/24/24 History Allergies Allergy/AdvReac Type Severity Reaction Status Date / Time morphine Allergy Intermediate Unknown Verified 08/24/24 09:39 prednisone Allergy Unknown Other Verified 08/24/24 09:39 Vital Signs Vital Signs - 24 hr 08/24/24 08:48 08/24/24 09:38 08/24/24 09:38 Temperature 99.8 F H Pulse Rate 66 64 Respiratory Rate 19 Blood Pressure 137/79 Pulse Oximetry 93 96 Oxygen Delivery Room Air Nasal Cannula Oxygen Flow Rate 3 08/24/24 10:21 08/24/24 11:27 08/24/24 12:34 Temperature 99.2 F 100.1 F H 99.9 F H Pulse Rate 66 91 69 Respiratory Rate 20 15 23 H Blood Pressure 162/92 H 156/73 H 147/73 H Pulse Oximetry 95 95 98 Oxygen Delivery Oxygen Flow Rate Exam Narrative: crackles in the left lung base. A/Ox self, place, and year. Const: General: comfortable and no acute distress Other: , female, elderly, mildly ill-appearing HENMT: Face/Nose/Sinus: Normal nares present Mouth: Yes moist mucous membranes Eyes: General: appearance normal, both eyes and all related structures Sclera: sclerae normal Pupils: Equal, round and reactive pupils present EOM: EOMs intact bilaterally Resp: Effort & Inspection: normal respiratory effort Other: Faint crackles in left lung base. Otherwise no adventitious lung sounds. Cardio: Rate: regular rate Rhythm: regular rhythm Other: S1-S2 present without murmur, rub, ectopy GI: Other: Abdomen soft, nondistended, nontender. Skin: General skin exam: normal color and no rashes or lesions noted Wounds: no wounds Neuro: Speech: normal speech Motor exam (neuro): 5/5 motor strength present throughout Sensory Exam: normal sensation Other: A&O to self, place, year. For situational recall. Moving all extremities. Extrem: General: normal to inspection Psych: Mental Status: mental status grossly normal Affect: normal affect Other: Poor insight and judgment, very pleasant. H&P: Results Labs Labs: Short CBC 08/24/24 Range/Units 09:28 WBC 6.7 (4.5-10.0) K/mm3 Hgb 11.6 L (12.0-15.0) g/dL Hct 35.6 L (37.0-47.0) % Plt Count 180 (150-375) k/mm3 BMP 08/24/24 09:28 Sodium 139 Potassium 4.7 Chloride 101 Carbon Dioxide 27 BUN 45 H Creatinine 2.02 H Glucose 137 H Calcium 9.1 Liver Function 08/24/24 Range/Units 09:28 Total Bilirubin 0.7 (0.2-1.3) mg/dL AST 25 (14-36) U/L ALT 23 (6-35) U/L Alkaline Phosphatase 84 (38-126) U/L Albumin 4.4 (3.5-5.1) g/dL Urine 08/24/24 Range/Units 09:28 Urine Color Yellow (Yellow) Urine Appearance Clear (Clear) Urine pH 6.0 (5.0-9.0) Ur Specific [place] 1.013 (1.001-1.035) Urine Protein Trace (Negative) mg/dL Urine Glucose (UA) Negative (Negative) mg/dL Assessment and Plan Assessment and plan (1) Influenza A: Code(s): J10.1 - Influenza due to other identified influenza virus with other respiratory manifestations Status: Acute Assessment and Plan: - tested positive for influenza A on 08/24 - CXR: No focal infiltrate or effusion - Tamiflu 30 mg daily, renally adjusted - supportive care: Tylenol p.r.n. Mucinex shoaib Tessalon Perles p.r.n. Lozenge p.r.n. IV fluids: 1L bolus -> 125 mL/hr. d/c when appropriate. - monitor WBC/CBC - currently requiring supplemental O2: 3L (2) CKD (chronic kidney disease): Qualifiers: Chronic kidney disease stage: stage 4 (GFR 15-29) Qualified Code(s): N18.4 - Chronic kidney disease, stage 4 (severe) Code(s): N18.9 - Chronic kidney disease, unspecified Status: Suspected Assessment and Plan: Spoke with son on the phone. Patient had an elevated creatinine in January of 2024 when she was admitted for hyperkalemia and JANETH that was found through her PCP. Renal function remained elevated at discharge. Son unaware of any history of CKD or renal insufficiency. - creatinine 2.02, GFR 24, BUN 45 - previous range in 2023: Creatinine 2.02 - 4.1 GFR 10 - 24 - trend renal function - trend electrolytes, correct as needed (3) Diabetes type 2, controlled: Qualifiers: Diabetes mellitus complication status: without complication Diabetes mellitus adjunct faculty for medical terminology insulin use: without penitentiary use Qualified Code(s): E11.9 - Type 2 diabetes mellitus without complications Code(s): E11.9 - Type 2 diabetes mellitus without complications Status: Chronic Assessment and Plan: - currently diet controlled - hypoglycemia protocol - POC blood glucose ACHS - correct regimen ordered - low dose TIDWM - A1C 6.4% on 01/16/2024, update (4) Hypertension: Qualifiers: Hypertension type: unspecified Qualified Code(s): I10 - Essential (primary) hypertension Code(s): I10 - Essential (primary) hypertension Status: Chronic Assessment and Plan: - chronic, currently 147/73 - continue home medications: losartan - monitor Plan Diet: Heart healthy GI Prophylaxis: Not currently indicated DVT Prophylaxis: SCDs Lines: Peripheral Code Status: Full code Quality VTE Prophylaxis VTE prophylaxis: mechanical ordered Hospitalist MIPS Advance Care Plan I have confirmed that the patient's Advanced Care Plan is present, code status is documented, or surrogate decision maker is listed in patient medical record.: Yes Medication Reconciliation I have utilized all available resources to obtain, update and review the patients current medications (includes all prescriptions, OTC, herbals, cannabis, and nutritional supplements).: Yes
[2024-08-24] MEDS: LACTATED RINGERS 1,000 ML 125 ML IV CONT ×2 (14:19→21:17)
[2024-08-24] MEDS: ACETAMINOPHEN 325 MG TABLET 650 MG PO (14:26)
--- NOTE | 2024-08-24 16:11 | PC.NURSE ---
RN called and spoke with pt son Joseph and gave update regarding pt status and informed him that pt would be admitted to room 252
--- NOTE | 2024-08-24 16:48 | ADMGEN ---
This patient, Morelia Rodriguez, was admitted to Medical Room 252-. Patient/family oriented to hospital policies and general routines including ID bracelet, bed and alarms, visiting hours, pain management, procedures, bathroom and other care routines, personal items, smoking policy, room service/diet, and visiting hours. Information on how to activate the Rapid Response Team has been discussed. Patient/Family are encouraged to report perceived risks to care and to ask questions if they do not understand what they are told or what they should do.
[2024-08-24] MEDS: rOPINIRole HCL 0.5 MG TABLET PO (21:16)
[2024-08-24] MEDS: GABAPENTIN 100 MG CAPSULE PO (21:16)
[2024-08-24] MEDS: guaiFENesin 12 HR 600 MG TABCR PO (21:16)
[2024-08-24] MEDS: TACROLIMUS 0.5 MG CAPSULE 1.5 MG PO (21:50)
[2024-08-25] VITALS (11 sets, daily range): BP systolic 109–157; BP diastolic 52–93; PULSE 62–78; RESP 14–20; TEMP 36.4–38.2; O2SAT 95–100
[2024-08-25] MEDS: LACTATED RINGERS 1,000 ML 125 ML IV CONT (05:06)
[2024-08-25] MEDS: ACETAMINOPHEN 325 MG TABLET 650 MG PO ×2 (05:19→14:33)
[2024-08-25 07:27] LABS: Basophils Percent Auto 0.3 % (0.2-1.2); Eosinophils Percent Auto 0.1 % (0-4.4); Hematocrit 32.1 % (37.0-47.0); Hemoglobin 10.3 g/dL (12.0-15.0); Immature Granulocyte Absolute 0.03 K/mm3 (0.00-0.031); Immature Granulocyte Percent A 0.4 % (0-0.5); Lymphocytes Absolute Auto 0.52 K/mm3 (0.9-3.2); Lymphocytes Percent Auto 6.6 % (18.3-44.2); Mean Corpuscular HGB Conc 32.1 g/dl (32-36); Mean Corpuscular Hemoglobin 32.6 pg (26-34); Mean Corpuscular Volume 101.6 fl (80-100); Mean Platelet Volume 11.4 fl (7.4-10.4); Monocytes Absolute Auto 0.7 K/mm3 (0.1-0.6); Monocytes Percent Auto 8.2 % (2.6-8.5); Neutrophils Absolute Auto 6.7 K/mm3 (1.3-6.7); Neutrophils Percent Auto 84.4 % (45.5-73.1); Platelet Count Result 143 k/mm3 (150-375); Red Blood Count 3.16 M/mm3 (4.2-5.4); Red Cell Distribution Width 11.9 % (11.5-14.5); White Blood Count 7.9 K/mm3 (4.5-10.0)
--- NOTE | 2024-08-25 07:36 | P.PNIM_ITS ---
Progress Note: A&P Assessment and Plan (1) Influenza A: Code(s): J10.1 - Influenza due to other identified influenza virus with other respiratory manifestations Status: Acute Assessment and Plan: * respiratory panel positive for influenza A * continue Tamiflu * continue guaifenesin and Tessalon Perles * continue to wean O2 for sat greater than 92%, currently on 3 L nasal cannula * continue incentive spirometry and pep therapy with cornet flutter valve * PT and OT ordered (2) CKD (chronic kidney disease): Qualifiers: Chronic kidney disease stage: stage 4 (GFR 15-29) Qualified Code(s): N18.4 - Chronic kidney disease, stage 4 (severe) Code(s): N18.9 - Chronic kidney disease, unspecified Status: Suspected Assessment and Plan: * creatinine 1.46, EGFR 34 * last recorded creatinine ranged 2.02- 4.1, GFR 10-24, unknown baseline * history of liver transplant, currently on tacrolimus (3) Diabetes type 2, controlled: Qualifiers: Diabetes mellitus complication status: without complication Diabetes mellitus penitentiary insulin use: without penitentiary use Qualified Code(s): E11.9 - Type 2 diabetes mellitus without complications Code(s): E11.9 - Type 2 diabetes mellitus without complications Status: Chronic Assessment and Plan: * Blood sugars ranging 137-158 * Hgb A1C 5.7 * Accu checks AC/HS * low-dose SSI ordered * hypoglycemic protocol in place * Diabetic diet ordered * diet-controlled at home (4) Hypertension: Qualifiers: Hypertension type: unspecified Qualified Code(s): I10 - Essential (primary) hypertension Code(s): I10 - Essential (primary) hypertension Status: Chronic Assessment and Plan: * blood pressures ranging 122/62 to 156/73 * continue losartan (5) Coronary artery disease: Code(s): I25.10 - Atherosclerotic heart disease of [place] coronary artery without angina pectoris Status: Acute Assessment and Plan: * continue aspirin rosuvastatin (6) Dementia: Code(s): F03.90 - Unspecified dementia, unspecified severity, without behavioral disturbance, psychotic disturbance, mood disturbance, and anxiety Status: Acute Assessment and Plan: * continue Namenda Time Spent With Patient Time with patient: 25 - 35 minutes Subjective Date/time seen: 08/25/24 07:36 Interval history: Interval history: This is an 83-year-old female with significant past medical history of coronary artery disease, type 2 diabetes, hyperlipidemia, hypertension, dementia, neuropathy, liver transplant recipient, PE, pernicious anemia presented to the hospital with acute hypoxic respiratory failure, weakness, and cough. Work up in the hospital revealed Influenza A. CXR was negative. Subjective: Patient reporting pain in her right ear. She denies any fever, chills, naus ea, vomiting, diarrhea, abdominal pain, chest pain, shortness a breath. She is currently on 2 L nasal cannula. She reports a nonproductive cough. She also has developed and upper body tremor which is new. Review of Systems Review of Systems: All systems reviewed & are unremarkable except as noted in HPI and below Exam Narrative: General: In no acute distress, well nourished Cardiac: Normal S1 and S2. No murmur, gallops or friction rubs, peripheral pulses intact. Respiratory: Lungs clear to auscultation, no adventitious lung sounds Currently on 2 L nasal cannula Gastrointestinal: soft, non-distended, non-tender, normoactive bowel sounds. : voiding without difficulty. Neuro: Alert and oriented x4 Objective Data Vital Signs Vital Signs: Vital Signs - 24 hr 08/24/24 08:48 08/24/24 09:38 08/24/24 09:38 Temperature 99.8 F H Pulse Rate 66 64 Respiratory Rate 19 Blood Pressure 137/79 Pulse Oximetry 93 96 Oxygen Delivery Room Air Nasal Cannula Oxygen Flow Rate 3 08/24/24 10:21 08/24/24 11:27 08/24/24 12:34 Temperature 99.2 F 100.1 F H 99.9 F H Pulse Rate 66 91 69 Respiratory Rate 20 15 23 H Blood Pressure 162/92 H 156/73 H 147/73 H Pulse Oximetry 95 95 98 Oxygen Delivery Oxygen Flow Rate 08/24/24 14:22 08/24/24 14:26 08/24/24 16:03 Temperature 100.3 F H 100.3 F H 99.9 F H Pulse Rate 77 Respiratory Rate 26 H Blood Pressure 145/78 H Pulse Oximetry 95 Oxygen Delivery Oxygen Flow Rate 08/24/24 16:20 08/24/24 18:00 08/24/24 20:36 Temperature 99.9 F H 98.4 F Pulse Rate 62 53 L Respiratory Rate 19 18 Blood Pressure 146/76 H 122/62 Pulse Oximetry 96 98 97 Oxygen Delivery Nasal Cannula Oxygen Flow Rate 3 08/24/24 21:20 08/25/24 05:11 08/25/24 05:19 Temperature 99.8 F H 99.8 F H Pulse Rate 78 Respiratory Rate 20 Blood Pressure 138/93 H Pulse Oximetry 97 96 Oxygen Delivery Nasal Cannula Oxygen Flow Rate 3 08/25/24 06:15 Temperature 98.9 F Pulse Rate Respiratory Rate Blood Pressure Pulse Oximetry Oxygen Delivery Oxygen Flow Rate Intake/Output Intake/Output: Intake & Output 08/22/24 08/23/24 08/24/24 08/25/24 23:59 23:59 23:59 23:59 Intake Total 2230.8 1097.1 Output Total 450 400 Balance 1780.8 697.1 Meds/Results Medications: Active Medications Generic Name Dose Route Start Last Admin Trade Name Freq PRN Reason Stop Dose Admin Acetaminophen 650 mg 08/24/24 12:25 08/25/24 05:19 Acetaminophen 325 Mg Tablet PO 650 mg Q4H PRN Administration Mild Pain (1-3) or Fever Aspirin 81 mg 08/25/24 08:00 Aspirin 81 Mg Chewable Tablet PO DAILY@0800 TRIN[facility] Benzocaine 1 lozenge 08/24/24 13:58 Benzocaine/Menthol (*Bkc) 18 Ea Lozenge PO PRN PRN Sore Throat Benzonatate 100 mg 08/24/24 13:58 Benzonatate 100 Mg Capsule PO TID PRN Cough Dextrose 12.5 gm 08/24/24 20:58 Dextrose 50% 25 Gm/50 Ml Syringe IV PUSH PRN PRN Hypoglycemia Protocol Duloxetine HCl 60 mg 08/25/24 09:00 Duloxetine Hcl 60 Mg Capsule.Dr PO DAILY [facility] Ergocalciferol units 08/24/24 21:00 Ergocalciferol 50,000 Units Capsule PO .every two weeks [facility] Ferrous Sulfate 325 mg 08/25/24 09:00 Ferrous Sulfate [address] BY MOUTH BID [facility] Furosemide 20 mg 08/25/24 09:00 Furosemide 20 Mg Tablet PO DAILY [facility] Gabapentin 100 mg 08/24/24 21:00 08/24/24 21:16 Gabapentin 100 Mg Capsule PO 100 mg HS TRIN[facility] Administration Glucagon 1 mg 08/24/24 20:58 Glucagon For Inj 1 Mg Vial IM PRN PRN Hypoglycemia Protocol Glucose 15 gm 08/24/24 20:58 Glucose Oral Gel 15 Gm Of Glucse In 37.5 Gm Tube PO PRN PRN Hypoglycemia Protocol Guaifenesin 600 mg 08/24/24 21:00 08/24/24 21:16 Guaifenesin 12 Hr 600 Mg Tabcr PO 600 mg Q12HR TRIN[facility] Administration Lactated Ringer's 1,000 mls @ 125 mls/hr 08/24/24 12:25 08/25/24 05:06 Lr - Lactated Ringers Iv IV CONT 125 mls/hr .Q8H TRIN[facility] Administration Dextrose 1,000 mls @ 100 mls/hr 08/24/24 20:58 Dextrose 5% 1,000 Ml IVPB PRN PRN Hypoglycemia Protocol Insulin Aspart 2 - 5 units 08/25/24 08:00 Insulin Aspart (*Bkc) 100 Units/Ml SUB-Q TIDWM TRIN[facility] Protocol Loratadine 10 mg 08/25/24 21:00 Loratadine 10 Mg Tablet PO HS TRIN[facility] Losartan Potassium 25 mg 08/25/24 09:00 Losartan Potassium 25 Mg Tablet PO DAILY TR[facility] Memantine 10 mg 08/25/24 09:00 Memantine 10 Mg Tablet PO BID [facility] Mirabegron 25 mg 08/25/24 09:00 Mirabegron 25 Mg Er Tablet PO DAILY [facility] Miscellaneous Information 0 each 08/24/24 00:01 When Is Next -Or- When Was Last Ergocalciferol Dose Due? XX 09/23/24 00:00 CLARIFY [facility] Ondansetron HCl 4 mg 08/24/24 12:25 Ondansetron Inj 4 Mg/2 Ml Vial IV PUSH Q4H PRN Nausea Oseltamivir Phosphate 30 mg 08/24/24 10:40 08/24/24 11:24 Oseltamivir Phosphate 30 Mg Capsule PO 08/29/24 10:39 30 mg DAILY [facility] Administration Polyethylene Glycol 17 gm 08/24/24 20:59 Polyethylene Glycol 3350 17 Gm Powd.Pack PO QAM PRN Constipation Ropinirole HCl 0.5 mg 08/24/24 21:00 08/24/24 21:16 Ropinirole Hcl 0.5 Mg Tablet PO 0.5 mg HS TRIN[facility] Administration Rosuvastatin Calcium 5 mg 08/25/24 09:00 Rosuvastatin 5 Mg Tablet PO DAILY [facility] Tacrolimus 1.5 mg 08/24/24 21:20 08/24/24 21:50 Tacrolimus 0.5 Mg Capsule PO 1.5 mg Q12HR [facility]IN[facility] Administration Radiology Results: ITS Impressions Chest X-Ray 08/24/24 09:13 IMPRESSION: No focal infiltrate or effusion. Labs Labs: Laboratory Results - last 24 hr 08/24/24 09:28 WBC 6.7 RBC 3.53 L Hgb 11.6 L Hct 35.6 L MCV 100.8 H MCH 32.9 MCHC 32.6 RDW 12.1 Plt Count 180 MPV 11.7 H Immature Gran % (Auto) 0.5 Neut % (Auto) 76.2 H Lymph % (Auto) 12.5 L White % (Auto) 9.9 H Eos % (Auto) 0.6 Baso % (Auto) 0.3 Lymph # (Auto) 0.83 L White # (Auto) 0.7 H Eos # (Auto) 0.0 Baso # (Auto) 0.0 Abs Immat Gran (auto) 0.03 Absolute Neuts (auto) 5.1 Absolute Nucleated RBC 0.000 Nucleated RBC % 0.0 Sodium 139 Potassium 4.7 Chloride 101 Carbon Dioxide 27 Anion Gap 11 BUN 45 H Creatinine 2.02 H Estim Creat Clear Calc 21 Estimated GFR 24 L Glucose 137 H Calcium 9.1 Total Bilirubin 0.7 AST 25 ALT 23 Alkaline Phosphatase 84 Total Protein 7.0 Albumin 4.4 Urine Color Yellow Urine Appearance Clear Urine pH 6.0 Ur Specific [place] 1.013 Urine Protein Trace Urine Glucose (UA) Negative Urine Ketones Negative Ur Blood (Man) Negative Urine Nitrate Negative Urine Bilirubin Negative Urine Urobilinogen 0.2 Leukocyte Esterase Rfl Negative Urine RBC 0-2 Urine WBC 0-5 Ur Squamous Epith Cells None seen Urine Bacteria None seen Urine Casts 0-2 Influenza A (RT-PCR) Positive A Influenza B (RT-PCR) Negative RSV (RT-PCR) Negative SARS-CoV-2 RNA (RT-PCR) Negative Quality VTE Prophylaxis VTE prophylaxis: mechanical ordered
[2024-08-25 07:37] LABS: Hemoglobin A1C 5.7 % (<5.7)
[2024-08-25 07:50] LABS: Anion Gap 7 mmol/L (4-12); Blood Urea Nitrogen 33 mg/dL (7-17); Calcium 8.3 mg/dL (8.4-10.2); Carbon Dioxide 28 mmol/L (22-30); Chloride 103 mmol/L (98-107); Estimated CRCL calculation 29 ml/min; Estimated Glomerular Filt Rate 34; Glucose 158 mg/dL (65-110); Sodium 138 mmol/L (137-145)
[2024-08-25 08:18] LABS: Glucose Point of Care 155 mg/dl (65-105)
[2024-08-25] MEDS: FUROSEMIDE 20 MG TABLET PO (08:21)
[2024-08-25] MEDS: DULoxetine HCL 60 MG CAPSULE.DR PO (08:21)
[2024-08-25] MEDS: LOSARTAN POTASSIUM 25 MG TABLET PO (08:21)
[2024-08-25] MEDS: MEMANTINE 10 MG TABLET PO ×2 (08:21→16:31)
[2024-08-25] MEDS: ASPIRIN 81 MG CHEWABLE TABLET PO (08:21)
[2024-08-25] MEDS: ROSUVASTATIN 5 MG TABLET PO (08:22)
[2024-08-25] MEDS: MIRABEGRON 25 MG ER TABLET PO (08:22)
[2024-08-25] MEDS: FERROUS SULFATE 325 MG TABLET DR BY MOUTH ×2 (08:22→16:31)
[2024-08-25] MEDS: guaiFENesin 12 HR 600 MG TABCR PO ×2 (08:22→21:04)
[2024-08-25] MEDS: OSELTAMIVIR PHOSPHATE 30 MG CAPSULE PO (08:22)
[2024-08-25] MEDS: TACROLIMUS 0.5 MG CAPSULE 1.5 MG PO ×2 (09:33→21:03)
[2024-08-25 11:50] LABS: Glucose Point of Care 136 mg/dl (65-105)
[2024-08-25] MEDS: CARBAMIDE PEROXIDE 6.5% OT SOLN 15 ML BTL 5 DROP EACH EAR (14:36)
[2024-08-25 16:45] LABS: Glucose Point of Care 186 mg/dl (65-105)
[2024-08-25] MEDS: rOPINIRole HCL 0.5 MG TABLET PO (21:04)
[2024-08-25] MEDS: LORATADINE 10 MG TABLET PO (21:04)
[2024-08-25] MEDS: GABAPENTIN 100 MG CAPSULE PO (21:04)
[2024-08-25 21:55] LABS: Glucose Point of Care 171 mg/dl (65-105)
[2024-08-26] VITALS (9 sets, daily range): BP systolic 140–156; BP diastolic 57–70; PULSE 67–91; RESP 18–20; TEMP 36.7–37.3; O2SAT 90–98
[2024-08-26 08:41] LABS: Glucose Point of Care 102 mg/dl (65-105)
[2024-08-26] MEDS: ASPIRIN 81 MG CHEWABLE TABLET PO (08:51)
[2024-08-26] MEDS: CARBAMIDE PEROXIDE 6.5% OT SOLN 15 ML BTL 5 DROP EACH EAR ×2 (08:52→16:55)
[2024-08-26] MEDS: MIRABEGRON 25 MG ER TABLET PO (08:52)
[2024-08-26] MEDS: OSELTAMIVIR PHOSPHATE 30 MG CAPSULE PO (08:52)
[2024-08-26] MEDS: MEMANTINE 10 MG TABLET PO ×2 (08:52→16:55)
[2024-08-26] MEDS: guaiFENesin 12 HR 600 MG TABCR PO ×2 (08:52→20:12)
[2024-08-26] MEDS: LOSARTAN POTASSIUM 25 MG TABLET PO (08:52)
[2024-08-26] MEDS: ROSUVASTATIN 5 MG TABLET PO (08:52)
[2024-08-26] MEDS: FERROUS SULFATE 325 MG TABLET DR BY MOUTH ×2 (08:52→16:55)
[2024-08-26] MEDS: FUROSEMIDE 20 MG TABLET PO (08:53)
[2024-08-26] MEDS: DULoxetine HCL 60 MG CAPSULE.DR PO (08:53)
[2024-08-26] MEDS: TACROLIMUS 0.5 MG CAPSULE 1.5 MG PO ×2 (08:54→20:12)
--- NOTE | 2024-08-26 10:43 | P.DS_ITS ---
DS: Admitting Diagnosis Discharge Date 08/26/24 DS: Summary Time Spent with Patient Time attestation: Total time spent providing and/or coordinating discharge services: DS: Data Data Completed and Pending Labs on day of discharge: Labs from last 24 hours 08/26/24 08/25/24 08/25/24 08:33 19:55 16:33 POC Capillary Glucose 102 171 H 186 H 08/25/24 11:34 POC Capillary Glucose 136 H Discharge Plan Discharge Attending physician on discharge: Robin Morton Discharging Clinician: Denisha Frankel Anticipated Discharge Date/Time: 08/26/24 10:23 Patient Disposition: Home, Self-Care Activity: as tolerated Diet: as tolerated and heart healthy Discharge Instructions: * finish her Tamiflu * follow-up with your primary care doctor in 1 week Patient Instructions: Antibiotic Form Patient Language: Slovak Stand Alone Forms: General Discharge Information Follow-up/Referrals: Joanna,MD Alfredo [Primary Care Provider] - 1 Week Discharge Medications: New oseltamivir [Tamiflu] 30 mg Capsule 30 mg PO DAILY Qty: 2 0RF Debrox 6.5 % Drops 5 drp EACH EAR BID Qty: 1 0RF benzonatate 100 mg Capsule 100 mg PO TID PRN (Reason: Cough) Qty: 20 0RF guaifenesin [Mucus Relief ER] 600 mg Tablet Extended Release 12hr 600 mg PO Q12HR Qty: 20 0RF Continued aspirin [Children's Aspirin] 81 mg Tablet,Chewable 81 mg PO DAILY@0800 30 Days Qty: 30 0RF tacrolimus 0.5 mg capsule 1.5 mg PO BID 7 Days Qty: 42 0RF Rx Instructions: pt takes 3 capsules in the morning and 3 capsules at night rosuvastatin 5 mg tablet 5 mg PO DAILY memantine 10 mg tablet 10 mg PO BID duloxetine 60 mg capsule,delayed release(DR/EC) 60 mg PO DAILY polyethylene glycol 3350 [Miralax] 17 gram Powder In Packet 17 g PO QAM PRN (Reason: Constipation) Qty: 30 0RF acetaminophen [Acetaminophen Extra Strength] 500 mg tablet 1,000 mg PO Q6H MDD 3,000 mg PRN (Reason: pain) Qty: 90 0RF cetirizine 10 mg tablet 10 mg PO HS cyanocobalamin (vitamin B-12) 1,000 mcg/mL solution 1,000 mcg subcut MONTHLY ergocalciferol (vitamin D2) 1,250 mcg (50,000 unit) capsule 1,250 mcg PO .every two weeks ferrous sulfate [FeroSul] 325 mg (65 mg iron) tablet 325 mg PO BID furosemide 20 mg tablet 20 mg PO DAILY gabapentin 100 mg capsule 100 mg PO HS losartan 25 mg tablet 25 mg PO DAILY mirabegron [Myrbetriq] 25 mg tablet extended release 24 hr 25 mg PO DAILY ropinirole 0.5 mg tablet 0.5 mg PO HS Date of admission: 08/24/24 13:32 Primary Care Provider: Joanna,Aflredo Admitting Provider: Eriberto Carrillo Attending physician on admission: Denisha Frankel Condition: Stable
[2024-08-26 11:57] LABS: Glucose Point of Care 162 mg/dl (65-105)
--- NOTE | 2024-08-26 14:41 | HOMEO2EVAL ---
Evaluation was performed at [facility] Home Oxygen Evaluation RC: Home Oxygen (O2) Evaluation Start: 08/26/24 09:27 Freq: ONCE Status: Active Protocol: RPE Activity Type Activity Date Activity User E-sign Co-sign Detail Recorded Client Recorded Date Recorded By Document 08/26/24 14:30 ELENA [email or web address] 08/26/24 14:41 ELENA Document 08/26/24 14:35 ELENA [email or web address] 08/26/24 14:41 ELENA Document 08/26/24 14:40 ELENA [email or web address] 08/26/24 14:41 ELENA 08/26/24 08/26/24 08/26/24 14:30 14:35 14:40 Home O2 Evaluation [Oxygen] -Test Phase Resting Exercise Resting -Oxygen Delivery Room Air Room Air Room Air [Pulse Oximetry] -Pulse Oximetry (90-100 %) 95 93 94 [Pulse Rate] -Pulse Rate (60-100 beats/min) 70 91 77 [Evaluation] -Activity Tolerance Fair [Exercise] -Ambulation Distance (feet) 15 -Ambulation Distance (meters) 4.57 [Comments] -Home Oxygen Evaluation Comments Up from bed to chair with OT, pt weak [Charges] -Evaluation Charges O2 Evaluation by Pulmonary
--- NOTE | 2024-08-26 14:42 | PCRCNOTE ---
Home O2 eval done while patient being evaluated with OT/PT. No home O2 needed at this time, RN notifed
--- NOTE | 2024-08-26 15:30 | P.PNIM_ITS ---
Progress Note: A&P Assessment and Plan (1) Influenza A: Code(s): J10.1 - Influenza due to other identified influenza virus with other respiratory manifestations Status: Acute Assessment and Plan: * respiratory panel positive for influenza A * continue Tamiflu * continue guaifenesin and Tessalon Perles * continue to wean O2 for sat greater than 92%, currently on 3 L nasal cannula * continue incentive spirometry and pep therapy with cornet flutter valve * PT and OT ordered 08/25 * PT and OT recommending SNF placement * continue Tamiflu * continue guaifenesin and Perles * continue incentive spirometry therapy (2) CKD (chronic kidney disease): Qualifiers: Chronic kidney disease stage: stage 4 (GFR 15-29) Qualified Code(s): N18.4 - Chronic kidney disease, stage 4 (severe) Code(s): N18.9 - Chronic kidney disease, unspecified Status: Suspected Assessment and Plan: * creatinine 1.46, EGFR 34 * last recorded creatinine ranged 2.02- 4.1, GFR 10-24, unknown baseline * history of liver transplant, currently on tacrolimus 08/26 * (3) Diabetes type 2, controlled: Qualifiers: Diabetes mellitus complication status: without complication 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: without 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 owner operator truck driver use Qualified Code(s): E11.9 - Type 2 diabetes mellitus without complications Code(s): E11.9 - Type 2 diabetes mellitus without complications Status: Chronic Assessment and Plan: * Blood sugars ranging 137-158 * Hgb A1C 5.7 * Accu checks AC/HS * low-dose SSI ordered * hypoglycemic protocol in place * Diabetic diet ordered * diet-controlled at home (4) Hypertension: Qualifiers: Hypertension type: unspecified Qualified Code(s): I10 - Essential (primary) hypertension Code(s): I10 - Essential (primary) hypertension Status: Chronic Assessment and Plan: * blood pressures ranging 122/62 to 156/73 * continue losartan 08/26 * no change (5) Coronary artery disease: Code(s): I25.10 - Atherosclerotic heart disease of [place] coronary artery without angina pectoris Status: Acute Assessment and Plan: * continue aspirin rosuvastatin 08/26 * no change (6) Dementia: Code(s): F03.90 - Unspecified dementia, unspecified severity, without behavioral disturbance, psychotic disturbance, mood disturbance, and anxiety Status: Acute Assessment and Plan: * continue Namenda 08/26 * no change Time Spent With Patient Time with patient: 25 - 35 minutes Subjective Date/time seen: 08/26/24 15:30 Interval history: Interval history: This is an 83-year-old female with significant past medical history of coronary artery disease, type 2 diabetes, hyperlipidemia, hypertension, dementia, neuropathy, liver transplant recipient, PE, pernicious anemia presented to the hospital with acute hypoxic respiratory failure, weakness, and cough. Work up in the hospital revealed Influenza A. CXR was negative. Subjective: patient denies any new complaints today. Labs reviewed. Review of Systems Review of Systems: All systems reviewed & are unremarkable except as noted in HPI and below Exam Narrative: General: In no acute distress, well nourished Cardiac: Normal S1 and S2. No murmur, gallops or friction rubs, peripheral pulses intact. Respiratory: Lungs clear to auscultation, no adventitious lung sounds Currently on room air Gastrointestinal: soft, non-distended, non-tender, normoactive bowel sounds. : voiding without difficulty. Neuro: Alert and oriented x4 , tremors noted Objective Data Vital Signs Vital Signs: Vital Signs - 24 hr 08/25/24 18:02 08/25/24 18:31 08/25/24 19:53 Temperature 97.6 F 99.3 F 97.7 F Pulse Rate 65 Respiratory Rate 20 Blood Pressure 109/52 L Pulse Oximetry 100 Oxygen Delivery Oxygen Flow Rate 08/25/24 21:00 08/26/24 03:37 08/26/24 08:47 Temperature 98.9 F 98.1 F Pulse Rate 65 67 71 Respiratory Rate 20 20 18 Blood Pressure 154/59 H 140/57 L Pulse Oximetry 100 98 96 Oxygen Delivery Nasal Cannula Oxygen Flow Rate 1 08/26/24 08:52 08/26/24 12:49 08/26/24 14:05 Temperature Pulse Rate Respiratory Rate Blood Pressure Pulse Oximetry 96 96 Oxygen Delivery Nasal Cannula Room Air Room Air Oxygen Flow Rate 1 08/26/24 14:30 08/26/24 14:35 08/26/24 14:40 Temperature Pulse Rate 70 91 77 Respiratory Rate Blood Pressure Pulse Oximetry 95 93 94 Oxygen Delivery Room Air Room Air Room Air Oxygen Flow Rate Intake/Output Intake/Output: Intake & Output 08/23/24 08/24/24 08/25/2418/25 23:59 23:59 23:59 23:59 Intake Total 2230.8 2537.1 480 Output Total 450 1750 1400 Balance 1780.8 787.1 -920 Meds/Results Medications: Active Medications Generic Name Dose Route Start Last Admin Trade Name Freq PRN Reason Stop Dose Admin Acetaminophen 650 mg 08/24/24 12:25 08/25/24 14:33 Acetaminophen 325 Mg Tablet PO 650 mg Q4H PRN Administration Mild Pain (1-3) or Fever Aspirin 81 mg 08/25/24 08:00 08/26/24 08:51 Aspirin 81 Mg Chewable Tablet PO 81 mg DAILY@0800 TRIN[facility] Administration Benzocaine 1 lozenge 08/24/24 13:58 Benzocaine/Menthol (*Bkc) 18 Ea Lozenge PO PRN PRN Sore Throat Benzonatate 100 mg 08/24/24 13:58 Benzonatate 100 Mg Capsule PO TID PRN Cough Carbamide Peroxide 5 drop 08/25/24 17:00 08/26/24 08:52 Carbamide Peroxide 6.5% Ot Soln 15 Ml Btl EACH EAR 5 drop BID TRINH Administration Dextrose 12.5 gm 08/24/24 20:58 Dextrose 50% 25 Gm/50 Ml Syringe IV PUSH PRN PRN Hypoglycemia Protocol Duloxetine HCl 60 mg 08/25/24 09:00 08/26/24 08:53 Duloxetine Hcl 60 Mg Capsule.Dr PO 60 mg DAILY TRINH Administration Ergocalciferol units 08/24/24 21:00 Ergocalciferol 50,000 Units Capsule PO .every two weeks [facility] Ferrous Sulfate 325 mg 08/25/24 09:00 08/26/24 08:52 Ferrous Sulfate [address] BY MOUTH 325 mg BID TRINH Administration Furosemide 20 mg 08/25/24 09:00 08/26/24 08:53 Furosemide 20 Mg Tablet PO 20 mg DAILY TRIN[facility] Administration Gabapentin 100 mg 08/24/24 21:00 08/25/24 21:04 Gabapentin 100 Mg Capsule PO 100 mg HS TRINH Administration Glucagon 1 mg 08/24/24 20:58 Glucagon For Inj 1 Mg Vial IM PRN PRN Hypoglycemia Protocol Glucose 15 gm 08/24/24 20:58 Glucose Oral Gel 15 Gm Of Glucse In 37.5 Gm Tube PO PRN PRN Hypoglycemia Protocol Guaifenesin 600 mg 08/24/24 21:00 08/26/24 08:52 Guaifenesin 12 Hr 600 Mg Tabcr PO 600 mg Q12HR TRIN[facility] Administration Dextrose 1,000 mls @ 100 mls/hr 08/24/24 20:58 Dextrose 5% 1,000 Ml IVPB PRN PRN Hypoglycemia Protocol Insulin Aspart 2 - 5 units 08/25/24 08:00 08/26/24 12:12 Insulin Aspart (*Bkc) 100 Units/Ml SUB-Q Not Given TIDWM TRINH Protocol Loratadine 10 mg 08/25/24 21:00 08/25/24 21:04 Loratadine 10 Mg Tablet PO 10 mg HS TRINH Administration Losartan Potassium 25 mg 08/25/24 09:00 08/26/24 08:52 Losartan Potassium 25 Mg Tablet PO 25 mg DAILY TRIN[facility] Administration Memantine 10 mg 08/25/24 09:00 08/26/24 08:52 Memantine 10 Mg Tablet PO 10 mg BID TRINH Administration Mirabegron 25 mg 08/25/24 09:00 08/26/24 08:52 Mirabegron 25 Mg Er Tablet PO 25 mg DAILY TRIN[facility] Administration Miscellaneous Information 0 each 08/24/24 00:01 When Is Next -Or- When Was Last Ergocalciferol Dose Due? XX 09/23/24 00:00 CLARIFY TRINH Ondansetron HCl 4 mg 08/24/24 12:25 Ondansetron Inj 4 Mg/2 Ml Vial IV PUSH Q4H PRN Nausea Oseltamivir Phosphate 30 mg 08/24/24 10:40 08/26/24 08:52 Oseltamivir Phosphate 30 Mg Capsule PO 08/29/24 10:39 30 mg DAILY TRINH Administration Polyethylene Glycol 17 gm 08/24/24 20:59 Polyethylene Glycol 3350 17 Gm Powd.Pack PO QAM PRN Constipation Ropinirole HCl 0.5 mg 08/24/24 21:00 08/25/24 21:04 Ropinirole Hcl 0.5 Mg Tablet PO 0.5 mg HS TRINH Administration Rosuvastatin Calcium 5 mg 08/25/24 09:00 08/26/24 08:52 Rosuvastatin 5 Mg Tablet PO 5 mg DAILY TRINH Administration Tacrolimus 1.5 mg 08/24/24 21:20 08/26/24 08:54 Tacrolimus 0.5 Mg Capsule PO 1.5 mg Q12HR TRINH Administration Radiology Results: ITS Impressions Chest X-Ray 08/24/24 09:13 IMPRESSION: No focal infiltrate or effusion. Labs Labs: Laboratory Results - last 24 hr 08/25/24 08/25/24 08/26/24 16:33 19:55 08:33 POC Capillary Glucose 186 H 171 H 102 08/26/24 11:45 POC Capillary Glucose 162 H Quality VTE Prophylaxis VTE prophylaxis: mechanical ordered
[2024-08-26 17:32] LABS: Glucose Point of Care 147 mg/dl (65-105)
[2024-08-26] MEDS: LORATADINE 10 MG TABLET PO (20:12)
[2024-08-26] MEDS: rOPINIRole HCL 0.5 MG TABLET PO (20:12)
[2024-08-26] MEDS: GABAPENTIN 100 MG CAPSULE PO (20:12)
[2024-08-26 21:52] LABS: Glucose Point of Care 160 mg/dl (65-105)
[2024-08-27 03:20] VITALS: BP 151/60; PULSE 64; RESP 20; TEMP 37.2; O2SAT 90
[2024-08-27 06:27] LABS: Basophils Percent Auto 0.2 % (0.2-1.2); Eosinophils Percent Auto 0.4 % (0-4.4); Hematocrit 33.9 % (37.0-47.0); Immature Granulocyte Absolute 0.05 K/mm3 (0.00-0.031); Immature Granulocyte Percent A 0.5 % (0-0.5); Immature Platelet Fraction Pct 7.6 % (0.9-11.2); Lymphocytes Absolute Auto 1.38 K/mm3 (0.9-3.2); Lymphocytes Percent Auto 12.6 % (18.3-44.2); Mean Corpuscular HGB Conc 32.4 g/dl (32-36); Mean Corpuscular Hemoglobin 32.8 pg (26-34); Mean Corpuscular Volume 101.2 fl (80-100); Mean Platelet Volume 12.3 fl (7.4-10.4); Monocytes Absolute Auto 0.8 K/mm3 (0.1-0.6); Monocytes Percent Auto 7.3 % (2.6-8.5); Neutrophils Absolute Auto 8.7 K/mm3 (1.3-6.7); Platelet Count Result 153 k/mm3 (150-375); Red Blood Count 3.35 M/mm3 (4.2-5.4); Red Cell Distribution Width 11.7 % (11.5-14.5)
[2024-08-27 06:36] LABS: Alanine Aminotransferase 19 U/L (6-35); Albumin Level 3.6 g/dL (3.5-5.1); Alkaline Phosphatase 68 U/L (38-126); Anion Gap 9 mmol/L (4-12); Aspartate Amino Transferase 29 U/L (14-36); Bilirubin,Total 0.8 mg/dL (0.2-1.3); Blood Urea Nitrogen 29 mg/dL (7-17); Calcium 8.5 mg/dL (8.4-10.2); Carbon Dioxide 29 mmol/L (22-30); Chloride 97 mmol/L (98-107); Estimated CRCL calculation 32 ml/min; Estimated Glomerular Filt Rate 39; Glucose 146 mg/dL (65-110); Potassium 4.3 mmol/L (3.4-5.0); Sodium 135 mmol/L (137-145)
--- NOTE | 2024-08-27 07:18 | P.PNIM_ITS ---
Progress Note: A&P Assessment and Plan (1) Acute respiratory failure with hypoxia: Code(s): J96.01 - Acute respiratory failure with hypoxia Status: Acute Assessment and Plan: 08/27 * Patient currently on 1 L nasal cannula, tight nonproductive cough, rhonchi and wheezing throughout both lung [place] * Chest x-ray showing airspace opacities in the left mid and lower lung zones consistent pneumonia * Will start Cefepime * Continue PeP therapy and incentive spirometry (2) Hospital-acquired pneumonia: Code(s): J18.9 - Pneumonia, unspecified organism; Y95 - Nosocomial condition Status: Acute Assessment and Plan: * Chest x-ray suggesting pneumonia * Will start cefepime * T-max 100?, well white blood cell count 11.0 * See above for additional details (3) Influenza A: Code(s): J10.1 - Influenza due to other identified influenza virus with other respiratory manifestations Status: Acute Assessment and Plan: * respiratory panel positive for influenza A * continue Tamiflu * continue guaifenesin and Tessalon Perles * continue to wean O2 for sat greater than 92%, currently on 3 L nasal cannula * continue incentive spirometry and pep therapy with cornet flutter valve * PT and OT ordered 08/25 * PT and OT recommending SNF placement * continue Tamiflu * continue guaifenesin and Perles * continue incentive spirometry therapy and pep therapy 08/27 * No change to current treatment plan (4) CKD (chronic kidney disease): Qualifiers: Chronic kidney disease stage: stage 4 (GFR 15-29) Qualified Code(s): N18.4 - Chronic kidney disease, stage 4 (severe) Code(s): N18.9 - Chronic kidney disease, unspecified Status: Suspected Assessment and Plan: * creatinine 1.46, EGFR 34 * last recorded creatinine ranged 2.02- 4.1, GFR 10-24, unknown baseline * history of liver transplant, currently on tacrolimus (5) Diabetes type 2, controlled: Qualifiers: Diabetes mellitus complication status: without complication Diabetes mellitus intermediate frame tender insulin use: without intermediate frame tender use Qualified Code(s): E11.9 - Type 2 diabetes mellitus without complications Code(s): E11.9 - Type 2 diabetes mellitus without complications Status: Chronic Assessment and Plan: * Blood sugars ranging 137-158 * Hgb A1C 5.7 * Accu checks AC/HS * low-dose SSI ordered * hypoglycemic protocol in place * Diabetic diet ordered * diet-controlled at home (6) Hypertension: Qualifiers: Hypertension type: unspecified Qualified Code(s): I10 - Essential (primary) hypertension Code(s): I10 - Essential (primary) hypertension Status: Chronic Assessment and Plan: * blood pressures ranging 122/62 to 156/73 * continue losartan 08/26 * no change (7) Coronary artery disease: Code(s): I25.10 - Atherosclerotic heart disease of [place] coronary artery without angina pectoris Status: Acute Assessment and Plan: * continue aspirin rosuvastatin 08/26 * no change (8) Dementia: Code(s): F03.90 - Unspecified dementia, unspecified severity, without behavioral disturbance, psychotic disturbance, mood disturbance, and anxiety Status: Acute Assessment and Plan: * continue Namenda 08/26 * no change Time Spent With Patient Time with patient: 25 - 35 minutes Subjective Date/time seen: 08/27/24 07:18 Interval history: Interval history: This is an 83-year-old female with significant past medical history of coronary artery disease, type 2 diabetes, hyperlipidemia, hypertension, dementia, neuropathy, liver transplant recipient, PE, pernicious anemia presented to the hospital with acute hypoxic respiratory failure, weakness, and cough. Work up in the hospital revealed Influenza A. CXR was negative. Subjective: Nursing reported that the patient had a low-grade temp and elevated white blood cell count today. She is currently on 1 L nasal cannula. Chest x-ray showing pneumonia. Labs and imaging reviewed. Review of Systems Review of Systems: All systems reviewed & are unremarkable except as noted in HPI and below Exam Narrative: General: In no acute distress, well nourished Cardiac: Normal S1 and S2. No murmur, gallops or friction rubs, peripheral pulses intact. Respiratory: Lungs course with Rhonchi and wheezing, non productive cough, no other adventitious lung sounds Currently on 1L NC Gastrointestinal: soft, non-distended, non-tender, normoactive bowel sounds. : voiding without difficulty. Neuro: Alert and oriented x4 , tremors noted Objective Data Vital Signs Vital Signs: Vital Signs - 24 hr 08/26/24 08:47 08/26/24 08:52 08/26/24 12:49 Temperature 98.1 F Pulse Rate 71 Respiratory Rate 18 Blood Pressure 140/57 L Pulse Oximetry 96 96 96 Oxygen Delivery Nasal Cannula Room Air Oxygen Flow Rate 1 08/26/24 14:00 08/26/24 14:05 08/26/24 14:30 Temperature 99.2 F Pulse Rate 72 70 Respiratory Rate 18 Blood Pressure 150/58 H Pulse Oximetry 90 95 Oxygen Delivery Room Air Room Air Oxygen Flow Rate 08/26/24 14:35 08/26/24 14:40 08/26/24 20:00 Temperature Pulse Rate 91 77 Respiratory Rate Blood Pressure Pulse Oximetry 93 94 Oxygen Delivery Room Air Room Air Room Air Oxygen Flow Rate 08/26/24 20:02 08/27/24 03:20 Temperature 98.8 F 98.9 F Pulse Rate 77 64 Respiratory Rate 20 20 Blood Pressure 156/70 H 151/60 H Pulse Oximetry 90 90 Oxygen Delivery Oxygen Flow Rate Intake/Output Intake/Output: Intake & Output 08/24/24 08/25/24 08/26/24 08/27/24 23:59 23:59 23:59 23:59 Intake Total 2230.8 2537.1 600 120 Output Total 450 1750 1950 800 Balance 1780.8 787.1 -1350 -680 Meds/Results Medications: Active Medications Generic Name Dose Route Start Last Admin Trade Name Freq PRN Reason Stop Dose Admin Acetaminophen 650 mg 08/24/24 12:25 08/25/24 14:33 Acetaminophen 325 Mg Tablet PO 650 mg Q4H PRN Administration Mild Pain (1-3) or Fever Aspirin 81 mg 08/25/24 08:00 08/26/24 08:51 Aspirin 81 Mg Chewable Tablet PO 81 mg DAILY@0800 TRINH Administration Benzocaine 1 lozenge 08/24/24 13:58 Benzocaine/Menthol (*Bkc) 18 Ea Lozenge PO PRN PRN Sore Throat Benzonatate 100 mg 08/24/24 13:58 Benzonatate 100 Mg Capsule PO TID PRN Cough Carbamide Peroxide 5 drop 08/25/24 17:00 08/26/24 16:55 Carbamide Peroxide 6.5% Ot Soln 15 Ml Btl EACH EAR 5 drop BID TRINH Administration Dextrose 12.5 gm 08/24/24 20:58 Dextrose 50% 25 Gm/50 Ml Syringe IV PUSH PRN PRN Hypoglycemia Protocol Duloxetine HCl 60 mg 08/25/24 09:00 08/26/24 08:53 Duloxetine Hcl 60 Mg Capsule.Dr PO 60 mg DAILY TRINH Administration Ergocalciferol units 08/24/24 21:00 Ergocalciferol 50,000 Units Capsule PO .every two weeks TRINH Ferrous Sulfate 325 mg 08/25/24 09:00 08/26/24 16:55 Ferrous Sulfate [address] BY MOUTH 325 mg BID TRINH Administration Furosemide 20 mg 08/25/24 09:00 08/26/24 08:53 Furosemide 20 Mg Tablet PO 20 mg DAILY TRINH Administration Gabapentin 100 mg 08/24/24 21:00 08/26/24 20:12 Gabapentin 100 Mg Capsule PO 100 mg HS TRINH Administration Glucagon 1 mg 08/24/24 20:58 Glucagon For Inj 1 Mg Vial IM PRN PRN Hypoglycemia Protocol Glucose 15 gm 08/24/24 20:58 Glucose Oral Gel 15 Gm Of Glucse In 37.5 Gm Tube PO PRN PRN Hypoglycemia Protocol Guaifenesin 600 mg 08/24/24 21:00 08/26/24 20:12 Guaifenesin 12 Hr 600 Mg Tabcr PO 600 mg Q12HR TRINH Administration Dextrose 1,000 mls @ 100 mls/hr 08/24/24 20:58 Dextrose 5% 1,000 Ml IVPB PRN PRN Hypoglycemia Protocol Insulin Aspart 2 - 5 units 08/25/24 08:00 08/26/24 18:09 Insulin Aspart (*Bkc) 100 Units/Ml SUB-Q Not Given TIDWM [facility] Protocol Loratadine 10 mg 08/25/24 21:00 08/26/24 20:12 Loratadine 10 Mg Tablet PO 10 mg HS TRINH Administration Losartan Potassium 25 mg 08/25/24 09:00 08/26/24 08:52 Losartan Potassium 25 Mg Tablet PO 25 mg DAILY TRINH Administration Memantine 10 mg 08/25/24 09:00 08/26/24 16:55 Memantine 10 Mg Tablet PO 10 mg BID TRINH Administration Mirabegron 25 mg 08/25/24 09:00 08/26/24 08:52 Mirabegron 25 Mg Er Tablet PO 25 mg DAILY TRINH Administration Miscellaneous Information 0 each 08/24/24 00:01 When Is Next -Or- When Was Last Ergocalciferol Dose Due? XX 09/23/24 00:00 CLARIFY TRINH Ondansetron HCl 4 mg 08/24/24 12:25 Ondansetron Inj 4 Mg/2 Ml Vial IV PUSH Q4H PRN Nausea Oseltamivir Phosphate 30 mg 08/24/24 10:40 08/26/24 08:52 Oseltamivir Phosphate 30 Mg Capsule PO 08/29/24 10:39 30 mg DAILY TRINH Administration Polyethylene Glycol 17 gm 08/24/24 20:59 Polyethylene Glycol 3350 17 Gm Powd.Pack PO QAM PRN Constipation Ropinirole HCl 0.5 mg 08/24/24 21:00 08/26/24 20:12 Ropinirole Hcl 0.5 Mg Tablet PO 0.5 mg HS TRINH Administration Rosuvastatin Calcium 5 mg 08/25/24 09:00 08/26/24 08:52 Rosuvastatin 5 Mg Tablet PO 5 mg DAILY TRINH Administration Tacrolimus 1.5 mg 08/24/24 21:20 08/26/24 20:12 Tacrolimus 0.5 Mg Capsule PO 1.5 mg Q12HR TRINH Administration Radiology Results: ITS Impressions Chest X-Ray 08/24/24 09:13 IMPRESSION: No focal infiltrate or effusion. Labs Labs: Laboratory Results - last 24 hr 08/26/24 08/26/24 08/26/24 08:33 11:45 17:24 WBC RBC Hgb Hct MCV MCH MCHC RDW Plt Count MPV Immature Gran % (Auto) Neut % (Auto) Lymph % (Auto) [place] % (Auto) Eos % (Auto) Baso % (Auto) Lymph # (Auto) [place] # (Auto) Eos # (Auto) Baso # (Auto) Abs Immat Gran (auto) Absolute Neuts (auto) Absolute Nucleated RBC Nucleated RBC % % Immature Plt Fraction Sodium Potassium Chloride Carbon Dioxide Anion Gap BUN Creatinine Estim Creat Clear Calc Estimated GFR Glucose POC Capillary Glucose 102 162 H 147 H Calcium Total Bilirubin AST ALT Alkaline Phosphatase Total Protein Albumin 08/26/24 08/27/24 20:07 06:19 WBC 11.0 H RBC 3.35 L Hgb 11.0 L Hct 33.9 L MCV 101.2 H MCH 32.8 MCHC 32.4 RDW 11.7 Plt Count 153 MPV 12.3 H Immature Gran % (Auto) 0.5 Neut % (Auto) 79.0 H Lymph % (Auto) 12.6 L [place] % (Auto) 7.3 Eos % (Auto) 0.4 Baso % (Auto) 0.2 Lymph # (Auto) 1.38 [place] # (Auto) 0.8 H Eos # (Auto) 0.0 Baso # (Auto) 0.0 Abs Immat Gran (auto) 0.05 H Absolute Neuts (auto) 8.7 H Absolute Nucleated RBC 0.000 Nucleated RBC % 0.0 % Immature Plt Fraction 7.6 Sodium 135 L Potassium 4.3 Chloride 97 L Carbon Dioxide 29 Anion Gap 9 BUN 29 H Creatinine 1.30 H Estim Creat Clear Calc 32 Estimated GFR 39 L Glucose 146 H POC Capillary Glucose 160 H Calcium 8.5 Total Bilirubin 0.8 AST 29 ALT 19 Alkaline Phosphatase 68 Total Protein 7.0 Albumin 3.6 Quality VTE Prophylaxis VTE prophylaxis: mechanical ordered
[2024-08-27 08:24] LABS: Glucose Point of Care 134 mg/dl (65-105)
[2024-08-27 09:50] VITALS: BP 150/81; PULSE 69; RESP 18; TEMP 37.8; O2SAT 93
[2024-08-27] MEDS: FERROUS SULFATE 325 MG TABLET DR BY MOUTH ×2 (09:57→17:11)
[2024-08-27] MEDS: LOSARTAN POTASSIUM 25 MG TABLET PO (09:57)
[2024-08-27] MEDS: DULoxetine HCL 60 MG CAPSULE.DR PO (09:57)
[2024-08-27] MEDS: MEMANTINE 10 MG TABLET PO ×2 (09:57→17:11)
[2024-08-27] MEDS: guaiFENesin 12 HR 600 MG TABCR PO ×2 (09:57→21:34)
[2024-08-27] MEDS: FUROSEMIDE 20 MG TABLET PO (09:57)
[2024-08-27] MEDS: MIRABEGRON 25 MG ER TABLET PO (09:58)
[2024-08-27] MEDS: ASPIRIN 81 MG CHEWABLE TABLET PO (09:58)
[2024-08-27] MEDS: ROSUVASTATIN 5 MG TABLET PO (09:58)
[2024-08-27] MEDS: TACROLIMUS 0.5 MG CAPSULE 1.5 MG PO ×2 (09:58→21:34)
[2024-08-27] MEDS: OSELTAMIVIR PHOSPHATE 30 MG CAPSULE PO (09:58)
[2024-08-27 09:59] VITALS: TEMP 37.8; O2SAT 93
[2024-08-27] MEDS: ACETAMINOPHEN 325 MG TABLET 650 MG PO (09:59)
[2024-08-27] MEDS: CARBAMIDE PEROXIDE 6.5% OT SOLN 15 ML BTL 5 DROP EACH EAR ×2 (10:00→17:11)
[2024-08-27 11:53] LABS: Glucose Point of Care 175 mg/dl (65-105)
[2024-08-27 14:06] VITALS: BP 119/47; PULSE 62; RESP 20; TEMP 37.2; O2SAT 91
[2024-08-27] MEDS: CEFEPIME 2 GM/NS 50 ML 2 GM/50 ML BAG IVPB (17:08)
[2024-08-27] MEDS: BENZOCAINE/MENTHOL (*BKC) 18 EA LOZENGE 1 LOZENGE PO (17:14)
[2024-08-27 17:52] LABS: Glucose Point of Care 165 mg/dl (65-105)
[2024-08-27 21:17] VITALS: BP 147/69; PULSE 66; RESP 16; TEMP 36.7; O2SAT 94
[2024-08-27 21:20] VITALS: O2SAT 94
[2024-08-27 21:34] LABS: Glucose Point of Care 142 mg/dl (65-105)
[2024-08-27] MEDS: LORATADINE 10 MG TABLET PO (21:34)
[2024-08-27] MEDS: rOPINIRole HCL 0.5 MG TABLET PO (21:34)
[2024-08-27] MEDS: GABAPENTIN 100 MG CAPSULE PO (21:34)
[2024-08-28] MEDS: CEFEPIME 2 GM/NS 50 ML 2 GM/50 ML BAG IVPB (05:18)
[2024-08-28 06:16] VITALS: BP 142/60; PULSE 60; RESP 16; TEMP 36.5; O2SAT 92
[2024-08-28 06:26] LABS: Basophils Percent Auto 0.3 % (0.2-1.2); Eosinophils Absolute Auto 0.3 K/mm3 (0-0.3); Eosinophils Percent Auto 2.6 % (0-4.4); Hematocrit 33.1 % (37.0-47.0); Hemoglobin 10.9 g/dL (12.0-15.0); Immature Granulocyte Absolute 0.05 K/mm3 (0.00-0.031); Immature Granulocyte Percent A 0.5 % (0-0.5); Lymphocytes Absolute Auto 1.47 K/mm3 (0.9-3.2); Lymphocytes Percent Auto 14.2 % (18.3-44.2); Mean Corpuscular HGB Conc 32.9 g/dl (32-36); Mean Corpuscular Hemoglobin 32.5 pg (26-34); Mean Corpuscular Volume 98.8 fl (80-100); Mean Platelet Volume 11.7 fl (7.4-10.4); Monocytes Absolute Auto 0.7 K/mm3 (0.1-0.6); Monocytes Percent Auto 6.9 % (2.6-8.5); Neutrophils Absolute Auto 7.8 K/mm3 (1.3-6.7); Neutrophils Percent Auto 75.5 % (45.5-73.1); Platelet Count Result 188 k/mm3 (150-375); Red Blood Count 3.35 M/mm3 (4.2-5.4); Red Cell Distribution Width 11.7 % (11.5-14.5); White Blood Count 10.3 K/mm3 (4.5-10.0)
[2024-08-28 06:38] LABS: Alanine Aminotransferase 18 U/L (6-35); Albumin Level 3.5 g/dL (3.5-5.1); Alkaline Phosphatase 76 U/L (38-126); Anion Gap 8 mmol/L (4-12); Aspartate Amino Transferase 26 U/L (14-36); Bilirubin,Total 0.8 mg/dL (0.2-1.3); Blood Urea Nitrogen 28 mg/dL (7-17); Calcium 8.8 mg/dL (8.4-10.2); Carbon Dioxide 32 mmol/L (22-30); Chloride 98 mmol/L (98-107); Estimated CRCL calculation 28 ml/min; Estimated Glomerular Filt Rate 33; Glucose 140 mg/dL (65-110); Potassium 4.3 mmol/L (3.4-5.0); Sodium 138 mmol/L (137-145)
[2024-08-28 07:59] LABS: Glucose Point of Care 140 mg/dl (65-105)
[2024-08-28] MEDS: ASPIRIN 81 MG CHEWABLE TABLET PO (09:22)
[2024-08-28] MEDS: FERROUS SULFATE 325 MG TABLET DR BY MOUTH (09:22)
[2024-08-28] MEDS: MEMANTINE 10 MG TABLET PO (09:22)
[2024-08-28] MEDS: OSELTAMIVIR PHOSPHATE 30 MG CAPSULE PO (09:22)
[2024-08-28] MEDS: LOSARTAN POTASSIUM 25 MG TABLET PO (09:22)
[2024-08-28] MEDS: MIRABEGRON 25 MG ER TABLET PO (09:22)
[2024-08-28] MEDS: guaiFENesin 12 HR 600 MG TABCR PO (09:22)
[2024-08-28] MEDS: FUROSEMIDE 20 MG TABLET PO (09:22)
[2024-08-28] MEDS: DULoxetine HCL 60 MG CAPSULE.DR PO (09:22)
[2024-08-28] MEDS: ROSUVASTATIN 5 MG TABLET PO (09:22)
[2024-08-28] MEDS: TACROLIMUS 0.5 MG CAPSULE 1.5 MG PO (09:23)
--- NOTE | 2024-08-28 10:58 | PM.DS ---
DS: Admitting Diagnosis Discharge Date 08/28/24 Admitting Diagnosis influenza a chronic kidney disease type 2 diabetes hypertension DS: Discharge Diagnosis Discharge Diagnosis (1) Acute respiratory failure with hypoxia: Code(s): J96.01 - Acute respiratory failure with hypoxia Status: Acute (2) Hospital-acquired pneumonia: Code(s): J18.9 - Pneumonia, unspecified organism; Y95 - Nosocomial condition Status: Acute (3) Influenza A: Code(s): J10.1 - Influenza due to other identified influenza virus with other respiratory manifestations Status: Acute (4) CKD (chronic kidney disease): Qualifiers: Chronic kidney disease stage: stage 4 (GFR 15-29) Qualified Code(s): N18.4 - Chronic kidney disease, stage 4 (severe) Code(s): N18.9 - Chronic kidney disease, unspecified Status: Suspected (5) Diabetes type 2, controlled: Qualifiers: Diabetes mellitus complication status: without complication Diabetes mellitus intermission coordinator insulin use: without intermission coordinator use Qualified Code(s): E11.9 - Type 2 diabetes mellitus without complications Code(s): E11.9 - Type 2 diabetes mellitus without complications Status: Chronic (6) Hypertension: Qualifiers: Hypertension type: unspecified Qualified Code(s): I10 - Essential (primary) hypertension Code(s): I10 - Essential (primary) hypertension Status: Chronic (7) Coronary artery disease: Code(s): I25.10 - Atherosclerotic heart disease of [place] coronary artery without angina pectoris Status: Acute (8) Dementia: Code(s): F03.90 - Unspecified dementia, unspecified severity, without behavioral disturbance, psychotic disturbance, mood disturbance, and anxiety Status: Acute DS: Summary Hospital Course Reason for hospitalization: influenza a chronic kidney disease type 2 diabetes hypertension Hospital Course: his is an 83-year-old female with significant past medical history of coronary artery disease, type 2 diabetes, hyperlipidemia, hypertension, dementia, neuropathy, liver transplant recipient, PE, pernicious anemia presented to the hospital with acute hypoxic respiratory failure, weakness, and cough. Work up in the hospital revealed Influenza A. CXR was negative. on 08/1919 patient a low-grade temp and white count elevated. She also went back on oxygen 1 L nasal cannula. Chest x-ray showing pneumonia. Patient was started on cefepime and then transitioned today to Levaquin for 7 days. She is back to room air today. While here she also received PT and OT who recommended SNF placement however patient refused SNF at this time. Home health was set up for her. Patient is stable for discharge at this time. She will need to follow up with her primary care in 1 week. final diagnosis: influenza a, hospital-acquired pneumonia Status at Discharge Cognitive/behavioral status at discharge: alert oriented x3 Functional status at discharge: uses cane/walker Overall status at discharge: patient is progressing back to baseline Time Spent with Patient Time attestation: Total time spent providing and/or coordinating discharge services: Time spent: Greater than 30 minutes Exam Narrative: General: In no acute distress, well nourished Cardiac: Normal S1 and S2. No murmur, gallops or friction rubs, peripheral pulses intact. Respiratory: Lungs course with Rhonchi and wheezing, non productive cough, no other adventitious lung sounds Currently on 1L [place] Gastrointestinal: soft, non-distended, non-tender, normoactive bowel sounds. : voiding without difficulty. Neuro: Alert and oriented x4 , tremors noted DS: Data Data Completed and Pending Completed studies during hospitalization: chest x-ray x2 Pending studies at discharge: none Labs on day of discharge: Labs from last 24 hours 08/28/24 08/28/24 08/27/24 07:57 05:56 21:16 WBC 10.3 H RBC 3.35 L Hgb 10.9 L Hct 33.1 L MCV 98.8 MCH 32.5 MCHC 32.9 RDW 11.7 Plt Count 188 MPV 11.7 H Immature Gran % (Auto) 0.5 Neut % (Auto) 75.5 H Lymph % (Auto) 14.2 L [place] % (Auto) 6.9 Eos % (Auto) 2.6 Baso % (Auto) 0.3 Lymph # (Auto) 1.47 [place] # (Auto) 0.7 H Eos # (Auto) 0.3 Baso # (Auto) 0.0 Abs Immat Gran (auto) 0.05 H Absolute Neuts (auto) 7.8 H Absolute Nucleated RBC 0.000 Nucleated RBC % 0.0 Sodium 138 Potassium 4.3 Chloride 98 Carbon Dioxide 32 H Anion Gap 8 BUN 28 H Creatinine 1.50 H Estim Creat Clear Calc 28 Estimated GFR 33 L Glucose 140 H POC Capillary Glucose 140 H 142 H Calcium 8.8 Total Bilirubin 0.8 AST 26 ALT 18 Alkaline Phosphatase 76 Total Protein 7.0 Albumin 3.5 08/27/24 08/27/24 17:16 11:49 WBC RBC Hgb Hct MCV MCH MCHC RDW Plt Count MPV Immature Gran % (Auto) Neut % (Auto) Lymph % (Auto) [place] % (Auto) Eos % (Auto) Baso % (Auto) Lymph # (Auto) [place] # (Auto) Eos # (Auto) Baso # (Auto) Abs Immat Gran (auto) Absolute Neuts (auto) Absolute Nucleated RBC Nucleated RBC % Sodium Potassium Chloride Carbon Dioxide Anion Gap BUN Creatinine Estim Creat Clear Calc Estimated GFR Glucose POC Capillary Glucose 165 H 175 H Calcium Total Bilirubin AST ALT Alkaline Phosphatase Total Protein Albumin Procedures/Treatments: none Discharge Plan Discharge Attending physician on discharge: Robin Morton Discharging Clinician: Denisha Frankel Anticipated Discharge Date/Time: 08/28/24 10:55 Patient Disposition: Home Health Service Activity: as tolerated Diet: as tolerated and heart healthy Discharge Instructions: Home health with [facility] Finish all of your antibiotic as directed even if you are feeling better You also finished a full course of Tamiflu for your Influenza A follow-up with your primary care doctor in 1 week Per Care Coordination Patient is current with [facility] for RN, PT, OT [phone] RN please fax completed discharge instructions to [phone] Patient Instructions: Antibiotic Form Patient Language: Thai Stand Alone Forms: General Discharge Information Follow-up/Referrals: Joanna,MD Alfredo [Primary Care Provider] - 1 Week Discharge Medications: New Debrox 6.5 % Drops 5 drp EACH EAR BID Qty: 1 0RF benzonatate 100 mg Capsule 100 mg PO TID PRN (Reason: Cough) Qty: 20 0RF guaifenesin [Mucus Relief ER] 600 mg Tablet Extended Release 12hr 600 mg PO Q12HR Qty: 20 0RF levofloxacin 750 mg tablet 750 mg PO Q48H 7 Days Qty: 4 0RF Continued aspirin [Children's Aspirin] 81 mg Tablet,Chewable 81 mg PO DAILY@0800 30 Days Qty: 30 0RF tacrolimus 0.5 mg capsule 1.5 mg PO BID 7 Days Qty: 42 0RF Rx Instructions: pt takes 3 capsules in the morning and 3 capsules at night rosuvastatin 5 mg tablet 5 mg PO DAILY memantine 10 mg tablet 10 mg PO BID duloxetine 60 mg capsule,delayed release(DR/EC) 60 mg PO DAILY polyethylene glycol 3350 [Miralax] 17 gram Powder In Packet 17 g PO QAM PRN (Reason: Constipation) Qty: 30 0RF acetaminophen [Acetaminophen Extra Strength] 500 mg tablet 1,000 mg PO Q6H MDD 3,000 mg PRN (Reason: pain) Qty: 90 0RF cetirizine 10 mg tablet 10 mg PO HS cyanocobalamin (vitamin B-12) 1,000 mcg/mL solution 1,000 mcg subcut MONTHLY ergocalciferol (vitamin D2) 1,250 mcg (50,000 unit) capsule 1,250 mcg PO .every two weeks ferrous sulfate [FeroSul] 325 mg (65 mg iron) tablet 325 mg PO BID furosemide 20 mg tablet 20 mg PO DAILY gabapentin 100 mg capsule 100 mg PO HS losartan 25 mg tablet 25 mg PO DAILY mirabegron [Myrbetriq] 25 mg tablet extended release 24 hr 25 mg PO DAILY ropinirole 0.5 mg tablet 0.5 mg PO HS Date of admission: 08/24/24 13:32 Primary Care Provider: JoannaAlfredo Admitting Provider: Eriberto Carrillo Attending physician on admission: Denisha Frankel Condition: Improved Quality VTE Prophylaxis VTE prophylaxis: mechanical ordered Hospitalist MIPS Heart Failure (Exclusion) Patient has history of Heart Transplant or Left Ventricular Assistive Device?: No IF YES, STOP HERE Heart Failure (Qualifier) Patient has current or prior documentation of LVEF less than or equal to 40%, or mod/servere depressed LVSF?: No IF NO, STOP HERE
[2024-08-28 11:54] LABS: Glucose Point of Care 232 mg/dl (65-105)
[2024-08-28] MEDS: INSULIN ASPART (*BKC) 100 UNITS/ML SUB-Q (13:26)
[2024-08-28 14:00] VITALS: BP 112/53; PULSE 64; RESP 18; TEMP 37.2; O2SAT 97
[2024-08-28 17:35] LABS: Glucose Point of Care 158 mg/dl (65-105)
== END 2024-08-28 17:45 | disposition home health service (06) | DRG 193 ==
LOC: ANHED 12:37 → ANH3MEDSUR 12:57 → ANH2MED 14:43
PROVIDERS: Student in an Organized Health Care Education/Training Program; Admitting Provider General Practice; Emergency Provider Emergency Medicine; PCP Internal Medicine; Visit Provider Nurse Practitioner Acute Care
DX: J10.1 Influenza due to other identified influenza virus with other respiratory manifestations (principal); J96.01 Acute respiratory failure with hypoxia; N18.4 Chronic kidney disease, stage 4 (severe); Z94.4 Liver transplant status; J18.9 Pneumonia, unspecified organism; I12.9 Hypertensive chronic kidney disease with stage 1 through stage 4 chronic kidney disease, or unspecified chronic kidney disease; I25.10 Atherosclerotic heart disease of native coronary artery without angina pectoris; Y95 Nosocomial condition; E11.9 Type 2 diabetes mellitus without complications; E78.5 Hyperlipidemia, unspecified; D51.0 Vitamin B12 deficiency anemia due to intrinsic factor deficiency; R41.3 Other amnesia; G62.9 Polyneuropathy, unspecified; F03.90 Unspecified dementia, unspecified severity, without behavioral disturbance, psychotic disturbance, mood disturbance, and anxiety; Z20.822 Contact with and (suspected) exposure to COVID-19; Z96.652 Presence of left artificial knee joint; Z86.711 Personal history of pulmonary embolism; Z79.01 Long term (current) use of anticoagulants; Z79.82 Long term (current) use of aspirin
CPT/HCPCS: 36415; 71045; 80048; 80053; 81001; 82948; 83036; 85025; 85055; 87637; 93005; 94618; 94667; 96361; 96374; 97110; 97116; 97161; 97165; 97530; 99285; A9270; G0378; J0692; J1815; J7030; J7120

== ENCOUNTER 2024-10-22 12:12 | Outpatient (CLI) | payer MEDICARE, BC, SELFPAY ==
--- NOTE | ~2024-10-22 | XR_ITS ---
Clinical Indication: Pneumonia PA and lateral views of the chest: Comparison: 08/27/2024 Findings: The lungs are clear, without evidence of focal consolidation or pleural effusion. Cardiome diastinal silhouette is within normal limits. Bones and soft tissues are unremarkable. Impression: Normal chest. Reviewed, dictated and finalized at location . Impression: Normal chest.
== END 2024-10-22 12:13 | disposition home or self-care (01) ==
PROVIDERS: PCP Internal Medicine; Visit Provider Internal Medicine
DX: J18.9 Pneumonia, unspecified organism (principal)
CPT/HCPCS: 71046

== ENCOUNTER 2025-03-05 11:08 | Outpatient (CLI) | payer MEDICARE, BC, SELFPAY ==
--- NOTE | ~2025-03-05 | XR_ITS ---
EXAMINATION: XR chest 2V 03/05/2025 11:49 INDICATION: Personal history of pneumonia PROCEDURE: 2 view chest COMPARISON: Comparison to multiple prior studies sequentially, with oldest reviewed study dated 06/26/2023. FINDINGS: The lungs are clear. The cardiomediastinal silhouette is within normal limits. There are no pleural effusions. There is no pneumothorax suspected. IMPRESSION: 1: NO ACUTE CARDIOPULMONARY DISEASE. Reviewed, dictated and finalized at location O.
== END 2025-03-05 11:09 | disposition home or self-care (01) ==
LOC: MICIMG 11:12
PROVIDERS: PCP Internal Medicine; Visit Provider Internal Medicine
DX: Z87.01 Personal history of pneumonia (recurrent) (principal)
CPT/HCPCS: 71046

== ENCOUNTER 2025-05-18 10:32 | Emergency (ER) | payer MEDICARE, BC, SELFPAY ==
--- NOTE | ~2025-05-18 | CT_ITS ---
EXAMINATION: CT shoulder RT wo con DATE: 05/18/2025 14:04 INDICATION: Right shoulder pain post fall. Abnormal x-ray. TECHNIQUE: High resolution computed tomography (CT) of the right shoulder was performed without intravenous contrast. Additional sagittal and coronal reconstructions were performed. Automated exposure control and iterative reconstruction technique were employed. The dose-length product was 272.54 mGy-c m. COMPARISON: Right shoulder radiographs dated 05/18/2025 FINDINGS: No acute traumatic malalignment or acute fracture. Mild cephalad subluxation of the right humeral head with respect to the glenoid with moderate nonuniform cephalad predominant joint space narrowing at the right greater humeral joint. There are small to moderate size marginal osteophytes along the humeral head most prominent anteroinferiorly. This is likely related to chronic rotator cuff arthropathy with suggestion of suture anchors related to prior rotator cuff repair along the right lesser and greater tuberosities. There is mild atrophy of the supraspinatus and infraspinatus muscle bellies. Moderate acromioclavicular osteoarthritis. Small anterior and tiny lateral subacromial spurs. Small glenoh umeral joint effusion. Visualized portion of the right lung are clear. Calcified right hilar and mediastinal lymph nodes consistent with old granulomatous disease. IMPRESSION: 1. No acute osseous abnormality. 2. Changes of prior right rotator cuff repair and chronic rotator cuff arthropathy with likely secondary mild cephalad subluxation of the humeral head and moderate glenohumeral osteoarthritis with small joint effusion. 3. Moderate right acromioclavicular osteoarthritis. Reviewed, dictated and finalized at location A. RDIST CHIEF IMPRESSION: 1. No acute osseous abnormality. 2. Changes of prior right rotator cuff repair and chronic rotator cuff arthropa thy with likely secondary mild cephalad subluxation of the humeral head and mod erate glenohumeral osteoarthritis with small joint effusion. 3. Moderate right acromioclavicular osteoarthritis.
--- NOTE | ~2025-05-18 | CT_ITS ---
EXAM/PROCEDURE: CT cervical spine wo con HISTORY: FALL COMPARISON: None available. TECHNIQUE: C-spine CT exam FINDINGS: No fracture lucency or traumatic malalignment seen. There is loss of normal lordosis, and approximately 2 mm of anterolisthesis of C4 on C5 which appears degenerative. No gross prevertebral or paraspinal soft tissue swelling or hematoma seen. Diffuse degenerative changes throughout the intervertebral disc spaces, uncovertebral joints and pedicles with at least moderately severe spinal canal stenosis suggested at C5-6 and C6-7. No large disc herniation seen. IMPRESSION: No fracture lucency C1-C7. Advanced degenerative changes including probable multilevel spinal canal stenosis. Reviewed, dictated and finalized at location A. UNTING SYSTEMS ANALYST IMPRESSION: No fracture lucency C1-C7. Advanced degenerative changes including probable mul tilevel spinal canal stenosis.
--- NOTE | ~2025-05-18 | XR_ITS ---
Examination: XR elbow RT min 3V, XR shoulder RT min 2V Clinical History: RT ELBOW INJURY; BEST OBTAINABLE IMAGES Comparison: None Technique: 4 views right shoulder, 4 views right elbow Findings/impression: Right shoulder: 1. No fracture or dislocation right shoulder. 2. Mild glenohumeral joint degenerative changes. 3. Mild degenerative changes AC joint Right elbow: 1. Possible nondisplaced fracture lateral humeral epicondyle. Recommend correlation with point tenderness and if clinical ambiguity, then additional films. 2. Otherwise no fracture or dislocation right elbow. Reviewed, dictated and finalized at location R. K OPERATOR
--- NOTE | ~2025-05-18 | CT_ITS ---
EXAMINATION: CT brain wo con DATE: 05/18/2025 10:58 INDICATION: Injury TECHNIQUE: Computed tomography (CT) of the head was performed without intravenous contrast. The dose-length product was 605.33 mGy-cm. COMPARISON: None FINDINGS: No mass mass effect or hemorrhage. Diffuse volume loss and chronic microvascular ischemic-appearing white matter changes with no large acute ischemic event. Extensive opacification right sphenoid sinus again noted. Calvarial structures appear intact. IMPRESSION: 1. No acute hemorrhage or large acute ischemic event. 2. Chronic appearing findings as above. Reviewed, dictated and finalized at location A. [facility] [employer]
[2025-05-18 10:34] VITALS: BP 171/92; PULSE 59; RESP 16; TEMP 36.2; O2SAT 94
--- OUTSIDE RECORDS SUMMARY | 2025-05-18 11:20 | XMS_ITS | Clinical Summary ---
Author Organization [facility] Address [address] [place] [address] Care Team Providers Care Beater Machine Operator Name Role Phone Alfredo Marshall MD Primary Care Provider + [phone] Alfredo Marshall MD Unavailable [phone] Elida Ramirez NP Unavailable [phone] Kirk Ponce MD Unavailable [phone] Miryam Tucker RN Unavailable Unavailab le Allergies Active Allergy Reactions Criticality Noted Date Comments Animal Dander Itching Low 07/04/2019 Gabapentin Unknown Low Reaction: Other, Morphine Dizziness Low 08/22/2018 Niacin Unknown 03/02/2020 Other Itching Low 07/04/2019 dust Prednisone Anxiety Reaction: Anxiety, Propoxyphene N-Acetaminophen Unknown 023 Tramadol Unknown 03/02/2020 Medications UNABLE TO FINDIndications :pain Med Name: CBD oil; 7 drops by mouth once a day in the morning Active docosahexanoic acid/epa (FISH OIL ORAL)Indication s:supplement Take 1 capsule by mouth daily after lunch Active metFORMIN (GLUCOPHAGE) 500 mg tabletIndicatio ns:type 2 diabetes mellitus Take 1 tablet (500 mg total) by mouth 2 (two) times a day with meals Active ergocalciferol (VITAMIN D) 50,000 unit capsuleIndicati ons:Vitamin D Deficiency Take 1,200 Units by mouth once a week Active apixaban (ELIQUIS) 5 mg tabletIndicatio ns:blood thinner Take 1 tablet (5 mg total) by mouth 2 (two) times a day Active cetirizine 10 mg capsuleIndicati ons:Allergic Conjunctivitis, Allergic Rhinitis Take 10 mg by mouth nightly Active IPRATROPIUM BROMIDE NASL Administer 2 sprays into each nostril 2 (two) times a day as needed Active triamcinolone (KENALOG) 0.1 % creamIndication s:skin rash,verified with patient Apply 1 application (deactivated) topically 2 (two) times a day as needed 2 Active hydrOXYzine (ATARAX) 10 mg tablet 8 Active aspirin 81 mg enteric coated tablet Take 1 tablet every day by oral route. Active omeprazole (PriLOSEC) 20 mg capsule Take 1 capsule (20 mg total) by mouth daily 30 capsule 11 0 Active tacrolimus (PROGRAF) 0.5 mg immediate-relea se capsuleIndicati ons:History of liver transplant (HCC) TAKE 3 CAPSULES BY MOUTH TWICE [...] Active solifenacin (VESIcare) 5 mg tablet Active estradioL (ESTRING) 2 mg (7.5 mcg /24 hour) vaginal ringIndications :Vaginal atrophy Insert 2 mg into the vagina [...] mg total) by mouth daily 4 Active gabapentin (NEURONTIN) 100 mg capsule Take 1 capsule every day by oral route at bedtime. 4 Active levoFLOXacin (LEVAQUIN) 750 mg tablet 5 Active Active Problems Patient Care Coordination No te Formatting of this note migh t be different from the original. Labs drawn at Dr. Marshall's office [phone] Fx: [phone] Labs every 3 months and they never send results [facility] (located in Dr. Marshall's office) [phone] Problem Noted Date Diagnosed Date Idiopathic peripheral neuropathy 03/09/2023 Osteopenia 03/09/2023 Overweight 03/09/2023 Umbilical hernia 03/09/2023 Ventral incisional hernia 03/09/2023 Uterine leiomyoma 03/09/2023 Osteoarthritis 03/09/2023 Urinary incontinence 03/09/2023 Assessment & Plan (06/09/2024 12:15 PM REAL ESTATE PROFESSOR): -stable, continue Fluid management, Myrbetriq and Estring [...] hours Assessment & Plan (09/10/2023 3:42 PM REAL ESTATE PROFESSOR): Management options were discussed for NAILA including [...] 02/16/2023 Assessment & Plan (06/11/2023 10:13 AM REAL ESTATE PROFESSOR): -adequate bladder emptying at today's visit (she voided just prior to visit). Consider rechecking in future when taking Myrbetriq as she is currently not taking. -Myrbetriq renewed. Vaginal atrophy 02/16/2023 Assessment & Plan (06/09/2024 12:16 PM REAL ESTATE PROFESSOR): -Estring exchanged Assessment & Plan (03/13/2024 9:08 AM CDT): -Estring exchanged Assessment & Plan (12/14/2023 10:27 AM CDT): -Estring exchanged Assessment & Plan (09/10/2023 3:42 PM REAL ESTATE PROFESSOR): -Estring exchanged Assessment & Plan (06/11/2023 10:13 AM REAL ESTATE PROFESSOR): -Estring exchanged Gastroesophageal reflux disease without esophagi tis 10/10/2021 Hypocalcemia 11/17/2020 Diarrhea 11/17/2020 Spinal stenosis of lumbar region 11/17/2020 Allergic rhinitis due to pollen 08/11/2020 Congestion of nasal sinus 05/12/2020 Pancreatic cyst 03/10/2020 Memory difficulties 03/10/2020 Esophageal diverticulum 03/10/2020 Carotid artery stenosis 09/09/2019 Chronic diarrhea 04/09/2019 Overview (04/09/2019): Added automatically from request for surgery [id number] Change in bowel habits 04/09/2019 Overview (04/09/2019): Added automatically from request for surgery [id number] Pulmonary embolism 02/05/2019 Mild cognitive disorder 09/11/2018 Nonproliferative diabetic retinopathy 09/11/2018 Stress incontinence 08/28/2018 Coronary arteriosclerosis 05/28/2018 Right bundle branch block 05/28/2018 History of gastric polyp 04/30/2018 Overview (04/30/2018): Added automatically from request for surgery [id number] Obesity with body mass index 30 or [...] Description: L wrist History of liver transplant 06/03/2008 Assessment & Plan (05/09/2023 5:57 PM [...] Encounters Date Type Department Care Team Description 05/13/2025 9:30 AM REAL ESTATE PROFESSOR Office Visit [facility] Medicine Gastroenterology [address] 12[address] [place] [address] [place] [address] Antonella Stephen MD History of liver transplant (HCC) (Primary Dx); Encounter for long-term (current) use of high-risk medication 03/26/2025 Orders Only [facility] Nephrology at [address] [place] [address] ProviderKyleigh MD 03/24/2025 12:45 PM CDT Office Visit [facility] Nephrology at [address] [place] [address] Carloz Stevenson MD JANETH (acute kidney injury) (Primary Dx); History of liver transplant (HCC); Type 2 diabetes mellitus with stage 3a chronic kidney disease, without long-term current use of insulin (HCC); Hyperkalemia; Benign hypertensive kidney disease with chronic kidney disease stage I through stage IV, or unspecified(403.10); CRD (chronic renal disease), stage II; 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 03/24/2025 Telephone [facility] Nephrology at [address] [place] [address] Carloz Stevenson MD from Last 3 Months Immunizations Immunization Administration [...] 11/02/2017 Surgical History Surgery Date Site/Laterality Comments TX TONSILLECTOMY & ADENOIDEC BURAK <AGE 13 Tonsillectomy With Adenoidectomy - (Added by TW Conv) TX DILATION & CURETTAGE DX&/ THER NONOBSTETRIC Dilation And Curettage - (Added by TW Conv) TX LVR ALTRNSPLJ ORTHOTOPIC PRTL/WHL DON ANY AGE Liver Transplant - Orthotopic - (Added by TW Conv) TX ESOPHAGOGASTRODUODENOSCOP Y TRANSORAL DIAGNOSTIC Diagnostic Esophagogastroduodenoscopy - gastric and antral ulcers; duodenitis (Added by TW Conv) TX COLONOSCOPY FLX DX W/LUCIE J SPEC WHEN PFRMD Complete Colonoscopy - normal (Added by TW Conv) TX BIOPSY LIVER NEEDLE PERCUTANEOUS Biopsy Of Liver - (Added by TW Conv) TX ARTHROPLASTY KNEE TIBIAL PLATEAU Knee Replacement - [...] on file Legal Sex Female 2:53 PM REAL ESTATE PROFESSOR Gender Identity Not on file Sexual Orientation [...] Sign Reading Time Taken Comments Blood Pressure 135/79 05/13/2025 10:12 AM REAL ESTATE PROFESSOR Pulse 59 05/13/2025 10:12 AM REAL ESTATE PROFESSOR Temperature 35.7 C (96.2 F) 05/13/2025 10:12 AM REAL ESTATE PROFESSOR Respiratory Rate 16 05/13/2025 10:12 AM REAL ESTATE PROFESSOR Oxygen Saturation 94% 05/13/2025 10:12 AM REAL ESTATE PROFESSOR Inhaled Oxygen Concentration - - Weight 81.6 kg (180 lb) 05/13/2025 10:12 AM REAL ESTATE PROFESSOR Height 165.1 cm (5' 5) 05/13/2025 10:12 AM REAL ESTATE PROFESSOR Body Mass Index 29.95 05/13/2025 10:12 AM REAL ESTATE PROFESSOR Plan of Treatment Health Maintenance Due Date Last Done Comments Albumin Creatinine Ratio, Urine 1941 Depression Screening 1941 Fall Risk Assessment 1941 Dilated Eye Exam 1941 Foot Exam 1941 Hepatitis B Screening 12/05/1958 Well Visit 65+ 2006 Zoster Vaccine (2 of 2) 12/28/2017 11/02/2017 Osteoporosis Screening-Bone Density Scan 08/12/2022 08/12/2020, 05/13/2020, 11/20/2017, Additional history exists Covid-19 Vaccine (2024-2 6 season) 2025 12/28/2021, 02/19/2021, 11/01/2020, Additional history exists Influenza Vaccine (#1) 2025 , 04/08/2021, 04/13/2020, Additional history exists Hemoglobin A1C 08/16/2025 02/13/2025, 08/0 01/2023, 02/12/2023, Additional history exists Lipid Panel 02/13/2026 02/13/2025, 03/09, 08/19/2014 eGFR 02/13/2026 02/13/2025 DTaP/Tdap/Td Vaccine (3 - Td or Tdap) 12/19/2032 12/19/2022, 12/08/2015 Pneumococcal vaccine 65+ Completed 021, 05/09/2016, 04/22/2015 Procedures Procedure Name Priority Date/Time Associated Diagnosis Comments URINALYSIS Routine 02/19/2025 12:48 PM CDT COMPREHENSIVE METABOLIC PANEL Routine 02/13/2025 HEMOGLOBIN A1C Routine 02/13/2025 LIPID PANEL Routine 02/13/2025 from Last 3 Months or Most Recently Relevant to Health Maintenance Results * Urinalysis (02/19/2025 12:48 PM CDT) Urine Historical Provider MD LAB URINE ORDERABLES Margarita l Result EXTERNAL LAB * (ABNORMAL) Hemoglobin A1c (02/13/2025) SCRIBED Hemoglobin A1c 6.1(A) 4.8 - 5.6 % TXP NO LAB FOUND Blood 02/13/2025 Historical Provider MD LAB BLOOD ORDERABLES Margarita l Result TXP NO LAB FOUND * Lipid panel (02/13/2025) SCRIBED Cholesterol, Total 102 100 - 199 mg/dL TXP NO LAB FOUND SCRIBED Triglycerides 101 0 - 149 mg/dL TXP NO LAB FOUND SCRIBED HDL 42 >39 mg/dL TXP NO L AB FOUND SCRIBED LDL 41 0 - 99 mg/dL TXP NO LAB FOUND Scribed Non-HDL Cholesterol TXP NO LAB FOUND Comment:- SCRIBED Total Cholesterol/HDL Ratio 102 100 199 TXP NO LAB FOUND Blood 02/13/2025 Historical Provider LAB BLOOD ORDERABLES Margarita l Result TXP NO LAB FOUND * (ABNORMAL) Comprehensive metabolic panel (02/13/2025) SCRIBED Sodium 144 134 - 144 mmol/L TXP NO LAB FOUND SCRIBED Potassium 5.1 3.5 - 5.2 mmol/L TXP NO LAB FOUND SCRIBED Chloride 104 96 - 106 mmol/L TXP NO LAB FOUND SCRIBED Carbon Dioxide 24 20 - 29 mmol/L TXP NO LAB FOUND SCRIBED Anion Gap TX P NO LAB FOUND Comment:- SCRIBED Urea Nitrogen (BUN) 33(A) 8 - 27 mg/dL TXP NO LAB FOUND SCRIBED Creatinine 1.60(A) 0.57 - 1 mg/dL TXP NO LAB FOUND SCRIBED Glucose 138(A) 70 - 99 mg/dL TXP NO LAB FOUND SCRIBED Calcium 9 8.7 - 10.3 mg/dL TXP NO LAB FOUND SCRIBED Bilirubin 0.6 0 - 1.2 mg/dL TXP NO LAB FOUND SCRIBED Plasma Protein 6.5 6 - 8.5 g/dL TXP NO LAB FOUND SCRIBED Albumin 4.2 3.7 - 4.7 g/dL TXP NO LAB FOUND SCRIBED Alkaline Phosphatase 90 44 - 121 Units/L TXP NO LAB FOUND SCRIBED Alanine Transaminase (ALT) 22 NONE Units/L TXP NO LAB FOUND SCRIBED Aspartate Transaminase (AST) 21 0 - 40 Units/L TXP NO LAB FOUND SCRIBED eGFR 32 >99 mL/min/1.7 3 m2 TXP NO LAB FOUND Blood 02/13/2025 Historical Provider LAB BLOOD ORDERABLES Margarita l Result TXP NO LAB FOUND from Last 3 Months or Most Recently Relevant to Health Maintenance Insurance MEDICARE [facility] Address: [address] [phone] [facility] [employer] MEDICARE [facility] Address: [address] [place] [id number] [facility] [employer] Advance Directives For more information, please contact: [phone] Documents on File Type Date Recorded Patient Uniform Maker Expl anation Power of Regional Liaison 01/14/2024 1:53 PM Healthcare Agents on File Name Relationship Healthcare Agent Relationshi p Communication Joseph Santillan Health Care Agent Care Teams Beater Machine Operator Relationship Specialty Start Date End Date Alfredo Marshall MD [address] [place] [address] PCP - General 05/16/17 Alfredo Marshall MD [address] [place] [address] 05/16/17 Elida Ramirez NP [address] [place] [address] Nurse Practitioner Nurse Practitioner 04/04/19 Kirk Ponce MD [address] [place] [address] Referring Physician Cardiovascular Disease 04/09/19 Miryam Tucker, school commissionerEgg Pasteurizer Egg Pasteurizer 03/04/21
--- OUTSIDE RECORDS SUMMARY | 2025-05-18 11:20 | XMS_ITS | Data Portability ---
Author Organization [facility], [facility] Address [address] [place] [address] Assessment No assessment recorded. Plan of Treatment [...] Name and Address Organization Details Recorded Time Urinary incontin ence 203959874 Completed 201711/11/2017 Urinary incontin ence, unspecif ied; Progress : Stable Added By: Howard Ventura Add to Current Problems : NO ProblemS tatus: Resolve Not Available [facility] 2 19:13:03 Micturit ion finding Completed 201711/11/2017 Unspecif ied urinary incontin ence; Progress : Stable Added By: Howard Ventura Add to Current Problems : NO ProblemS tatus: Resolve Not Available [facility] 2 19:13:02 Procedur e Completed 201710/19/2018 Encounte r for other preproce dural examinat ion; Progress : Stable Added By: Ariana Anaya Add to Current Problems : NO ProblemS tatus: Resolve Not Available [facility] 2 19:13:03 Female urinary stress incontin ence 07518273 Active 2017 Female stress incontin ence; Progress [...] Resolve Not Available [facility] 2 19:13:03 Dementia 27472205 Active 2022 Anahi العلي MD [address] [place] [address], [phone] , [facility] 3 18:10:22 Mixed urinary incontin ence 603497855 Active 2022 Anahi العلي MD [address] [place] [address], [phone] , [facility] 3 18:10:33 [facility] 32543622 Active 2022 Anahi العلي MD [address] [place] [address], [phone] , [employer] [facility] 3 18:10:59 Transpla ntation of liver Active 2022 Anahi العلي MD [address] [place] [address], [phone] , [employer] 3 18:11:20 Problem Notes None recorded. Procedures Surgical History Date Name Laterality Status Provider Name and Address Organization Details Recorded Time 08/25/19 Date of Last Pap Smear completed Anahi العلي MD [address] [place] [address], [phone], [facility] 06/23/2022 01:15:42 07/09/19 19 repair of stress incontinence by suprapubic sling completed Anahi العلي MD [address] [place] [address], [phone], [facility] 06/23/2022 01:14:05 transplantation of liver completed Sissy Vasques [facility] 07/22/2022 13:33:41 Imaging Results None recorded. Procedure Notes None recorded. Medical Equipment None Reported. Allergies Allergen ID Allergen Name Allergen Category Reaction Reaction Severity Criticality Documentation Date Start Date Code Code System Note Provider Name and Address Organization Details Recorded Time 583076 Lazara medicatio n Not available Not available Not available 04/29/20212017 56925 0 RxNorm Sever ity: Moder ate; Not Available [facility] 01:12:18 290368 prednison e medicatio n Not available Not available Not available 04/29/20212017 8640 RxNorm Sever ity: Moder ate; Not Available [facility] 01:12:18 Medications Name Sig Start Date Stop Date [...] Nystatin 100,000 unit/gra m Topical Ointment RxNorm: 302311 Allow Substitu tion: True Refill Denied: No [...] active Celebrex 200 mg oral capsule RxNorm: 989556 Allow Substitu tion: True Refill Denied: No [...] estradio L 1 mg oral tablet RxNorm: 154475 Allow Substitu tion: True Refill Denied: No Edited by: Rupert(Hi ll, Kiki ) on 08/26/19 Stopped by: Rupert(Hi ll, Kiki ) on Not Available Not Available Not Available Lasix 20 mg tablet daily as directed 07/22 completed Lasix 20 mg oral tablet RxNorm: 410326 Allow Substitu tion: True Refill Denied: No Refill DateOccu rred: 08/05/19 18 Edited by: Rupert(Hi ll, Kiki ) on 08/26/19 20 Stopped by: Rupert(Hi ll, Kiki ) on Not Available Not Available Not Available aspirin 81 mg chewable tablet 1 tab daily 2017 active aspirin 81 mg oral tablet,c hewable RxNorm: 447420 Allow Substitu tion: True Refill Denied: No Refill DateOccu rred: 08/05/19 18 Edited by: Rupert(Ak ll, Kiki ) on 08/26/19 20 Stopped by: Rupert(Ak ll, Kiki ) on Not Available Not Available Not Available lisinopri l 5 mg tablet Take 1 tablet(s ) by mouth daily 2017 active Lisinopr il 5 mg oral tablet RxNorm: 125589 Allow Substitu tion: True Refill Denied: No Refill DateOccu rred: 08/05/19 18 Edited by: Rupert(Hi ll, Kiki ) on 08/26/19 Stopped by: Rupert(Ak ll, Kiki ) on Not Available Not [...] Not Available Coreg 2018 active Coreg RxNorm: 89425 Allow Substitu tion: True Refill Denied: No Refill DateOccu rred: 10/24/19 19 Edited by: Rupert(Hi ll, Kiki ) on 08/26/19 20 Stopped [...] 1,250 mcg (50,000 unit) oral capsule RxNorm: 271692 Allow Substitu tion: True Refill Denied: No Refill DateOccu rred: 08/05/19 18 Edited by: Rupert(Daniel ll, Kiki ) on 08/26/19 20 Stopped by: Rupert(Daniel ll, Kiki ) on Not Available Not Available Not Available Myrbetriq 25 mg tablet,ex tended release Take 1 tablet(s ) by mouth daily 07/22 completed Myrbetri q 25 mg oral Tablet, Extended Release 24 hr RxNorm: 9670374 Allow Substitu tion: True Refill Denied: No Refill DateOccu rred: 08/07/19 18 Edited by: RupalAk ll, Kiki ) on 08/26/19 Stopped by: Stuart ll, Kiki ) on Not Available Not Available Not Available Eliquis 5 mg tablet TAKE 1 TABLET BY MOUTH TWICE DAILY active Not Available Not Available No t Available [employer] COVID-19 Ag Self Test kit 07/22 completed Not Available Not Available Not Available Vitals Date Recorded Body weight Body mass index (BMI) Body height Systolic And Diastolic Provider Name and Address Organization Details Last Updated DateTime 07/22/2022 84725.1 g 32.6 kg/m2 165.1 cm 124/82 mm[Hg] Sissy Vasques [facility] [employer] 07/22/2022 13:38:32 Social History Question Answer Notes LastModified by Organizat ion Details LastModified Time Tobacco Smoking Status Never Smoker Sissy Vasques null, [facility] 07/22/2022 13:33:05 How Many Children Do You [...] Diagnosis SNOMED-CT Code Diagnosis ICD10 Code Diagnosis IMO Codes Diagnosis Note [id number] Anahi العلي MD [facility] [address] [place] [address] 07/22/2022 12:50:56 07/22/2022 18:25:17 Mixed urinary incontinence 144505865 N39.46 pt had TVT by Dr Johnson [...] other options to treat her leakage. Dementia 69692595 F03.90 She appears to have moderate stage [...] Recorded Advance Directives Directive None Recorded Payers Insurance Date Sequence Insurance Name Policy Number Policy Reyes Covered Member ID Reyes Member ID Guarantor Name 07/22/2022 2 [place] [id number] Morelia Rodriguez [id number] Morelia Rodriguez 07/22/2022 1 [place] Morelia Rodriguez [id number] Morelia Telljuan diego Notes Date Note Type Note Provider Name and Address Organization Details Recorded Time 07/22/2022 text/html Morelia is an 81 yr old who is being seen today for [...] states nothing has helped. Anahi العلي MD [address] [facility], [place], [address], [facility] 07/22/2022 18:25:01 OBGyn Episode No OBEpisode recorded.
--- OUTSIDE RECORDS SUMMARY | 2025-05-18 11:20 | XMS_ITS | Clinical Summary ---
Author Organization [facility] Address [address] [place] [address] Care Team Providers Care Firearms Expert Name Role Phone Alfredo Marshall MD Primary Care Provider [phone] Kirk Ponce MD Unavailable [phone] Allergies Active Allergy Reactions Criticality Noted Date Comments Dander Rash,Itching High 01/23/2018 Mite (D. Farinae) Itching High 01/23/2018 Morphine Other (see comment) 08/22/2018 makes me go crazy, I thought I was dying Prednisone Unknown 08/22/2018 At high doses, patient unsure of reaction to medication felt like I was climbing the kim Medications vitamin D2, ergocalciferol, [address] UNITS capsule Take 1 capsule by mouth weekly. On sunday 8 Active meclizine 25 MG tablet Take 1 tablet by mouth daily as needed. For nausea or headaches 8 Active hydrOXYzine 10 MG tablet Take 1 tablet by mouth nightly. Has allergy to dust mites with severe itching 8 Active meloxicam 7.5 MG tablet Take 1 tablet by mouth daily. 8 Active memantine 5 MG tablet Take 1 tablet by mouth daily. 8 Active cetirizine 10 MG tablet Take 10 mg by mouth daily. Active tacrolimus 0.5 MG capsule Take 1.5 mg by mouth 2 (two) times daily. Active rosuvastatin 10 MG tablet Take 1 tablet by mouth daily. 8 Active BESIVANCE 0.6 % Suspension ophthalmic suspension Place 1 drop into both eyes daily as needed. 8 Active dorzolamide 2 % ophthalmic solution Place 1 drop into both eyes daily as needed. 8 Active estradiol 1 MG tablet Take 1 tablet by mouth daily. 9 Active LOTEMAX 0.5 % ophthalmic suspension Place 1 drop into both eyes daily as needed. 8 Active lisinopril 40 MG tablet Take 1 tablet by mouth daily. 8 Active multivitamin with minerals liquid Take 15 mLs by mouth daily. Active Active Problems Problem Noted Date Diagnosed Date Stress incontinence 08/28/2018 Family History Medical History Relation Comments Cancer Mother Diabetes Mother Heart Disease Mother Hypertension Mother Thyroid Sister 1 Diabetes Sister 2 Thyroid Sister 2 Thyroid Sister 3 COPD Sister 4 Thyroid Sister 4 Relation Status Comments Daughter pneumonia Father adopted, says he had many health problems Mother (Age 72) patient adopte d, but knows her mom had breast cancer and heart problems Sister 1 Alive Sister 2 Alive Sister 3 Alive Sister 4 heavy memory Son 1 Alive Son 2 Alive Social History Tobacco Use Types Packs/Day Years Used Date Smoking Tobacco: Never Smokeless Tobacco: Never Alcohol Use Standard Drinks/Week Comments No 0 (1 standard drink = 0.6 oz pur e alcohol) Comments Unknown Sex and Gender Information Value Date Recorded Sex Assigned at Not on file Legal Sex Female 8:13 PM CDT Gender Identity Not on file Sexual Orientation Not on file Last Filed Vital Signs Vital Sign Reading Time Taken Comments Blood Pressure 136/61 08/30/2018 3:33 PM SENIOR MECHANICAL DEVELOPMENT ENGINEER Pulse 73 08/30/2018 3:33 PM SENIOR MECHANICAL DEVELOPMENT ENGINEER Temperature 37.1 C (98.7 F) 08/30/2018 3:33 PM SENIOR MECHANICAL DEVELOPMENT ENGINEER Respiratory Rate 20 08/30/2018 3:33 PM SENIOR MECHANICAL DEVELOPMENT ENGINEER Oxygen Saturation 97% 08/30/2018 3:33 PM SENIOR MECHANICAL DEVELOPMENT ENGINEER Inhaled Oxygen Concentration - - Weight 99.8 kg (220 lb 0.3 oz) 08/30/2018 3:55 A M SENIOR MECHANICAL DEVELOPMENT ENGINEER Height 166.4 cm (5' 5.5) 08/28/2018 6:42 AM SENIOR MECHANICAL DEVELOPMENT ENGINEER Body Mass Index 36.06 08/28/2018 6:42 AM SENIOR MECHANICAL DEVELOPMENT ENGINEER Plan of Treatment Health Maintenance Due Date Last Done Comments COVID-19 Vaccine (#1) 1945 DTaP, Tdap and Td Vaccines ( 1 - Tdap) 1960 Pneumococcal Vaccine: 50+ Years (1 of 2 - PCV) 1960 Zoster Vaccines (1 of 2) 1959 Annual Medicare Wellness Visit 2006 Dexa Scan (General) 2006 RSV Immunization or 60+ Years (1 - 1-dose 75+ series) 2016 Influenza Adult (#1) 2025 05/16/2017, 07/09/2015 Hepatitis A Vaccines Aged Out No long er eligible based on patient's age to complete this topic Meningococcal B Vaccine Aged Out No l onger eligible based on patient's age to complete this topic Meningococcal Vaccine Aged Out No yahaira devyn eligible based on patient's age to complete this topic RSV Immunizations Under 20 Months Aged Out No longer eligible b ased on patient's age to complete this topic Medical Devices Implanted Type Area Molded Grid And Parts Inspector Device Identifier Shelf Expiration Date Model / Serial / Lot Sling Advantage Fit Mid-Urethral Transvaginal - [id number] Implanted:Qty: 1 on 08/28/2018 by Alex Grant MD at [facility] N/A: Urinary Bladder Promimic 06/16/2021 [id number] 10 / / [id number] Insurance MEDICARE [facility] Advance Directives * Full Code (Latest Code Status on File) Date Activated Date Inactivated Comments 08/28/2018 12:50 PM 08/30/2018 6:46 PM Care Teams Firearms Expert Relationship Specialty Start Date End Date Alfredo Marshall MD PCP - General 09/29/10 Kirk Ponce MD [address] [place] [id number] Referring Physician CARDIOVASCULAR DISEASE 01/30/18
--- OUTSIDE RECORDS SUMMARY | 2025-05-18 11:20 | XMS_ITS | Data Portability ---
Author Organization [place] - [facility] OFFICE Address [address] [place] [address] Care Team Providers Care Resource Analyst Name Role Phone EVON SAENZ Primary Care Provider EVON SAENZ Referring Provider Assessment Encounter Date Assessment Date Assessment LastModified by Organization Details LastModified Time 06/21/2023 06/21/2023 Patient Examined by SHI Downing, Also Documentation reviewed and approved by supervising physician scoto Not available 06/19/2023 12:46:13 07/11/2023 07/11/2023 Patient Examined by SHI Downing, Also Documentation reviewed and approved by supervising physician aldairo Not available 07/10/2023 09:13:04 10/11/2023 10/11/2023 Patient Examined by SHI Downing, Also Documentation reviewed and approved by supervising physician aldairo Not available 10/10/2023 14:01:16 Plan of Treatment Reminders Order Date Submit Date Provider Last Modified By Organization Details Last Modified Time Details Appointments ESTABLISH ED PATIENT DETAILED 2025 10:15A M Kirk Mirza i, MD Not available Not available Not available Lab None recorded. Referral None recorded. Procedures None recorded. Surgeries None recorded. Imaging None recorded. Medication Orders furosemid e 20 mg tablet 2023 024 [facility], [address] [facility], [place], [address], 07/11/2023 13:07:57 potassium chloride ER 20 mEq tablet,ex tended release(p art/cryst ) 2023 024 [email or web address] [facility], [address] [place], [address], 10/11/2023 14:36:22 losartan 100 mg tablet 2023 024 [facility], [address] [place], [address], 07/11/2023 13:07:54 furosemid e 20 mg tablet 2022 023 [facility] [address], [address] [place] [address], [address], 06/21/2023 12:11:57 potassium chloride ER 20 mEq tablet,ex tended release(p art/cryst ) 2022 023 [email or web address] 028 [facility] [address], [address] [place] [address], [address], 10/11/2023 14:36:22 Patient TargetsNo targets recorded. Patient Instructions Encounter Date Encounter Id Patient Instructions Last Modified By Organization Details Last Modified Time 06/21/2023 [id number] Low cholesterol diet advised Low sodium diet advised. eyassin Not available 06/21/2023 12:11:01 07/11/2023 [id number] Exercise advised Low cholesterol diet advised Low sodium diet advised. eyassin Not available 07/11/2023 13:07:46 10/11/2023 [id number] Low cholesterol diet advised Low sodium diet advised. eyassin Not available 10/11/2023 11:38:08 Reason for Referral None Reported. Results Created Date Observation Date Name Description Value Unit Range Abnormal Flag Note LastModifiedBy Organization Detail LastModifiedTime 06/29/2006/14/2023 US, stu id arter y No observ ation record ed. [email or web address] Not Available 2022 09:22:41 10/30/19 24 10/11/2023 elect latoya diogr am No observ ation record ed. [email or web address] Not Available 2023 15:36:44 04/16/20 24 04/15/2024 elect rocar diogr am No observ ation record ed. [email or web address] Not Available 2024 15:33:06 04/21/20 24 04/15/2024 US, echoc arkellieo gram No observ ation record ed. esto [facility] [address] [facility], [place], [address], 01/30/2025 15:46:12 02/05/20 25 02/03/2025 elect rocar diogr am No observ ation record ed. Not Available 02/04 15:44:10 03/21/20 25 03/05/2025 US, carot id arter y No observ ation record ed. [email or web address] Not Available 2024 11:20:35 Result Notes None recorded. Problems Name Problem SNOMED Code Status Onset Date Resolution Date Notes Provider Name and Address Organization Details Recorded Time Benign hypertension 97133774 Active Phill Saleem null, [place] - [facility] 15:49:03 Urinary incontinence 016182399 Active Phill Saleem null, [place] - [facility] 15:49:03 Cirrhosis of liver 25210795 Active [place] - [facility] 15:49:03 Idiopathic peripheral neuropathy 43960560 Active [place] [facility] 15:49:03 Overweight 889171088 Active [place] [facility] 15:49:03 Osteopenia 473298777 Kelley [place] [facility] 15:49:03 Vitamin D deficiency 19075718 Kelley [place] [facility] 15:49:03 Osteoarthritis 061982199 Kelley [place] [facility] 15:49:03 Umbilical hernia 667925290 Kelley [place] [facility] 15:49:03 Ventral incisional hernia 381475853 Kelley [place] [facility] 15:49:03 Uterine leiomyoma 14488247 Kelley [place] [facility] 15:49:04 Ventricular hypertrophy 281146261 Active 2015 Phill [place] - [facility] 3 15:49:03 Aortic valve regurgitation 50508941 Active 2015 [place] [facility] 3 15:49:04 Hyperlipidemia 93582393 Active 2016 [place] [facility] 3 15:49:03 Migraine 76028756 Active 2016 [place] [facility] 3 15:49:03 Electrocardiog elisha abnormal 857248352 Active 2017 Phill Saleem [place] - [facility] 3 15:49:03 Diabetes mellitus 55241352 Active 2017 Hala Alden [place] - [facility] 8 16:02:08 Dyslipidemia 894655692 Active 2017 [place] [facility] 3 15:49:03 Cirrhosis - non-alcoholic 586803174 Active 2017 Phill Sale[place] [facility] 3 15:49:03 Dyspnea on exertion 37807206 Active 2017 [place] [facility] 3 15:49:04 Essential hypertension 25996464 Active 2017 [place] [facility] 3 15:49:03 Obesity 218433755 Active 2017 [place] [facility] 3 15:49:03 Pre-surgery evaluation Active 2017 [place] [facility] 3 15:49:03 Coronary arterioscleros is 23296129 Active 2017 [place] [facility] 3 15:49:03 Bundle branch block 9901293 Active 2017 [place] - [facility] 3 15:49:04 Body mass index 30+ - obesity 733267201 Active 2018 [place] [facility] 3 15:49:03 Mild neurocognitive disorder 967346693 Active 2018 [place] [facility] 3 15:49:03 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 848866694 Active 2018 Phill Saelem [place] - [facility] 3 15:49:03 Transplanted liver present 442231276 Active 2018 [place] [facility] 3 15:49:04 Pulmonary embolism 43502882 Active 2018 Phill [place] [facility] 3 15:49:03 Carotid artery stenosis 33391517 Active 2019 Phill [place] [facility] 3 15:49:04 History of liver recipient 394259868 Active 2019 Phill [place] [facility] 3 15:49:03 Congestion of nasal sinus 19066506 Active 2019 hPill Saleem [place] [facility] 3 15:49:04 Allergic rhinitis caused by pollen 95620659 Active 2020 Phill [place] [facility] 3 15:49:03 Spinal stenosis of lumbar region 05115857 Active 2020 Phill [place] [facility] 3 15:49:03 Hypocalcemia 5908019 Active 2020 Phill [place] [facility] 3 15:49:03 Right bundle branch block 44405063 Active 2020 Phill [place] [facility] 3 15:49:03 Diarrhea 40049900 Active 2020 Phill [place] [facility] 3 15:49:04 Gastroesophage al reflux disease without esophagitis 236011261 Active 2021 [place] [facility] 3 15:49:03 Double incontinence 50101111 Active 2022 Snehal [place] [facility] 5 14:11:03 Type 2 diabetes mellitus without complication 977652396 Active 2022 Snehal [place] [facility] 5 14:11:03 Hypokalemia 85095916 Active 2023 [place] [facility] 5 14:11:03 Mixed hyperlipidemia 624182261 Active 2023 [place] [facility] 5 14:11:03 Restless legs syndrome 82553708 Active 2023 [place] [facility] 5 14:11:03 Chronic renal failure 26572714 Active 2023 [place] [facility] 5 14:11:03 Anemia 480004278 Active 2023 Brian [place] [facility] 5 14:11:03 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 Please review these documents and add these problems to the patient's chart manually as needed. Problem Notes None recorded. Medical Equipment None Reported. Allergies Allergen ID Allergen Name Allergen Category Reaction Reaction Severity Criticality Documentation Date Start Date Code Code System Note Provider Name and Address Organization Details Recorded Time 24409 Lazara medicatio n Not available Not available Not available 09/12/2022 80665 0 RxNorm Phill [place] - [facility] 3 15:48:33 76227 Niaspan medicatio n Not available Not available Not available 09/12/2022 42724 6 RxNorm [place] [facility] 3 15:48:33 20077 Neurontin medicatio n Not available Not available Not available 09/12/2022 71902 8 RxNorm Phill [place] [facility] 3 15:48:33 77338 Ultram medicatio n Not available Not available Not available 09/12/2022 80492 6 RxNorm Phill Saleem [facility], [facility] 3 15:48:33 19055 niacin medicatio n Not available Not available Not available 02/02/20252019 7393 RxNorm Snehal Mesto [facility], [facility] 5 14:10:43 05016 morphine medicatio n dizziness Not available Not available 02/02/20252018 7052 RxNorm Brian Mesto [facility], [facility] 5 14:10:43 77647 tramadol medicatio n Not available Not available Not available 02/02/20252019 58356 RxNorm Brian Mesto [facility], [facility] 5 14:10:43 26142 gabapenti n medicatio n Not available Not available Not available 02/02/2025 84460 RxNorm Brian Mesto [facility], [facility] 5 14:10:43 6583 prednison e medicatio n Not available Not available Not available 02/02/2018 8640 RxNorm Hala Alden [facility], [facility] 8 16:04:04 Medications Name Sig Start Date [...] completed Not Available Not Available Not Available ondansetr on HCl 4 mg tablet TAKE 1 TABLET BY MOUTH EVERY 8 HOURS NEEDED FOR NAUSEA AND FOR VOMITING 02/17 completed Not Available Not Available Not Available prednison e 20 mg tablet Take 20 mg every day by oral route as directed for 4 days. 02/11 completed Not Available Not Available Not [...] 1 TABLET BY MOUTH ONCE DAILY NEEDED 06/21 completed Not Available Not Available Not [...] TABLET BY MOUTH THREE TIMES DAILY NEEDED 10/10 completed PRN Not Available Not Available [...] Not Available No t Available neomycin- polymyxin -dexameth 3.5 mg/mL-10, 000 unit/mL-0 .1% eye drops INSTILL 1 DROP INTO EACH EYE TWICE DAILY FOR 7 TO 10 DAYS 09/01 completed Not Available Not Available Not Available tobramyci n 0.3 % eye drops 10/08 completed Not Available Not Available Not Available triamcino lone acetonide 0.1 % topical ointment 12/06 completed Not Available Not Available Not Available ropinirol e 0.5 mg tablet TAKE 1 TABLET BY MOUTH ONCE DAILY AT BEDTIME active Not Available Not Available No t Available clotrimaz ole-betam ethasone 1 %-0.05 % topical [...] Available Not Available losartan 25 mg tablet TAKE 1 TABLET BY [...] every day by oral route at bedtime. 07/10 completed Not Available Not Available Not Available lisinopri l 5 mg tablet Take 1 tablet every day by oral route. 02/11 completed Not Available Not Available Not Available furosemid e 20 mg tablet TAKE 1 TABLET BY MOUTH ONCE DAILY IN THE MORNING active Not Available Not Available No t Available gabapenti n 100 mg capsule TAKE 1 CAPSULE BY MOUTH ONCE DAILY AT BEDTIME active Not Available Not Available No t Available ergocalci ferol (vitamin D2) 1,250 mcg (50,000 unit) capsule TAKE 1 CAPSULE BY MOUTH EVERY TWO WEEKS 2023 active Not Available Not Available Not Avai lable lotepredn ol etabonate 0.5 % eye drops,arian pension 06/18 completed Not Available Not Available Not Available nystatin 100,000 unit/gram topical powder 11/06 completed Not Available Not Available Not Available azelastin e 137 mcg (0.1 %) nasal spray USE 2 SPRAY(S) IN EACH NOSTRIL ONCE DAILY 02/19 completed Not Available Not Available Not Available levofloxa francisco javier 750 mg tablet 12/13 completed Not Available Not Available Not Available albuterol sulfate HFA 90 mcg/actua tion aerosol inhaler INHALE 2 PUFFS BY MOUTH EVERY 8 HOURS NEEDED active Not Available Not Available No t Available ipratropi um bromide 42 mcg (0.06 %) nasal spray [place] 2 sprays 3 times a day by [...] TAKE 1 TABLET BY MOUTH ONCE DAILY 06/21 completed Not Available Not Available Not Available losartan 100 mg tablet Take 1 tablet every day by oral route. 06/02 completed Not Available Not Available Not Available fluticaso ne propionat e 50 mcg/actua tion nasal spray,[facility] pension Use 1 spray(s) in each nostril once daily 10/10 completed Not Available Not Available Not Available metformin ER 500 mg tablet,ex tended release 24 hr Take 1 tablet by mouth twice daily 08/12 completed Not Available Not Available Not Available doxycycli ne hyclate 100 mg tablet Take 1 tablet twice a day by oral route. 02/11 completed Not Available Not Available Not [...] Not Available Not Available No t Available Tylenol Extra Strength 500 mg tablet Take 1 tablet every 8 hours by oral route around the clock for 90 days. 2023 active Not Available Not Available Not Avai lable neomycin 3.5 mg/g-poly myxin B 10,000 unit/g-de xameth 0.1 % eye oint APPLY 1/4 INCH INTO EACH EYE AT BEDTIME FOR 7-10 DAYS 09/01 completed Not Available Not Available Not Available neomycin- polymyxin -hydrocor t 3.5 mg-10,000 [...] POWDER BY MOUTH THREE TIMES DAILY NEEDED 06/21 completed Not Available Not Available Not [...] Not Available Not Available No t Available diclofena c 1 % topical gel APPLY 2 GRAMS TO THE AFFECTED AREA(S) BY TOPICAL ROUTE 4 TIMES PER DAY 2023 active Not Available Not Available Not Avai lable Besivance 0.6 % eye drops,arian penon 10/08 completed Not Available Not Available Not [...] PE Not Available Not Available Not Available Ferrearmonds Carbonyl Iron 18 mg iron chewable tablet [...] Available Not Available Not Available Fluzone High-Dose 0466-6834 (PF) 180 mcg/0.5 mL intramusc ular syringe 10/08 completed Not Available Not Available Not Available Fluzone High-Dose (PF) 180 mcg/0.5 mL intramusc ular syringe PHARMACI ST ADMINIST ERED IMMUNIZA TION ADMINIST ERED AT TIME OF DISPENSI NG 03/22 completed Not Available Not Available Not Available Fluzone High-Dose Quad 2019- (PF) 240 mcg/0.7 mL IM syringe PHARMACI ST ADMINIST ERED IMMUNIZA TION ADMINIST ERED AT TIME OF DISPENSI NG 05/13 completed Not Available Not Available Not Available BinaxNOW COVID-19 Ag Self Test kit 09/12 completed Not Available Not Available Not Available Vitals Date Recorded Body height Body mass index (BMI) Body weight Heart rate Oxygen saturation Oxygen saturation in Arterial blood by Pulse oximetry Respiratory rate Systolic And Diastolic Provider Name and Address Organization Details Last Updated DateTime 4 165.1 cm 31.3 kg/m2 83874.3 7 g 50 /min 98 % 98 % 17 /min 190/90 mm[Hg] TONYA CA [facility] 4 12:58:29 Date Recorded Body height Body mass index (BMI) Body weight Heart rate Oxygen saturation Oxygen saturation in Arterial blood by Pulse oximetry Systolic And Diastolic Provider Name and Address Organization Details Last Updated DateTime 4 165.1 cm 32.6 kg/m2 14827.1 g 60 /min 97 % 97 % 139/87 mm[Hg] Hillary Degroot [facility] 4 10:58:19 Date Recorded Body height Body mass index (BMI) Body weight Heart rate Oxygen saturation Oxygen saturation in Arterial blood by Pulse oximetry Systolic And Diastolic Provider Name and Address Organization Details Last Updated DateTime 5 165.1 cm 29.8 kg/m2 01617.1 1 g 59 /min 90 % 90 % 110/70 mm[Hg] Hillary Zane [facility] 5 11:29:56 Date Recorded Body height Body mass index (BMI) Body weight Heart rate Respiratory rate Oxygen saturation Oxygen saturation in Arterial blood by Pulse oximetry Systolic And Diastolic Provider Name and Address Organization Details Last Updated DateTime 4 165.1 cm 29.1 kg/m2 20440.6 6 g 61 /min 16 /min 95 % 95 % 134/86 mm[Hg] Hillary Degroot [facility] 4 10:15:34 Date Recorded Body height Body mass index (BMI) Body weight Oxygen saturation Oxygen saturation in Arterial blood by Pulse oximetry Heart rate Systolic And Diastolic Provider Name and Address Organization Details Last Updated DateTime 3 165.1 cm 31.5 kg/m2 14348.9 6 g 98 % 98 % 82 /min 134/64 mm[Hg] Olga Girish [facility] 3 11:21:44 Social History Question Answer Notes LastModified by Organizat ion Details LastModified Time Tobacco Smoking Status Former Smoker Snehal gamble [facility] 02/08/2018 15:28:34 What Is Your Level Of Caffeine Consumption? Occasional [email or web address] Information not available 02/11/2018 Marital Status [email or web address] Informatio n not available 02/11/2018 What Was The Date Of Your Most Recent Tobacco Screening? 04/08/2018 Information not available 01/30/2019 How Many Children Do You Have? 3 [email or web address] Information not available 02/11/2018 Sex: Unknown Functional Status Question Answer Note LastModified by Organizat ion Details LastModified Time What is your level of alcohol consumption? 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 Family History Relationship Description Onset Age of this Age Resolved Age Notes LastModified by Organization Details LastModified Time Mother Diabetes mellitus [email or web address] Not available 2017 15:28:17 Mother Malignant neoplasm of breast [email or web address] Not available 2017 15:28:28 Medical History Condition Response Diabetes Y Hyperlipidemia Y Anemia Y Hypertension Y Gynecological HistoryNo gynecological history recorded. Obstetrics History GPAL:G 0 P 0 0 0 0 Immunizations Vaccine Type Date Status Note Provider Nam e and Address Organization Details Recorded Time Influenza, split virus, quadrivalent, preservative 9 completed [place] - [facility] 09/12/2022 15:49:13 Influenza, split virus, quadrivalent, preservative 1 completed [place] [facility] 09/12/2022 15:49:13 Influenza, split virus, quadrivalent, preservative 0 completed [place] [facility] 02/02/2025 14:11:10 Influenza, split virus, quadrivalent, preservative 5 completed [place] [facility] 09/12/2022 15:49:13 Influenza, split virus, quadrivalent, preservative 7 completed [place] [facility] 09/12/2022 15:49:13 zoster recombinant 8 completed [place] [facility] 09/12/2022 15:49:13 COVID-19, mRNA, LNP-S, PF, 30 mcg/0.3 mL dose 1 completed [place] [facility] 02/02/2025 14:11:10 COVID-19, mRNA, LNP-S, PF, 30 mcg/0.3 mL dose 1 completed [place] [facility] 02/02/2025 14:11:10 COVID-19, mRNA, LNP-S, PF, 30 mcg/0.3 mL dose 2 completed [place] [facility] 02/02/2025 14:11:10 COVID-19, mRNA, LNP-S, PF, 30 mcg/0.3 mL dose 1 completed [place] [facility] 02/02/2025 14:11:10 pneumococcal polysaccharide PPV23 5 completed Phill Saleem [place] - [facility] 09/12/2022 15:49:14 pneumococcal polysaccharide PPV23 1 completed Snehal Galaviz null[place] - [facility] 02/02/2025 14:11:10 Tdap 6 completed Phill Sale[place] - [facility] 09/12/2022 15:49:14 Pneumococcal conjugate PCV 13 6 completed [place] [facility] 09/12/2022 15:49:14 Influenza, high-dose, trivalent, PF 8 completed Snehal [place] - [facility] 02/02/2025 14:11:10 Influenza, split virus, trivalent, preservative 6 completed Snehal Sepulvedato [place] - [facility] 02/02/2025 14:11:10 Influenza, high-dose, quadrivalent, PF 2 completed [place] [facility] 02/02/2025 14:11:10 Influenza, adjuvanted, quadrivalent, PF 3 completed [place] [facility] 02/02/2025 14:11:10 Pneumococcal conjugate PCV20, polysaccharide QIR925 conjugate, adjuvant, PF 3 completed [place] [facility] 02/02/2025 14:11:10 RSV, recombinant, protein subunit RSVpreF, adjuvant reconstituted, 0.5 mL, PF 3 completed [place] [facility] 02/02/2025 14:11:10 COVID-19, mRNA, LNP-S, PF, 50 mcg/0.5 mL 4 completed S[place]hal [place] [facility] 02/02/2025 14:11:10 COVID-19, mRNA, LNP-S, PF, 50 mcg/0.5 mL 3 completed Snehal [place] [facility] 02/02/2025 14:11:10 Tdap 3 completed [place] [facility] 02/02/2025 14:11:10 Influenza, high-dose, trivalent, PF 4 completed S[place]hal [place] [facility] 02/02/2025 14:11:10 Past Encounters Encounter ID Performer Location Encounter Start Date Encounter Closed Date Diagnosis/Indication Diagnosis SNOMED-CT Code Diagnosis ICD10 Code Diagnosis IMO Codes Diagnosis Note [id number] MD Abena Harvey Office [address] [facility] [place] [address] 02/11/2018 12:05:04 02/11/2018 13:58:47 Dyspnea on exertion 44671695 R06.09 Could be angina equivalent . Will obtain Lexiscan Myoview Stress Test to look for any ischemia. Patient cannot walk. Has a high Catano Risk score. Has Known CAD and/or CAD risk equivalent . Continue maximal medical treatment and risk factor modificati on Essential hypertension 09567752 I10 Blood pressure is elevated today but this is only one reading. Will keep close follow up and consider medication change if blood pressure remains elevated by next visit. Dyslipidemia 916383242 E 78.5 Needs to keep LDL less than 70, and HDL more than 40. Will get lipid profile results from PCP. Refusing statin therapy. Diet and weight loss advised. Diabetes mellitus 947378 09 E11.9 Borderline . Diet controlled . Obesity 922670798 E66.9 20 lb. weight loss recommende d over the next 2 months. Cirrhosis - non-alcoholic 284487514 K74.60 s/p liver transplant .Being followed by specialist . Pre-surger y evaluation 095483470 Z01.818 Lexiscan Myoview stress test, pt can not walk. Has known coronary artery disease, with atypical symptoms now [id number] [facility] Office [address] [facility] [address] [facility] [place] [address] 04/08/2018 10:23:21 04/08/2018 10:51:19 Pre-surgery evaluation 776314480 Z01.818 Lexiscan Myoview stress test was positive [...] and risk factor modificati on Essential hypertension 81371849 I10 Blood pressure is elevated today but this is only one reading. Will keep close follow up and consider medication change if blood pressure remains elevated by next visit. Dyslipidemia 022375913 E 78.5 Needs to keep LDL less than 70, and HDL more than 40. Will get lipid profile results from PCP. Refusing statin therapy. Diet and weight loss advised. Diabetes mellitus 783280 09 E11.9 Borderline . Diet controlled . Obesity 551346800 E66.9 20 lb. weight loss recommende d over the next 2 months. Cirrhosis - non-alcoholic 017182505 K74.60 s/p liver transplant .Being followed by specialist . [id number] Kirk Ponce MD [facility] [address] [place] [address] 05/07/2018 12:23:14 05/07/2018 13:37:09 Pre-surgery evaluation 676032914 Z01.818 cath with mild Coronary Artery DiseaseThe re is no cardiac contraindi cation for the procedure. The planned procedure would be within acceptable risk. Patient may stop taking aspirin (5) days prior to the procedure. Dyspnea on exertion 6084 5006 R06.09 Could be angina equivalent . Continue maximal medical treatment and risk factor modificati on Essential hypertension 26918544 I10 Will increase Lisinopril 40 mg daily Dyslipidemia 013986631 E 78.5 Needs to keep LDL less than 70, and HDL more than 40. Will get lipid profile results from PCP. Refusing statin therapy. Diet and weight loss advised. Diabetes mellitus 726151 09 E11.9 Borderline . Diet controlled . Obesity 888541888 E66.9 20 lb. weight loss recommende d over the next 2 months. Cirrhosis - non-alcoholic 827083874 K74.60 s/p liver transplant .Being followed by specialist . 80411 Kirk Ponce MD [facility] [address] [place] [address] 10/08/2018 15:07:38 10/08/2018 16:00:25 Dyspnea on exertion 61623762 R06.09 Continue maximal medical treatment and risk factor modificati on angiogram (PROC) 04-11-2018 04/11/2018 C, Mild CAD. Normal LV systolic function. 01/17/18 [...] mild aortic valve sclerosis without Essential hypertension 96626341 I10 BP borderline today Dyslipidemia 334449770 E 78.5 lipid panel, blood 06-13-2018 06/13/18 FLP: TR 153, TC 180, LDL 104, HDL 45 Needs to keep LDL less than 70, and HDL more than 40. On Pravastati n Diet and weight loss advised. Diabetes mellitus 730504 09 E11.9 Borderline . Diet controlled . Obesity 506411752 E66.9 20 lb. weight loss recommende d over the next 2 months. Cirrhosis - non-alcoholic 467541641 K74.60 s/p liver transplant .Being followed by specialist . 26898 Kirk Ponce MD [facility] [place] [address] 02/18/2019 14:23:06 02/18/2019 15:26:19 Dyspnea on exertion 99855620 R06.09 Continue maximal medical treatment and risk factor modificati on angiogram (PROC) 04-11-2018 04/11/2018 [facility], Mild CAD. Normal LV systolic function. 01/17/18 [...] mild aortic valve sclerosis without Essential hypertension 00058556 I10 controlled Dyslipidemia 406373335 E 78.5 lipid panel, blood 06-13-2018 06/13/18 FLP: TR 153, TC 180, LDL 104, HDL 45 Needs to keep LDL less than 70, and HDL more than 40. On Pravastati n Diet and weight loss advised. Diabetes mellitus 823110 09 E11.9 Borderline . Diet controlled . Obesity 751648622 E66.9 20 lb. weight loss recommende d over the next 2 months. Cirrhosis - non-alcoholic 673238646 K74.60 s/p liver transplant .Being followed by specialist . Coronary arteriosclerosis 57033834 I25.10 04/11/2018 [facility] Mild CAD. Normal LV systolic function.1 08/14/17 FLP: TR 153, TC 180, LDL 104, HDL 45 Pulmonary embolism 21381 003 I26.99 Now on EliquisVen ous Duplex 42641 Kirk Ponce MD [facility] [address] [place] [address] 04/22/2019 14:09:13 04/22/2019 15:03:04 Coronary arteriosclerosis 06512724 I25.10 04/11/2018 [facility] Mild CAD. Normal LV systolic function.1 08/14/17 FLP: TR 153, TC 180, LDL 104, HDL 45 Dyspnea on exertion 6084 5006 R06.09 Continue maximal medical treatment and risk factor modificati on angiogram (PROC) 04-11-2018 04/11/2018 [facility], Mild CAD. Normal LV systolic function. Now with PE. Continue Eliquis. Echo 03/03/2019 LV chamber size is normal. There is normal global systolic function and contractil ity. The estimated LVEF is 55-60%. There is trace mitral regurgitat ion. There is mild tricuspid regurgitat ion. Estimated RVSP is 42 mmHg. Essential hypertension 51703405 I10 controlled Dyslipidemia 329639459 E 78.5 lipid panel, blood 06-13-2018 06/13/18 FLP: TR 153, TC 180, LDL 104, HDL 45 Needs to keep LDL less than 70, and HDL more than 40. On Pravastati n Diet and weight loss advised. 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 Diabetes mellitus 624095 09 E11.9 Borderline . Diet controlled . Obesity 908124531 E66.9 20 lb. weight loss recommende d over the next 2 months. Pulmonary embolism 22964 003 I26.99 Now on EliquisVen ous Duplex Echo 03/03/2019 LV chamber size is normal. There is normal global systolic function and contractil ity. The estimated LVEF is 55-60%. There is trace mitral regurgitat ion. There is mild tricuspid regurgitat ion. Estimated RVSP is 42 mmHg. 06213 Kirk Ponce MD [address] [address] 09/12/2022 15:39:39 09/12/2022 16:50:38 Coronary arteriosclerosis 75777643 I25.10 Lexiscan Myoview stress test, pt can not walk. Has known coronary artery disease, with atypical symptoms now 04/11/2018 [facility] Mild CAD. Normal LV systolic function.1 08/14/17 FLP: TR 153, TC 180, LDL 104, HDL 45 Dyspnea on exertion 6084 5006 R06.09 repeat echo angiogram (PROC) 04-11-2018 04/11/2018 [facility], Mild CAD. Normal LV systolic function. Now with PE. Continue Eliquis. Echo 03/03/2019 LV chamber size is normal. There is normal global systolic function and contractil ity. The estimated LVEF is 55-60%. There is trace mitral regurgitat ion. There is mild tricuspid regurgitat ion. Estimated RVSP is 42 mmHg. Essential hypertension 11480043 I10 controlled Dyslipidemia 006423821 E 78.5 lipid panel, blood 06-13-2018 06/13/18 FLP: TR 153, TC 180, LDL 104, HDL 45 Needs to keep LDL less than 70, and HDL more than 40. On Pravastati n Diet and weight loss advised. Cirrhosis - non-alcoholic 811799659 K74.60 s/p liver transplant .Being followed by specialist . Diabetes mellitus 795708 09 E11.9 Borderline . Diet controlled . Obesity 224170325 E66.9 20 lb. weight loss recommende d over the next 2 months. Pulmonary embolism 55830 003 I26.99 Now on EliquisVen ous Duplex Echo 03/03/2019 LV chamber size is normal. There is normal global systolic function and contractil ity. The estimated LVEF is 55-60%. There is trace mitral regurgitat ion. There is mild tricuspid regurgitat ion. Estimated RVSP is 42 mmHg. 24467 Kirk Ponce MD [facility] [address] [place] [address] 03/22/2023 11:05:49 03/22/2023 12:17:07 Coronary arteriosclerosis 05171273 I25.10 Negative stress test 202204/11/2018 [facility] Mild CAD. Normal LV systolic function.1 08/14/17 [...] sinus pradycardi a. angiogram (PROC) 04-11-2018 04/11/2018 [facility], Mild CAD. Normal LV systolic function. Now with PE. Continue Eliquis. Echo 03/03/2019 LV chamber size is normal. There is normal global systolic function and contractil ity. The estimated LVEF is 55-60%. There is trace mitral regurgitat ion. There is mild tricuspid regurgitat ion. Estimated RVSP is 42 mmHg. Essential hypertension 73792098 I10 elevated today at 160/90will start her on amlodipin Dyslipidemia 815049465 E 78.5 lipid panel, blood 06-13-2018 06/13/18 FLP: TR 153, TC 180, LDL 104, HDL 45 Needs to keep LDL less than 70, and HDL more than 40. On Pravastati nlast LDL is 94 done 01/2023 will continue with pravastati n 20 in setting of liver transplant Diet and weight loss advised. Cirrhosis - non-alcoholic 439262584 K74.60 s/p liver transplant .Being followed by specialist . Diabetes mellitus 171000 09 E11.9 Borderline . Diet controlled . Obesity 239125752 E66.9 20 lb. weight loss recommende d over the next 2 months. Pulmonary embolism 41297 003 I26.99 Now on EliquisVen ous Duplex Echo 03/03/2019 LV chamber size is normal. There is normal global systolic function and contractil ity. The estimated LVEF is 55-60%. There is trace mitral regurgitat ion. There is mild tricuspid regurgitat ion. Estimated RVSP is 42 mmHg. 23074 Kirk Ponce MD [facility] [address] [place] [address] 06/21/2023 11:07:21 06/21/2023 12:18:08 Coronary arteriosclerosis 86499308 I25.10 Negative stress test 202204/11/2018 [facility] Mild CAD. Normal LV systolic function.1 08/14/17 [...] sinus pradycardi a. angiogram (PROC) 04-11-2018 04/11/2018 [facility], Mild CAD. Normal LV systolic function. Now with PE. Continue Eliquis. Echo 03/03/2019 LV chamber size is normal. There is normal global systolic function and contractil ity. The estimated LVEF is 55-60%. There is trace mitral regurgitat ion. There is mild tricuspid regurgitat ion. Estimated RVSP is 42 mmHg. Essential hypertension 14799391 I10 BP is well controlled todaydisco ntinue amlodipin due to leg edemarecen tly started on losartan 25 mg by her PCP Dyslipidemia 308569554 E 78.5 lipid panel, blood 06-13-2018 06/13/18 FLP: TR 153, TC 180, LDL 104, HDL 45 Needs to keep LDL less than 70, and HDL more than 40. On Pravastati nlast LDL is 94 done 01/2023 will continue with pravastati n 20 in setting of liver transplant Diet and weight loss advised. Cirrhosis - non-alcoholic 937709838 K74.60 s/p liver transplant .Being followed by specialist . Diabetes mellitus 632326 09 E11.9 Borderline . Diet controlled . Obesity 597582797 E66.9 20 lb. weight loss recommende d over the next 2 months. Pulmonary embolism 05643 003 I26.99 Now on Eliquisrep eat Venous Duplex Echo 03/03/2019 LV chamber size is normal. There is normal global systolic function and contractil ity. The estimated LVEF is 55-60%. There is trace mitral regurgitat ion. There is mild tricuspid regurgitat ion. Estimated RVSP is 42 mmHg. Edema of l ower extremity 909069003 R60.0 moderate swellingwi ll do venous duplexwill increased her lasix to 40 mg dailystart using compressio n socks Obstructiv e sleep apnea syndrome 00454279 G47.33 will do sleep study 01654 Kirk Ponce MD [facility] [address] [place] [address] 07/11/2023 12:00:39 07/11/2023 13:09:38 Coronary arteriosclerosis 76832929 I25.10 Negative stress test 202204/11/2018 [facility] Mild CAD. Normal LV systolic function.1 08/14/17 FLP: TR 153, TC 180, LDL 104, HDL 45 Essential hypertension 01916742 I10 BP is elevated todaywill increased her losartan to 100 mg dailyoff amlodipin due to leg edemarecen tly started on losartan 25 mg by her PCP Dyslipidemia 705938234 E 78.5 lipid panel, blood 06-13-2018 06/13/18 FLP: TR 153, TC 180, LDL 104, HDL 45 Needs to keep LDL less than 70, and HDL more than 40. On Pravastati nlast LDL is 94 done 01/2023 will continue with pravastati n 20 in setting of liver transplant Diet and weight loss advised. Cirrhosis - non-alcoholic 959050395 K74.60 s/p liver transplant .Being followed by specialist . Diabetes mellitus 391680 09 E11.9 Borderline . Diet controlled . Obesity 257906369 E66.9 20 lb. weight loss recommende d over the next 2 months. Pulmonary embolism 62432 003 I26.99 Now on Eliquisrep eat Venous Duplex Echo 03/03/2019 LV chamber size is normal. There is normal global systolic function and contractil ity. The estimated LVEF is 55-60%. There is trace mitral regurgitat ion. There is mild tricuspid regurgitat ion. Estimated RVSP is 42 mmHg. Edema of l ower extremity 974303603 R60.0 moderate swellingve nous duplex with no clot 2022will increased her lasix to 40 mg dailyconti nue with compressio n socks Obstructiv e sleep apnea syndrome 67479710 G47.33 will do sleep study Dyspnea on [...] sinus pradycardi a. angiogram (PROC) 04-11-2018 04/11/2018 [facility], Mild CAD. Normal LV systolic function. Now with PE. Continue Eliquis. Echo 03/03/2019 LV chamber size is normal. There is normal global systolic function and contractil ity. The estimated LVEF is 55-60%. There is trace mitral regurgitat ion. There is mild tricuspid regurgitat ion. Estimated RVSP is 42 mmHg. 429696 Kirk Ponce MD [facility] [address] [place] [address] 10/11/2023 10:39:53 10/11/2023 11:45:16 Coronary arteriosclerosis 37387929 I25.10 Negative stress test 202204/11/2018 [facility] Mild CAD. Normal LV systolic function.1 08/14/17 FLP: TR 153, TC 180, LDL 104, HDL 45 Essential hypertension 34741217 I10 BP diary reviewed showing BP consistent ly < 140/90.con tinue with losartan 100 mg daily Dyslipidemia 573117341 E 78.5 *Last LDL was 104 done on 02/11/23.P t takes rosuvastat in 5 mg. Cirrhosis - non-alcoholic 170345536 K74.60 s/p liver transplant .Being followed by specialist . Diabetes mellitus 471082 09 E11.9 Borderline . Diet controlled . Obesity 694782072 E66.9 20 lb. weight loss recommende d over the next 2 months. Pulmonary embolism 25756 003 I26.99 she is off Eliquis and now on baby aspirin Echo 03/03/2019 LV chamber size is normal. There is normal global systolic function and contractil ity. The estimated LVEF is 55-60%. There is trace mitral regurgitat ion. There is mild tricuspid regurgitat ion. Estimated RVSP is 42 mmHg. Edema of l ower extremity 888709312 R60.0 mild swelling will increased lasix 20 mg BID for two days and then go back to 20 mg dailyvenou s duplex with no clot ontin ue with compressio n socks Obstructiv e sleep apnea syndrome 44587698 G47.33 will do sleep study Dyspnea on [...] sinus pradycardi a. angiogram (PROC) 04-11-2018 04/11/2018 [facility], Mild CAD. Normal LV systolic function. Now with PE. Continue Eliquis. Echo 03/03/2019 LV chamber size is normal. There is normal global systolic function and contractil ity. The estimated LVEF is 55-60%. There is trace mitral regurgitat ion. There is mild tricuspid regurgitat ion. Estimated RVSP is 42 mmHg. Carotid ar helen stenosis 88834779 I65.29 US, carotid artery Antegrade flow noted in both vertebral arteries. Mild bilateral internal carotid artery stenosis with less than 50% diameter stenosis.c ontinue with crestor and baby aspirin [id number] Kirk Ponce MD [facility] [address] [place] [address] 04/15/2024 10:05:32 04/15/2024 10:59:14 Coronary arteriosclerosis 80167187 I25.10 Negative stress test 202204/11/2018 [facility] Mild CAD. Normal LV systolic function.1 08/14/17 FLP: TR 153, TC 180, LDL 104, HDL 45 Essential hypertension 35246478 I10 BP diary reviewed showing BP consistent ly < 140/90.con tinue with losartan 100 mg daily Dyslipidemia 072533161 E 78.5 *Last LDL was 104 done on 02/11/23.P t takes rosuvastat in 5 mg. Cirrhosis - non-alcoholic 802635168 K74.60 s/p liver transplant .Being followed by specialist . Diabetes mellitus 615912 09 E11.9 Borderline . Diet controlled . Obesity 750190373 E66.9 20 lb. weight loss recommende d over the next 2 months. Pulmonary embolism 97669 003 I26.99 she is off Eliquis and now on baby aspirinObt ain echo to evaluate for structural /functiona l disease. Edema of l ower extremity 629161816 R60.0 mild swelling will increased lasix 20 mg BID for two days and then go back to 20 mg dailyvenou s duplex with no clot ontin ue with compressio n socksObtai n echo to evaluate for structural /functiona l disease. Obstructiv e sleep apnea syndrome 20388025 G47.33 will do sleep study Dyspnea on [...] sinus bradycardi a. angiogram (PROC) 04-11-2018 04/11/2018 [facility], Mild CAD. Normal LV systolic function. Carotid ar helen stenosis 97739915 I65.29 US, carotid artery Antegrade flow noted in both vertebral arteries. Mild bilateral internal carotid artery stenosis with less than 50% diameter stenosis.c ontinue with crestor and baby aspirin 407183 Kirk Ponce MD [facility] [address] [place] [address] 02/03/2025 11:13:02 02/03/2025 11:44:13 Coronary arteriosclerosis 23790495 I25.10 Negative stress test 202204/11/2018 [facility] Mild CAD. Normal LV systolic function.1 08/14/17 FLP: TR 153, TC 180, LDL 104, HDL 45 Essential hypertension 26995308 I10 Now well controlled Dyslipidemia 848631442 E 78.5 *Last LDL was 104 done on 02/11/23.P t takes rosuvastat in 5 mg. Cirrhosis - non-alcoholic 021622567 K74.60 s/p liver transplant .Being followed by specialist . Diabetes mellitus 191098 09 E11.9 Borderline . Diet controlled . Obesity 973436716 E66.9 20 lb. weight loss recommende d over the next 2 months. Pulmonary embolism 49572 003 I26.99 she is off Eliquis and now on baby aspirinObt ain echo to evaluate for structural /functiona l disease. Edema of l ower extremity 095372570 R60.0 mild swelling will increased lasix 20 mg BID for two days and then go back to 20 mg dailyvenou s duplex with no clot 3contin ue with compressio n socksObtai n echo to evaluate for structural /functiona l disease. Obstructiv e sleep apnea syndrome 44071563 G47.33 will do sleep study Dyspnea on [...] sinus bradycardi a. angiogram (PROC) 04-11-2018 04/11/2018 [facility], Mild CAD. Normal LV systolic function. Carotid ar helen stenosis 98157287 I65.29 US, carotid artery Antegrade flow noted [...] Member ID Reyes Member ID Guarantor Name 03/02/2025 1 [place] Morelia Rodriguez [id number] Morelia Rodriguez 03/02/2025 2 [place] (PPO) [id number] Morelia Rodriguez [id number] Morelia Rodriguez Notes Date Note Type Note Provider Name and Address Organization Details Recorded Time 06/21/2023 text/html 06/20/23CC : Cardiac follow up leg pain82 year-old white women [...] fascicular block; abnormal angiogram (PROC) 04-11-2018 04/11/2018 [facility] Mild CAD. Normal LV systolic function. lexiscan cardiolite stress test (PROC) 02-25-2018 Lexiscan Cardiolite Stress Test 02/25/18 : Adequate Stress with Lexiscan. Positive Lexiscan stress test. Partially reversible defect consistent with ischemia in US, ecocardiogram 01-17-2018 01/17/18 ECHO: Study quality: Technically difficult. LV chamber size is normal. LV wall thickness is mild to moderately increased. There is a sigmoid [facility]S [facility], [facility] 06/21/2023 12:12:01 07/11/2023 text/html 07/11/22CC : Cardiac follow up dyspnea on [id number] year-old white women with a PMH of [...] fascicular block; abnormal angiogram (PROC) 04-11-2018 04/11/2018 [facility] Mild CAD. Normal LV systolic function. lexiscan cardiolite stress test (PROC) 02-25-2018 Lexiscan Cardiolite Stress Test 02/25/18 : Adequate Stress with Lexiscan. Positive Lexiscan stress test. Partially reversible defect consistent with ischemia in US, ecocardiogram 01-17-2018 01/17/18 ECHO: Study quality: Technically difficult. LV chamber size is normal. LV wall thickness is mild to moderately increased. There is a sigmoid Mayra Jania gamble CT - [facility] 01/03/2024 20:18:17 10/11/2023 text/html 10/11/23CC : Cardiac follow up dyspnea on [id number] year-old white women with a PMH of [...] fascicular block; abnormal angiogram (PROC) 04-11-2018 04/11/2018 [facility] Mild CAD. Normal LV systolic function. lexiscan [...] sigmoid DIMAS [facility] - [facility] 10/11/2023 11:39:12 04/15/2024 text/html 04/15/24CC [...] fascicular block; abnormal angiogram (PROC) 04-11-2018 04/11/2018 [facility] Mild CAD. Normal LV systolic function. lexiscan cardiolite stress test (PROC) 02-25-2018 Lexiscan Cardiolite Stress Test 02/25/18 : Adequate Stress with Lexiscan. Positive Lexiscan stress test. Partially reversible defect consistent with ischemia in US, ecocardiogram 01-17-2018 01/17/18 ECHO: Study quality: Technically difficult. LV chamber size is normal. LV wall thickness is mild to moderately increased. There is a sigmoid Kirk Ponce MD [address] [place], [address], [facility] 04/15/2024 10:54:31 02/03/2025 text/html 02/03/25CC : Cardiac follow up. dyspnea on year-old white women with a PMH of mild CAD, hypertension, hyperlipidemia, liver cirrhosis s/p liver transplant (2007), TIA, PE, borderline diabetes mellitus (diet control) , osteoarthritis, and obesity is here for follow up with ECHO results. She was last seen in the clinic on 04/15/24, since then Jesse denies ER visits and hospitalizations since she was last seen. Today reports:no ccDenies chest pain.Denies shortness of breath at rest. Has mild dyspnea on exertion.No orthopnea. No PNDs.Denies heart palpitations.Denies dizziness. Denies syncope or near syncope.No ankle or leg edema.No major bleeding events.No reported side effects from medications. Taking medications as prescribed with no missed doses.Denies snoring, daytime somnolence and AM headache.*Last LDL was 104 done on 02/11/23.Pt takes rosuvastatin 5 mg. *Had ECHO on 04/15/24 showed LV chamber size is normal, LV wall thickness is moderately increased, LVEF 50-55%,LV relaxation is impaired, the aortic valve is mildly calcified, there is mild aortic root calcification, there is mild aortic regurgitation, there is mild aortic valve stenosis, there is a dense posterior mitral annular calcification, there is mild regurgitation, there is mild mitral stenosis, sinus bradycardia. Previously:*EKG 04/15/24 : Sinus rhythm (slow), P; normal, QRS; anteroseptal infarct. QS in V3, RBBB, consider also perinfarct block. GUY=238 ms. QR in V1, S>30 ms in l V5 V6, low voltage in precordial leads, ST-T; normal, conclusion: abnormal ECG. *She was in the hospital with JANETH *Had negative stress test on 09/19/22 with [...] *Had normal KARYNA done in 01/10/17 . Results from this visit, or from the [...] fascicular block; abnormal angiogram (PROC) 04-11-2018 04/11/2018 [facility] Mild CAD. Normal LV systolic function. lexiscan cardiolite stress test (PROC) 02-25-2018 Lexiscan Cardiolite Stress Test 02/25/18 : Adequate Stress with Lexiscan. Positive Lexiscan stress test. Partially reversible defect consistent with ischemia in US, ecocardiogram 01-17-2018 01/17/18 ECHO: Study quality: Technically difficult. LV chamber size is normal. LV wall thickness is mild to moderately increased. There is a sigmoid Kirk Ponce MD [address] [place], [address], [place] - [facility] 02/03/2025 11:38:57 OBGyn Episode No OBEpisode recorded.
--- OUTSIDE RECORDS SUMMARY | 2025-05-18 11:21 | XMS_ITS ---
Author Organization [facility] Healthcare Address [address] [place] [address] Care Team Providers Care Specialist Wound Care Name Role Phone Alfredo Marshall MD Primary Care Provider + [phone] Alfredo Marshall MD Unavailable [phone] Elida Ramirez NP Unavailable [phone] Kirk Ponce MD Unavailable [phone] Miryam Tucker RN Unavailable Unavailab le Transplant Episode Liver Recipient [facility] ([place], [place]) - [facility] Organ Received: Liver Transplanted on 05/13/2008 Marked as Active Follow-up on 05/13/2008 Liver CoordinatorMiryam Tucker RN Phone: N/A Fax: N/A Email: N/A [place] Organ Diagnosis Organ Primary Contributory Liver Cirrhosis: [...] Team Name Role Phone Fax Email Miryam Tucker RN Liver Coordinator N/A N/A N/A Catherine Casas Tent Assembler [phone] N/A N/A Events Post-Transplant Pre-Transplant Admitted: 05/12/2008 Referred: 01/02/2008 Transplanted: 05/13/2008 Evaluation began: 8 Discharged: 05/19/2008 Center waitlisted: 8 Appointments (04/17/2025 - 06/17/2025) When With Visit Type Description 05/13/2025 Transplant - Sp Stephen History of liver transplant (HCC) (Primary Dx); Encounter for long-term (current) use of high-risk medication
--- OUTSIDE RECORDS SUMMARY | 2025-05-18 11:21 | XMS_ITS | Data Portability ---
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 Studies ordered as below. Discussed plan with patient/caregiver , who expressed understanding. Follow up as noted below. Not available 02/20/2024 18:09:37 06/02/2024 06/02/2024 Patient presente d for follow up. Studies ordered as below. Discussed plan with patient/caregiver , who expressed understanding. Follow up as noted below. Not available 06/02/2024 18:32:45 09/01/2024 09/01/2024 Patient presente d for follow up. Studies ordered as below. Discussed plan with patient/caregiver , who expressed understanding. Follow up as noted below. Patient presented to office today for a follow up visit for a previous hospital visit that occurred on Patient presented to hospital for: Patient s condition is improved since discharge; patient denies any new problems since discharge. Medications were reviewed and any necessary updates and renewals were made. Discussed potential side effects of medications. Patient is compliant with medications. Counseling was done on care goals and ways to prevent future hospitalizations. Emphasized preventive health measures and educated patient to help reduce health risks and promote healthy living. Scheduled follow-up appointment for / / to review health status and care plan and instructed patient whom to contact in case of emergency. Further treatment per orders below. [email or web address] Not available 09/01/2024 19:59:50 01/21/2025 01/21/2025 Patient presente d to office today for their Medicare Annual Wellness Visit. Education was provided on healthy nutrition, including a diet rich in fruits and vegetables, minimizing simple carbohydrates, salt, and saturated fats. Encouraged regular cardiovascular exercise such as walking at least 30 minutes daily, 5 times per week. Emphasized preventive health measures and educated pt on fall prevention and community-based lifestyle interventions to help reduce health risks and promote healthy living. [email or web address] Not available 01/21/2025 12:34:37 04/22/2025 04/22/2025 Patient presente d for follow up. Studies ordered as below. Discussed plan with patient/caregiver , who expressed understanding. Follow up as noted below. Not available 04/22/2025 11:38:39 Plan of Treatment Reminders Order Date Submit Date Provider Last Modified By Organization Details Last Modified Time Details Appointments ESTABLISH ED PATIENT 15 2025 10:15A M Evon Saenz MD Not available Not available Not available Lab hemoglobi n A1c, QN, blood 2024 025 [facility], [address] [facility], [place], [address], 01/28/2025 04:06:41 microalbu min, urine 2024 025 [facility], [address], [place], [address], 02/17/2025 03:36:01 C-peptide , serum 2024 025 [facility], [address], [place], [address], 02/17/2025 03:36:00 PTH (parathyr oid hormone), intact, serum or plasma 2024 025 [facility], [address] [facility], [place], [address], 02/17/2025 03:36:04 phosphoru s, serum or plasma 2024 025 [facility], [address] [facility], [place], [address], 02/17/2025 03:36:02 magnesium , QN, serum or plasma 2024 025 [facility], [address] [facility], [place], [address], 01/21/2025 12:48:11 vitamin B12 + folate, serum or blood 2024 025 [facility], [address] [facility], [place], [address], 01/28/2025 04:06:42 lipid panel w/ direct LDL, serum 2024 025 [facility], [address] [place], [address], 01/28/2025 04:06:41 TSH, serum or plasma 2024 025 [facility], [address] [facility], [place], [address], 01/28/2025 04:06:41 CMP, serum or plasma 2024 025 [facility], [address] [facility], [place], [address], 02/17/2025 03:35:57 CBC w/ auto diff 2024 025 [facility], [address] [place], [address], 02/17/2025 03:35:56 tacrolimu s, blood 2024 025 [facility], [address] [place], [address], 01/28/2025 04:06:42 ESR (erythroc yte sedimenta tion rate), blood 2024 025 [facility], [address] [facility], [place], [address], 01/21/2025 12:48:13 vitamin D, 25-hydrox y, total, serum 2024 025 [facility], [address] [place], [address], 02/17/2025 03:36:01 hemoglobi n A1c, QN, blood 2023 024 [facility], [address] [facility], [place], [address], 06/11/2024 14:29:23 microalbu min, urine 2023 024 [facility], [address] [place], [address], 06/11/2024 22:25:53 vitamin B12, serum 2023 024 [facility], [address] [place], [address], 06/11/2024 14:29:23 CMP, serum or plasma 2023 024 [facility], [address] [place], [address], 06/11/2024 14:29:23 CBC 2023 024 [facility], [address] [place], [address], 06/11/2024 14:29:22 vitamin D, 25-hydrox y, total, serum 2023 024 [facility], [address] [place], [address], 06/11/2024 14:29:23 tacrolimu s, blood 2023 024 [facility], [address] [facility], [place], [address], 06/14/2024 10:26:37 vitamin B12, serum 2023 024 [facility], [address] [facility], [place], [address], 02/26/2024 17:12:28 urinalysi s complete, reflex culture 2023 024 [facility], [address] [facility], [place], [address], 02/20/2024 18:53:27 CMP, serum or plasma 2023 024 [facility], [address] [facility], [place], [address], 02/26/2024 17:12:27 iron panel, serum or plasma 2023 024 [facility], [address] [facility], [place], [address], 02/20/2024 18:53:27 CBC w/ auto diff 2023 024 [facility], [address] [facility], [place], [address], 02/26/2024 17:12:26 Referral cardiolog ist referral 2024 025 [email or web address] Ponce MD, [address] [place], [address], 01/21/2025 12:53:51 gynecolog ist referral 2024 025 JARRETT [facility], [address], [address], [place], [address], 04/22/2025 11:48:49 Procedures None recorded. Surgeries None recorded. Imaging MAMMO, screening , digital, bilateral 2024 025 [facility], [address], [address], [place], [address], 05/06/2025 04:08:12 bone density 2024 025 [facility], [address], [address], [place], [address], 05/06/2025 04:08:12 MAMMO, screening , digital, bilateral 2024 025 [facility], [address], [address], [place], [address], 02/04/2025 04:03:52 XR, chest, 2 view 2024 025 [facility]), [address], [address], [place], [address], 02/04/2025 04:03:52 electroca rdiogram 2024 025 [facility], [facility], [address] , [address], [place], [address], 01/21/2025 14:34:45 US, liver 2024 025 [facility] ([facility]), [address], [address], [place], [address], 01/28/2025 04:06:41 US, duplex, carotid artery 2024 025 [facility], [facility], [address] , [address], [place], [address], 01/21/2025 13:37:15 XR, chest, 2 view - 6 weeks from 08/28/232024 025 [email or web address] [facility] ([facility]), [address], [address], [place], [address], 10/13/2024 15:44:36 MAMMO, screening , digital, bilateral [email or web address] [facility], [address], [address], [place], [address], 10/29/2024 10:28:35 XR, shoulder, 2 or more view [address] [facility], [address], [address], [place], [address], 10/29/2024 10:28:35 XR, cervical spine, 2 or 3 view [address] [facility], [address], [address], [place], [address], 10/29/2024 10:28:35 Medication Orders cyanocoba reece (vit B-12) 1,000 mcg/mL injection solution 2024 [email or web address] Not available 02/03/2025 09:47:14 ropinirol e 0.5 mg tablet 2024 [facility], [address] [place], [address], 09/01/2024 20:02:10 diclofena c 1 % topical gel 2023 [facility], [address] [place], [address], 06/02/2024 19:29:49 ropinirol e 0.5 mg tablet 2023 024 [facility], [address] [place], [address], 06/02/2024 19:29:52 gabapenti n 100 mg capsule 2023 [facility], [address] [place], [address], 06/02/2024 19:29:50 losartan 25 mg tablet 2023 024 [facility], [address] [place], [address], 06/02/2024 19:29:48 aspirin 81 mg tablet,de layed release 2023 024 [facility], [address] [place] [address], [address], 02/20/2024 18:53:34 cetirizin e 10 mg tablet 2023 [facility], [address] [place] [address], [address], 02/20/2024 18:53:41 cyanocoba reece (vit B-12) 1,000 mcg/mL injection solution 2023 024 [facility], [address] [place] [address], [address], 02/20/2024 18:53:38 ropinirol e 0.5 mg tablet 2023 024 [facility], [address] [place] [address], [address], 02/20/2024 18:53:38 Tylenol Extra Strength 500 mg tablet 2023 024 [facility], [address] [place] [address], [address], 02/20/2024 18:53:32 duloxetin e 60 mg capsule,d elayed release 2023 024 [facility], [address] [place] [address], [address], 02/20/2024 18:53:40 Myrbetriq 25 mg tablet,ex tended release 2023 [facility], [address] [place] [address], [address], 02/20/2024 18:53:36 ProAir HFA 90 mcg/actua tion aerosol inhaler 2023 [facility], [address] [place] [address], [address], 02/20/2024 18:53:33 memantine 10 mg tablet 2023 [facility], [address] [place] [address], [address], 02/20/2024 18:53:33 losartan 100 mg tablet 2023 [facility], [address] [place] [address], [address], 06/02/2024 19:17:46 rosuvasta tin 5 mg tablet 2023 [facility], [address] [place] [address], [address], 02/20/2024 18:53:34 furosemid e 20 mg tablet 2023 [facility], [address] [place] [address], [address], 02/20/2024 18:53:37 ergocalci ferol (vitamin D2) 1,250 mcg (50,000 unit) capsule 2023 [facility], [address] [place] [address], [address], 02/20/2024 18:53:39 tacrolimu s 0.5 mg capsule, immediate -release 2023 [facility], [address] [place] [address], [address], 02/20/2024 18:53:37 metformin 500 mg tablet 2023 024 [facility], [address] [place], [address], 02/20/2024 18:53:33 Januvia 50 mg tablet 2023 024 [facility], [address] [place], [address], 02/20/2024 18:53:34 Ferretts Carbonyl Iron 18 mg iron chewable tablet 2023 024 [facility], [facility] [place], [address], 05/09/2025 13:06:10 Patient TargetsNo targets recorded. Patient Instructions Encounter Date Encounter Id Patient Instructions Last Modified By Organization Details Last Modified Time 02/20/2024 [id number] restless legs syndrome: care instructions mshenouda Not available 02/20/2024 18:53:19 iron deficiency anemia: care instructions mshenouda Not available 02/20/2024 18:53:20 06/02/2024 [id number] arthritis: care instructions mshenouda Not available 06/02/2024 19:29:41 mammogram: about this test mshenouda Not available 06/02/2024 19:29:41 lumbar spinal stenosis: care instructions mshenouda Not available 06/02/2024 19:29:41 body mass index: care instructions mshenouda Not available 06/02/2024 19:29:41 learning about healthy weight mshenouda Not available 06/02/2024 19:29:42 09/01/2024 [id number] pneumonia: care instructions mshenouda Not available 09/01/2024 20:02:04 body mass index: care instructions mshenouda Not available 09/01/2024 20:02:04 learning about healthy weight mshenouda Not available 09/01/2024 20:02:05 01/21/2025 [id number] heart blocks: care instructions mshenouda Not available 01/21/2025 12:47:46 arthritis: care instructions mshenouda Not available 01/21/2025 12:47:46 mammogram: about this test mshenouda Not available 01/21/2025 12:47:46 seasonal allergies: care instructions mshenouda Not available 01/21/2025 12:47:45 lumbar spinal stenosis: care instructions mshenouda Not available 01/21/2025 12:47:46 chronic kidney disease: care instructions mshenouda Not available 01/21/2025 12:47:46 learning about chronic kidney disease mshenouda Not available 01/21/2025 12:47:46 cirrhosis: care instructions mshenouda Not available 01/21/2025 12:47:45 liver disease diet: care instructions mshenouda Not available 01/21/2025 12:47:46 medicare preventive services guide mshenouda Not available 01/21/2025 12:47:46 advance care planning: care instructions mshenouda Not available 01/21/2025 12:47:45 carotid stenosis : care instructions mshenouda Not available 01/21/2025 12:47:46 body mass index: care instructions mshenouda Not available 01/21/2025 12:47:47 learning about healthy weight mshenouda Not available 01/21/2025 12:47:46 aortic valve regurgitation: care instructions mshenouda Not available 01/21/2025 12:47:47 Discussed and explained advance directives such as standard forms to the patient and caregiver. Face to face discussion lasted for a duration of _3__ minutes. mshenouda Not available 01/21/2025 12:46:57 04/22/2025 [id number] body mass index: care instructions mshenouda Not available 04/22/2025 11:59:40 learning about healthy weight mshenouda Not available 04/22/2025 11:59:40 mammogram: about this test mshenouda Not available 04/22/2025 11:59:40 carotid stenosis : care instructions mshenouda Not available 04/22/2025 11:59:40 type 2 diabetes: care instructions mshenouda Not available 04/22/2025 11:59:40 chronic kidney disease: care instructions mshenouda Not available 04/22/2025 11:59:40 learning about chronic kidney disease mshenouda Not available 04/22/2025 11:59:40 Reason for Referral Assistant Technician Referral for Co ronary arteriosclerosis Referring Physician: Evon Saenz, Internal Medicine, Encounter Date: 01/21/2025 Resource Room Teacher Referral for Ca ncer cervix screening status Referring Physician: Evon Saenz, Internal Medicine, Encounter Date: 01/21/2025 Results Created Date Observation Date Name Description Value Unit Range Abnormal Flag Note LastModifiedBy Organization Detail LastModifiedTime 02/20/20 24 02/20/2024 CBC WITH AUTO- DIFFE RENTI AL WBC 6.6 10*3/ uL 3.4-10 .8 Not Available [facility] [address], [place], [address], 02/26/2024 17:12:26 02/20/20 24 02/20/2024 CBC WITH AUTO- DIFFE RENTI AL RBC 3.05 10*6/ uL 3.80-5 .30 low Not Available [facility] [address] [facility] [address], [place], [address], 02/26/2024 17:12:26 02/20/20 24 02/20/2024 CBC WITH AUTO- DIFFE RENTI AL HGB 9.9 g/dL 11.1-1 5.9 low Not Available [facility] [address] [facility] [address], [place], [address], 02/26/2024 17:12:26 02/20/20 24 02/20/2024 CBC WITH AUTO- DIFFE RENTI AL HCT 30.0 % 34.0-4 6.6 low Not Available [facility] [address] [facility] [address], [place], [address], 02/26/2024 17:12:26 02/20/20 24 02/20/2024 CBC WITH AUTO- DIFFE RENTI AL MCV 98 fL 79-97 high Not Available [facility] [address] [facility] [address], [place], [address], 02/26/2024 17:12:26 02/20/20 24 02/20/2024 CBC WITH AUTO- DIFFE RENTI AL MCH 32.5 pg 26.6-3 3.0 Not Available [facility] [address], [place], [address], 02/26/2024 17:12:26 02/20/20 24 02/20/2024 CBC WITH AUTO- DIFFE RENTI AL MCHC 33.0 g/dL 31.5-3 5.7 Not Available [facility] [address] [facility] [address], [place], [address], 02/26/2024 17:12:26 02/20/20 24 02/20/2024 CBC WITH AUTO- DIFFE RENTI AL RDW 13.4 % 11.5-1 4.5 Not Available [facility] [address], [place], [address], 02/26/2024 17:12:26 02/20/20 24 02/20/2024 CBC WITH AUTO- DIFFE RENTI AL platelets 274 10*3/ uL 150-40 0 Not Available [facility] [address], [place], [address], 02/26/2024 17:12:26 02/20/20 24 02/20/2024 CBC WITH AUTO- DIFFE RENTI AL MPV 13 fL 9-13 Not Available [facility] [address], [place], [address], 02/26/2024 17:12:26 02/20/20 24 02/20/2024 CBC WITH AUTO- DIFFE RENTI AL neutrophils 57.0 % 40.0-7 4.0 Not Available [facility] [address], [place], [address], 02/26/2024 17:12:26 02/20/20 24 02/20/2024 CBC WITH AUTO- DIFFE RENTI AL absolute neutrophils 3.78 10*3/ uL 1.40-7 .00 Not Available [facility] [address], [place], [address], 02/26/2024 17:12:26 02/20/20 24 02/20/2024 CBC WITH AUTO- DIFFE RENTI AL lymphocytes 29.3 % 14.0-4 6.0 Not Available [facility] [address], [place], [address], 02/26/2024 17:12:26 02/20/20 24 02/20/2024 CBC WITH AUTO- DIFFE RENTI AL absolute lymphocytes 1.94 10*3/ uL 0.70-3 .10 Not Available [facility] [address], [place], [address], 02/26/2024 17:12:26 02/20/20 24 02/20/2024 CBC WITH AUTO- DIFFE RENTI AL monocytes 8.2 % 4.0-12 .0 Not Available [facility] [address], [place], [address], 02/26/2024 17:12:26 02/20/20 24 02/20/2024 CBC WITH AUTO- DIFFE RENTI AL absolute monocytes 0.54 10*3/ uL 0.10-0 .90 Not Available [place] [address] [facility] [address], [place], [address], 02/26/2024 17:12:26 02/20/20 24 02/20/2024 CBC WITH AUTO- DIFFE RENTI AL eosinophils 4.5 % 0.0-5. 0 Not Available [facility] [address] [place] [address] [address], [place], [address], 02/26/2024 17:12:26 02/20/20 24 02/20/2024 CBC WITH AUTO- DIFFE RENTI AL absolute eosinophils 0.30 10*3/ uL 0.00-0 .40 Not Available [address], [place], [address], 02/26/2024 17:12:26 02/20/20 24 02/20/2024 CBC WITH AUTO- DIFFE RENTI AL basophils 0.8 % 0.0-3. 0 Not Available [facility] [address], [place], [address], 02/26/2024 17:12:26 02/20/20 24 02/20/2024 CBC WITH AUTO- DIFFE RENTI AL absolute basophils 0.05 10*3/ uL 0.00-0 .20 Not Available [facility] [address], [place], [address], 02/26/2024 17:12:26 02/20/20 24 02/20/2024 CBC WITH AUTO- DIFFE RENTI AL imm. gran. 0.2 % 0.0-2. 0 Not Available [facility] [address], [place], [address], 02/26/2024 17:12:26 02/20/20 24 02/20/2024 CBC WITH AUTO- DIFFE RENTI AL abs. imm. gran. 0.01 10*3/ uL 0.00-0 .10 Not Available [facility] [address] [facility], [place], [address], 02/26/2024 17:12:26 02/20/20 24 02/20/2024 COMPR EHENS SARIAH METAB OLIC PANEL sodium 138 mmol/ L 134-14 4 Not Available [facility] [address] [facility], [place], [address], 02/26/2024 17:12:27 02/20/20 24 02/20/2024 COMPR EHENS SARIAH METAB OLIC PANEL potassium 5.0 mmol/ L 3.5-5. 2 Not Available [facility] [address] [facility] [address], [place], [address], 02/26/2024 17:12:27 02/20/20 24 02/20/2024 COMPR EHENS SARIAH METAB OLIC PANEL chloride 101 mmol/ L 97-108 Not Available [facility] [address], [place], [address], 02/26/2024 17:12:27 02/20/20 24 02/20/2024 COMPR EHENS SARIAH METAB OLIC PANEL carbon dioxide (co2) 26.0 mmol/ L 18.0-2 9.0 Not Available [facility] [address] [facility] [address], [place], [address], 02/26/2024 17:12:27 02/20/20 24 02/20/2024 COMPR EHENS SARIAH METAB OLIC PANEL glucose 101 mg/dL 65-99 high Surekha l Fasti ng: < 100 mg/dL Impai red Fasti n - 125 mg/dL Diagn ostic of Diabe bernabe: => 126 mg/dL Ameri can [facility]ernabe [facility] n, 2008 Not Available [facility] [address] [facility] [address], [place], [address], 02/26/2024 17:12:27 02/20/20 24 02/20/2024 COMPR EHENS SARIAH METAB OLIC PANEL urea nitrogen (BUN) 33 mg/dL 8-23 high Not Available [facility] [address] [facility] [address], [place], [address], 02/26/2024 17:12:27 02/20/20 24 02/20/2024 COMPR EHENS SARIAH METAB OLIC PANEL creatinine 2.23 mg/dL 0.57-1 .00 high Not Available [facility] [address] [facility] [address], [place], [address], 02/26/2024 17:12:27 02/20/20 24 02/20/2024 COMPR EHENS SARIAH METAB OLIC PANEL eGFR 21 mL/mi nute/ 1.73_ m2 >59 low MDRD Study Equat ion: The calcu lated GFR is NOT appli cable for pedia tric (< 18 years old) and > 70 year old patie nts and patie nts that are NOT of [place] . Not Available [facility] [address], [place], [address], 02/26/2024 17:12:27 02/20/20 24 02/20/2024 COMPR EHENS SARIAH METAB OLIC PANEL calcium 9.3 mg/dL 8.7-10 .3 Not Available [facility] [address] [facility] [address], [place], [address], 02/26/2024 17:12:27 02/20/20 24 02/20/2024 COMPR EHENS SARIAH METAB OLIC PANEL protein, total 6.9 gm/dL 6.4-8. 3 Not Available [facility] [address] [facility] [address], [place], [address], 02/26/2024 17:12:27 02/20/20 24 02/20/2024 COMPR EHENS SARIAH METAB OLIC PANEL albumin 4.6 gm/dL 3.5-5. 2 Not Available [facility] [address] [facility] [address], [place], [address], 02/26/2024 17:12:27 02/20/20 24 02/20/2024 COMPR EHENS SARIAH METAB OLIC PANEL bilirubin, total 0.50 mg/dL 0.00-1 .20 Not Available [facility] [address] [facility] [address], [place], [address], 02/26/2024 17:12:27 02/20/20 24 02/20/2024 COMPR EHENS SARIAH METAB OLIC PANEL alkaline phosphatase (ALP) 65 U/L 39-117 Not Available [facility] [address], [place], [address], 02/26/2024 17:12:27 02/20/20 24 02/20/2024 COMPR EHENS SARIAH METAB OLIC PANEL aspartate aminotransfe rase (AST) 16 U/L 0-[address] [facility] [address] [facility] [address], [place], [address], 02/26/2024 17:12:27 02/20/20 24 02/20/2024 COMPR EHENS SARIAH METAB OLIC PANEL alanine aminotransfe rase (ALT) 11 U/L 0-[address] [facility] [address] [facility] [address], [place], [address], 02/26/2024 17:12:27 02/20/20 24 02/20/2024 COMPR EHENS SARIAH METAB OLIC PANEL A/G ratio (calculated) 2.0 ratio 1.0-2. 7 Not Available [facility] [address] [facility] [address], [place], [address], 02/26/2024 17:12:27 02/20/20 24 02/20/2024 COMPR EHENS SARIAH METAB OLIC PANEL globulin (calculated) 2.3 gm/dL 1.5-3. 8 Not Available [facility] [address] [facility] [address], [place], [address], 02/26/2024 17:12:27 02/20/20 24 02/20/2024 COMPR EHENS SARIAH METAB OLIC PANEL BUN/creatini ne ratio (calculated) 14.8 ratio 8.0-20 .0 Not Available [facility] [address] [facility] [address], [place], [address], 02/26/2024 17:12:27 02/20/20 24 02/20/2024 COMPR EHENS SARIAH METAB OLIC PANEL serum hemolysis index NORMAL index normal Not Available [facility] [address] [facility] [address], [place], [address], 02/26/2024 17:12:27 02/20/20 24 02/20/2024 IRON PANEL iron 53 mcg/d L 27-139 Not Available [facility] [address] [facility] [address], [place], [address], 02/26/2024 17:12:28 02/20/20 24 02/20/2024 IRON PANEL UIBC 160 ug/dL 111-34 3 Not Available [facility] [address], [place], [address], 02/26/2024 17:12:28 02/20/20 24 02/20/2024 IRON PANEL total iron binding capacity 213.0 mcg/d L 250.0- 450.0 low Not Available [facility] [address], [place], [address], 02/26/2024 17:12:28 02/20/20 24 02/20/2024 IRON PANEL iron saturation (calculated) 24.9 % 15.0-5 5.0 Not Available [facility] [address], [place], [address], 02/26/2024 17:12:28 02/20/20 24 02/20/2024 VITAM IN B12 vitamin B12 2000 pg/mL 232-12 45 high Not Available [facility] [address], [place], [address], 02/26/2024 17:12:28 02/20/20 24 02/20/2024 URINA LYSIS REFLE X TO URINE CULTU RE color STRAW yellow Not Available [facility] [address], [place], [address], 02/26/2024 17:12:29 02/20/20 24 02/20/2024 URINA LYSIS REFLE X TO URINE CULTU RE appearance CLEAR clear Not Available [facility] [address], [place], [address], 02/26/2024 17:12:29 02/20/20 24 02/20/2024 URINA LYSIS REFLE X TO URINE CULTU RE glucose NEGATI VE mg/dL negati ve Not Available [facility] [address] [facility] [address], [place], [address], 02/26/2024 17:12:29 02/20/20 24 02/20/2024 URINA LYSIS REFLE X TO URINE CULTU RE bilirubin NEGATI VE negati ve Not Available [facility] [address] [facility] [address], [place], [address], 02/26/2024 17:12:29 02/20/2002/20/2024 URINA LYSIS REFLE X TO URINE CULTU RE blood NEGATI VE negati ve Not Available [facility] [address] [address], [place], [address], 02/26/2024 17:12:29 02/20/20 24 02/20/2024 URINA LYSIS REFLE X TO URINE CULTU RE ketone NEGATI VE mg/dL negati ve Not Available [facility] [address] [facility] [address], [place], [address], 02/26/2024 17:12:29 02/20/20 24 02/20/2024 URINA LYSIS REFLE X TO URINE CULTU RE specific gravity 1.010 1.005- 1.030 Not Available [facility] [address] [facility] [address], [place], [address], 02/26/2024 17:12:29 02/20/20 24 02/20/2024 URINA LYSIS REFLE X TO URINE CULTU RE pH 6.0 4.5 - 8.0 Not Available [facility] [address] [facility] [address], [place], [address], 02/26/2024 17:12:29 02/20/20 24 02/20/2024 URINA LYSIS REFLE X TO URINE CULTU RE protein 15 mg/dL negati ve Not Available [facility] [address] [facility] [address], [place], [address], 02/26/2024 17:12:29 02/20/20 24 02/20/2024 URINA LYSIS REFLE X TO URINE CULTU RE urobilinogen 0.20 eu/dL 0.00-1 .00 Not Available [facility] [address] [facility] [address], [place], [address], 02/26/2024 17:12:29 02/20/20 24 02/20/2024 URINA LYSIS REFLE X TO URINE CULTU RE nitrite NEGATI VE negati ve Not Available [facility] [address] [facility] [address], [place], [address], 02/26/2024 17:12:29 02/20/20 24 02/20/2024 URINA LYSIS REFLE X TO URINE CULTU RE leukocyte esterase LARGE negati ve abnormal Not Available [facility] [address] [facility] [address], [place], [address], 02/26/2024 17:12:29 02/20/20 24 02/20/2024 URINA LYSIS REFLE X TO URINE CULTU RE WBCs 0-5 /hpf 0-5 Not Available [facility] [address] [facility] [address], [place], [address], 02/26/2024 17:12:29 02/20/20 24 02/20/2024 URINA LYSIS REFLE X TO URINE CULTU RE RBCs NONE SEEN /hpf 0-2 Not Available [facility] [address] [facility] [address], [place], [address], 02/26/2024 17:12:29 02/20/20 24 02/20/2024 URINA LYSIS REFLE X TO URINE CULTU RE squamous epithelial cells FEW /hpf few Not Available [facility] [address] [facility] [address], [place], [address], 02/26/2024 17:12:29 02/20/20 24 02/20/2024 URINA LYSIS REFLE X TO URINE CULTU RE bacteria OCCASI ONAL /hpf none Not Available [facility] [address] [facility] [address], [place], [address], 02/26/2024 17:12:29 02/20/20 24 02/20/2024 URINA LYSIS REFLE X TO URINE CULTU RE color STRAW yellow Not Available [facility] [address], [place], [address], 02/26/2024 17:12:29 02/20/20 24 02/20/2024 URINA LYSIS REFLE X TO URINE CULTU RE appearance CLEAR clear Not Available [facility] [address] [facility] [address], [place], [address], 02/26/2024 17:12:29 02/20/20 24 02/20/2024 URINA LYSIS REFLE X TO URINE CULTU RE glucose NEGATI VE mg/dL negati ve Not Available [facility] [address] [facility] [address], [place], [address], 02/26/2024 17:12:29 02/20/20 24 02/20/2024 URINA LYSIS REFLE X TO URINE CULTU RE bilirubin NEGATI VE negati ve Not Available [facility] [address] [facility] [address], [place], [address], 02/26/2024 17:12:29 02/20/20 24 02/20/2024 URINA LYSIS REFLE X TO URINE CULTU RE blood NEGATI VE negati ve Not Available [facility] [address] [facility] [address], [place], [address], 02/26/2024 17:12:29 02/20/20 24 02/20/2024 URINA LYSIS REFLE X TO URINE CULTU RE ketone NEGATI VE mg/dL negati ve Not Available [facility] [address] [facility] [address], [place], [address], 02/26/2024 17:12:29 02/20/20 24 02/20/2024 URINA LYSIS REFLE X TO URINE CULTU RE specific gravity 1.010 1.005- 1.030 Not Available [facility] [address] [facility] [address], [place], [address], 02/26/2024 17:12:29 02/20/20 24 02/20/2024 URINA LYSIS REFLE X TO URINE CULTU RE pH 6.0 4.5 - 8.0 Not Available [facility] [address] [facility] [address], [place], [address], 02/26/2024 17:12:29 02/20/20 24 02/20/2024 URINA LYSIS REFLE X TO URINE CULTU RE protein 15 mg/dL negati ve Not Available [facility] [address] [facility] [address], [place], [address], 02/26/2024 17:12:29 02/20/2002/20/2024 URINA LYSIS REFLE X TO URINE CULTU RE urobilinogen 0.20 eu/dL 0.00-1 .00 Not Available [facility] [address] [facility] [address], [place], [address], 02/26/2024 17:12:29 02/20/20 24 02/20/2024 URINA LYSIS REFLE X TO URINE CULTU RE nitrite NEGATI VE negati ve Not Available [facility] [address] [facility] [address], [place], [address], 02/26/2024 17:12:29 02/20/20 24 02/20/2024 URINA LYSIS REFLE X TO URINE CULTU RE leukocyte esterase LARGE negati ve abnormal Not Available [facility] [address] [facility] [address], [place], [address], 02/26/2024 17:12:29 02/20/20 24 02/20/2024 URINA LYSIS REFLE X TO URINE CULTU RE WBCs 0-5 /hpf 0-5 Not Available [facility] [address] [facility] [address], [place], [address], 02/26/2024 17:12:29 02/20/20 24 02/20/2024 URINA LYSIS REFLE X TO URINE CULTU RE RBCs NONE SEEN /hpf 0-2 Not Available [facility] [address] [facility] [address], [place], [address], 02/26/2024 17:12:29 02/20/20 24 02/20/2024 URINA LYSIS REFLE X TO URINE CULTU RE squamous epithelial cells FEW /hpf few Not Available [facility] [address] [facility] [address], [place], [address], 02/26/2024 17:12:29 02/20/20 24 02/20/2024 URINA LYSIS REFLE X TO URINE CULTU RE bacteria OCCASI ONAL /hpf none Not Available [facility] [address] [facility] [address], [place], [address], 02/26/2024 17:12:29 02/20/20 24 02/26/2024 URINE CULTU RE ROUTI NE urine culture, routine FINAL REPORT abnormal Not Available [facility] [address] [facility] [address], [place], [address], 02/26/2024 17:12:29 02/20/20 24 02/26/2024 URINE CULTU RE ROUTI NE result 1 COMMEN T abnormal Enter obact er cloac ae compl ex Great er than 100,0 00 colon y formi ng units per mL Not Available [facility] [address] [facility] [address], [place], [address], 02/26/2024 17:12:29 02/20/20 24 02/26/2024 URINE CULTU [...] Trime thopr im/Sandoval lfa S Not Available [facility] [address] [facility] [address], [place], [address], 02/26/2024 17:12:29 04/01/20 24 04/01/2024 BASIC METAB OLIC PANEL sodium 140 mmol/ L 134-14 4 Not Available [facility] [address] [place] [address] [address], [place], [address], 04/02/2024 14:22:29 04/01/20 24 04/01/2024 BASIC METAB OLIC PANEL potassium 5.0 mmol/ L 3.5-5. 2 Not Available [facility] [address] [place] [address] [address], [place], [address], 04/02/2024 14:22:29 04/01/20 24 04/01/2024 BASIC METAB OLIC PANEL chloride 102 mmol/ L 98-107 Not Available [facility] [address] [place] [address] [address], [place], [address], 04/02/2024 14:22:29 04/01/20 24 04/01/2024 BASIC METAB OLIC PANEL carbon dioxide (co2) 25.0 mmol/ L 18.0-2 9.0 Not Available [facility] [address] [place] [address] [address], [place], [address], 04/02/2024 14:22:29 04/01/20 24 04/01/2024 BASIC METAB OLIC PANEL calcium 9.4 mg/dL 8.7-10 .3 Not Available [facility] [address] [facility] [address], [place], [address], 04/02/2024 14:22:29 04/01/20 24 04/01/2024 BASIC METAB OLIC PANEL glucose 99 mg/dL 65-99 Surekha l Fasti n - 99 mg/dL Impai red Fasti n - 125 mg/dL Diagn ostic of Diabe bernabe: => 126 mg/dL Ameri can [facility] i[facility] n, 2008 Not Available [facility] [address] [facility] [address], [place], [address], 04/02/2024 14:22:29 04/01/20 24 04/01/2024 BASIC METAB OLIC PANEL urea nitrogen (BUN) 46 mg/dL 8-23 high Not Available [facility] [address] [facility] [address], [place], [address], 04/02/2024 14:22:29 04/01/20 24 04/01/2024 BASIC METAB OLIC PANEL creatinine 1.91 mg/dL 0.57-1 .00 high Not Available [facility] [address] [facility] [address], [place], [address], 04/02/2024 14:22:29 04/01/20 24 04/01/2024 BASIC METAB OLIC PANEL eGFR 26 mL/mi nute/ 1.73_ m2 >59 low MDRD Study Equat ion: The calcu lated GFR is NOT appli cable for pedia tric (< 18 years old) and > 70 year old patie nts and patie nts that are NOT of stead [place] state . Not Available [facility] [address] [facility] [address], [place], [address], 04/02/2024 14:22:29 04/01/20 24 04/01/2024 BASIC METAB OLIC PANEL BUN/creatini ne ratio (calculated) 24.1 ratio 8.0-20 .0 high Not Available [facility] [address], [place], [address], 04/02/2024 14:22:29 04/01/20 24 04/01/2024 BASIC METAB OLIC PANEL serum hemolysis index NORMAL index normal Not Available [facility] [address] [facility] [address], [place], [address], 04/02/2024 14:22:29 04/01/20 24 04/01/2024 CBC WITH AUTO- DIFFE RENTI AL WBC 5.5 10*3/ uL 3.4-10 .8 Not Available [facility] [address] [facility] [address], [place], [address], 04/02/2024 14:22:31 04/01/20 24 04/01/2024 CBC WITH AUTO- DIFFE RENTI AL RBC 3.24 10*6/ uL 3.80-5 .30 low Not Available [facility] [address] [facility] [address], [place], [address], 04/02/2024 14:22:31 04/01/20 24 04/01/2024 CBC WITH AUTO- DIFFE RENTI AL HGB 10.5 g/dL 11.1-1 5.9 low Not Available [facility] [address] [facility] [address], [place], [address], 04/02/2024 14:22:31 04/01/20 24 04/01/2024 CBC WITH AUTO- DIFFE RENTI AL HCT 33.5 % 34.0-4 6.6 low Not Available [facility] [address] [facility] [address], [place], [address], 04/02/2024 14:22:31 04/01/20 24 04/01/2024 CBC WITH AUTO- DIFFE RENTI AL MCV 103 fL 79-97 high Not Available [facility] [address] [facility] [address], [place], [address], 04/02/2024 14:22:31 04/01/20 24 04/01/2024 CBC WITH AUTO- DIFFE RENTI AL MCH 32.4 pg 26.6-3 3.0 Not Available [facility] [address] [facility] [address], [place], [address], 04/02/2024 14:22:31 04/01/20 24 04/01/2024 CBC WITH AUTO- DIFFE RENTI AL MCHC 31.3 g/dL 31.5-3 5.7 low Not Available [facility] [address], [place], [address], 04/02/2024 14:22:31 04/01/20 24 04/01/2024 CBC WITH AUTO- DIFFE RENTI AL RDW 12.2 % 11.5-1 4.5 Not Available [facility] [address], [place], [address], 04/02/2024 14:22:31 04/01/20 24 04/01/2024 CBC WITH AUTO- DIFFE RENTI AL platelets 249 10*3/ uL 150-40 0 Not Available [facility] [address], [place], [address], 04/02/2024 14:22:31 04/01/20 24 04/01/2024 CBC WITH AUTO- DIFFE RENTI AL MPV 12 fL 9-13 Not Available [facility] [address], [place], [address], 04/02/2024 14:22:31 04/01/20 24 04/01/2024 CBC WITH AUTO- DIFFE RENTI AL neutrophils 58.2 % 40.0-7 4.0 Not Available [facility] [address], [place], [address], 04/02/2024 14:22:31 04/01/20 24 04/01/2024 CBC WITH AUTO- DIFFE RENTI AL absolute neutrophils 3.22 10*3/ uL 1.40-7 .00 Not Available [facility] [address] [facility] [address], [place], [address], 04/02/2024 14:22:31 04/01/20 24 04/01/2024 CBC WITH AUTO- DIFFE RENTI AL lymphocytes 24.5 % 14.0-4 6.0 Not Available [facility] [address] [facility] [address], [place], [address], 04/02/2024 14:22:31 04/01/20 24 04/01/2024 CBC WITH AUTO- DIFFE RENTI AL absolute lymphocytes 1.36 10*3/ uL 0.70-3 .10 Not Available [facility] [address] [facility] [address], [place], [address], 04/02/2024 14:22:31 04/01/20 24 04/01/2024 CBC WITH AUTO- DIFFE RENTI AL monocytes 7.9 % 4.0-12 .0 Not Available [facility] [address] [facility] [address], [place], [address], 04/02/2024 14:22:31 04/01/20 24 04/01/2024 CBC WITH AUTO- DIFFE RENTI AL absolute monocytes 0.44 10*3/ uL 0.10-0 .90 Not Available [facility] [address] [facility] [address], [place], [address], 04/02/2024 14:22:31 04/01/20 24 04/01/2024 CBC WITH AUTO- DIFFE RENTI AL eosinophils 8.1 % 0.0-5. 0 high Not Available [facility] [address] [facility] [address], [place], [address], 04/02/2024 14:22:31 04/01/20 24 04/01/2024 CBC WITH AUTO- DIFFE RENTI AL absolute eosinophils 0.45 10*3/ uL 0.00-0 .40 high Not Available [facility] [address] [facility] [address], [place], [address], 04/02/2024 14:22:31 04/01/20 24 04/01/2024 CBC WITH AUTO- DIFFE RENTI AL basophils 0.9 % 0.0-3. 0 Not Available [facility] [address] [facility] [address], [place], [address], 04/02/2024 14:22:31 04/01/20 24 04/01/2024 CBC WITH AUTO- DIFFE RENTI AL absolute basophils 0.05 10*3/ uL 0.00-0 .20 Not Available [facility] [address] [facility] [address], [place], [address], 04/02/2024 14:22:31 04/01/20 24 04/01/2024 CBC WITH AUTO- DIFFE RENTI AL imm. gran. 0.4 % 0.0-2. 0 Not Available [facility] [address] [facility] [address], [place], [address], 04/02/2024 14:22:31 04/01/20 24 04/01/2024 CBC WITH AUTO- DIFFE RENTI AL abs. imm. gran. 0.02 10*3/ uL 0.00-0 .10 Not Available [facility] [address] [facility] [address], [place], [address], 04/02/2024 14:22:31 05/15/20 24 05/15/2024 BASIC METAB OLIC PANEL sodium 139 mmol/ L 134-14 4 Not Available [facility] [address] [place] [address] [address], [place], [address], 05/16/2024 13:51:58 05/15/20 24 05/15/2024 BASIC METAB OLIC PANEL potassium 4.8 mmol/ L 3.5-5. 2 Not Available [address], [place], [address], 05/16/2024 13:51:58 05/15/20 24 05/15/2024 BASIC METAB OLIC PANEL chloride 99 mmol/ L 98-107 Not Available [facility] [address] [facility] [address], [place], [address], 05/16/2024 13:51:58 05/15/20 24 05/15/2024 BASIC METAB OLIC PANEL carbon dioxide (co2) 27.0 mmol/ L 18.0-2 9.0 Not Available [facility] [address] [facility] [address], [place], [address], 05/16/2024 13:51:58 05/15/20 24 05/15/2024 BASIC METAB OLIC PANEL calcium 9.1 mg/dL 8.7-10 .3 Not Available [facility] [address] [facility] [address], [place], [address], 05/16/2024 13:51:58 05/15/20 24 05/15/2024 BASIC METAB OLIC PANEL glucose 113 mg/dL 65-99 high Surekha l Fasti n - 99 mg/dL Impai red Fasti n - 125 mg/dL Diagn ostic of Diabe bernabe: => 126 mg/dL Ameri can [facility] iatio n, 2008 Not Available [facility] [address] [facility] [address], [place], [address], 05/16/2024 13:51:58 05/15/20 24 05/15/2024 BASIC METAB OLIC PANEL urea nitrogen (BUN) 36 mg/dL 8-23 high Not Available [facility] [address] [facility] [address], [place], [address], 05/16/2024 13:51:58 05/15/20 24 05/15/2024 BASIC METAB OLIC PANEL creatinine 1.65 mg/dL 0.57-1 .00 high Not Available [facility] [address] [facility] [address], [place], [address], 05/16/2024 13:51:58 05/15/20 24 05/15/2024 BASIC METAB OLIC PANEL eGFR 31 mL/mi nute/ 1.73_ m2 >59 low MDRD Study Equat ion: The calcu lated GFR is NOT appli cable for pedia tric (< 18 years old) and > 70 year old patie nts and patie nts that are NOT of [place] . Not Available [facility] [address] [facility] [address], [place], [address], 05/16/2024 13:51:58 05/15/2005/15/2024 BASIC METAB OLIC PANEL BUN/creatini ne ratio (calculated) 21.8 ratio 8.0-20 .0 high Not Available [facility] [address] [facility] [address] [address], [place], [address], 05/16/2024 13:51:58 05/15/20 24 05/15/2024 BASIC METAB OLIC PANEL serum hemolysis index NORMAL index normal Not Available [facility] [address] [facility] [address], [place], [address], 05/16/2024 13:51:58 05/15/20 24 05/15/2024 CBC WITH AUTO- DIFFE RENTI AL WBC 6.2 10*3/ uL 3.4-10 .8 Not Available [facility] [address] [facility] [address], [place], [address], 05/16/2024 13:51:59 05/15/20 24 05/15/2024 CBC WITH AUTO- DIFFE RENTI AL RBC 3.46 10*6/ uL 3.80-5 .30 low Not Available [facility] [address] [facility] [address], [place], [address], 05/16/2024 13:51:59 05/15/20 24 05/15/2024 CBC WITH AUTO- DIFFE RENTI AL HGB 11.3 g/dL 11.1-1 5.9 Not Available [facility] [address], [place], [address], 05/16/2024 13:51:59 05/15/20 24 05/15/2024 CBC WITH AUTO- DIFFE RENTI AL HCT 34.6 % 34.0-4 6.6 Not Available [facility] [address], [place], [address], 05/16/2024 13:51:59 05/15/20 24 05/15/2024 CBC WITH AUTO- DIFFE RENTI AL MCV 100 fL 79-97 high Not Available [facility] [address], [place], [address], 05/16/2024 13:51:59 05/15/20 24 05/15/2024 CBC WITH AUTO- DIFFE RENTI AL MCH 32.7 pg 26.6-3 3.0 Not Available [facility] [address], [place], [address], 05/16/2024 13:51:59 05/15/20 24 05/15/2024 CBC WITH AUTO- DIFFE RENTI AL MCHC 32.7 g/dL 31.5-3 5.7 Not Available [facility] [address], [place], [address], 05/16/2024 13:51:59 05/15/20 24 05/15/2024 CBC WITH AUTO- DIFFE RENTI AL RDW 11.8 % 11.5-1 4.5 Not Available [facility] [address], [place], [address], 05/16/2024 13:51:59 05/15/20 24 05/15/2024 CBC WITH AUTO- DIFFE RENTI AL platelets 234 10*3/ uL 150-40 0 Not Available [facility] [address], [place], [address], 05/16/2024 13:51:59 05/15/20 24 05/15/2024 CBC WITH AUTO- DIFFE RENTI AL MPV 12 fL 9-13 Not Available [facility] [address] [facility] [address], [place], [address], 05/16/2024 13:51:59 05/15/2005/15/2024 CBC WITH AUTO- DIFFE RENTI AL neutrophils 57.0 % 40.0-7 4.0 Not Available [facility] [address] [facility] [address], [place], [address], 05/16/2024 13:51:59 05/15/2005/15/2024 CBC WITH AUTO- DIFFE RENTI AL absolute neutrophils 3.56 10*3/ uL 1.40-7 .00 Not Available [facility] [address] [facility] [address], [place], [address], 05/16/2024 13:51:59 05/15/20 24 05/15/2024 CBC WITH AUTO- DIFFE RENTI AL lymphocytes 27.2 % 14.0-4 6.0 Not Available [facility] [address], [place], [address], 05/16/2024 13:51:59 05/15/20 24 05/15/2024 CBC WITH AUTO- DIFFE RENTI AL absolute lymphocytes 1.70 10*3/ uL 0.70-3 .10 Not Available [facility] [address], [place], [address], 05/16/2024 13:51:59 05/15/20 24 05/15/2024 CBC WITH AUTO- DIFFE RENTI AL monocytes 7.7 % 4.0-12 .0 Not Available [facility] [address] [facility] [address], [place], [address], 05/16/2024 13:51:59 05/15/20 24 05/15/2024 CBC WITH AUTO- DIFFE RENTI AL absolute monocytes 0.48 10*3/ uL 0.10-0 .90 Not Available [facility] [address], [place], [address], 05/16/2024 13:51:59 05/15/20 24 05/15/2024 CBC WITH AUTO- DIFFE RENTI AL eosinophils 6.9 % 0.0-5. 0 high Not Available [facility] [address], [place], [address], 05/16/2024 13:51:59 05/15/2005/15/2024 CBC WITH AUTO- DIFFE RENTI AL absolute eosinophils 0.43 10*3/ uL 0.00-0 .40 high Not Available [facility] [address] [facility] [address], [place], [address], 05/16/2024 13:51:59 05/15/20 24 05/15/2024 CBC WITH AUTO- DIFFE RENTI AL basophils 1.0 % 0.0-3. 0 Not Available [facility] [address] [facility] [address], [place], [address], 05/16/2024 13:51:59 05/15/20 24 05/15/2024 CBC WITH AUTO- DIFFE RENTI AL absolute basophils 0.06 10*3/ uL 0.00-0 .20 Not Available [facility] [address] [facility] [address], [place], [address], 05/16/2024 13:51:59 05/15/20 24 05/15/2024 CBC WITH AUTO- DIFFE RENTI AL imm. gran. 0.2 % 0.0-2. 0 Not Available [facility] [address] [facility] [address], [place], [address], 05/16/2024 13:51:59 05/15/20 24 05/15/2024 CBC WITH AUTO- DIFFE ELISETI AL abs. imm. gran. 0.01 10*3/ uL 0.00-0 .10 Not Available [facility] [address] [facility] [address], [place], [address], 05/16/2024 13:51:59 06/13/20 24 06/13/2024 IRON PANEL iron 75 mcg/d L 27-139 Not Available [facility] [address] [facility] [address], [place], [address], 06/14/2024 14:07:10 06/13/20 24 06/13/2024 IRON PANEL UIBC 112 ug/dL 111-34 3 Not Available [facility] [address] [facility], [place], [address], 06/14/2024 14:07:10 06/13/20 24 06/13/2024 IRON PANEL total iron binding capacity 187.0 mcg/d L 250.0- 450.0 low Not Available [facility] [address] [facility] [address], [place], [address], 06/14/2024 14:07:10 06/13/20 24 06/13/2024 IRON PANEL iron saturation (calculated) 40.1 % 15.0-5 5.0 Not Available [facility] [address] [facility] [address], [place], [address], 06/14/2024 14:07:10 02/14/20 25 02/14/2025 CBC/D IFF AMBIG UOUS DEFAU LT WBC 6.2 x10e3 /uL 3.4-10 .8 normal Not Available [facility] ([facility]) [address] [facility], [place], [address], 02/17/2025 03:35:56 02/14/20 25 02/14/2025 CBC/D IFF AMBIG UOUS DEFAU LT RBC 3.57 x10e6 /uL 3.77-5 .28 below low normal Not Available [facility] ([facility]) [address] [place], [address], 02/17/2025 03:35:56 02/14/20 25 02/14/2025 CBC/D IFF AMBIG UOUS DEFAU LT hemoglobin 11.5 g/dL 11.1-1 5.9 normal Not Available [facility] ([facility]) [address] [place], [address], 02/17/2025 03:35:56 02/14/20 25 02/14/2025 CBC/D IFF AMBIG UOUS DEFAU LT hematocrit 36.0 % 34.0-4 6.6 normal Not Available [facility] ([facility]) [address] [facility], [place], [address], 02/17/2025 03:35:56 02/14/20 25 02/14/2025 CBC/D IFF AMBIG UOUS DEFAU LT MCV 101 fL 79-97 above high normal Not Available [facility] ([facility]) [address] [place], [address], 02/17/2025 03:35:56 02/14/20 25 02/14/2025 CBC/D IFF AMBIG UOUS DEFAU LT MCH 32.2 pg 26.6-3 3.0 normal Not Available [facility] ([facility]) [address] [place], [address], 02/17/2025 03:35:56 02/14/20 25 02/14/2025 CBC/D IFF AMBIG UOUS DEFAU LT MCHC 31.9 g/dL 31.5-3 5.7 normal Not Available [facility] ([facility]) [address] [place], [address], 02/17/2025 03:35:56 02/14/20 25 02/14/2025 CBC/D IFF AMBIG UOUS DEFAU LT RDW 12.1 % 11.7-1 5.4 Not Available [facility] ([facility]) [address] [facility], [place], [address], 02/17/2025 03:35:56 02/14/20 25 02/14/2025 CBC/D IFF AMBIG UOUS DEFAU LT platelets 228 x10e3 /uL 150-45 0 normal Not Available [facility] ([facility]) [address] [facility], [place], [address], 02/17/2025 03:35:56 02/14/20 25 02/14/2025 CBC/D IFF AMBIG UOUS DEFAU LT neutrophils 66 % not estab. normal Not Available [facility] ([facility]) [address] [facility], [place], [address], 02/17/2025 03:35:56 02/14/20 25 02/14/2025 CBC/D IFF AMBIG UOUS DEFAU LT lymphs 19 % not estab. normal Not Available [facility] ([facility]) [address] [facility], [place], [address], 02/17/2025 03:35:56 02/14/20 25 02/14/2025 CBC/D IFF AMBIG UOUS DEFAU LT monocytes 6 % not estab. normal Not Available [facility] ([facility]) [address] [facility], [place], [address], 02/17/2025 03:35:56 02/14/20 25 02/14/2025 CBC/D IFF AMBIG UOUS DEFAU LT eos 8 % not estab. normal Not Available [facility] ([facility]) [address] [facility], [place], [address], 02/17/2025 03:35:56 02/14/20 25 02/14/2025 CBC/D IFF AMBIG UOUS DEFAU LT basos 1 % not estab. normal Not Available [facility] ([facility]) [address] [facility], [place], [address], 02/17/2025 03:35:56 02/14/20 25 02/14/2025 CBC/D IFF AMBIG UOUS DEFAU LT immature cells BULKHEAD CARPENTER Not Available [facility] ([facility]) [address] [facility], [place], [address], 02/17/2025 03:35:56 02/14/20 25 02/14/2025 CBC/D IFF AMBIG UOUS DEFAU LT neutrophils (absolute) 4.1 x10e3 /uL 1.4-7. 0 normal Not Available [facility] ([facility]) [address] [place], [address], 02/17/2025 03:35:56 02/14/20 25 02/14/2025 CBC/D IFF AMBIG UOUS DEFAU LT lymphs (absolute) 1.2 x10e3 /uL 0.7-3. 1 normal Not Available [facility] ([facility]) [address] [place], [address], 02/17/2025 03:35:56 02/14/20 25 02/14/2025 CBC/D IFF AMBIG UOUS DEFAU LT monocytes(ab solute) 0.4 x10e3 /uL 0.1-0. 9 normal Not Available [facility] ([facility]) [address] [place], [address], 02/17/2025 03:35:56 02/14/20 25 02/14/2025 CBC/D IFF AMBIG UOUS DEFAU LT eos (absolute) 0.5 x10e3 /uL 0.0-0. 4 above high normal Not Available [facility] ([facility]) [address] [place], [address], 02/17/2025 03:35:56 02/14/20 25 02/14/2025 CBC/D IFF AMBIG UOUS DEFAU LT baso (absolute) 0.0 x10e3 /uL 0.0-0. 2 normal Not Available [facility] ([facility]) [address] [facility], [place], [address], 02/17/2025 03:35:56 02/14/20 25 02/14/2025 CBC/D IFF AMBIG UOUS DEFAU LT immature granulocytes 0 % not estab. Not Available [facility] ([facility]) [address] [facility], [place], [address], 02/17/2025 03:35:56 02/14/20 25 02/14/2025 CBC/D IFF AMBIG UOUS DEFAU LT immature grans (abs) 0.0 x10e3 /uL 0.0-0. 1 Not Available [facility] ([facility]) [address] [facility], [place], [address], 02/17/2025 03:35:56 02/14/20 25 02/14/2025 CBC/D IFF AMBIG UOUS DEFAU LT NRBC BULKHEAD CARPENTER Not Available [facility] ([facility]) [address] [facility], [place], [address], 02/17/2025 03:35:56 02/14/20 25 02/14/2025 CBC/D IFF AMBIG UOUS DEFAU LT hematology comments: BULKHEAD CARPENTER A hand- writt en panel /prof ile was recei luis m from your offic e. In accor dance with the [facility] Ambkevin uous Test Code Polic y dated January 2003, we have assig della CBC with Diffe columba al/Pl christi t, Test Code #[address] If this is not the testi ng you wishe d to recei ve on this speci men, pleas e conta ct the [facility] Clisa t Inqui ry/ Techn ical Servi brinda Depar tment to doni fy the test order . We appre ciate your busin ess. Not Available [facility] ([facility]) [address] [facility], [place], [address], 02/17/2025 03:35:56 02/14/20 25 02/14/2025 COMP. METAB OLIC PANEL (14) glucose 138 mg/dL 70-99 above high normal Not Available [facility] ([facility]) [address] [facility] [place], [address], 02/17/2025 03:35:57 02/14/20 25 02/14/2025 COMP. METAB OLIC PANEL (14) BUN 33 mg/dL 8-27 above high normal Not Available [facility] ([facility]) [address] [facility] [place], [address], 02/17/2025 03:35:57 02/14/20 25 02/14/2025 COMP. METAB OLIC PANEL (14) creatinine 1.60 mg/dL 0.57-1 .00 above high normal Not Available [facility] ([facility]) [address] [facility] [place], [address], 02/17/2025 03:35:57 02/14/20 25 02/14/2025 COMP. METAB OLIC PANEL (14) eGFR 32 mL/mi n/1.7 3 >59 below low normal Not Available [facility] ([facility]) [address] [facility] [place], [address], 02/17/2025 03:35:57 02/14/20 25 02/14/2025 COMP. METAB OLIC PANEL (14) BUN/creatini ne ratio 21 12-28 normal Not Available [facility] ([facility]) [address] [place], [address], 02/17/2025 03:35:57 02/14/20 25 02/14/2025 COMP. METAB OLIC PANEL (14) sodium 144 mmol/ L 134-14 4 normal Not Available [facility] ([facility]) [address] [facility] [place], [address], 02/17/2025 03:35:57 02/14/20 25 02/14/2025 COMP. METAB OLIC PANEL (14) potassium 5.1 mmol/ L 3.5-5. 2 normal Not Available [facility] ([facility]) [address] [facility] [place], [address], 02/17/2025 03:35:57 02/14/20 25 02/14/2025 COMP. METAB OLIC PANEL (14) chloride 104 mmol/ L 96-106 normal Not Available [facility] ([facility]) [address] [facility] [place], [address], 02/17/2025 03:35:57 02/14/20 25 02/14/2025 COMP. METAB OLIC PANEL (14) carbon dioxide, total 24 mmol/ L 20-29 normal Not Available [facility] ([facility]) [address] [facility] [place], [address], 02/17/2025 03:35:57 02/14/20 25 02/14/2025 COMP. METAB OLIC PANEL (14) calcium 9.0 mg/dL 8.7-10 .3 normal Not Available [facility] ([facility]) [address] [facility] [place], [address], 02/17/2025 03:35:57 02/14/20 25 02/14/2025 COMP. METAB OLIC PANEL (14) protein, total 6.5 g/dL 6.0-8. 5 normal Not Available [facility] ([facility]) [address] [facility] [place], [address], 02/17/2025 03:35:57 02/14/20 25 02/14/2025 COMP. METAB OLIC PANEL (14) albumin 4.2 g/dL 3.7-4. 7 normal Not Available [facility] ([facility]) [address] [facility] [place], [address], 02/17/2025 03:35:57 02/14/20 25 02/14/2025 COMP. METAB OLIC PANEL (14) globulin, total 2.3 g/dL 1.5-4. 5 Not Available [facility] ([facility]) [address] [facility] [place], [address], 02/17/2025 03:35:57 02/14/20 25 02/14/2025 COMP. METAB OLIC PANEL (14) bilirubin, total 0.6 mg/dL 0.0-1. 2 normal Not Available [facility] ([facility]) [address] [facility] [place], [address], 02/17/2025 03:35:57 02/14/20 25 02/14/2025 COMP. METAB OLIC PANEL (14) alkaline phosphatase 90 IU/L 44-121 normal Not Available [facility]) [address] [facility] [place], [address], 02/17/2025 03:35:57 02/14/20 25 02/14/2025 COMP. METAB OLIC PANEL (14) AST (SGOT) 21 IU/L 0-40 normal Not Available [facility] ([facility]) [address] [facility] [place], [address], 02/17/2025 03:35:57 02/14/20 25 02/14/2025 COMP. METAB OLIC PANEL (14) ALT (SGPT) 22 IU/L 0-32 normal Not Available [facility] ([facility]) [address] [place], [address], 02/17/2025 03:35:57 02/14/20 25 02/14/2025 LIPID PANEL WITH LDL/H DL RATIO cholesterol, total 102 mg/dL 100-19 9 normal Not Available [facility] ([facility]) [address] [place], [address], 02/17/2025 03:35:58 02/14/20 25 02/14/2025 LIPID PANEL WITH LDL/H DL RATIO triglyceride s 101 mg/dL 0-149 normal Not Available [facility] ([facility]) [address] [place], [address], 02/17/2025 03:35:58 02/14/20 25 02/14/2025 LIPID PANEL WITH LDL/H DL RATIO HDL cholesterol 42 mg/dL >39 normal Not Available [facility] ([facility]) [address] [place], [address], 02/17/2025 03:35:58 02/14/20 25 02/14/2025 LIPID PANEL WITH LDL/H DL RATIO VLDL cholesterol romario 19 mg/dL 5-40 Not Available [facility] ([facility]) [address] [place], [address], 02/17/2025 03:35:58 02/14/20 25 02/14/2025 LIPID PANEL WITH LDL/H DL RATIO LDL chol calc ([facility]) 41 mg/dL 0-99 Not Available [facility]) [address] [place], [address], 02/17/2025 03:35:58 02/14/20 25 02/14/2025 LIPID PANEL WITH LDL/H DL RATIO LDL calc comment: BULKHEAD CARPENTER Not Available [facility] ([facility]) [address] [facility], [place], [address], 02/17/2025 03:35:58 02/14/20 25 02/14/2025 LIPID PANEL WITH LDL/H DL RATIO LDL/HDL ratio 1.0 ratio 0.0-3. 2 LDL/H DL Ratio Men Women 1/2 Avg.R isk 1.0 1.5 Avg.R isk 3.6 3.2 2X Avg.R isk 6.2 5.0 3X Avg.R isk 8.0 6.1 Not Available [facility] ([facility]) [address] [place], [address], 02/17/2025 03:35:58 02/14/20 25 02/14/2025 VITAM IN B12 AND FOLAT E vitamin B12 1059 pg/mL 232-12 45 normal Not Available [facility] ([facility]) [address] [facility], [place], [address], 02/17/2025 03:35:58 02/14/2002/14/2025 VITAM IN B12 AND FOLAT E folate (folic acid), serum >20.0 NG/mL >3.0 A serum folat e ab ntrat ion of less than 3.1 ng/mL is consi dered to repre sent clini romario defic iency . Not Available [facility] ([facility]) [address] [facility], [place], [address], 02/17/2025 03:35:58 02/14/2002/14/2025 HEMOG LOBIN A1C hemoglobin A1C 6.1 % 4.8-5. 6 above high normal Predi abete s: 5.7 - 6.4 Diabe bernabe: >6.4 Glyce amria ines contr ol for adult s with diabe bernabe: <7.0 Not Available [facility] ([facility]) [address] [facility], [place], [address], 02/17/2025 03:35:59 02/14/2002/14/2025 TSH TSH 2.780 uIU/m L 0.450- 4.500 normal Not Available [facility] ([facility]) [address] [place], [address], 02/17/2025 03:35:59 02/14/2002/14/2025 C-PEP TIDE, SERUM C-peptide, serum 2.3 NG/mL 1.1-4. 4 C-Pep tide refer ence inter tammy is for fasti ng patie nts. Not Available [facility] ([facility]) [address] [facility], [place], [address], 02/17/2025 03:36:00 02/14/2002/14/2025 VITAM IN D, 25-HY DROXY vitamin D, 25-hydroxy 42.6 NG/mL 30.0-1 00.0 Vitam in D defic iency has been defin ed by the Insti tute of Medic ine and an Endoc rine Socie ty pract ice guide line as a level of serum 25-OH vitam in D less than 20 ng/mL (1,2) . The Endoc rine Socie ty went on to furth er defin e vitam in D insuf ficie ncy as a level betwe en 21 and 29 ng/mL (2). 1. IOM (Inst itute of Medic ine). 2010. Dieta ry refer ence intak es for calci um and D. Connie ortega [place]: [facility] . 2. Lui rajan MF, Tiffany zelaya NC, Joleen off-F errar i SAMAYOA, et al. Evalu ation , treat ment, and preve ntion of vitam in D defic iency : an Endoc rine Socie ty clini romario pract ice guide line. JCEM. 2010; 96(7) :1911 -30. Not Available [facility] ([facility]) [address] [place], [address], 02/17/2025 03:36:00 02/14/20 25 02/14/2025 ALBUM IN, RANDO M URINE albumin, urine 180.3 ug/mL not estab. Not Available [facility] ([facility]) [address] [place], [address], 02/17/2025 03:36:01 02/14/20 25 02/17/2025 TACRO LIMUS (FK50 6), BLOOD tacrolimus (fk506), blood 4.9 NG/mL 5.0-20 .0 below low normal Targe t stead y state troug h ab ntrat ion for Tacro limus varie s based on type of organ trans plant immun osupp ressi ve david col and other patie nt speci fic facto rs. Tacro limus troug h ab ntrat ions shoul d be inter prete d in conju nctio n with clini romario asses sment s of rejec tion and ector abili ty. Value s obtai della with diffe rent assay metho ds canno t be used inter kline eably due to diffe rence s in assay metho ds and cross -reac tivty with metab olite s, nor shoul d corre ction facto rs be appli ed. There fore, consi stent use of one assay for indiv idual patie nts is recom susanna d. Detec tion Limit = 0.5 ng/mL Perfo rmed by LC-MS /MS techn ology . Not Available [facility] ([facility]) [address] [facility], [place], [address], 02/17/2025 03:36:02 08/24/19 25 08/24/2024 XR, chest , 2 view No observ ation record ed. [address], [place], [address], 09/01/2024 19:50:22 08/27/19 25 08/27/2024 XR, chest , 2 view No observ ation record ed. [address], [place], [address], 09/01/2024 19:50:22 10/23/19 25 10/22/2024 XR, chest , 2 view No observ ation record ed. [facility] [address], [place], [address], 01/21/2025 12:29:56 01/22/20 25 01/21/2025 elect latoya villaseñor am No observ ation record ed. [facility], [address], [place], [address], 04/22/2025 11:47:38 01/22/20 25 01/21/2025 US, duple x, carot id arter y No observ ation record ed. [facility], [place] [address] [facility] [address], [place], [address], 04/22/2025 11:47:38 01/22/20 25 01/21/2025 elect rocar diogr am No observ ation record ed. [address], [place], [address], 04/22/2025 11:47:39 01/22/20 25 01/21/2025 elect rocar diogr am No observ ation record ed. [address], [place], [address], 04/22/2025 11:47:38 03/05/20 25 03/05/2025 XR, chest , 2 view No observ ation record ed. [facility] [address], [place], [address], 05/15/2025 11:30:04 03/21/20 25 03/05/2025 US, duple x, carot id arter y No observ ation record ed. [address], [place], [address], 05/15/2025 11:30:04 Result Notes None recorded. Problems Name Problem SNOMED Code Status Onset Date Resolution Date Notes Provider Name and Address Organization Details Recorded Time Cirrhosi s of liver Kelley gamble [facility] 6 08:44:14 Diabetes mellitus [id number] Kelley gamble [facility] 6 08:44:20 Benign hyperten cedrick [id number] Kelley gamble [facility] 6 08:44:27 Umbilica l hernia [id number] Kelley gamble [facility] 6 08:44:38 Idiopath ic peripher al neuropat hy 06113093 Kelley gamble [facility] 6 08:44:52 Liver transpla nt recipien t Active Dian Montgomerychuyita gamble [facility] 6 08:45:06 Osteoart hritis 281072293 Active Dian gamble, [facility] 6 08:45:12 Osteopen ia 357951530 Active Dian Felix gamble [facility] 6 08:45:18 Overwe[place] ht 630717872 Completed 08/12/2020 MD Sean [address], [place], [address] , [facility] 1 12:01:49 Uterine leiomyom a 75747191 Active Dian Felix gamble [facility] 6 08:45:38 Urinary incontin ence 844389228 Active Dian Felix gamble [facility] 6 08:45:48 Ventral incision al hernia 457915217 Active Dian Felix gamble [facility] 6 08:46:06 Vitamin D deficien cy 01228389 Active Dian gamble, [facility] 6 08:46:13 Ventricu lar hypertro phy 602991468 Active 2015 Evon Saenz MD [address], [place], [address] , [facility] 6 11:51:39 Aortic valve regurgit ation 09685299 Active 2015 Mild , Evon Saenz MD [address], [place], [address] , [facility] 6 12:05:42 Hyperlip idemia 29643191 Active 2016 per cardiolo gist, patient refusing statin therapy- 04/08/18 Evon Saenz MD [address], [place], [address] , [facility] 8 22:40:22 Migraine 74913173 Active 2016 MD Halley Waters [address], [place], [address] , [facility] 7 10:45:04 Bundle branch block 5530126 Active 2017 RT MD Halley Waters [address], [place], [address] , [facility] 8 16:21:48 Coronary arterios clerosis 21196681 Active 2017 on cardiac cath 04/11/18 MD Halley Waters [address], [place], [address] , [facility] 8 16:26:54 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 589760618 Active 2018 MD Halley Waters [address], [place], [address] , [facility] 9 16:09:18 Mild neurocog nitive disorder 587255003 Active 2018 MD Sean Waters[address], [place], [address] , [facility] 9 16:25:00 Transpla nted liver present [id number] Completed 201804/03/2019 Philomena gamble [facility] 9 12:04:32 Pulmonar y embolism [id number] Active 2018 dx on CTA 02/03/19 - non provoked started on eliquis Philomena gamble [facility] 9 10:09:41 Carotid artery stenosis 95550025 Active 2019 MD Halley Waters [address], [place], [address] , [facility] 0 21:07:11 History of liver recipien t 614563080 Active 2019 MD Halley Waters [address], [place], [address] , [facility] 0 12:41:38 Congesti on of nasal sinus 30974881 Active 2019 MD Halley Waters [address], [place], [address] , [facility] 0 12:46:21 Allergic rhinitis caused by pollen 10530418 Active 2020 MD Halley Waters [address], [place], [address] , [facility] 1 12:16:59 Spinal stenosis of lumbar region 59169405 Active 2020 MD Halley Waters [address], [place], [address] , [facility] 1 13:06:53 Hypocalc emia 7370688 Active 2020 MD Halley Waters [address], [place], [place], , [facility] 1 13:12:26 Diarrhea 53089445 Active 2020 MD Halley Waters [address], [place], [address] , [facility] 1 13:16:54 Right bundle branch block 16551881 Active 2020 MD Halley Waters [address], [place], [address] , [facility] 1 13:19:57 Gastroes ophageal reflux disease without esophagi tis 338583990 Active 2021 MD Halley Waters [address], [place], [address] , [facility] 2 15:55:58 Double incontin ence 16810676 Active 2022 MD Halley Waters [address], [place], [address] , [facility] 3 19:34:11 Type 2 diabetes mellitus without complica tion 113076546 Active 2022 MD Halley Waters [address], [place], [address] , [facility] 3 16:45:44 Hypokale yamil 31554138 Active 2023 MD Halley Waters [address], [place], [address] , [facility] 4 20:43:47 Mixed hyperlip idemia 631926192 Active 2023 MD Halley Waters [address], [place], [address] , [facility] 4 19:26:20 Restless legs syndrome 38955438 Active 2023 MD Halley Waters [address], [place], [address] , [facility] 4 18:44:33 Chronic renal failure 84116031 Active 2023 MD Halley Waters [address], [place], [address] , [facility] 4 20:08:07 Anemia 901895311 Active 2023 MD Halley Waters [address], [place], [address] , [facility] 4 20:09:36 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 887790477 Active 2023 MD Halley Waters [address], [place], [address] , [facility] 4 19:22:33 Vitamin B12 deficien cy (non anemic) 38922890 Active 2024 MD Halley Waters [address], [place], [address] , [facility] 12:35:37 Overweig ht in adulthoo d with body mass index of 25 or more but less than 30 848738374 Active 2024 MD Halley Waters [address], [place], [address] , [facility] 11:52:32 Menopaus e present 879806066 Active 2024 MD Halley Waters [address], [place], [address] , [facility] 11:59:28 Problem Notes None recorded. Procedures Surgical History Date Name Laterality Status Provider Name and Address Organization Details Recorded Time 04/22/20 Diabetic Foot Exam completed MD Halley Waters [address], [place], [address], [facility] 04/22/2025 11:58:47 01/22/20 25 Diabetic Foot Exam completed MD Halley Waters [address], [place], [address], [facility] 01/21/2025 12:42:58 06/02/20 24 Diabetic Foot Exam completed MD Halley Waters [address], [place], [address], [facility] 06/02/2024 19:17:03 12/10/19 24 Diabetic Foot Exam completed MD Halley Waters [address], [place], [address], [facility] 12/10/2023 19:29:48 09/11/19 24 Diabetic Foot Exam completed MD Halley Waters [address], [place], [address], [facility] 09/11/2023 12:09:02 05/02/20 23 Diabetic Foot Exam completed MD Halley Waters [address], [place], [address], [facility] 05/02/2023 19:17:55 01/30/20 23 Diabetic Foot Exam completed MD Halley Waters [address], [place], [address], [facility] 01/29/2023 19:51:02 10/31/19 23 Diabetic Foot Exam completed MD Halley Waters [address], [place], [address], [facility] 10/30/2022 19:53:09 07/31/19 23 Diabetic Foot Exam completed MD Halley Waters [address], [place], [address], [facility] 07/31/2022 20:25:34 05/01/20 22 Diabetic Foot Exam completed MD Halley Waters [address], [place], [address], [facility] 05/01/2022 12:41:23 01/19/20 22 Diabetic Foot Exam completed MD Halley Waters [address], [place], [address], [facility] 01/18/2022 14:30:17 10/11/19 22 Diabetic Foot Exam completed MD Halley Waters [address], [place], [address], [facility] 10/10/2021 15:47:37 06/30/20 21 Diabetic Foot Exam completed MD Halley Waters [address], [place], [address], [facility] 06/30/2021 16:12:00 02/18/20 21 Diabetic Foot Exam completed MD Halley Waters [address], [place], [address], [facility] 02/17/2021 13:33:15 11/18/19 21 Diabetic Foot Exam completed MD Halley Waters [address], [place], [address], [facility] 11/17/2020 12:55:33 08/12/19 21 Diabetic Foot Exam completed MD Halley Waters [address], [place], [address], [facility] 08/12/2020 12:07:51 05/13/20 20 Diabetic Foot Exam completed MD Halley Waters [address], [place], [address], [facility] 05/13/2020 12:36:02 02/06/20 20 Date of Last Mammogram completed SULMA HANKS [facility] 08/12/2020 11:57:38 07/10/19 20 Colonoscopy completed Renea Jones [facility] 08/22/2022 12:51:14 06/12/20 19 Diabetic Foot Exam completed MD Halley Waters [address], [place], [address], [facility] 06/12/2019 11:42:53 01/03/20 19 Diabetic Foot Exam completed MD Halley Waters [address], [place], [address], [facility] 01/02/2019 10:50:49 09/13/19 19 Diabetic Foot Exam completed MD Halley Waters [address], [place], [address], [facility] 09/12/2018 16:14:10 05/29/20 18 Diabetic Foot Exam completed MD Halley Waters [address], [place], [address], [facility] 05/29/2018 16:29:34 02/21/20 18 Diabetic Foot Exam completed MD Halley Waters [address], [place], [address], [facility] 02/20/2018 13:31:07 10/08/19 18 Cataract Surgery completed MD Halley Waters [address], [place], [address], [facility] 11/20/2017 12:15:48 05/28/20 17 Date of Last Colonoscopy completed SULMA HANKS [facility] 08/12/2020 11:57:49 08/15/19 12 Colonoscopy completed Dian Washington [facility] 01/05/2016 08:42:44 Tonsillectomy completed Dianleeanne Washington [facility] 01/05/2016 08:42:48 Imaging Results None recorded. Procedure Notes None recorded. Medical Equipment None Reported. Allergies Allergen ID Allergen Name Allergen Category Reaction Reaction Severity Criticality Documentation Date Start Date Code Code System Note Provider Name and Address Organization Details Recorded Time gabapenti n medicatio n Not available Not available low 10/28/2024 18764 RxNorm React ion: Other , unrec ogniz ed react ion (text : Unkno wn, code: 80477 [id number]) (from exter nal sourc e) Not Available jarrett [employer] - prod 5 03:14:46 54857 morphine medicatio n dizziness Not available low 10/28/20242018 7052 RxNorm Not Available jarrett - [employer] - prod 5 03:14:46 12111 niacin medicatio n Not available Not available Not available 10/28/20242019 7393 RxNorm unrec ogniz ed react ion (text : Unkno wn, code: 67226 5006) (from exter nal sourc e) Not Available jarrett [employer] External [employer] - prod 5 03:14:46 62979 tramadol medicatio n Not available Not available Not available 10/28/20242019 68386 RxNorm unrec ogniz ed react ion (text : Unkno wn, code: 50766 5006) (from exter nal sourc e) Not Available jarrett - [employer] - prod 5 03:14:46 56471 animal dander environme nt itching rash Not available Not available high 10/30/20242017 Not Available jarrett - [employer] - prod 5 13:27:38 2603 Acetamino phen / Propoxyph wiliam medicatio n Not available Not available Not available 01/05/2016 94813 RxNorm Dian gamble, [facility] 6 08:41:57 2604 Lazara medicatio n Not available Not available Not available 01/05/201647873 0 RxNorm Dian gamble, [facility] 6 08:42:02 2605 Neurontin medicatio n Not available Not available Not available 01/05/2016 44418 8 RxNorm joei hemal Saenz MD [address] [facility] [address], [place], [address], [facility] 7 10:50:18 2606 Niaspan medicatio n Not available Not available Not available 01/05/2016 90034 6 RxNorm Dian gamble, [facility] 6 08:42:14 2607 prednison e medicatio n Not available Not available Not available 01/05/2016 8640 RxNorm feel s like my skin is crawl ing, mood kline es Meera Salazar [facility] 6 11:25:34 2608 Ultram medicatio n Not available Not available Not available 01/05/2016 94670 6 RxNorm Dian Washington [facility] 6 08:42:30 Medications Name Sig Start Date [...] 1 TABLET BY MOUTH EVERY 12 HOURS 03/28 completed Not Available Not Available Not Available [...] one acetate 1 % eye drops,arian pension 12/06 completed Not [...] reece (vit B-12) 1,000 mcg/mL injection solution Inject 1 mL every month by subcutan eous route. 2024 active Not Available Not Available Not Avai lable neomycin- polymyxin -dexameth 3.5 mg/mL-10, 000 unit/mL-0 [...] bromide 42 mcg (0.06 %) nasal spray [place] 2 sprays 3 times a day by [...] TAKE 3 CAPSULES BY MOUTH TWICE DAILY 2024 active Not Available Not Available Not [...] t Available rosuvasta tin 10 mg tablet TAKE 1 TABLET BY MOUTH ONCE DAILY 11/18 completed Not Available Not Available Not Available rosuvasta tin 20 mg tablet TAKE 1 TABLET BY MOUTH ONCE DAILY 06/123 completed Not Available Not Available Not Available [...] Take 1 capsule by mouth once daily 2024 active Not Available Not Available Not Avai lable Mucinex DM 30 mg-600 mg tablet,ex tended [...] Not Avai lable Besivance 0.6 % eye drops,[facility] 12/06 completed Not Available Not Available Not [...] tablet twice a day by oral route. 05/09 completed Not Available Not Available Not Available biotin 300 mcg capsule Take 1 capsule every day by oral route. 10/10 completed Not Available Not Available Not Available Azo Urinary Pain Relief 95 mg tablet Take 1 tablet twice a day by oral route. 12/06 completed Not Available Not Available Not Available Shingrix (PF) 50 mcg/0.5 mL intramusc ular suspensio n, kit active Not Available Not Available Not Available Fluzone High-Dose 3161-9398 (PF) 180 mcg/0.5 mL intramusc ular syringe 05/29 completed Not Available Not Available Not Available Fluzone High-Dose 2018- (PF) 180 mcg/0.5 mL intramusc ular syringe [...] Available BinaxNOW COVID-19 Ag Self Test kit 05/01 completed Not Available Not Available Not Available Vitals Date Recorded Body height Body mass index (BMI) Body weight Body temperature Heart rate Respiratory rate Systolic And Diastolic Provider Name and Address Organization Details Last Updated DateTime 5 167.64 cm 27.6 kg/m2 61832.3 g 98.7 [degF] 63 /min 18 /min 136/59 mm[Hg] Anahi Norris [facility] 5 19:22:13 Date Recorded Heart rate Systolic And Diastolic Provider Name and Address Organization Details Last Updated DateTime 01/21/2025 67 /min 155/85 mm[Hg] Evon Saenz MD [address], [place], [address] 01/21/2025 12:29:46 Date Recorded Body height Respiratory rate Body temperature Body mass index (BMI) Body weight Provider Name and Address Organization Details Last Updated DateTime 01/21/2025 167.64 cm 18 /min 98 [degF] 29.5 kg/m2 15909.4 g Tanja Hannah [facility] 12:16:01 Date Recorded Systolic And Diastolic Provider Name and Address Organization Details Last Updated DateTime 02/20/2024 135/77 mm[Hg] MD Sean Waters[address], [place], [address] 02/20/2024 18:50:08 Date Recorded Body height Body mass index (BMI) Body weight Body temperature Respiratory rate Heart rate Provider Name and Address Organization Details Last Updated DateTime 167.64 cm 28.1 kg/m2 45917.0 7 g 97.3 [degF] 18 /min 76 /min Anahi Norris [facility] 18:10:37 Date Recorded Systolic And Diastolic Provider Name and Address Organization Details Last Updated DateTime 04/22/2025 134/72 mm[Hg] Evon Saenz MD [address], [place], [address] 04/22/2025 11:56:36 Date Recorded Body height Heart rate Respiratory rate Body temperature Body mass index (BMI) Body weight Provider Name and Address Organization Details Last Updated DateTime 167.64 cm 67 /min 18 /min 97.7 [degF] 29.4 kg/m2 96038.8 1 g Tanja Hannah [facility] 5 11:40:05 Date Recorded Body height Body mass index (BMI) Body weight Body temperature Respiratory rate Heart rate Systolic And Diastolic Provider Name and Address Organization Details Last Updated DateTime 4 167.64 cm 28.1 kg/m2 24003.0 7 g 97.4 [degF] 18 /min 64 /min 154/72 mm[Hg] Anahi Norris [facility] 4 18:45:42 Social History Question Answer Notes LastModified by Organizat ion Details LastModified Time Tobacco Smoking Status Never Smoker Not Available [employer] 04/23/2020 03:12:14 Do You Have An Advance Directive? Yes [id number] Information not available 04/23/2020 Live Alone Or With Others? Alone Information not available 01/05/2016 What Was The Date Of Your Most Recent Tobacco Screening? 10/10/2021 Information not available 10/10/2021 Sex: Unknown Functional Status Question Answer Note LastModified by Organization D etails LastModified Time What is your level of alcohol consumption? None [id number] Information not available 04/23/2020 Mental Status None recorded. Family History Relationship Description Onset Age of this Age Resolved Age Notes LastModified by Organization Details LastModified Time Father Chronic obstructive pulmonary disease 72 [email or web address] Not available 2015 08:43:14 Father Alcoholism Not availa ble 01/05/2016 08:43:21 Mother Chronic obstructive pulmonary disease 72 [email or web address] Not available 2015 08:43:14 Mother Alcoholism [email or web address] Not availa ble 01/05/2016 08:43:26 Mother Malignant neoplasm of breast [email or web address] Not available 2015 08:43:38 Medical History Condition [...] high-dose, trivalent, PF 8 completed Not Available [facility] 08/09/2019 02:15:42 zoster recombinant 8 completed Evon Saenz MD [address] [facility], [place], [address], [facility] 06/03/2018 21:16:26 Tdap 6 completed October K[facility] 01/03/2019 09:07:10 Influenza, split virus, quadrivalent, preservative 5 completed Dian [facility] 01/05/2016 11:33:50 pneumococcal polysaccharide PPV23 5 completed Dian gamble [facility] 01/05/2016 11:33:57 Influenza, split virus, quadrivalent, preservative 9 completed Ana Lilia Parson [facility] 04/07/2019 10:53:49 Influenza, split virus, quadrivalent, preservative 0 completed Mary Wong [facility] 04/18/2021 11:41:45 COVID-19, mRNA, LNP-S, PF, 30 mcg/0.3 mL dose 1 completed Tanika Means [facility] 11/17/2020 12:45:52 COVID-19, mRNA, LNP-S, PF, 30 mcg/0.3 mL dose 1 completed Tanika Means null, [facility] 11/17/2020 12:46:19 COVID-19, mRNA, LNP-S, PF, 30 mcg/0.3 mL dose 1 completed Danielle Rebolledo null, [facility] 02/23/2021 12:41:04 pneumococcal polysaccharide PPV23 1 completed Renea Jones null, [facility] 05/20/2021 10:13:39 Influenza, split virus, quadrivalent, preservative 1 completed Evon Saenz MD [address], [place], [address], [facility] 06/30/2021 16:09:02 COVID-19, mRNA, LNP-S, PF, 30 mcg/0.3 mL dose 2 completed Renea Jones null, [facility] 12/30/2021 10:44:10 Influenza, high-dose, quadrivalent, PF 2 completed Renea Jones null, [facility] 08/02/2022 21:46:20 Tdap 3 completed Renea Jones null, [facility] 12/20/2022 15:49:35 Pneumococcal conjugate PCV20, polysaccharide XXR911 conjugate, adjuvant, PF 3 completed Renea Jones null, [facility] 12/20/2022 15:50:57 Influenza, adjuvanted, quadrivalent, PF 3 completed Tanja Hannah null, [facility] 05/25/2023 15:40:59 RSV, recombinant, protein subunit RSVpreF, adjuvant reconstituted, 0.5 mL, PF 3 completed Tanja Hannah null, [facility] 05/25/2023 15:42:05 COVID-19, mRNA, LNP-S, PF, 50 mcg/0.5 mL 3 completed Renea gamble, [facility] 06/27/2023 11:10:04 Influenza, high-dose, trivalent, PF 4 completed Renea gamble, [facility] 06/10/2024 21:33:36 COVID-19, mRNA, LNP-S, PF, 50 mcg/0.5 mL 4 completed Renea gamble, [facility] 06/10/2024 21:36:22 Influenza, split virus, trivalent, preservative 6 completed Not Available [employer] 07/26/2019 02:27:21 Pneumococcal conjugate PCV 13 6 completed MD Halley Waters [facility] [address], [place], [address], [facility] 08/07/2016 12:15:08 Influenza, split virus, quadrivalent, preservative 7 completed MD Halley Waters [facility] [address], [place], [address], [facility] 05/23/2017 12:10:13 Past Encounters Encounter ID Performer Location Encounter Start Date Encounter Closed Date Diagnosis/Indication Diagnosis SNOMED-CT Code Diagnosis ICD10 Code Diagnosis IMO Codes Diagnosis Note [id number] Evon Saenz MD [facility], [address] [place] [address] 01/05/2016 11:17:21 01/05/2016 12:20:02 Benign hypertension 06459215 I10 Idiopathic peripheral neuropathy 19453452 G60.9 Overweight 860884840 E66 .3 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 on reg basis Diabetes mellitus 860290 09 E11.69 Active or passive immunization 711179532 Z23 Vitamin D deficiency 347 95052 E55.9 Screening for malignant neoplasm of cervix 649437444 Z12.4 Screening mammography 24 970250 Z12.31 Paroxysmal vertigo 86800 0003 H81.10 [id number] Evon Saenz MD [facility], [place] [address] [place] [address] 04/12/2016 10:09:11 04/12/2016 11:29:39 Renewal of prescription 221629996 Z76.0 Benign hypertension 1072 5009 I10 Need to evaluate left ventricula r function last echo 2013 Screening mammography 24 301064 Z12.31 Active immunization 3387 9002 Z23 wait for flu shot 1-2 weeks Osteoarthritis 143480855 M19.90 Vitamin D deficiency 347 47933 E55.9 Diabetes mellitus 201400 09 E11.69 Insect bite - wound 2764 03185 T14.8 left face [id number] Meera Salazar [facility] [employer] [facility], [place] [address] [address] [place] [address] 04/28/2016 10:39:32 04/28/2016 11:37:58 Contact dermatitis caused by urushiol from [facility] joesph 522116524 L25.5 [id number] Evon Saenz MD [facility], [place] [address] [address] [place] [address] 06/30/2016 11:30:58 06/30/2016 12:22:46 Benign hypertension 92046797 I10 increase lisinopril to 10 qam , BP 2 weeks Idiopathic peripheral neuropathy 02456649 G60.9 with DM and previous H/O callus formation ,will need diabetic shoes Osteoarthritis 973472723 M19.90 Diabetes mellitus 019310 09 E11.69 Memory impairment 991752 006 R41.3 Urinary incontinence 165 316223 R32 [id number] Evon Saenz MD [place] [employer] [facility], [place] [address] [address] [place] [address] 08/07/2016 11:28:36 08/07/2016 12:24:57 Urinary incontinence 968881109 R32 Benign hypertension 1072 5009 I10 increase lisinopril to 10 qam , BP 2 weeks Memory impairment 999191 006 R41.3 Diabetes mellitus 361517 09 E11.69 Vitamin D deficiency 347 51148 E55.9 Screening for malignant neoplasm of colon 121597341 Z12.11 Screening mammography 24 612170 Z12.31 [id number] Meera Salazar [facility] [employer] [facility], [place] [address] [address] [place] [address] 09/20/2016 15:33:47 09/20/2016 16:43:48 Abdominal pain 39832106 R10.[address] Garcia Incontinence of feces 72 013600 R15.9 Pain in pelvis 51910134 R10.2 [id number] Evon Saenz MD [employer], [place] [address] [facility] [address] [place] [address] 11/06/2016 11:20:28 11/06/2016 12:03:08 Benign hypertension 12099575 I10 increase lisinopril to 20 qam , BP 2 weeks Eruption 886052449 R21 Urticaria 378190654 L50. 9 Screening for malignant neoplasm of colon 298885917 Z12.11 Overweight 430700490 E66 .3 Diabetes mellitus 428953 09 E11.69 Hyperlipidemia 06624647 E78.5 [id number] Evon Saenz MD [employer], [address] [address] 02/06/2017 10:30:00 02/06/2017 11:02:15 Benign hypertension 07647608 I10 good control under current meds Vitamin D deficiency 347 85825 E55.9 Hyperlipidemia 24783751 E78.5 last LDL 7 @ goal Diabetes mellitus 752425 09 E11.69 last A1c 01/15/17 @ Goal Migraine 17642108 G43.90 9 Screening mammography 24 654550 Z12.31 [id number] Evon Saenz MD [employer], [place] [address] [address] [place] [address] 05/23/2017 10:54:16 05/23/2017 12:15:39 Benign hypertension 54792909 I10 good control under current meds Hyperlipidemia 61436376 E78.5 last LDL 01/15/17 @ goal Diabetes mellitus 599406 09 E11.69 Osteoarthritis 093885113 M19.90 Vitamin D deficiency 347 32750 E55.9 Screening mammography 24 755569 Z12.31 Active or passive immunization 963655367 Z23 Idiopathic peripheral neuropathy 72555426 G60.9 with DM and previous H/O callus formation ,will need diabetic shoes [id number] Evon Saenz MD [employer], [place] [address] [place] [address] 08/23/2017 10:44:25 08/23/2017 11:38:10 Mammography abnormal 669336829 R92.8 Benign hypertension 1072 5009 I10 good control under current meds Osteopenia 885478344 M85 .89 Vitamin D deficiency 347 29978 E55.9 Diabetes mellitus 056867 09 E11.69 Screening for malignant neoplasm of colon 092340312 Z12.11 last C scope 05/25/17 , good till 2020 Active or passive immunization 001422804 Z23 [id number] Evon Saezn MD [employer], [address] [place] [address] 11/20/2017 11:31:02 11/20/2017 12:37:57 Diabetes mellitus 65541942 E11.69 last ophth eval 10/22/17 Benign hypertension 1072 5009 I10 good control under current meds Hyperlipidemia 37080797 E78.5 last LDL 01/15/17 @ goal Osteopenia 441845506 M85 .89 Screening mammography 24 171642 Z12.31 had abnormal mammogram , seen breast surg , repeat mammogram was NL Active or passive immunization 138944679 Z23 Screening for malignant neoplasm of colon 165824340 Z12.11 last C scope 05/25/17 , good till 2020 Low back pain 939858659 M54.5 [id number] PHILOMENA RUBIN APN [employer], [address] [place] [address] [place] [address] 12/06/2017 12:09:43 12/06/2017 13:40:23 Forgetful 09340575 R41.3 Hyperlipidemia 03840141 E78.00 Memory impairment 968165 006 R41.3 Urinary incontinence 165 631588 R32 although reports unsteady gait ---- oxybutynin on hold for now Impacted cerumen 7866576 6 H61.23 [id number] Evon Saenz MD [employer], [address] [place] [address] [place] [address] 02/20/2018 12:59:30 02/20/2018 13:54:34 Benign hypertension 95040687 I10 good control under current meds Hyperlipidemia 04612883 E78.5 last LDL 12/06/17 @ above goal , pt not taking her prava , education Diabetes mellitus 477572 09 E11.69 last ophth eval 10/22/17las t A1c 12/06/17 was 6.3last KANCHAN 08/27/17 Liver davis splant recipient 269422812 Z94.[address] on reg basis Osteoarthritis 768273078 M19.90 ok with low dose narco Vitamin D deficiency 347 05226 E55.9 last level 08/27/17 Overweight 563828229 E66 .3 education Idiopathic peripheral neuropathy 88563222 G60.9 with DM and previous H/O callus formation ,will need diabetic shoes Screening mammography 24 001891 Z. last mammogram 08/2017 Screening for malignant neoplasm of cervix 073883680 Z12.4 per pt had PAP 2017 Screening for malignant neoplasm of colon 394144390 Z12.11 last C scope 05/25/17 , good till 2020 Active or passive immunization 129935855 Z23 [id number] Evon Saenz MD [employer], [place] [address] [facility] [address] [place] [address] [address] 05/29/2018 15:55:45 05/29/2018 16:40:37 Bundle branch block 5568033 I44.60 Rt , just had cardiac cath , mild ,non occlusive , for medical treatmentw ill send to [facility] Coronary arteriosclerosis 59423981 I25.10 on cardiac cath 04/11/18 Hyperlipidemia 70433116 E78.5 last LDL 12/06/17 @ above goal , pt not taking her prava , education Benign hypertension 1072 5009 I10 good control under current meds Osteopenia 019353286 M85 .89 lasr DEXA 11/20/17 Diabetes mellitus 574694 09 E11.69 last ophth eval 10/22/17las t A1c 12/06/17 was 6.3last KANCHAN 08/27/17 Unintentio nal weight loss 677563588 R63.4 Screening mammography 24 091695 Z12.31 last mammogram 08/2017 Screening for malignant neoplasm of cervix 491640413 Z12.4 per pt had PAP 2017 Screening for malignant neoplasm of colon 544565730 Z12.11 last C scope 05/25/17 , good till 2020 Active or passive immunization 893371756 Z23 [id number] PHILOMENA RUBIN APN [employer] [facility], [place] [address] [facility] [place] [address] [place] [address] 07/30/2018 14:07:04 07/30/2018 14:52:42 Pain of shoulder region 56099747 M25.519 Pain of le ft hip joint 8826554740 88690 M25.552 reports left hip is hard to move [id number] Evon Saenz MD [facility], [address] [place] [address] [place] [address] 09/12/2018 15:51:48 09/12/2018 16:29:03 Benign hypertension 65507975 I10 good control under current meds Diabetes mellitus 608860 09 E11.69 last ophth eval 06/2018 , mild NPDRlast A1c 06/12/18 was 6.3last KANCHAN 08/27/17 Hyperlipidemia 35966185 E78.5 last LDL 06/12/18 @ above goal , , education Osteopenia 990176145 M85 .89 last DEXA 11/20/17 Screening mammography 24 365243 Z12.31 last mammogram 08/2017 Screening for malignant neoplasm of colon 600665712 Z12.11 last C scope 05/25/17 , good till 2020 Pain of sh oulder region 77816815 M25.519 shoulder X ray was -ve Pain of le ft hip joint 7056907091 63342 M25.552 left hip X ray was NL Mild neuro cognitive disorder 401325006 G31.84 [id number] Evon Saenz MD [facility], [place] [address] [facility] [place] [address] [place] [address] 10/17/2018 15:32:07 10/17/2018 16:08:54 Benign hypertension 09856829 I10 good control under current meds Bronchitis 85524349 J40 cont' Abx , mucinex dmRTC 1 week if cough does not gone Hyperlipidemia 34447887 E78.5 last LDL 06/12/18 @ above goal , , education [id number] Evon Saenz MD [facility], [address] [place] [address] [place] [address] 01/02/2019 10:07:48 01/02/2019 10:58:07 Adult health examination 965623218 Z00.01 Benign hypertension 1072 5009 I10 good control under current meds Diabetes mellitus 936083 09 E11.69 last ophth eval 06/2018 , mild NPDRlast A1c 09/12/18 was 6.4last KANCHAN 09/12/18 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 Z94.4 sees hepatology clinic Osteoarthritis 762611166 M19.90 ok with low dose narco Vitamin D deficiency 347 88190 E55.9 last level 08/27/17 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 005885172 E11.3299 mild , sees ophth every 3 months Osteopenia 264400032 M85 .89 last DEXA 11/20/17 Idiopathic peripheral neuropathy 05286751 G60.9 with DM and previous H/O callus formation ,will need diabetic shoes Aortic tammy ve regurgitation 28861265 I35.1 last ECHO 01/17/18 Hyperlipidemia 40331611 E78.5 last LDL 06/12/18 @ above goal , , education Migraine 90994072 G43.90 9 good control Coronary arteriosclerosis 22602789 I25.10 on cardiac cath 04/11/18 Body mass index 30+ - obesity 487119976 Z68.33 education Mild neuro cognitive disorder 395686591 G31.84 MMS is 27 today Screening mammography 24 486196 Z12.31 last mammogram 10/24/18 Screening for malignant neoplasm of cervix 323575906 Z12.4 per pt had PAP 2017 Screening for malignant neoplasm of colon 414524584 Z12.11 last C scope 05/25/17 , good till 2020 Active or passive immunization 219868932 Z23 [id number] PHILOMENA RUBIN APN [employer], [facility] [address] [facility] [place] [address] [place] [address] 01/29/2019 11:58:56 01/29/2019 12:51:34 Dyspnea 903174816 R06.00 states has been like this for [...] completed walk - Congestion of nasal sinus 40403769 R09.81 [id number] PHILOMENA RUBIN APN [employer], [employer] [address] [facility] [place] [address] [place] [address] 04/03/2019 11:12:28 04/03/2019 12:38:49 Mixed urinary incontinence 728162784 N39.46 urinary incont x 2 years most recently stool incont - urethral sling placement 08/2018 - Benign hypertension 1072 5009 I10 good control under current meds eye exam 03/05/19 EKG 10/2018 Diabetes mellitus 032039 09 E11.69 last ophth eval 02/2019 , mild NPDRlast A1c 01/02/19 7.0last KANCHAN 09/12/18 Transplant ed liver present 148068677 Z94.4 sees hepatology clinic Osteoarthritis 425928020 M19.90 ok with low dose narco Vitamin D deficiency 347 64024 E55.9 last level 01/02/19 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 204704513 E11.3299 mild , sees ophth every 3 months Osteopenia 663381386 M85 .89 last DEXA 11/20/17 Idiopathic peripheral neuropathy 73226946 G60.9 with DM and previous H/O callus formation ,will need diabetic shoes Aortic tammy ve regurgitation 40477808 I35.1 last ECHO 03/17/19 Hyperlipidemia 16063668 E78.5 last LDL 01/02/19 Migraine 57951048 G43.90 9 good control Coronary arteriosclerosis 60740109 I25.10 on cardiac cath 04/11/18 Body mass index 30+ - obesity 193840018 Z68.33 education Mild neuro cognitive disorder 040881506 G31.84 states becoming more forgetful - states she forgets names or where she placed objects - Screening mammography 24 768983 Z12.31 last mammogram 10/24/18 Screening for malignant neoplasm of cervix 608479811 Z12.4 per pt had PAP 2017 Screening for malignant neoplasm of colon 295987049 Z12.11 last C scope 05/25/17 , good till 2019 Active or passive immunization 527358221 Z23 up to date Diarrhea 00550314 R19.7 Incontinence of feces 72 910297 R15.9 [id number] Evon Saenz MD [employer], [place] [address] [facility] [address] [place] [address] 06/12/2019 10:51:00 06/12/2019 11:56:27 Diabetes mellitus 50739584 E11.69 last ophth eval 06/2018 , mild NPDRlast A1c 09/12/18 was 6.4last KANCHAN 09/12/18 Idiopathic peripheral neuropathy 17940132 G60.9 with DM and previous H/O callus formation ,will need diabetic shoes Diarrhea 58979108 R19.7 questran PRN , change to ER metformin Osteoarthritis 687815612 M19.90 OK on tylenol 500 TID Osteopenia 289624431 M85 .89 last DEXA 11/20/17 Vitamin D deficiency 347 25108 E55.9 last level 01/02/19 Screening mammography 24 835611 Z12.31 last mammogram 10/24/18 Screening for malignant neoplasm of cervix 040269263 Z12.4 per pt had PAP 2016 Screening for malignant neoplasm of colon 671327631 Z12.11 last C scope 05/25/17 , good till 2019 Active or passive immunization 457241965 Z23 up to date Cough 21135046 R05 PO is 96% on RA Impacted cerumen 7773304 6 H61.22 Hyperlipidemia 17031620 E78.5 last LDL 01/02/19 @ goal , Benign hypertension 1072 5009 I10 good control under current medspt not taking coreg [id number] Evon Saenz MD [employer] [facility]2 [facility] ,[address] [place] [address] 07/07/2019 14:28:59 07/07/2019 15:34:54 Preoperative cardiovascular examination 365638962 Z01.810 hold eliquis 3 days before , call GI office for per C scope medstalked in person to Dr Garcia office @ [facility] Benign hypertension 1072 5009 I10 good control under current medspt not taking coreg Diabetes mellitus 369481 09 E11.69 last ophth eval 06/2018 , mild NPDRlast A1c 09/12/18 was 6.4last KANCHAN 09/12/18 Pulmonary embolism 42272 003 I26.99 [id number] Evon Saenz MD [employer], [place] [address] [facility] [place] [address] [place] [address] 09/05/2019 10:57:44 09/05/2019 12:10:36 Transient cerebral ischemia 468038110 G45.9 ASA , eliquis Ataxic gait 09670957 R26 .0 will give her a walker Diabetes mellitus 787190 09 E11.69 last ophth eval 06/2018 , mild NPDRlast A1c 04/03/19las t KANCHAN 09/12/18 Idiopathic peripheral neuropathy 39346675 G60.9 with DM and previous H/O callus formation ,will need diabetic shoes [id number] Evon Saenz MD [employer], [place] [address] [facility] [place] [address] [place] [address] 11/11/2019 12:15:45 11/11/2019 12:37:08 Congestion of nasal sinus 80095665 R09.81 Benign hypertension 1072 5009 I10 Carotid ar helen stenosis 68219685 I65.29 last US 09/03/19 Diabetes mellitus 708329 09 E11.69 last ophth eval 06/2018 , mild NPDRlast A1c 04/03/19las t KANCHAN 09/12/18 Hyperlipidemia 48198894 E78.5 last LDL 01/02/19 @ goal , Transient cerebral ischemia 749047760 G45.9 ASA , eliquisno recurrence Dysphagia 61807362 R13.1 0 just had EGD and C scope 07/2019 Screening mammography 24 798460 Z12.31 last mammogram 10/24/18 Screening for malignant neoplasm of colon 453828453 Z12.11 last C scope 2019 Active or passive immunization 081238547 Z23 up to date Idiopathic peripheral neuropathy 46563659 G60.9 with DM and previous H/O callus formation ,will need diabetic shoes Mild neuro cognitive disorder 856944945 G31.84 MMS is 27 last visit [id number] Evon Saenz MD [employer] [facility] [place] [address] [place] [address] 02/11/2020 12:12:52 02/11/2020 12:54:46 Benign hypertension 82823316 I10 Carotid ar helen stenosis 11654983 I65.29 last US 09/03/19 Diabetes mellitus 552473 09 E11.69 last ophth eval 07/07/2019 , mild NPDRlast A1c 04/03/19las t KANCHAN 09/12/18 Hyperlipidemia 76618302 E78.5 last LDL 01/02/19 @ goal , Idiopathic peripheral neuropathy 97036393 G60.9 with DM and previous H/O callus formation ,will need diabetic shoes Mild neuro cognitive disorder 529296610 G31.84 MMS is 27 last visitincre ase memantine to 10 BID [id number] Evon Saenz MD [employer] [address] [facility] ,[address] [address] 05/13/2020 11:36:35 05/13/2020 12:49:32 Adult health examination 136611517 Z00.01 Benign hypertension 1072 5009 I10 good control Body mass index 30+ - obesity 584361208 Z68.33 education Carotid ar helen stenosis 70054890 I65.29 last US 09/03/19 Coronary arteriosclerosis 40678790 I25.10 on cardiac cath 04/11/18 Diabetes mellitus 673913 09 E11.69 last ophth eval 04/01/20 , mild NPDRlast A1c 03/22/20las t KANCHAN 03/22/20 Right bund le branch block 18386327 I45.10 last ECHO 03/03/19 Cirrhosis of liver 91651 007 K74.60 S/P liver transplant Hyperlipidemia 02158412 E78.5 last LDL 01/02/19 @ goal , Idiopathic peripheral neuropathy 57516846 G60.9 with DM and previous H/O callus formation ,will need diabetic shoeslast B12 03/22/20 History of liver recipient 972900912 Z94.4 sees hepatology on reg basis Migraine 49940404 G43.90 9 good control Mild neuro cognitive disorder 580431649 G31.84 MMS is 27 last visiton memantine to 10 BID 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 606076050 E11.3299 mild , sees ophth every 3 monthslast visit 03/10/20 Osteoarthritis 884687306 M19.90 OK on tylenol 500 TID Osteopenia 146112505 M85 .89 last DEXA 5/15/18 Pulmonary embolism 88359 003 I26.99 on eliquis Umbilical hernia 8450353 07 K42.9 education Urinary incontinence 165 463436 R32 stable 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 171992136 K43.2 education Vitamin D deficiency 347 72241 E55.9 last level 01/02/19 Screening mammography 24 373811 Z12.31 last mammogram 02/06/20 Screening for malignant neoplasm of cervix 797822781 Z12.4 per pt had PAP 2017 Screening for malignant neoplasm of colon 158288433 Z12.11 last C scope 2019 Active or passive immunization 967332769 Z23 up to date Congestion of nasal sinus 33546269 R09.81 [id number] Evon Saenz MD [employer] [address]72 [facility] [place] ,[address] [address] 08/12/2020 11:39:42 08/12/2020 12:31:28 Benign hypertension 52042929 I10 good control Body mass index 30+ - obesity 683481391 Z68.33 education Carotid ar helen stenosis 97276773 I65.29 last US 09/03/19 Coronary arteriosclerosis 89079165 I25.10 on cardiac cath 04/11/18 Diabetes mellitus 363068 09 E11.69 last ophth eval 07/20/19 , mild NPDRlast A1c 03/22/20las t KANCHAN 03/22/20 Hyperlipidemia 39720694 E78.5 last LDL 03/22/20 @ goal , Idiopathic peripheral neuropathy 59060980 G60.9 with DM and previous H/O callus formation ,will need diabetic shoeslast B12 03/22/20 Migraine 70187408 G43.90 9 good control Osteoarthritis 439458401 M19.90 OK on tylenol 500 TID Osteopenia 901684300 M85 .89 last DEXA 11/20/17 Vitamin D deficiency 347 23660 E55.9 last level 01/02/19 Screening mammography 24 619577 Z12.31 last mammogram 02/06/20 Screening for malignant neoplasm of cervix 733009429 Z12.4 per pt had PAP 08/25/19 Screening for malignant neoplasm of colon 568595430 Z12.11 last C scope 2019 Active or passive immunization 920313374 Z23 up to date Impacted c erumen of bilateral ears 6562801801 443490 H61.23 education Allergic r hinitis caused by pollen 51124374 J30.1 Mild neuro cognitive disorder 437903293 G31.84 MMS is 27 last visiton memantine to 10 BID [id number] Evon Saenz MD [employer] [address] [facility] [address] [place] [address] [place] [address] 11/17/2020 12:34:41 11/17/2020 13:32:37 Diabetes mellitus 29195282 E11.69 last ophth eval 10/18/20 , mild NPDR last A1c 03/22/20 last KANCHAN 03/22/20 Coronary arteriosclerosis 14196724 I25.10 on cardiac cath 04/11/18 Cirrhosis of liver 24933 007 K74.60 S/P liver transplant Carotid ar helen stenosis 18684889 I65.29 last US 09/03/19 Benign hypertension 1072 5009 I10 good control Body mass index 30+ - obesity 310225443 Z68.33 education Hyperlipidemia 29790971 E78.5 last LDL 03/22/20 @ goal , Idiopathic peripheral neuropathy 84577300 G60.9 with DM and previous H/O callus formation ,will need diabetic shoeslast B12 03/22/20 Migraine 80520226 G43.90 9 good control Osteoarthritis 803940667 M19.90 OK on tylenol 500 TID Osteopenia 119145568 M85 .89 last DEXA 09/07/20 Pulmonary embolism 01664 003 I26.99 on eliquis Vitamin D deficiency 347 95362 E55.9 last level 01/02/19 Ventricula r hypertrophy 749312029 I51.7 last ECHO 03/03/19 recheck Screening mammography 24 780300 Z12.31 last mammogram 02/06/20 Screening for malignant neoplasm of cervix 999689897 Z12.4 per pt had PAP 08/25/19 Screening for malignant neoplasm of colon 492022500 Z12.11 last C scope 2019 Active or passive immunization 870514149 Z23 up to date 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 seen neurosurg 2011 , did not go for surg still have stool and urine incontinen ce Hypocalcemia 2585003 E83 .51 Diarrhea 82569850 R19.7 questran PRN , change to ER metformin Urinary incontinence 165 106658 R32 stable [id number] Evon Saenz MD [employer] [facility], [place] [address] [facility] [place] [address] [place] [address] 12/02/2020 11:39:31 12/02/2020 13:07:07 Otitis externa 9484358 H60.90 Lt Spinal harpreet nosis of lumbar region 72283402 M48.061 have dilan with neurosurg still have stool and urine incontinen ce Benign par oxysmal positional vertigo 543084525 H81.10 better , will try to get D/C summery History of liver recipient 669994606 Z94.4 sees hepatology on reg basis [id number] Evon Saenz MD [employer], [address] [place] [address] 02/17/2021 12:58:27 02/17/2021 13:49:52 Benign hypertension 06113948 I10 good control Body mass index 30+ - obesity 403767879 Z68.33 education Carotid ar helen stenosis 25055281 I65.29 last US 12/02/20 Cirrhosis of liver 66597 007 K74.60 S/P liver transplant Coronary arteriosclerosis 06476888 I25.10 on cardiac cath 04/11/18 Diabetes mellitus 338670 09 E11.69 last ophth eval 01/25/21 , mild NPDR last A1c 11/17/20 last KANCHAN 11/17/20 History of liver recipient 269915996 Z94.4 sees hepatology on reg basis Hyperlipidemia 96101683 E78.5 last LDL 11/17/20 above goal , Idiopathic peripheral neuropathy 45217048 G60.9 with DM and previous H/O callus formation ,will need diabetic shoeslast B12 03/22/20 Migraine 23646562 G43.90 9 good control Osteoarthritis 682574020 M19.90 OK on tylenol 500 TID Osteopenia 415186091 M85 .89 last DEXA 09/07/20 Pulmonary embolism 88792 003 I26.99 on eliquis Spinal harpreet nosis of lumbar region 23714306 M48.061 have dilan with neurosurg still have stool and urine incontinen ce Vitamin D deficiency 347 63357 E55.9 last level 01/02/19 Urinary incontinence 165 373610 R32 stable Allergic r hinitis caused by pollen 31953185 J30.1 Screening mammography 24 953425 Z12.31 last mammogram 02/06/20 Screening for malignant neoplasm of cervix 699448336 Z12.4 per pt had PAP 08/25/19 Screening for malignant neoplasm of colon 096001056 Z12.11 last C scope 2019 Active or passive immunization 372238937 Z23 up to date Family his tory of breast cancer 248839861 Z80.3 sister , mother [id number] Evon Saenz MD [employer] [address] [facility] [address] [place] [address] [address] 06/30/2021 15:38:12 06/30/2021 16:27:14 Adult health examination 187390334 Z00.01 Benign hypertension 1072 5009 I10 good controllas t EKG 11/18/20 Body mass index 30+ - obesity 631748154 Z68.33 education Allergic r hinitis caused by pollen 09959665 J30.1 Aortic tammy ve regurgitation 12305904 I35.1 last ECHO 03/17/21 Carotid ar helen stenosis 75851498 I65.29 last US 12/02/20 Cirrhosis of liver 42830 007 K74.60 S/P liver transplant Congestion of nasal sinus 36477832 R09.81 flonase PRN Coronary arteriosclerosis 37552083 I25.10 on cardiac cath 04/11/18 Diabetes mellitus 657116 09 E11.69 last ophth eval 01/25/21 , mild NPDR last A1c 11/17/20 last KANCHAN 11/17/20 Diarrhea 38568052 R19.7 questran PRN , change to ER metformin History of liver recipient 533230109 Z94.4 sees hepatology on reg basis Hyperlipidemia 09395093 E78.5 last LDL 11/17/20 above goal , Hypocalcemia 6362697 E83 .51 recheck Idiopathic peripheral neuropathy 51599795 G60.9 with DM and previous H/O callus formation ,will need diabetic shoeslast B12 03/22/20 Migraine 20634963 G43.90 9 good control Mild neuro cognitive disorder 065950023 G31.84 MMS is 27 last visiton memantine to 10 BID 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 , sees ophth every 3 monthslast visit 03/10/20 Osteoarthritis 103066762 M19.90 OK on tylenol 500 TID Osteopenia 414890258 M85 .89 last DEXA 09/07/20 Pulmonary embolism 80743 003 I26.99 on eliquis Right bund le branch block 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 I45.10 last ECHO 12/15/20 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 have dilan with neurosurg still have stool and urine incontinen ce Umbilical hernia 3959495 07 K42.9 education Urinary incontinence 165 308722 R32 stable Uterine leiomyoma 902200 05 D25.9 asymptomat ic 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 227382043 K43.2 education Ventricula r hypertrophy 549574362 I51.7 last ECHO 12/15/20 Vitamin D deficiency 347 51254 E55.9 last level 01/02/19 Screening mammography 24 629537 Z12.31 last mammogram 05/25/21 Screening for malignant neoplasm of cervix 680704461 Z12.4 per pt had PAP 08/25/19 Screening for malignant neoplasm of colon 860069955 Z12.11 last C scope 2019 Active or passive immunization 875705680 Z23 up to date Pain of ri ght shoulder joint 2636757009 1145755 M25.511 [id number] Evon Saenz MD [employer], [place] [address] [facility] [place] ,[address] [place] [address] 10/10/2021 15:01:37 10/10/2021 16:12:33 Benign hypertension 75440326 I10 good controllas t EKG 11/18/20 Body mass index 30+ - obesity 140915416 Z68.33 education Carotid ar helen stenosis 14871796 I65.29 last US 12/02/20 Cirrhosis of liver 62373 007 K74.60 S/P liver transplant Coronary arteriosclerosis 14219101 I25.10 on cardiac cath 04/11/18 Diabetes mellitus 077667 09 E11.69 last ophth eval 01/25/21 , mild NPDR last A1c 11/17/20 last KANCHAN 11/17/20 History of liver recipient 003126956 Z94.4 sees hepatology on reg basis Hyperlipidemia 12201136 E78.5 last LDL 11/17/20 above goal , Spinal harpreet nosis of lumbar region 88220803 M48.061 have dilan with neurosurg still have stool and urine incontinen ce Vitamin D deficiency 347 36685 E55.9 last level 01/02/19 Screening mammography 24 326128 Z12.31 last mammogram 05/25/21 Screening for malignant neoplasm of cervix 296747832 Z12.4 per pt had PAP 08/25/19 Screening for malignant neoplasm of colon 132619841 Z12.11 last C scope 2019 Active or passive immunization 340972195 Z23 up to date Advance di rective discussed with patient 796830254 Z71.89 education Gastroesop hageal reflux disease without esophagitis 023645938 K21.9 Mild neuro cognitive disorder 232060756 G31.84 MMS is 27 last visiton memantine to 10 BID Pulmonary embolism 82686 003 I26.99 on eliquis [id number] Evon Saenz MD [employer] [address] [place] [address] [place] [address] [place] [address] 01/18/2022 13:15:14 01/18/2022 14:49:10 Vitamin D deficiency 16677755 E55.9 last level 01/02/19 Diabetes mellitus 435233 09 E11.69 last ophth eval 11/2021 , mild NPDR last A1c 10/10/21 last KANCHAN 11/17/20 Carotid ar helen stenosis 54365507 I65.29 last US 12/02/20 Benign hypertension 1072 5009 I10 good controllas t EKG 11/18/20 Body mass index 30+ - obesity 913471734 Z68.33 education Allergic r hinitis caused by pollen 70231155 J30.1 Screening mammography 24 562297 Z12.31 last mammogram 05/25/21 History of liver recipient 513672476 Z94.4 sees hepatology on reg basis Screening for malignant neoplasm of cervix 595622942 Z12.4 per pt had PAP 08/25/19 Screening for malignant neoplasm of colon 725045654 Z12.11 last C scope 2019 Active or passive immunization 975939315 Z23 up to date [id number] Evon Saenz MD [employer] [address] [facility] [place] ,[address] [place] [address] 05/01/2022 11:34:42 05/01/2022 12:59:14 Benign hypertension 91139454 I10 good controllas t EKG 01/26/22 Body mass index 30+ - obesity 663921670 Z68.33 education Carotid ar helen stenosis 03996376 I65.29 last US 03/30/22 Diabetes mellitus 627269 09 E11.69 last ophth eval 11/2021 , mild NPDR last A1c 10/10/21 last KANCHAN 11/17/20 Osteoarthritis 153124026 M19.90 OK on tylenol 500 TID Spinal harpreet nosis of lumbar region 34217329 M48.061 seen neurosurg , not a candidate for surgery still have stool and urine incontinen ce Vitamin D deficiency 347 34322 E55.9 last level 01/18/22 Urinary incontinence 165 414728 R32 stable Mild neuro cognitive disorder 151273893 G31.84 MMS is 27 last visiton memantine to 10 BID Screening mammography 24 027617 Z12.31 last mammogram 05/25/21 Screening for malignant neoplasm of cervix 554966343 Z12.4 per pt had PAP 08/25/19 Screening for malignant neoplasm of colon 488941490 Z12.11 last C scope 2019 Active or passive immunization 929763531 Z23 up to date [id number] Evon Saenz MD [employer] [facility] [facility] [place] [address] [place] [address] 07/31/2022 18:45:49 07/31/2022 20:39:26 Adult health examination 578617154 Z00.01 Benign hypertension 1072 5009 I10 good controllas t EKG 01/26/22 Aortic tammy ve regurgitation 80469263 I35.1 last ECHO 03/17/21 Body mass index 30+ - obesity 836877920 Z68.33 education Cirrhosis of liver 007 K74.60 S/P liver transplant Coronary arteriosclerosis 40228825 I25.10 on cardiac cath 04/11/18 Diabetes mellitus 586724 09 E11.69 last ophth eval 11/2021 , mild NPDR last A1c 10/10/21 last KANCHAN 11/17/20 Gastroesop hageal reflux disease without esophagitis 875267708 K21.9 stable History of liver recipient 991434997 Z94.4 sees hepatology on reg basis Hyperlipidemia 61588378 E78.5 last LDL 10/10/21 goal , Idiopathic peripheral neuropathy 19884521 G60.9 with DM and previous H/O callus formation ,will need diabetic shoeslast B12 03/22/20 Hypocalcemia 2944500 E83 .51 recheck Migraine 57834765 G43.90 9 good control Mild neuro cognitive disorder 277145055 G31.84 MMS is 27 last visiton memantine to 10 BID 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 914305686 E11.3299 mild , sees ophth every 3 monthslast visit 03/10/20 Osteoarthritis 320383826 M19.90 OK on tylenol 500 TID Pulmonary embolism 18439 003 I26.99 on eliquisedu cation about anticoagul ation safty Spinal harpreet nosis of lumbar region 02877628 M48.061 seen neurosurg , not a candidate for surgery still have stool and urine incontinen ce Umbilical hernia 5178105 07 K42.9 education Urinary incontinence 165 148008 R32 stable Uterine leiomyoma 343668 05 D25.9 asymptomat ic 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 234315777 K43.2 education Vitamin D deficiency 347 86097 E55.9 last level 01/18/22 Screening mammography 24 343814 Z12.31 last mammogram 07/24/22 Screening for malignant neoplasm of cervix 313315297 Z12.4 per pt had PAP 08/25/19 Screening for malignant neoplasm of colon 444801201 Z12.11 last C scope 2019 Active or passive immunization 189474057 Z23 up to date Advance di rective discussed with patient 494954695 Z71.89 education Carotid ar helen stenosis 95219037 I65.29 last US 03/30/22 [id number] Evon Saenz MD [employer], [employer] [address] [facility] ,[address] [place] [address] 09/06/2022 18:52:11 09/15/2022 10:23:23 Pain in upper limb 127892590 M79.603 Double incontinence 7845 9008 N39.498 Diarrhea 72415191 R19.7 questran PRN , trial of pancreatic enzymes Benign hypertension 1072 5009 I10 good controllas t EKG 01/26/22 Body mass index 30+ - obesity 666682142 Z68.33 educationd own 3 LBs Carotid ar helen stenosis 85985941 I65.29 last US 03/30/22 Diabetes mellitus 046888 09 E11.69 last ophth eval 11/2021 , mild NPDR last A1c 10/10/21 last KANCHAN 11/17/20 Mild neuro cognitive disorder 763044155 G31.84 recheck MMSon memantine to 10 BID Spinal harpreet nosis of lumbar region 51633645 M48.061 seen neurosurg , not a candidate for surgery still have stool and urine incontinen ceneed a letter for moving mail box closer to the house Active or passive immunization 937449579 Z23 up to date [id number] Evon Saenz MD [employer], [address] [place] ,[address] [place] [address] 10/30/2022 18:46:21 10/30/2022 20:10:19 Benign hypertension 08129849 I10 good controllas t EKG 01/26/22 Body mass index 30+ - obesity 948604701 Z68.33 educationd own 8 LBs Carotid ar helen stenosis 14131657 I65.29 last US 03/30/22 Diabetes mellitus 038696 09 E11.69 last ophth eval 11/2021 , mild NPDR last A1c 10/10/21 last KANCHAN 11/17/20 Vitamin D deficiency 347 03946 E55.9 last level 01/18/22 Hyperlipidemia 33363569 E78.5 last LDL 10/10/21 goal , Idiopathic peripheral neuropathy 31955010 G60.9 with DM and previous H/O callus formation ,will need diabetic shoeslast B12 03/22/20 History of liver recipient 443324982 Z94.4 sees hepatology on reg basis Active or passive immunization 863967482 Z23 up to date Impacted c erumen of bilateral ears 4427843553 560158 H61.23 education [id number] Evon Saenz MD [employer] [facility], [address] [place] [address] [place] [address] 01/29/2023 18:41:36 01/31/2023 21:32:40 Benign hypertension 82704025 I10 good controllas t EKG 01/26/22 Body mass index 30+ - obesity 256450291 Z68.33 educationd own 8 LBs Carotid ar helen stenosis 98651953 I65.29 last US 03/30/22 Coronary arteriosclerosis 94154226 I25.10 on cardiac cath 04/11/18 Diabetes mellitus 405893 09 E11.69 last ophth eval 11/2021 , mild NPDR last A1c 10/10/21 last KANCHAN 11/17/20 Hyperlipidemia 04220479 E78.5 last LDL 11/01/22 @ goal , Idiopathic peripheral neuropathy 21092833 G60.9 with DM and previous H/O callus formation ,will need diabetic shoeslast B12 03/22/20 Spinal harpreet nosis of lumbar region 14066441 M48.061 seen neurosurg , not a candidate for surgery still have stool and urine incontinen ceneed a letter for moving mail box closer to the house History of liver recipient 793038454 Z94.4 sees hepatology on reg basis Vitamin D deficiency 347 24410 E55.9 last level 01/18/22 Screening mammography 24 132191 Z12.31 last mammogram 07/24/22 Screening for malignant neoplasm of cervix 041868679 Z12.4 per pt had PAP 08/25/19 Screening for malignant neoplasm of colon 632125541 Z12.11 last C scope 2019 Active or passive immunization 009500651 Z23 up to date [id number] Evon Saenz MD [employer], [employer] [address] [facility] [place] ,[address] [place] [address] 05/02/2023 18:32:10 05/02/2023 19:27:22 Benign hypertension 32736628 I10 good controllas t EKG 01/29/23 Body mass index 30+ - obesity 892736268 Z68.33 education Carotid ar helen stenosis 34834573 I65.29 last US 03/30/22 Diabetes mellitus 096824 09 E11.69 last ophth eval 11/2021 , mild NPDR last A1c 02/12/23 last KANCHAN 11/17/20 Hyperlipidemia 61710799 E78.5 last LDL 11/01/22 @ goal , Mild neuro cognitive disorder 346553750 G31.84 recheck MMSon memantine to 10 BID Osteoarthritis 196531442 M19.90 OK on tylenol 500 TID Recurrent falls 51755232 2 R29.6 Pain of ri ght shoulder joint 5067487335 5772050 M25.511 Screening mammography 24 943997 Z12.31 last mammogram 07/24/22 Screening for malignant neoplasm of cervix 337012903 Z12.4 per pt had PAP 08/25/19 Screening for malignant neoplasm of colon 408735366 Z12.11 last C scope 2019 Active or passive immunization 352843994 Z23 up to date Bilateral hearing loss 16664402 H91.93 [id number] Evon Saenz MD [employer], [place] [address] [facility] [place] ,[address] [place] [address] 06/11/2023 18:34:31 06/11/2023 19:32:35 Edema of lower extremity 579924996 R60.0 increase furosemide to 40 for 3 days , Daily BP , Dyspnea 887710387 R06.00 [id number] Evon Saenz MD [employer] [facility], [place] [address] [facility] [place] [address] [place] [address] 06/18/2023 18:33:04 06/18/2023 20:04:38 Edema of lower extremity 635486772 R60.0 , Daily BP , Dyspnea 893743644 R06.00 better Benign hypertension 1072 5009 I10 good controllas t EKG 01/29/23 Carotid ar helen stenosis 93324458 I65.29 last US 03/30/22 Diabetes mellitus 383402 09 E11.69 last ophth eval 11/2021 , mild NPDR last A1c 06/08/23 last KANCHAN 11/17/20 Active or passive immunization 898063565 Z23 up to date [id number] Evon Saenz MD [employer] [facility], [place] [address] [facility] [place] [address] [place] [address] 07/11/2023 13:54:01 07/11/2023 15:12:07 Benign hypertension 78560515 I10 good controllas t EKG 01/29/23 Edema of l ower extremity 522140048 R60.0 a lot better , Daily BP , go back to 20 mg QAM lasix D-dimer ab ove reference range 462304251 R79.1 had -ve venous doppler 06/2023 Active or passive immunization 505324851 Z23 up to date [id number] Evon Saenz MD [employer] [facility], [place] [address] [facility] [place] [address] [place] [address] 08/08/2023 18:17:06 08/09/2023 09:38:03 Poor balance 362330557 R27.8 Benign hypertension 1072 5009 I10 good controlBP 2 weekslast EKG 01/29/23 Body mass index 30+ - obesity 781204169 Z68.33 education Carotid ar helen stenosis 83346458 I65.29 last US 03/30/22 Pain of ri ght shoulder joint 0910575512 9663970 M25.511 Spinal harpreet nosis of lumbar region 96129561 M48.061 seen neurosurg , not a candidate for surgery still have stool and urine incontinen ceneed a letter for moving mail box closer to the house Active or passive immunization 598493143 Z23 up to date [id number] Evon Saenz MD [employer], [place] [address] [facility] [place] [address] [place] [address] 09/11/2023 11:37:12 09/11/2023 12:21:06 Recurrent falls 055101278 R29.6 cont' PTstop eliquis Benign hypertension 1072 5009 I10 good controlBP 2 weekslast EKG 01/29/23 Adult heal th examination 419844368 Z00.01 Body mass index 30+ - obesity 430156282 Z68.33 education Carotid ar helen stenosis 59542454 I65.29 last US 06/14/23 Cirrhosis of liver 65152 007 K74.60 S/P liver transplant Coronary arteriosclerosis 69811628 I25.10 on cardiac cath 04/11/18 Diabetes mellitus 896457 09 E11.69 last ophth eval 06/2023 , mild NPDR last A1c 06/08/23 last KANCHAN 06/08/23 Double incontinence 7845 9008 N39.498 stable Hyperlipidemia 02693303 E78.5 last LDL 06/08/23 above goal , Idiopathic peripheral neuropathy 64956902 G60.9 with DM and previous H/O callus formation ,will need diabetic shoeslast B12 03/22/20 Migraine 40553643 G43.90 9 good control Mild neuro cognitive disorder 789501907 G31.84 recheck MMSon memantine to 10 BID Osteoarthritis 256497118 M19.90 OK on tylenol 500 TID Osteopenia 081517740 M85 .89 last DEXA 09/07/20 Pulmonary embolism 85587 003 I26.99 stop eliquisedu cation about anticoagul ation safty Spinal harpreet nosis of lumbar region 46537164 M48.061 seen neurosurg , not a candidate for surgery still have stool and urine incontinen ceneed a letter for moving mail box closer to the house 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 998448137 E11.9 Vitamin D deficiency 347 39525 E55.9 last level 02/12/23 Aortic tammy ve regurgitation 67127350 I35.1 last ECHO 03/17/21 Screening mammography 24 167437 Z12.31 last mammogram 07/24/22 Screening for malignant neoplasm of cervix 375110312 Z12.4 per pt had PAP 06/2023see s THERMOSCREW OPERATOR every 3 months for vag ring change Screening for malignant neoplasm of colon 999646575 Z12.11 last C scope 2019 Active or passive immunization 875934095 Z23 up to date Advance di rective discussed with patient 248825483 Z71.89 educations on is her son Hematoma of lower leg 44 6471791 S80.11XA Rt lower thigh , observatio n , educations top eliquis [id number] Evon Saenz MD [employer], [employer] [facility] [place] [address] [place] [address] 12/10/2023 18:32:03 12/10/2023 19:37:34 Benign hypertension 65954355 I10 good controlBP 2 weekslast EKG 01/29/23 Body mass index 30+ - obesity 850496025 Z68.33 education Carotid ar helen stenosis 35888210 I65.29 last US 06/14/23 Diabetes mellitus 217756 09 E11.69 last ophth eval 06/2023 , mild NPDR last A1c 06/08/23 last KANCHAN 06/08/23 Idiopathic peripheral neuropathy 84975717 G60.9 with DM and previous H/O callus formation ,will need diabetic shoeslast B12 03/22/20ee n neurology 09/2023 Mixed hyperlipidemia 267 807349 E78.2 last LDL 09/11/23 Screening mammography 24 212428 Z12.31 last mammogram 07/24/22 History of liver recipient 547898713 Z94.4 sees hepatology on reg basis Screening for malignant neoplasm of cervix 736768727 Z12.4 per pt had PAP 07/2022sees THERMOSCREW OPERATOR every 3 months for vag ring change Screening for malignant neoplasm of colon 662346828 Z12.11 last C scope 2019 Active or passive immunization 395473341 Z23 up to date [id number] Evon Saenz MD [employer], [place] [address] [facility] [place] [address] [place] [address] 01/14/2024 12:00:02 01/14/2024 13:40:22 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 O2 is 98% on RA History of liver recipient 888545819 Z94.4 sees hepatology on reg basis 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 195749428 E11.9 last A1c 09/11/23 [id number] Evon Saenz MD [employer], [place] [address] [facility] ,[address] [place] [address] 02/20/2024 18:02:36 02/20/2024 19:09:26 Spinal stenosis of lumbar region 33796650 M48.061 seen neurosurg , not a candidate for surgery still have stool and urine incontinen ceneed a letter for moving mail box closer to the house Pulmonary embolism 21774 003 I26.99 stop eliquisedu cation about anticoagul ation safty 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 031634165 E11.9 last A1c 09/11/23 Iron defic iency anemia 75844104 D50.9 Vitamin B1 2 deficiency (non anemic) 95515124 E53.8 Mild neuro cognitive disorder 358714207 G31.84 recheck MMSon memantine to 10 BID Restless l egs syndrome 43492210 G25.81 Hyperlipidemia 41043598 E78.5 last LDL 06/08/23 above goal , History of liver recipient 369548865 Z94.4 sees hepatology on reg basis Benign hypertension 1072 5009 I10 good controlBP 2 weekslast EKG 01/29/23 Edema of l ower extremity 885401410 R60.0 a lot better , Daily BP , go back to 20 mg QAM lasix Vitamin D deficiency 347 16551 E55.9 last level 02/12/23 Dyspnea 605898005 R06.00 better Allergic r hinitis caused by pollen 91847246 J30.1 Urinary incontinence 165 532129 R32 stable Active or passive immunization 400623264 Z23 up to date [id number] Evon Saenz MD [employer] [facility], [place] [address] [facility] [place] [address] [place] [address] 06/02/2024 18:28:27 06/02/2024 19:35:14 Benign hypertension 10969610 I10 restart losartan 25BP 2 weekslast EKG 01/29/23 Body mass index 30+ - obesity 817078811 Z68.33 education Diabetes mellitus 458796 09 E11.69 last ophth eval 01/2024 , mild NPDR last A1c 06/08/23 last KANCHAN 06/08/23 Idiopathic peripheral neuropathy 03286672 G60.9 with DM and previous H/O callus formation ,will need diabetic shoeslast B12 03/22/20ee n neurology 09/2023 Osteoarthritis 230057985 M19.90 OK on tylenol 500 TID Spinal harpreet nosis of lumbar region 59151919 M48.061 seen neurosurg , not a candidate for surgery still have stool and urine incontinen ceneed a letter for moving mail box closer to the house 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 per neurology note Pain of le ft shoulder joint 4610756052 7643088 M25.512 Vitamin D deficiency 347 69346 E55.9 last level 02/12/23 History of liver recipient 709938258 Z94.4 sees hepatology on reg basis Screening mammography 24 844040 Z12.31 last mammogram 07/24/22 Active or passive immunization 526683005 Z23 up to date Restless l egs syndrome 88435264 G25.81 [id number] Evon Saenz MD [employer], [place] [address] [facility] [place] [address] [place] [address] 09/01/2024 18:33:31 09/01/2024 22:20:12 Benign hypertension 09101746 I10 restart losartan 25BP 2 weekslast EKG 01/29/23 Upper resp iratory tract infection caused by Influenza A virus 9378850078 04613 J09.X2 better Pneumonia 103242440 J18. 9 Body mass index 30+ - obesity 348105616 Z68.33 education Restless l egs syndrome 15017670 G25.81 [id number] Evon Saenz MD [employer] [place] [address] [facility] [address] [place] [address] 01/21/2025 11:24:49 01/21/2025 12:53:50 Adult health examination 652706642 Z00.01 7354867 Benign hypertension 1072 5009 I10 restart losartan 25BP 2 weekslast EKG 01/29/23 Aortic tammy ve regurgitation 73490176 I35.1 last ECHO 03/17/21 Coronary arteriosclerosis 17840161 I25.10 on cardiac cath 04/11/18 Right bund le branch block 18889800 I45.10 last ECHO 12/15/20 Carotid ar helen stenosis 10696445 I65.29 last US 06/14/23 Mixed hyperlipidemia 267 379354 E78.2 last LDL 09/11/23 Pulmonary embolism 89201 003 I26.99 stop eliquisedu cation about anticoagul ation safty Diabetes mellitus 154920 09 E11.69 last ophth eval 11/2024 , mild NPDR last A1c 06/08/23 last KANCHAN 06/08/23 Body mass index 30+ - obesity 770779554 Z68.33 education Vitamin D deficiency 347 97034 E55.9 last level 02/12/23 Gastroesop hageal reflux disease without esophagitis 094175144 K21.9 stable Cirrhosis of liver 11006 007 K74.60 S/P liver transplant Chronic renal failure 90 076918 N18.9 Double incontinence 7845 9008 N39.498 stable Osteoarthritis 505796891 M19.90 OK on tylenol 500 TID Migraine 84353725 G43.90 9 good control 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 102038918 F02.B0 per neurology note Spinal harpreet nosis of lumbar region 67946293 M48.061 seen neurosurg , not a candidate for surgery still have stool and urine incontinen ceneed a letter for moving mail box closer to the house Idiopathic peripheral neuropathy 38910047 G60.9 with DM and previous H/O callus formation ,will need diabetic shoeslast B12 03/22/20ee n neurology 09/2023 Allergic r hinitis caused by pollen 87686556 J30.1 stable History of pneumonia 161 862306 Z87.01 885168 Screening mammography 24 480750 Z12.31 6517838294 last mammogram 07/24/22 Cancer cer vix screening status 799136661 Z12.4 093308 per pt had PAP 07/2022sees THERMOSCREW OPERATOR every 3 months for vag ring change Screening for malignant neoplasm of colon 790648196 Z12.11 575766 last C scope 2019 Immunization due 1580659 08 Z23 9029616 up to date Counseling 826661556 Z71 .89 923523 educations on is her son Vitamin B1 2 deficiency (non anemic) 05686856 E53.8 [id number] Evon Saenz MD [employer], [place] [address] [facility] [place] ,[address] [address] 04/22/2025 11:33:40 04/22/2025 12:07:02 Benign hypertension 01452207 I10 - restart losartan 25- BP 2 weeks- last EKG 01/29/23 Carotid ar helen stenosis 81213480 I65.29 - last US 03/05/25 Mixed hyperlipidemia 267 609614 E78.2 - last LDL 09/11/23 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 107203336 E11.9 - last A1c 03/05/25 ,- Last KANCHAN 02/13/25 ,- last ophth 03/25/25 Vitamin B1 2 deficiency (non anemic) 15509321 E53.8 - last level 02/13/25 Vitamin D deficiency 347 67820 E55.9 - last level 02/13/25 Overweight in adulthood with body mass index of 25 or more but less than 30 368779658 Z68.29 613281 - education Chronic renal failure 90 375293 N18.9 - sees nephrology on reg basis Screening mammography 24 114297 Z12.31 0288105612 last mammogram 07/24/22 Immunization due 2574141 08 Z23 5687641 up to date Menopause present 737429 006 Z78.0 61664 Health Concerns Section Related Observation LastModified by Organization Detai ls LastModified Time None Recorded Concern Status LastModified by Organization Details LastModified Time None Recorded Advance Directives Directive Y: Payers Insurance Date Sequence Insurance Name Policy Number Policy Reyes Covered Member ID Reyes Member ID Guarantor Name 04/20/2025 2 [place] 104 Morelia Rodriguez [id number] Morelia Rodriguez 04/19/2025 1 [place] Morelia Rodriguez [id number] Morelia Rodriguez Notes Date Note Type Note Provider Name and Address Organization Details Recorded Time 4 text/html Hypertension F/UReported by PatientHPIFor medications, patient reportstaking medications as directedandno side effects from medication. For lifestyle, patient reportsregular exercise,limiting/avoiding salt, andcompliant with low salt diet. For associated symptoms, patient reportsno dizziness,no lightheadedness,no chest pain,no shortness of breath,no palpitations,no edema,no calf pain with exertion, andno headache. Evon Saenz MD [address] [place] [address], [place], [address], [facility] 02/20/2024 18:55:59 4 text/html Hypertension F/UReported by PatientHPIFor medications, patient reportstaking medications as directedandno side effects from medication. For lifestyle, patient reportsregular exercise,limiting/avoiding salt, andcompliant with low salt diet. For associated symptoms, patient reportsno dizziness,no lightheadedness,no chest pain,no shortness of breath,no palpitations,no edema,no calf pain with exertion, andno headache. nephrology stopped losartan 2/2 low Bp and ^ K Evon Saenz MD [address] [facility] [place] [address], [place], [address], [facility] 06/02/2024 19:30:21 5 text/html Hospitalization Contact RecordReported by PatientHospitalization Contact RecordFor follow up, patient reportsdate of discharge: (please enter in format 'mm/dd/yyyy') (08/28/24)anddate of contact: (please enter in format 'mm/dd/yyyy') (08/28/24). went to ER08/24/24 for change in mental status , Inpt till 08/28/24 Dx pneumonia and flu A , better Evon Saenz MD [address] [facility] [address], [place], [address], [facility] 09/01/2024 20:04:27 5 text/html Medicare Annual Wellness VisitReported by PatientSocial/Behavioral HistoryFor diet and nutrition, patient reportshealthy diet. For fracture risk, patient reportsno history of fractures,no recent explained fracture,no sudden unexplained fractures, andno previous musculoskeletal injuries. For physical activity, patient reportsrecent increase in physical activity,good physical condition, anddiscussed exercise habits.Mental Status:For depression risk, patient reportsnever feels sad, empty, or tearful,no loss of interest in activities,no significant changes in weight,no sleep disturbances or insomnia,no agitation,no loss of energy,no feelings of worthlessness or guilt,no thoughts of suicide,no history of depression, andno history of mood disorders. For orientation, patient reportsno disorientation to time,no disorientation to date, andno disorientation to place. For concentration and memory, patient reportsno decreased concentrating ability,no memory lapses or loss, anddoes not forget words. For speech/motor difficulties, patient reportsno speech difficulties,no difficulty expressing formulated concepts,no difficulty with fine manipulative tasks,no difficulty writing/copying,no slowed reaction time, anddoes not knock things over when trying to pick them up.Functional AbilityFor activities of daily living, patient reportsunable to bathe without assistance,unable to dress without assistance,unable to contol urination and bowels, andunable to feed self without assistancebut reportsable to bathe with limited or no assistance,able to get out of chair or bed with limited or no assistance,able to groom with limited or no assistance, andable to toilet with limited or no assistance. For instrumental activities of daily living, patient reportsunable to do house work without assistance,unable to grocery shop without assistance,unable to manage medications without assistance,unable to manage money without assistance, andunable to to prepare meals without assistancebut reportsable to manage medications with limited or no assistanceandable to use the phone with limited or no assistance. For hearing, patient reportsno loss of hearing. For vision, patient reportsno vision problems. For falls risk assessment, patient reportsno frequent falls while walking,no fall in the past year,no fall since last visit, andno dizziness/vertigo. For home safety, patient reportsuse of seatbelts. Hypertension F/UReported by PatientHPIFor medications, patient reportstaking medications as directedandno side effects from medication. For lifestyle, patient reportsregular exercise,limiting/avoiding salt, andcompliant with low salt diet. For associated symptoms, patient reportsno dizziness,no lightheadedness,no chest pain,no shortness of breath,no palpitations,no edema,no calf pain with exertion, andno headache. Evon Saenz MD [address], [place], [address], [facility] 01/21/2025 12:48:07 5 text/html Medicare Annual Wellness VisitReported by PatientFunctional AbilityFor falls risk assessment, patient reportsno frequent falls while walking,no fall in the past year,no fall since last visit, andno dizziness/vertigo. Hypertension F/UReported by PatientHPIFor medications, patient reportstaking medications as directedandno side effects from medication. For lifestyle, patient reportsregular exercise,limiting/avoiding salt, andcompliant with low salt diet. For associated symptoms, patient reportsno dizziness,no lightheadedness,no chest pain,no shortness of breath,no palpitations,no edema,no calf pain with exertion, andno headache. Evon Saenz MD [address], [place], [address], [facility] 04/22/2025 12:02:04 OBGyn Episode No OBEpisode recorded.
[2025-05-18 12:17] VITALS: BP 176/81; PULSE 59; RESP 14; O2SAT 98
--- NOTE | 2025-05-18 13:28 | ED.FALL ---
HPI - Fall General Chief Complaint: Fall Stated Complaint: fell today, hit head R shoulder pain Time Seen by Provider: 05/18/25 12:59 Source: patient and family (daughter in law w/ patient and son (via phone)) Mode of arrival: ambulatory Limitations: no limitations History of Present Illness HPI Narrative: Dtxqm-xwlw-dseinwdk female presents after falling today and striking her head as well as her right shoulder. She is complaining of pain in her right shoulder in her right elbow. No loss of consciousness. Initial question of anticoagulation however confirm that she is not on anticoagulation by family. Son notes that she injured her right shoulder 15-20 years ago when falling down stairs; she had injuries but without surgical intervention. She took 2 500 mg tablets of Tylenol prior to arrival she notes that pain improved with this current pain is hard to tell on a 0-10 scale. Her pain is worse with movement. She denies any paresthesias. So far she has had a granola bar and some sips of water only. Related Data Home Medications ?Medication ?Instructions ?Recorded ?Confirmed ?Last Taken ?Type duloxetine 60 mg capsule,delayed 60 mg PO DAILY 01/15/24 08/24/24 08/23/24 History release memantine 10 mg tablet 10 mg PO BID 01/15/24 08/24/24 08/23/24 History rosuvastatin 5 mg tablet 5 mg PO DAILY 01/15/24 08/24/24 08/23/24 History cetirizine 10 mg tablet 10 mg PO HS 08/24/24 08/24/24 08/23/24 History cyanocobalamin (vitamin B-12) 1,000 mcg subcut MONTHLY 08/24/24 08/24/24 Unknown History 1,000 mcg/mL injection solution ergocalciferol (vitamin D2) 1,250 1,250 mcg PO .every two weeks 08/24/24 08/24/24 Unknown History mcg (50,000 unit) capsule ferrous sulfate 325 mg (65 mg 325 mg PO BID 08/24/24 08/24/24 08/23/24 History iron) tablet (FeroSul) furosemide 20 mg tablet 20 mg PO DAILY 08/24/24 08/24/24 08/23/24 History gabapentin 100 mg capsule 100 mg PO HS 08/24/24 08/24/24 08/23/24 History losartan 25 mg tablet 25 mg PO DAILY 08/24/24 08/24/24 08/23/24 History mirabegron 25 mg tablet,extended 25 mg PO DAILY 08/24/24 08/24/24 08/23/24 History release 24 hr (Myrbetriq) ropinirole 0.5 mg tablet 0.5 mg PO HS 08/24/24 08/24/24 08/23/24 History Allergies Allergy/AdvReac Type Severity Reaction Status Date / Time morphine Allergy Intermediate Unknown Verified 05/18/25 14:11 prednisone Allergy Unknown Other Verified 05/18/25 14:11 [facility] Past Medical History Medical History (Updated 05/19/25 @ 00:00 by Background Betsy) Right hand dominant Dementia Pernicious anemia Memory impairment Pulmonary embolism previously On chronic anticoagulation with Eliquis in 2019 but NOT on as of 05/2025 Neuropathy Hypertension Hyperlipidemia Coronary artery disease Cardiac catheterization performed due to preop clearance April 2018 demonstrated less than 25% of mid LAD stenosis and 40% RCA stenosis Diabetes type 2, controlled Surgical History Surgical History S/P liver transplant History of left knee replacement Liver transplanted H/O cardiac catheterization April 2018 Family History Family History Other Adopted Unknown family medical history Social History Social History Social History: Currently lives in her son's home. Ambulates with a walker. Primary care physician Dr. Alfredo John Code status: Full code Second hand tobacco smoke exposure: No Alcohol intake: never Substance use: never Substance use type: does not use Do You Feel Safe in your Home?: Yes Lack of Transportation: No Lack of Food: Never True Current Housing: I Have Housing Concerned About Future Housing: No Difficulty Paying Gas/Electric Bills: No Difficulty Paying for Meds: No Currently Unemployed: No Education: Associate Degree Difficulty w/ Childcare or Family Care: No Gender identity (if verbalized by the patient): Female Spiritual care concerns: No Agree to blood products: Yes Exam Narrative: GENERAL: Well-appearing, well-nourished, and in no acute distress. HEAD: Normocephalic, atraumatic. EYES: Non injected, non icteric ENT: Nares clear, no rhinorrhea or epistaxis. Gross auditory acuity intact. NECK: Supple. No meningismus. CHEST: Speaking in full sentences. No respiratory distress. HEART: Regular rate and rhythm. . ABDOMEN: Soft, nondistended. EXTREMITIES: Full range of motion at bilateral wrists. Patient has 5/5 strength with elbow flexion extension bilaterally. Patient has ability to abduct and move left arm at the shoulder. Patient able to demonstrate some abduction of the right shoulder but not fully as limited due to pain. She does have point tenderness over right lateral epicondyle of the humerus. SKIN: Warm, dry, no rash. NEURO: No focal deficits. Alert and oriented. Answering questions. Following commands. Normal speech without aphasia or dysarthria. PSYCH: Normal mood and affect. Course Vital Signs Vital signs: Vital Signs Temperature 97.2 F L 05/18/25 10:34 Pulse Rate 59 L 05/18/25 10:34 Respiratory Rate 16 05/18/25 10:34 Blood Pressure 171/92 H 05/18/25 10:34 Pulse Oximetry 94 05/18/25 10:34 Temperature 97.2 F L 05/18/25 10:34 Pulse Rate 54 L 05/18/25 14:16 Respiratory Rate 17 05/18/25 14:16 Blood Pressure 175/91 H 05/18/25 14:16 Pulse Oximetry 100 05/18/25 14:16 MDM - Fall MDM Narrative Medical decision making narrative: Right hand dominant Patient presents after falling today and hitting her head and right shoulder. She was complaining of right shoulder and right elbow pain. In the emergency department she is afebrile with vital signs notable for mild bradycardia, hypertension. Plain film imaging as below. Given her point tenderness at the right lateral humeral epicondyle and her pain with range of motion, will proceed with CT imaging. It appears from this imaging that patient *has* had rotator cuff repair. She does not recall the details. Daughter in law with patient did not know as she has only been with patient's son for the past [address] Dennis, orthopedic surgeon who recommends patient be placed in a sling and follow up in clinic. Patient provided with his office clinic contact information. Discharged with Rx for OTC analgesic medications. Differential Diagnosis Differential diagnosis: Likely other (Intracranial hemorrhage, C-spine fracture, elbow fracture/dislocation, shoulder fracture/dislocation) Imaging Data Radiologist's impression: Impressions Head CT 05/18/25 11:12 IMPRESSION: 1. No acute hemorrhage or large acute ischemic event. 2. Chronic appearing findings as above. Cervical Spine CT 05/18/25 11:14 IMPRESSION: No fracture lucency C1-C7. Advanced degenerative changes including probable multilevel spinal canal stenosis. Shoulder CT 05/18/25 14:12 IMPRESSION: 1. No acute osseous abnormality. 2. Changes of prior right rotator cuff repair and chronic rotator cuff arthropathy with likely secondary mild cephalad subluxation of the humeral head and moderate glenohumeral osteoarthritis with small joint effusion. 3. Moderate right acromioclavicular osteoarthritis. Discharge Plan Discharge Clinical Impression: Fall, Osteoarthritis of right acromioclavicular joint, Anterior subluxation of right humerus, Acute pain of right shoulder due to trauma, Osteoarthritis of right glenohumeral joint Patient Disposition: Home Condition: Stable Instructions: Antibiotic Form, Osteoarthritis (ED), How to Use a Sling (ED), Fall Prevention for Older Adults (ED), Shoulder Pain (ED), Early Postoperative or Post Injury Shoulder Exercises (ED) Additional Instructions: Acetaminophen/Tylenol (maximum 4000 mg per day) is safe to take with NSAIDs (ibuprofen/Motrin) for pain relief. Keep your arm in the shoulder sling be can continue to move it and perform [id number]-[id number]-[id number] exercises. Follow-up with the orthopedic surgeon listed below. If his clinic does not call you, you can call them. Return to the emergency department with any new or worsening symptoms. Patient Language: Icelandic Prescriptions: New ibuprofen 600 mg tablet 600 mg PO TID PRN (Reason: pain) Qty: 30 0RF acetaminophen 500 mg capsule 1,000 mg PO Q6H PRN (Reason: pain) Qty: 30 0RF No Action aspirin [Children's Aspirin] 81 mg Tablet,Chewable 81 mg PO DAILY@0800 30 Days Qty: 30 0RF tacrolimus 0.5 mg capsule 1.5 mg PO BID 7 Days Qty: 42 0RF Rx Instructions: pt takes 3 capsules in the morning and 3 capsules at night rosuvastatin 5 mg tablet 5 mg PO DAILY memantine 10 mg tablet 10 mg PO BID duloxetine 60 mg capsule,delayed release(DR/EC) 60 mg PO DAILY polyethylene glycol 3350 [Miralax] 17 gram Powder In Packet 17 g PO QAM PRN (Reason: Constipation) Qty: 30 0RF acetaminophen [Acetaminophen Extra Strength] 500 mg tablet 1,000 mg PO Q6H MDD 3,000 mg PRN (Reason: pain) Qty: 90 0RF cetirizine 10 mg tablet 10 mg PO HS cyanocobalamin (vitamin B-12) 1,000 mcg/mL solution 1,000 mcg subcut MONTHLY ergocalciferol (vitamin D2) 1,250 mcg (50,000 unit) capsule 1,250 mcg PO .every two weeks ferrous sulfate [FeroSul] 325 mg (65 mg iron) tablet 325 mg PO BID furosemide 20 mg tablet 20 mg PO DAILY gabapentin 100 mg capsule 100 mg PO HS losartan 25 mg tablet 25 mg PO DAILY mirabegron [Myrbetriq] 25 mg tablet extended release 24 hr 25 mg PO DAILY ropinirole 0.5 mg tablet 0.5 mg PO HS benzonatate 100 mg Capsule 100 mg PO TID PRN (Reason: Cough) Qty: 20 0RF Debrox 6.5 % Drops 5 drp EACH EAR BID Qty: 1 0RF guaifenesin [Mucus Relief ER] 600 mg Tablet Extended Release 12hr 600 mg PO Q12HR Qty: 20 0RF levofloxacin 750 mg tablet 750 mg PO Q48H 7 Days Qty: 4 0RF Follow-up/Referrals: Joanna,MD Alfredo [Primary Care Provider] Chavo Dennis MD [Physician, Orthopedics] Time of Disposition: 15:08
--- OUTSIDE RECORDS SUMMARY | 2025-05-18 13:29 | XMS_ITS | Clinical Summary ---
Author Organization [facility] Address [address] [place] [address] Care Team Providers Care Batch Mixing Truck Driver Name Role Phone Alfredo Marshall MD Primary Care Provider [phone] Kirk Ponce MD Unavailable [phone] Allergies Active Allergy Reactions Criticality Noted Date Comments Dander Rash,Itching High 01/23/2018 Mite (D. Farinae) Itching High 01/23/2018 Morphine Other (see comment) 08/22/2018 makes me go crazy, I thought I was dying Prednisone Unknown 08/22/2018 At high doses, patient unsure of reaction to medication felt like I was climbing the kim Medications vitamin D2, ergocalciferol, [address] UNITS capsule Take 1 capsule by mouth [...] Comments Blood Pressure 136/61 08/30/2018 3:33 PM SOLVENT PLANT TREATER Pulse 73 08/30/2018 3:33 PM SOLVENT PLANT TREATER Temperature 37.1 C (98.7 F) 08/30/2018 3:33 PM SOLVENT PLANT TREATER Respiratory Rate 20 08/30/2018 3:33 PM SOLVENT PLANT TREATER Oxygen Saturation 97% 08/30/2018 3:33 PM SOLVENT PLANT TREATER Inhaled Oxygen Concentration - - Weight 99.8 kg (220 lb 0.3 oz) 08/30/2018 3:55 A M SOLVENT PLANT TREATER Height 166.4 cm (5' 5.5) 08/28/2018 6:42 AM SOLVENT PLANT TREATER Body Mass Index 36.06 08/28/2018 6:42 AM SOLVENT PLANT TREATER Plan of Treatment Health Maintenance Due Date [...] this topic Medical Devices Implanted Type Area Door To Door Salesperson Device Identifier Shelf Expiration Date Model / Serial / Lot Sling Advantage Fit Mid-Urethral Transvaginal - [id number] Implanted:Qty: 1 on 08/28/2018 by Alex Grant MD at [facility] N/A: Urinary Bladder [employer] 06/16/2021 [id number] / / [id number] Insurance MEDICARE [facility] Advance Directives * Full Code (Latest Code Status on File) Date Activated Date Inactivated Comments 08/28/2018 12:50 PM 08/30/2018 6:46 PM Care Teams Batch Mixing Truck Driver Relationship Specialty Start Date End Date Alfredo Marshall MD PCP - General 09/29/10 Kirk Ponce MD [address] [place] [id number] Referring Physician CARDIOVASCULAR DISEASE 01/30/18
--- OUTSIDE RECORDS SUMMARY | 2025-05-18 13:29 | XMS_ITS ---
Author Organization [facility] Address [address] [place] [address] Care Team Providers Care Reproduction Machine Loader Name Role Phone Alfredo Marshall MD Primary Care Provider + [phone] Alfredo Marshall MD Unavailable [phone] Elida Raimrez NP Unavailable [phone] Kirk Ponce MD Unavailable [phone] Miryam Tucker RN Unavailable Unavailab le Transplant Episode Liver Recipient [facility] ([place], [place]) - [facility] Organ Received: Liver Transplanted on 05/13/2008 Marked as Active Follow-up on 05/13/2008 Liver CoordinatorMiryam Tucker RN Phone: N/A Fax: N/A Email: N/A [place] Organ Diagnosis Organ Primary Contributory Liver Cirrhosis: [...] Liver Coordinator N/A N/A N/A Catherine Casas Fisheries Technical Officer [phone] N/A N/A Events Post-Transplant Pre-Transplant Admitted: 05/12/2008 Referred: 01/02/2008 Transplanted: 05/13/2008 Evaluation began: 8 Discharged: 05/19/2008 Center waitlisted: 8 Appointments (04/17/2025 - 06/17/2025) When With Visit Type Description 05/13/2025 Transplant - Sp Stephen History of liver transplant (HCC) (Primary Dx); Encounter for long-term (current) use of high-risk medication
--- OUTSIDE RECORDS SUMMARY | 2025-05-18 13:29 | XMS_ITS | Clinical Summary ---
Author Organization [facility] Address [address] [place] [address] Care Team Providers Care Checker Product Design Name Role Phone Alfredo Marshall MD Primary Care Provider + [phone] Alfredo Marshall MD Unavailable [phone] Elida Ramirez NP Unavailable [phone] Kirk Ponce MD Unavailable [phone] Miryam Tucker RN Unavailable Unavailab le [...] original. Labs drawn at Dr. Marshall's office [phone] Fx: [phone] Labs every 3 months and they never send results [facility] (located in Dr. Marshall's office) [phone] Problem Noted Date Diagnosed Date Idiopathic peripheral neuropathy 03/09/2023 Osteopenia 03/09/2023 Overweight 03/09/2023 Umbilical hernia 03/09/2023 Ventral incisional hernia 03/09/2023 Uterine leiomyoma 03/09/2023 Osteoarthritis 03/09/2023 Urinary incontinence 03/09/2023 Assessment & Plan (06/09/2024 12:15 PM BUSINESS ANALYTICS SPECIALIST): -stable, continue Fluid management, Myrbetriq and Estring [...] hours Assessment & Plan (09/10/2023 3:42 PM BUSINESS ANALYTICS SPECIALIST): Management options were discussed for NAILA including [...] 02/16/2023 Assessment & Plan (06/11/2023 10:13 AM BUSINESS ANALYTICS SPECIALIST): -adequate bladder emptying at today's visit (she voided just prior to visit). Consider rechecking in future when taking Myrbetriq as she is currently not taking. -Myrbetriq renewed. Vaginal atrophy 02/16/2023 Assessment & Plan (06/09/2024 12:16 PM BUSINESS ANALYTICS SPECIALIST): -Estring exchanged Assessment & Plan (03/13/2024 9:08 AM CDT): -Estring exchanged Assessment & Plan (12/14/2023 10:27 AM CDT): -Estring exchanged Assessment & Plan (09/10/2023 3:42 PM BUSINESS ANALYTICS SPECIALIST): -Estring exchanged Assessment & Plan (06/11/2023 10:13 AM BUSINESS ANALYTICS SPECIALIST): -Estring exchanged Gastroesophageal reflux disease without esophagi tis 10/10/2021 Hypocalcemia 11/17/2020 Diarrhea 11/17/2020 Spinal stenosis of lumbar region 11/17/2020 Allergic rhinitis due to pollen 08/11/2020 Congestion of nasal sinus 05/12/2020 Pancreatic cyst 03/10/2020 Memory difficulties 03/10/2020 Esophageal diverticulum 03/10/2020 Carotid artery stenosis 09/09/2019 Chronic diarrhea 04/09/2019 Overview (04/09/2019): Added automatically from request for surgery [id number] Change in bowel habits 04/09/2019 Overview (04/09/2019): Added automatically from request for surgery [id number] Pulmonary embolism 02/05/2019 Mild cognitive disorder 09/11/2018 Nonproliferative diabetic retinopathy 09/11/2018 Stress incontinence 08/28/2018 Coronary arteriosclerosis 05/28/2018 Right bundle branch block 05/28/2018 History of gastric polyp 04/30/2018 Overview (04/30/2018): Added automatically from request for surgery [id number] Obesity with body mass index 30 or [...] Department Care Team Description 05/13/2025 9:30 AM BUSINESS ANALYTICS SPECIALIST Office Visit [facility] Medicine Gastroenterology [address] [place] [address] [place] [address] Antonella Stephen MD History of liver transplant (HCC) (Primary Dx); Encounter for long-term (current) use of high-risk medication 03/26/2025 Orders Only [facility] Nephrology at [address] [place] [address] ProviderKyleigh MD 03/24/2025 12:45 PM CDT Office Visit [facility] Nephrology at [address] [place] [address] Carloz Stevenson MD JANETH (acute [...] stage 2 chronic kidney disease 03/24/2025 Telephone [facility] Nephrology at [address] [place] [address] Carloz Stevenson MD from Last [...] 11/02/2017 Surgical History Surgery Date Site/Laterality Comments [place] TONSILLECTOMY & ADENOIDEC BURAK <AGE 13 Tonsillectomy With Adenoidectomy - (Added by TW Conv) [place] DILATION & CURETTAGE DX&/ THER NONOBSTETRIC Dilation And Curettage - (Added by TW Conv) [place] LVR ALTRNSPLJ ORTHOTOPIC PRTL/WHL DON ANY AGE Liver Transplant - Orthotopic - (Added by TW Conv) [place] ESOPHAGOGASTRODUODENOSCOP Y TRANSORAL DIAGNOSTIC Diagnostic Esophagogastroduodenoscopy - gastric and antral ulcers; duodenitis (Added by TW Conv) [place] COLONOSCOPY FLX DX W/LUCIE J SPEC WHEN PFRMD Complete Colonoscopy - normal (Added by TW Conv) [place] BIOPSY LIVER NEEDLE PERCUTANEOUS Biopsy Of Liver - (Added by TW Conv) [place] ARTHROPLASTY KNEE TIBIAL PLATEAU Knee Replacement - [...] on file Legal Sex Female 2:53 PM BUSINESS ANALYTICS SPECIALIST Gender Identity Not on file Sexual Orientation [...] Comments Blood Pressure 135/79 05/13/2025 10:12 AM BUSINESS ANALYTICS SPECIALIST Pulse 59 05/13/2025 10:12 AM BUSINESS ANALYTICS SPECIALIST Temperature 35.7 C (96.2 F) 05/13/2025 10:12 AM BUSINESS ANALYTICS SPECIALIST Respiratory Rate 16 05/13/2025 10:12 AM BUSINESS ANALYTICS SPECIALIST Oxygen Saturation 94% 05/13/2025 10:12 AM BUSINESS ANALYTICS SPECIALIST Inhaled Oxygen Concentration - - Weight 81.6 kg (180 lb) 05/13/2025 10:12 AM BUSINESS ANALYTICS SPECIALIST Height 165.1 cm (5' 5) 05/13/2025 10:12 AM BUSINESS ANALYTICS SPECIALIST Body Mass Index 29.95 05/13/2025 10:12 AM BUSINESS ANALYTICS SPECIALIST Plan of Treatment Health Maintenance Due Date [...] Recently Relevant to Health Maintenance Insurance MEDICARE [facility] MEDICARE [facility] Advance Directives For more information, please contact: [phone] Documents on File Type Date Recorded Patient Entry Level Paralegal Expl anation Power of Tax Auditor 01/14/2024 1:53 PM Healthcare Agents on File Name Relationship Healthcare Agent Relationshi p Communication Joseph Santillan Health Care Agent Care Teams Checker Product Design Relationship Specialty Start Date End Date Alfredo Marshall MD [address] [place] [address] PCP - General 05/16/17 Alfredo Marshall MD [address] [place] [address] 05/16/17 Elida Ramirez NP [address] [place] [address] Nurse Practitioner Nurse Practitioner 04/04/19 Kirk Ponce MD [address] [place] [address] Referring Physician Cardiovascular Disease 04/09/19 Miryam Tucker, loft workerFeed Mill Manager Feed Mill Manager 03/04/21
[2025-05-18] MEDS: KETOROLAC 15 MG/ML VIAL (*BKC) IM (14:13)
[2025-05-18 14:16] VITALS: BP 175/91; PULSE 54; RESP 17; O2SAT 100
== END 2025-05-18 15:33 | disposition home or self-care (01) ==
PROVIDERS: Emergency Provider Student in an Organized Health Care Education/Training Program; PCP Internal Medicine
DX: M19.011 Primary osteoarthritis, right shoulder (principal); S43.011A Anterior subluxation of right humerus, initial encounter; F03.90 Unspecified dementia, unspecified severity, without behavioral disturbance, psychotic disturbance, mood disturbance, and anxiety; Z86.711 Personal history of pulmonary embolism; I10 Essential (primary) hypertension; E78.5 Hyperlipidemia, unspecified; I25.10 Atherosclerotic heart disease of native coronary artery without angina pectoris; E11.9 Type 2 diabetes mellitus without complications; W19.XXXA Unspecified fall, initial encounter
CPT/HCPCS: 70450; 72125; 73030; 73080; 73200; 96372; 99284; A4565; J1885